=== PATIENT | female | born 1980 | race Caucasian/White ===

== ENCOUNTER → 2016-10-25 02:55 | Emergency (ER) | payer OTHER ==
[~2016-10-25 02:55] MED LIST: Aspirin Low Dose CHEW TAB* 81 MG PO ONE; NS 0.9% 1000 ML* 1,000 ML IV ONE; Potassium Chlor TAB* 20 MEQ TAB.ER PO ONE; QUEtiapine TAB* 100 MG PO ONE; traZODone TAB* 50 MG TAB PO ONE
[2016-10-25 04:13] LABS: Hematocrit 39 % (35-47); Hemoglobin 13.4 g/dl (12.0-16.0); Mean Corpuscular HGB Conc 34 g/dl (31-36); Mean Corpuscular Hemoglobin 29 pg (27-31); Mean Corpuscular Volume 86 fL (80-97); Mean Platelet Volume 9 um3 (7.4-10.4); Red Blood Count 4.58 10^6/ul (4.0-5.4); Red Cell Distribution Width 14 % (10.5-15); White Blood Count 12.1 10^3/ul (3.5-10.8)
[2016-10-25 04:30] LABS: ALT 9 U/L (7-52); AST 13 U/L (13-39); Albumin 4.5 g/dL (3.2-5.2); Alkaline Phosphatase 74 U/L (34-104); Anion Gap 7 mmol/L (2-11); BUN/Creatinine Ratio 8.5 (8-20); Blood Urea Nitrogen 6 mg/dL (6-24); CO2 Carbon Dioxide 24 mmol/L (22-32); Calcium 9.2 mg/dL (8.6-10.3); Chloride 104 mmol/L (101-111); Creatine Kinase 57 U/L (10-223); EGFR African American 121.2 (>60); EGFR Non-African American 94.2 (>60); Globulin 3.5 g/dL (2-4); Glucose 115 mg/dL (70-100); Magnesium 2.2 mg/dL (1.9-2.7); Potassium 3.4 mmol/L (3.5-5.0); Sodium 135 mmol/L (133-145)
[2016-10-25 04:34] LABS: Troponin I 0.01 ng/mL (<0.04)
[2016-10-25 04:39] LABS: TSH (Thyroid Stimulating Horm) 73.32 mcIU/mL (0.34-5.60)
--- NOTE | 2016-10-25 08:06 | RAD ---
HISTORY: Chest pain COMPARISONS: June 11, 2013 VIEWS: 1: frontal portable view of the chest at 3:56 AM FINDINGS: LINES AND TUBES: None. CARDIOMEDIASTINAL SILHOUETTE: The cardiomediastinal silhouette is normal for portable technique. PLEURA: The costophrenic angles are sharp. No pleural abnormalities are noted. LUNG PARENCHYMA: There is a mild diffuse reticular pattern with indistinct pulmonary vessels. The lung volumes are low. There is linear opacification of the lung bases bilaterally. ABDOMEN: The upper abdomen is clear. There is no subphrenic gas. BONES AND SOFT TISSUES: No bone or soft tissue abnormalities are noted. IMPRESSION: 1. LOW LUNG VOLUMES. 2. LINEAR ATELECTASIS OF THE LUNG BASES BILATERALLY. 3. MILD DIFFUSE INTERSTITIAL PATTERN WHICH MAY INDICATE MILD PULMONARY INTERSTITIAL EDEMA OR MAY BE ARTIFACT OF THE PHASE OF INSPIRATION
[2016-10-25 09:06] VITALS: BP 111/64
--- NOTE | 2016-10-25 12:47 | ED ---
Augustin Betancourt Rebecca, scribed for Lexis Franco MD on 10/25/16 at 0339 . HPI Chest Pain - HPI Summary HPI Summary: Pt is a 35 y/o F who presents to ED c/o midsternal CP. Pain began tonight at 2100 while relaxing on a cough after a "very stressful last 36 hours." Pain is currently severe, ranked 8/10 and described as heaviness, citing the pain as " an elephant sitting on my chest." Pain radiates laterally across the chest but does not radiate into the arms, jaw or neck. Given ASA while en route to [facility] [place] [facility] [place] EMS. Sx aggravated by deep breaths and alleviated by nothing. Additionally c/ o SOB and feeling "shaky." Denies N/V, fever, cough, edema, LE pain and palpitations. Allergies to amoxicillin and penicillin. SHx smoking 1/2 PPD. Takes Trazadone 50 mg 3x per day, Seroquel 100 mg at a time. - History of Current Complaint Chief Complaint: EDChestWallPain Time Seen by Provider: 10/25/16 03:34 Hx Obtained From: Patient Hx Last Menstrual Period: n/a Onset/Duration: Started Hours Ago, Still Present Time of Onset: 21:00 Current Severity: Moderate Pain Intensity: 7 Pain Scale Used: 0-10 Numeric Chest Pain Location: Mid Sternal Chest Pain Radiates: Yes Chest Pain Radiates To:: Other - Across the chest Character: Heaviness Aggravating Factor(s): Deep Breaths Alleviating Factor(s): Nothing Associated Signs and Symptoms: Positive: Shortness of Breath, Other: - "shaky". Negative: Fever, Nausea, Vomiting - Allergy/Home Medications Allergies/Adverse Reactions: Allergies Allergy/AdvReac Type Severity Reaction Status Date / Time Amoxicillin Allergy Rash Verified 07/01/14 16:07 Penicillins [PCN] Allergy Rash Verified 07/01/14 16:07 PMH/Surg Hx/FS Hx/Imm Hx Endocrine/Hematology History: Reports: Hx Thyroid Disease Denies: Hx Diabetes Cardiovascular History: Reports: Other Cardiovascular Problems/Disorders - STRONG FAMILY HX HEART DISEASE Denies: Hx Hypercholesterolemia, Hx Hypertension Respiratory History: Reports: Hx Asthma Denies: Hx Chronic Obstructive Pulmonary Disease (COPD) GI History: Reports: Other GI Disorders - on going diarrhea Denies: Hx Ulcer Sensory History: Denies: Hx Contacts or Glasses, Hx Hearing Aid Opthamlomology History: Denies: Hx Contacts or Glasses Psychiatric History: Reports: Hx Anxiety, Hx Depression, Hx Community Mental Health Tx, Hx Suicide Attempt Denies: Hx Eating Disorder, Hx of Violent Episodes Against Others - Cancer History Cancer Type, Location and Year: thyroid - Surgical History Surgery Procedure, Year, and Place: thyroidectomy 2008,tubal ligation-2006, hysterectomy 2008. Choley 2013 Hx Anesthesia Reactions: No - Immunization History Date of Tetanus Vaccine: PT STATES UNSURE Date of Influenza Vaccine: NONE Infectious Disease History: No Infectious Disease History: Denies: Hx Clostridium Difficile, Hx Hepatitis, Hx Human Immunodeficiency Virus (HIV), Hx of Known/Suspected MRSA, Hx Shingles, Hx Tuberculosis, Hx Known/ Suspected VRE, Hx Known/Suspected VRSA, History Other Infectious Disease, Traveled Outside the [place] in Last 30 Days - Family History Known Family History: Positive: Cardiac Disease - grandparents - Social History Alcohol Use: None Substance Use Type: Reports: Excessive Caffeine Substance Use Comment - Amount & Last Used: Drinks a 12 pack of pepsi a day Smoking Status (MU): Heavy Every Day Tobacco Smoker Type: Cigarettes Amount Used/How Often: 1/2 pack daily Length of Time of Smoking/Using Tobacco: age 17 yo Have You Smoked in the Last Year: Yes Review of Systems Positive: Other - Feeling "shaky". Negative: Fever Positive: Chest Pain. Negative: Palpitations Positive: Shortness Of Breath. Negative: Cough Negative: Vomiting, Nausea Positive: Other - NEGATIVE: LE pain. Negative: Edema All Other Systems Reviewed And Are Negative: Yes Physical Exam Triage Information Reviewed: Yes Vital Signs On Initial Exam: Initial Vitals Temp Pulse Resp BP Pulse Ox 99.1 F 101 22 114/77 95 10/25/16 02:55 10/25/16 02:55 10/25/16 02:55 10/25/16 02:55 10/25/16 02:55 Vital Signs Reviewed: Yes Appearance: Positive: No Pain Distress, Well-Nourished, Ill-Appearing Skin: Positive: Warm, Skin Color Reflects Adequate Perfusion Head/Face: Positive: Normal Head/Face Inspection Eyes: Positive: Normal ENT: Positive: Normal ENT inspection Dental: Positive: Other - EDENTULOUS Neck: Positive: Supple Respiratory/Lung Sounds: Positive: Clear to Auscultation, Breath Sounds Present Cardiovascular: Positive: RRR, Pulses are Symmetrical in both Upper and Lower Extremities, Other - Brisk capillary refill. Negative: Murmur Abdomen Description: Positive: Nontender, Soft Bowel Sounds: Positive: Present Musculoskeletal: Positive: Normal, Strength/ROM Intact Neurological: Positive: Sensory/Motor Intact, Alert, Oriented to Person Place, Time, Facial Symmetry, Speech Normal Psychiatric: Positive: Normal - Chuy Coma Scale Coma Scale Total: 15 Diagnostics - Vital Signs Vital Signs Temp Pulse Resp BP Pulse Ox 10/25/16 02:55 99.1 F 101 22 114/77 95 - Laboratory Lab Results: Lab Results 10/25/16 10/25/16 10/25/16 Range/Units 04:01 04:01 04:01 WBC 12.1 H (3.5-10.8) 10^3/ul RBC 4.58 (4.0-5.4) 10^6/ul Hgb 13.4 (12.0-16.0) g/dl Hct 39 (35-47) % MCV 86 (80-97) fL MCH 29 (27-31) pg MCHC 34 (31-36) g/dl RDW 14 (10.5-15) % Plt Count 319 (150-450) 10^3/ul MPV 9 (7.4-10.4) um3 Neut % (Auto) 77.1 (38-83) % Lymph % (Auto) 15.9 L (25-47) % Stanton % (Auto) 4.3 (1-9) % Eos % (Auto) 2.0 (0-6) % Baso % (Auto) 0.7 (0-2) % Absolute Neuts (auto) 9.3 H (1.5-7.7) 10^3/ul Absolute Lymphs (auto) 1.9 (1.0-4.8) 10^3/ul Absolute Monos (auto) 0.5 (0-0.8) 10^3/ul Absolute Eos (auto) 0.2 (0-0.6) 10^3/ul Absolute Basos (auto) 0.1 (0-0.2) 10^3/ul Absolute Nucleated RBC 0 10^3/ul Nucleated RBC % 0 INR (Anticoag Therapy) (0.89-1.11) D-Dimer, Quantitative (Less Than 230) ng/mL Sodium 135 (133-145) mmol/L Potassium 3.4 L (3.5-5.0) mmol/L Chloride 104 (101-111) mmol/L Carbon Dioxide 24 (22-32) mmol/L Anion Gap 7 (2-11) mmol/L BUN 6 (6-24) mg/dL Creatinine 0.71 (0.51-0.95) mg/dL Est GFR ( Amer) 121.2 (>60) Est GFR (Non-Af Amer) 94.2 (>60) BUN/Creatinine Ratio 8.5 (8-20) Glucose 115 H (70-100) mg/dL Lactic Acid (0.5-2.0) mmol/L Calcium 9.2 (8.6-10.3) mg/dL Magnesium 2.2 (1.9-2.7) mg/dL Total Bilirubin 0.50 (0.2-1.0) mg/dL AST 13 (13-39) U/L ALT 9 (7-52) U/L Alkaline Phosphatase 74 (34-104) U/L Total Creatine Kinase 57 (10-223) U/L CK-MB (CK-2) 1.3 (0.6-6.3) ng/mL Troponin I 0.01 (<0.04) ng/mL B-Natriuretic Peptide 48 ( - 100) pg/mL Total Protein 8.0 (6.4-8.9) g/dL Albumin 4.5 (3.2-5.2) g/dL Globulin 3.5 (2-4) g/dL Albumin/Globulin Ratio 1.3 (1-3) TSH 73.32 H (0.34-5.60) mcIU/mL Beta HCG, Quant < 0.60 mIU/mL 10/25/16 10/25/16 10/25/16 Range/Units 04:01 04:01 07:10 WBC (3.5-10.8) 10^3/ul RBC (4.0-5.4) 10^6/ul Hgb (12.0-16.0) g/dl Hct (35-47) % MCV (80-97) fL MCH (27-31) pg MCHC (31-36) g/dl RDW (10.5-15) % Plt Count (150-450) 10^3/ul MPV (7.4-10.4) um3 Neut % (Auto) (38-83) % Lymph % (Auto) (25-47) % Stanton % (Auto) (1-9) % Eos % (Auto) (0-6) % Baso % (Auto) (0-2) % Absolute Neuts (auto) (1.5-7.7) 10^3/ul Absolute Lymphs (auto) (1.0-4.8) 10^3/ul Absolute Monos (auto) (0-0.8) 10^3/ul Absolute Eos (auto) (0-0.6) 10^3/ul Absolute Basos (auto) (0-0.2) 10^3/ul Absolute Nucleated RBC 10^3/ul Nucleated RBC % INR (Anticoag Therapy) 0.95 (0.89-1.11) D-Dimer, Quantitative < 200 (Less Than 230) ng/mL Sodium (133-145) mmol/L Potassium (3.5-5.0) mmol/L Chloride (101-111) mmol/L Carbon Dioxide (22-32) mmol/L Anion Gap (2-11) mmol/L BUN (6-24) mg/dL Creatinine (0.51-0.95) mg/dL Est GFR ( Amer) (>60) Est GFR (Non-Af Amer) (>60) BUN/Creatinine Ratio (8-20) Glucose (70-100) mg/dL Lactic Acid 1.2 (0.5-2.0) mmol/L Calcium (8.6-10.3) mg/dL Magnesium (1.9-2.7) mg/dL Total Bilirubin (0.2-1.0) mg/dL AST (13-39) U/L ALT (7-52) U/L Alkaline Phosphatase (34-104) U/L Total Creatine Kinase (10-223) U/L CK-MB (CK-2) (0.6-6.3) ng/mL Troponin I 0.01 (<0.04) ng/mL B-Natriuretic Peptide ( - 100) pg/mL Total Protein (6.4-8.9) g/dL Albumin (3.2-5.2) g/dL Globulin (2-4) g/dL Albumin/Globulin Ratio (1-3) TSH (0.34-5.60) mcIU/mL Beta HCG, Quant mIU/mL Result Diagrams: 10/25/16 04:01 10/25/16 04:01 Lab Statement: Any lab studies that have been ordered have been reviewed, and results considered in the medical decision making process. - Radiology CXR Xray Interpretation: Positive (See Comments) - Infiltrate of the R base. Radiology Interpretation Completed By: ED Physician - EKG 0257 Cardiac Rate: NL - 95 bpm EKG Rhythm: Sinus Rhythm EKG Interpretation: Nl AV/IV CT, nl QTC, nl axis, poor R wave progression in V1 and V2 Re-Evaluation - Re-Evaluation First Eval Re-Evaluation Time: 08:05 - slept, pain is less, generalized fatigue. agrees to DC. advised of hypothroidism and need to get established with PCP locally after relocating from [facility]. States she will get an MD in [place]. Change: Improved Chest Pain Course/Dx - Course Assessment/Plan: Pt is a 35 y/o F who presents to ED c/o midsternal CP. Pain began tonight at 2100 while relaxing on a cough after a "very stressful last 36 hours." Pain is currently severe, ranked 8/10 and described as heaviness, citing the pain as "an elephant sitting on my chest." Pain radiates laterally across the chest but does not radiate into the arms, jaw or neck. Given ASA while en route to [facility] [place] [facility] by EMS. Sx aggravated by deep breaths and alleviated by nothing. Additionally c/o SOB and feeling "shaky." Denies N/V, fever, cough, edema, LE pain and palpitations. Allergies to amoxicillin and penicillin. SHx smoking 1/2 PPD. Takes Trazadone 50 mg 3x per day, Seroquel 100 mg at a time. CXR reveals infiltrate of the R base as read by ED physician. EKG reveals normal sinus rhythm with poor R wave progression. Labs remarkable for elevated TSH 73. Normal troponin and d-dimer. Pt DC'd home for definite follow up with PCP. - Diagnoses Provider Diagnoses: Tobacco abuse disorder, Chest pain, Hypothyroidism Discharge - Discharge Plan Condition: Stable Disposition: HOME Patient Education Materials: Chest Pain (ED), Hypothyroidism (ED) Referrals: Leonidas Chris DO [Primary Care Provider] - 2 Days The documentation as recorded by the Augustin sierra Rebecca accurately reflects the service I personally performed and the decisions made by , Lexis Franco MD.
== END | disposition home or self-care (01) ==
LOC: ED 02:55
DX: R07.9 Chest pain, unspecified (principal); E03.9 Hypothyroidism, unspecified; Z82.49 Family history of ischemic heart disease and other diseases of the circulatory system; F17.210 Nicotine dependence, cigarettes, uncomplicated
CPT/HCPCS: 36415; 71010; 80053; 82550; 82553; 83605; 83735; 83880; 84443; 84484; 84702; 85025; 85379; 85610; 93005; 96360; 99283; A9270-GY

== ENCOUNTER 2017-01-03 10:42 | Emergency (ER) | payer OTHER ==
[2017-01-03] MEDS ORDERED: Ketorolac INJ* 30 MG/ML 1 ML VIAL IM ONE (11:24)
--- NOTE | 2017-01-03 11:37 | UC ---
Respiratory Complaint HPI - HPI Summary HPI Summary: 36 yo female with nasal congestion and runny nose x 3 days now with frontal throbbing AM which started this AM about 3AM also with severe myalgias that started during the night no stiff neck no sob or cp no n/v/d she has photophobia she has not had a MOHAN like this before - History of Current Complaint Chief Complaint: UCRespiratory Stated Complaint: HEADACHE Time Seen by Provider: 01/03/17 11:12 Hx Obtained From: Patient Hx Last Menstrual Period: hysterectomy Onset/Duration: Gradual Onset, Lasting Days Timing: Constant Severity Initially: Moderate Severity Currently: Moderate Pain Intensity: 7 - MOHAN Pain Scale Used: 0-10 Numeric Aggravating Factors: Nothing Associated Signs And Symptoms: Positive: Chills, Nasal Congestion, Sinus Discomfort - Allergies/Home Medications Allergies/Adverse Reactions: Allergies Allergy/AdvReac Type Severity Reaction Status Date / Time Amoxicillin Allergy Rash Verified 01/03/17 11:00 Penicillins [PCN] Allergy Rash Verified 01/03/17 11:00 PMH/Surg Hx/FS Hx/Imm Hx Previously Healthy: Yes - Surgical History Surgical History: Yes Surgery Procedure, Year, and Place: thyroidectomy 2008,tubal ligation-2006, hysterectomy 2008. Choley 2013 - Family History Known Family History: Positive: Cardiac Disease - grandparents - Social History Alcohol Use: None Substance Use Type: None Substance Use Comment - Amount & Last Used: Drinks a 12 pack of pepsi a day Smoking Status (MU): Heavy Every Day Tobacco Smoker Type: Cigarettes Amount Used/How Often: 1/2 pack daily Length of Time of Smoking/Using Tobacco: age 17 yo Have You Smoked in the Last Year: Yes Household Exposure Type: Cigarettes - Immunization History Most Recent Influenza Vaccination: 2016 Most Recent Tetanus Shot: had it, but is unsure on what year - she thinks 3 yrs ago. Most Recent Pneumonia Vaccination: 2010 Review of Systems Constitutional: Chills Skin: Negative Eyes: Photophobia ENT: Nasal Discharge, Sinus Congestion, Sinus Pain/Tenderness Respiratory: Negative Cardiovascular: Negative Gastrointestinal: Negative Genitourinary: Negative Motor: Negative Neurovascular: Negative Musculoskeletal: Myalgia Neurological: Headache Psychological: Negative Is Patient Immunocompromised?: No All Other Systems Reviewed And Are Negative: Yes Physical Exam Triage Information Reviewed: Yes Appearance: Well-Appearing, No Pain Distress, Well-Nourished Vital Signs: Initial Vital Signs Temp 98.4 F 01/03/17 10:56 Pulse 91 01/03/17 10:56 Resp 16 01/03/17 10:56 BP 110/70 01/03/17 10:56 Pulse Ox 99 01/03/17 10:56 Vital Signs Reviewed: Yes Eyes: Positive: Conjunctiva Clear, Other: - eomi/perrl ENT: Positive: Hearing grossly normal, Nasal congestion, Nasal drainage, Sinus tenderness. Negative: Tonsillar exudate, Trismus, Muffled voice Dental Exam: Normal Neck: Positive: Supple, Nontender, No Lymphadenopathy Respiratory: Positive: Lungs clear, Normal breath sounds, No respiratory distress, No accessory muscle use Cardiovascular: Positive: RRR, No Murmur Musculoskeletal: Positive: ROM Intact, No Edema Neurological: Positive: Alert, Other: - nonfocal exam, cn2-12 intact Psychological Exam: Normal Skin Exam: Normal UC Diagnostic Evaluation - Laboratory O2 Sat by Pulse Oximetry: 99 - normal/not hypoxic Diagnostic Studies Comment: influenza (-) - Radiology Xray Interpretation: No Acute Changes - CT brain Radiology Interpretation Completed By: Radiologist Re-Evaluation - Re-Evaluation First Eval Re-Evaluation Time: 12:45 Change: Improved - MOHAN 3/ Respiratory Course/Dx - Differential Dx/Diagnosis Provider Diagnoses: Headache. ? viral cephalgia Discharge - Discharge Plan Condition: Stable Disposition: HOME Patient Education Materials: Acute Headache (ED) Referrals: Maureen Arboleda MD [Primary Care Provider] - 2 Days Additional Instructions: rest fluids recheck for new or worsening symptoms see your MD in 2 days as planned
--- NOTE | 2017-01-03 12:31 | RAD ---
HISTORY: Headache COMPARISONS: September 13, 2011 TECHNIQUE: Multiple contiguous axial CT scans were obtained of the head without intravenous contrast. FINDINGS: HEMORRHAGE/INFARCT: There is no hemorrhage or acute infarct. MASSES/SHIFT: There is no mass or shift. EXTRA-AXIAL SPACES: There are no extra-axial fluid collections. SULCI AND VENTRICLES: The sulci and ventricles are normal in size and position for the patient's stated age. CEREBRUM: There are no focal parenchymal abnormalities. BRAINSTEM: There are no focal parenchymal abnormalities. CEREBELLUM: There are no focal parenchymal abnormalities. VESSELS: The vessels are grossly normal. PARANASAL SINUSES: The paranasal sinuses are clear. ORBITS: The orbits are unremarkable. BONES AND SOFT TISSUE: No bone or soft tissue abnormalities are noted. OTHER: None IMPRESSION: NO ACUTE INTRACRANIAL PATHOLOGY.
[2017-01-03 12:52] VITALS: BP 113/69
== END 2017-01-03 12:51 | disposition home or self-care (01) ==
LOC: UCEAST 10:42
DX: R51 Headache (principal); F15.90 Other stimulant use, unspecified, uncomplicated; Z72.0 Tobacco use
CPT/HCPCS: 70450; 87502; 99211; G0463; J1885

== ENCOUNTER 2017-01-09 09:55 | Emergency (ER) | payer OTHER ==
[2017-01-09 12:40] VITALS: BP 112/76
--- NOTE | 2017-01-09 12:52 | UC ---
Throat Pain/Nasal Jalil HPI - HPI Summary HPI Summary: scotty has had 2 weeks of increased sinus pressure and cough, it is located on the right side of her face, right eye is tearing and red. - History of Current Complaint Chief Complaint: UCGeneralIllness Stated Complaint: SINUS PRESSURE Time Seen by Provider: 01/09/17 12:29 Hx Obtained From: Patient Hx Last Menstrual Period: hysterectomy ?: No Onset/Duration: Sudden Onset, Lasting Weeks Severity: Severe Cough: Nonproductive Associated Signs & Symptoms: Positive: Hoarseness, Sinus Discomfort, Nasal Discharge - Allergies/Home Medications Allergies/Adverse Reactions: Allergies Allergy/AdvReac Type Severity Reaction Status Date / Time Amoxicillin Allergy Rash Verified 01/03/17 11:00 Penicillins [PCN] Allergy Rash Verified 01/03/17 11:00 PMH/Surg Hx/FS Hx/Imm Hx Previously Healthy: Yes - Surgical History Surgical History: Yes Surgery Procedure, Year, and Place: thyroidectomy 2008,tubal ligation-2006, hysterectomy 2008. Choley 2012 - Family History Known Family History: Positive: Cardiac Disease - grandparents - Social History Alcohol Use: None Substance Use Type: None Substance Use Comment - Amount & Last Used: Drinks a 12 pack of pepsi a day Smoking Status (MU): Light Every Day Tobacco Smoker Type: Cigarettes Amount Used/How Often: < 1/2 PPD Length of Time of Smoking/Using Tobacco: Since Age 16 Have You Smoked in the Last Year: Yes Household Exposure Type: Cigarettes - Immunization History Most Recent Influenza Vaccination: 01/05/17 Most Recent Tetanus Shot: had it, but is unsure on what year - she thinks 3 yrs ago. Most Recent Pneumonia Vaccination: 2010 Review of Systems Constitutional: Negative Skin: Negative Eyes: Drainage, Eye Redness ENT: Sore Throat, Nasal Discharge, Sinus Congestion, Sinus Pain/Tenderness Respiratory: Cough Cardiovascular: Negative Gastrointestinal: Negative Genitourinary: Negative Motor: Negative Neurovascular: Negative Musculoskeletal: Arthralgia Neurological: Headache Psychological: Negative Is Patient Immunocompromised?: No All Other Systems Reviewed And Are Negative: Yes Physical Exam Triage Information Reviewed: Yes Appearance: Well-Nourished, Ill-Appearing, Pain Distress Vital Signs: Initial Vital Signs Temp 97.9 F 01/09/17 12:37 Pulse 100 01/09/17 12:37 Resp 16 01/09/17 12:37 BP 112/76 01/09/17 12:37 Pulse Ox 100 01/09/17 12:37 Vital Signs Reviewed: Yes Eyes: Positive: Conjunctiva Inflamed, Discharge - clear ENT: Positive: Pharyngeal erythema, Nasal congestion, Nasal drainage, TM bulging , TM dull, Sinus tenderness Dental Exam: Normal Neck exam: Normal Neck: Positive: Supple, Nontender, No Lymphadenopathy Respiratory Exam: Normal Respiratory: Positive: Chest non-tender, Lungs clear, Normal breath sounds Cardiovascular Exam: Normal Cardiovascular: Positive: No Murmur, Pulses Normal, Tachycardia Abdominal Exam: Normal Abdomen Description: Positive: Nontender, No Organomegaly, Soft Bowel Sounds: Positive: Present Musculoskeletal Exam: Normal Neurological Exam: Normal Psychological Exam: Normal Skin Exam: Normal Throat Pain/Nasal Course/Dx - Course Course Of Treatment: hx obtained, exam performed, treated for sinusitis - Differential Dx/Diagnosis Differential Diagnosis/HQI/PQRI: Laryngitis, Otitis Media, Pharyngitis, Sinusitis, URI Provider Diagnoses: Sinusitis Discharge - Discharge Plan Condition: Stable Disposition: HOME Patient Education Materials: Sinusitis (ED) Referrals: Maureen Arboleda MD [Primary Care Provider] - Additional Instructions: 1. TAKE the medication as prescribed. 2. Increase fluid intake and get plenty of rest. 3. Warm compresses to sinuses. 4. Run the humidifier day and night to keep secreations loose. Follow up if needed.
== END 2017-01-09 12:58 | disposition home or self-care (01) ==
LOC: UCCORT 09:55
DX: J32.9 Chronic sinusitis, unspecified (principal); Z88.0 Allergy status to penicillin; F17.210 Nicotine dependence, cigarettes, uncomplicated
CPT/HCPCS: 99212; G0463

== ENCOUNTER 2017-03-01 20:41 | Emergency (ER) | payer OTHER ==
[2017-03-01 21:55] LABS: ABS Basophils 0.1 10^3/ul (0-0.2); ABS Eosinophils 0.2 10^3/ul (0-0.6); ABS Lymphocytes 1.8 10^3/ul (1.0-4.8); ABS Monocytes 1.1 10^3/ul (0-0.8); ABS Neutrophils 7.3 10^3/ul (1.5-7.7); ABS Nucleated RBC 0 10^3/ul; Eosinophil % 1.7 % (0-6); Hematocrit 39 % (35-47); Hemoglobin 13.3 g/dl (12.0-16.0); Lymphocyte % 17.1 % (25-47); Mean Corpuscular HGB Conc 34 g/dl (31-36); Mean Corpuscular Hemoglobin 29 pg (27-31); Mean Corpuscular Volume 86 fL (80-97); Mean Platelet Volume 9 um3 (7.4-10.4); Nucleated Red Blood Cells % 0; Platelet Count 298 10^3/ul (150-450); Red Blood Count 4.59 10^6/ul (4.0-5.4); Red Cell Distribution Width 14 % (10.5-15); White Blood Count 10.4 10^3/ul (3.5-10.8)
[2017-03-01 22:10] LABS: EGFR Non-African American 134.2 (>60)
[2017-03-01 22:37] VITALS: BP 112/58
[2017-03-01] MEDS ORDERED: LORazepam INJ* 2 MG/ML 1 ML VIAL ONE (22:42)
[2017-03-01] MEDS ORDERED: LORazepam INJ* 2 MG/ML 1 ML VIAL IM ONE (22:44)
--- NOTE | 2017-03-02 02:13 | ED ---
Jyothi Betancourt Nilda, scribed for Hawa Finch MD on 03/02/17 at 0051 . HPI Chest Pain - HPI Summary HPI Summary: Pt is a 36 y/o F c/o constant severe CP that radiates to LUE for the past 5 hours. Pain is rated 10/10 in severity. Pt states pain is aggravated by movement and deep inspiration. Pt reports LUE numbness. She denies BCPs. PMHx anxiety and PTSD. - History of Current Complaint Chief Complaint: EDChestPainROMI Hx Obtained From: Patient Hx Last Menstrual Period: hysterectomy Onset/Duration: Started Hours Ago, Still Present Timing: Constant, Lasting Hours Current Severity: Severe Pain Intensity: 10 Pain Scale Used: 0-10 Numeric Chest Pain Location: Diffuse Chest Pain Radiates: Yes Chest Pain Radiates To:: Arm - left Aggravating Factor(s): Exertion, Deep Breaths Alleviating Factor(s): Rest Associated Signs and Symptoms: Positive: Numbness - LUE - Allergy/Home Medications Allergies/Adverse Reactions: Allergies Allergy/AdvReac Type Severity Reaction Status Date / Time Amoxicillin Allergy Rash Verified 01/03/17 11:00 Penicillins [PCN] Allergy Rash Verified 01/03/17 11:00 PMH/Surg Hx/FS Hx/Imm Hx Endocrine/Hematology History: Reports: Hx Thyroid Disease Denies: Hx Diabetes Cardiovascular History: Reports: Other Cardiovascular Problems/Disorders - STRONG FAMILY HX HEART DISEASE Denies: Hx Hypercholesterolemia, Hx Hypertension Respiratory History: Reports: Hx Asthma Denies: Hx Chronic Obstructive Pulmonary Disease (COPD) GI History: Reports: Other GI Disorders - on going diarrhea Denies: Hx Ulcer Sensory History: Denies: Hx Contacts or Glasses, Hx Hearing Aid Opthamlomology History: Denies: Hx Contacts or Glasses Psychiatric History: Reports: Hx Anxiety, Hx Depression, Hx Community Mental Health Tx, Hx Suicide Attempt Denies: Hx Eating Disorder, Hx of Violent Episodes Against Others - Cancer History Cancer Type, Location and Year: thyroid - Surgical History Surgery Procedure, Year, and Place: thyroidectomy 2008,tubal ligation-2006, hysterectomy 2008. Choley 2013 Hx Anesthesia Reactions: No - Immunization History Date of Tetanus Vaccine: PT STATES UNSURE Date of Influenza Vaccine: NONE Infectious Disease History: No Infectious Disease History: Denies: Hx Clostridium Difficile, Hx Hepatitis, Hx Human Immunodeficiency Virus (HIV), Hx of Known/Suspected MRSA, Hx Shingles, Hx Tuberculosis, Hx Known/ Suspected VRE, Hx Known/Suspected VRSA, History Other Infectious Disease, Traveled Outside the [place] in Last 30 Days - Family History Known Family History: Positive: Cardiac Disease - grandparents - Social History Alcohol Use: None Substance Use Type: Reports: None Substance Use Comment - Amount & Last Used: Drinks a 12 pack of pepsi a day Smoking Status (MU): Light Every Day Tobacco Smoker Type: Cigarettes Amount Used/How Often: < 1/2 PPD Length of Time of Smoking/Using Tobacco: Since Age 16 Have You Smoked in the Last Year: Yes Review of Systems Positive: Chest Pain Positive: Other - LUE pain Positive: Numbness - LUE All Other Systems Reviewed And Are Negative: Yes Physical Exam - Summary Physical Exam Summary: VITAL SIGNS: Reviewed. GENERAL: Patient is a well-developed and nourished female who seems anxious. Patient is not in any acute respiratory distress. HEAD AND FACE: No signs of trauma. No ecchymosis, hematomas or skull depressions. No sinus tenderness. EYES: PERRLA, EOMI x 2, No injected conjunctiva, no nystagmus. EARS: Hearing grossly intact. Ear canals and tympanic membranes are within normal limits. MOUTH: Oropharynx within normal limits. NECK: Supple, trachea is midline, no adenopathy, no JVD, no carotid bruit, no c- spine tenderness, neck with full ROM. CHEST: Symmetric, no tenderness at palpation LUNGS: Clear to auscultation bilaterally. No wheezing or crackles. CVS: Mild tachycardia. S1 and S2 present, no murmurs or gallops appreciated. ABDOMEN: Soft, non-tender. No signs of distention. No rebound no guarding, and no masses palpated. Bowel sounds are normal. EXTREMITIES: FROM in all major joints, no edema, no cyanosis or clubbing. NEURO: Alert and oriented x 3. No acute neurological deficits. Speech is normal and follows commands. Triage Information Reviewed: Yes Vital Signs On Initial Exam: Initial Vitals Temp Pulse Resp BP Pulse Ox 98.5 F 118 20 119/64 96 03/01/17 20:43 03/01/17 20:43 03/01/17 20:43 03/01/17 20:43 03/01/17 20:43 Vital Signs Reviewed: Yes Diagnostics - Vital Signs Vital Signs Temp Pulse Resp BP Pulse Ox 03/01/17 22:49 20 03/01/17 22:35 98.4 F 90 18 112/58 98 03/01/17 20:43 98.5 F 118 20 119/64 96 - Laboratory Lab Results: Lab Results 03/01/17 03/01/17 03/01/17 Range/Units 21:44 21:44 21:44 WBC 10.4 (3.5-10.8) 10^3/ul RBC 4.59 (4.0-5.4) 10^6/ul Hgb 13.3 (12.0-16.0) g/dl Hct 39 (35-47) % MCV 86 (80-97) fL MCH 29 (27-31) pg MCHC 34 (31-36) g/dl RDW 14 (10.5-15) % Plt Count 298 (150-450) 10^3/ul MPV 9 (7.4-10.4) um3 Neut % (Auto) 70.5 (38-83) % Lymph % (Auto) 17.1 L (25-47) % Socorro % (Auto) 10.2 H (1-9) % Eos % (Auto) 1.7 (0-6) % Baso % (Auto) 0.5 (0-2) % Absolute Neuts (auto) 7.3 (1.5-7.7) 10^3/ul Absolute Lymphs (auto) 1.8 (1.0-4.8) 10^3/ul Absolute Monos (auto) 1.1 H (0-0.8) 10^3/ul Absolute Eos (auto) 0.2 (0-0.6) 10^3/ul Absolute Basos (auto) 0.1 (0-0.2) 10^3/ul Absolute Nucleated RBC 0 10^3/ul Nucleated RBC % 0 APTT 35.0 (26.0-36.3) seconds D-Dimer, Quantitative < 200 (Less Than 230) ng/mL Sodium 135 (133-145) mmol/L Potassium 3.4 L (3.5-5.0) mmol/L Chloride 106 (101-111) mmol/L Carbon Dioxide 22 (22-32) mmol/L Anion Gap 7 (2-11) mmol/L BUN 7 (6-24) mg/dL Creatinine 0.52 (0.51-0.95) mg/dL Est GFR ( Amer) 172.6 (>60) Est GFR (Non-Af Amer) 134.2 (>60) BUN/Creatinine Ratio 13.5 (8-20) Glucose 97 (70-100) mg/dL Lactic Acid (0.5-2.0) mmol/L Calcium 9.0 (8.6-10.3) mg/dL Total Bilirubin 0.50 (0.2-1.0) mg/dL AST 9 L (13-39) U/L ALT 9 (7-52) U/L Alkaline Phosphatase 69 (34-104) U/L Total Creatine Kinase 27 (10-223) U/L CK-MB (CK-2) 0.6 (0.6-6.3) ng/mL Troponin I 0.01 (<0.04) ng/mL Total Protein 7.0 (6.4-8.9) g/dL Albumin 3.8 (3.2-5.2) g/dL Globulin 3.2 (2-4) g/dL Albumin/Globulin Ratio 1.2 (1-3) / Range/Units 21:44 WBC (3.5-10.8) 10^3/ul RBC (4.0-5.4) 10^6/ul Hgb (12.0-16.0) g/dl Hct (35-47) % MCV (80-97) fL MCH (27-31) pg MCHC (31-36) g/dl RDW (10.5-15) % Plt Count (150-450) 10^3/ul MPV (7.4-10.4) um3 Neut % (Auto) (38-83) % Lymph % (Auto) (25-47) % Socorro % (Auto) (1-9) % Eos % (Auto) (0-6) % Baso % (Auto) (0-2) % Absolute Neuts (auto) (1.5-7.7) 10^3/ul Absolute Lymphs (auto) (1.0-4.8) 10^3/ul Absolute Monos (auto) (0-0.8) 10^3/ul Absolute Eos (auto) (0-0.6) 10^3/ul Absolute Basos (auto) (0-0.2) 10^3/ul Absolute Nucleated RBC 10^3/ul Nucleated RBC % APTT (26.0-36.3) seconds D-Dimer, Quantitative (Less Than 230) ng/mL Sodium (133-145) mmol/L Potassium (3.5-5.0) mmol/L Chloride (101-111) mmol/L Carbon Dioxide (22-32) mmol/L Anion Gap (2-11) mmol/L BUN (6-24) mg/dL Creatinine (0.51-0.95) mg/dL Est GFR ( Amer) (>60) Est GFR (Non-Af Amer) (>60) BUN/Creatinine Ratio (8-20) Glucose (70-100) mg/dL Lactic Acid 0.8 (0.5-2.0) mmol/L Calcium (8.6-10.3) mg/dL Total Bilirubin (0.2-1.0) mg/dL AST (13-39) U/L ALT (7-52) U/L Alkaline Phosphatase (34-104) U/L Total Creatine Kinase (10-223) U/L CK-MB (CK-2) (0.6-6.3) ng/mL Troponin I (<0.04) ng/mL Total Protein (6.4-8.9) g/dL Albumin (3.2-5.2) g/dL Globulin (2-4) g/dL Albumin/Globulin Ratio (1-3) Result Diagrams: 03/01/17 21:44 03/01/17 21:44 Lab Statement: Any lab studies that have been ordered have been reviewed, and results considered in the medical decision making process. - EKG 2047 Cardiac Rate: Tachycardia EKG Rhythm: Sinus Rhythm - 110 bpm EKG Interpretation: Normal axis. Normal interval. No ischemic changes Chest Pain Course/Dx - Course Assessment/Plan: Pt is a 36 y/o female having CP. Pt given Ativan. Pt eloped out of ED without talking to nursing or med staff. Dx CP, anxiety. - Diagnoses Provider Diagnoses: Chest pain, Anxiety Discharge - Discharge Plan Condition: Stable Disposition: LEFT WITHOUT BEING SEEN Referrals: Maureen Arboleda MD [Primary Care Provider] - The documentation as recorded by the scribe, Roe,Tonya accurately reflects the service I personally performed and the decisions made by me, Hawa Finch MD.
== END 2017-03-02 01:10 | disposition left against medical advice (07) ==
LOC: ED 20:41
DX: R07.9 Chest pain, unspecified (principal); Z53.21 Procedure and treatment not carried out due to patient leaving prior to being seen by health care provider
CPT/HCPCS: 36415; 80053; 82550; 82553; 83605; 84484; 85025; 85379; 85730; 93005; J2060

== ENCOUNTER 2017-03-13 14:25 | Emergency (ER) | payer OTHER ==
[2017-03-13 15:13] VITALS: BP 97/58
--- NOTE | 2017-03-13 15:38 | UC ---
Respiratory Complaint HPI - HPI Summary HPI Summary: Myalgia, coughing with chest pain. Sinus pain. Chills. - History of Current Complaint Chief Complaint: UCGeneralIllness Stated Complaint: NAUSEA, VOMITING Time Seen by Provider: 03/13/17 15:20 Hx Obtained From: Patient Hx Last Menstrual Period: hysterectomy Onset/Duration: Sudden Onset, Lasting Days - 8, Worse Since - last night with sweats Severity Initially: Mild Severity Currently: Moderate Pain Intensity: 8 Character: Cough: Nonproductive Associated Signs And Symptoms: Positive: Fever, Pleuritic Chest Pain, Wheezing, URI, Nasal Congestion, Hoarseness, Sinus Discomfort - Allergies/Home Medications Allergies/Adverse Reactions: Allergies Allergy/AdvReac Type Severity Reaction Status Date / Time Amoxicillin Allergy Rash Verified 03/13/17 15:13 Penicillins [PCN] Allergy Rash Verified 03/13/17 15:13 PMH/Surg Hx/FS Hx/Imm Hx Endocrine History: Thyroid Disease Psychological History: Anxiety, Depression - Surgical History Surgical History: Yes Surgery Procedure, Year, and Place: thyroidectomy 2008,tubal ligation-2006, hysterectomy 2008. Choley 2012 - Family History Known Family History: Positive: Cardiac Disease - grandparents - Social History Occupation: Employed Full-time Lives: With Family Alcohol Use: None Substance Use Type: None Substance Use Comment - Amount & Last Used: Drinks a 12 pack of pepsi a day Smoking Status (MU): Light Every Day Tobacco Smoker Type: Cigarettes Amount Used/How Often: < 1/2 PPD Length of Time of Smoking/Using Tobacco: Since Age 16 Have You Smoked in the Last Year: Yes Household Exposure Type: Cigarettes - Immunization History Most Recent Influenza Vaccination: 01/05/17 Most Recent Tetanus Shot: had it, but is unsure on what year - she thinks 3 yrs ago. Most Recent Pneumonia Vaccination: 2010 Review of Systems Constitutional: Chills, Fatigue ENT: Sore Throat, Sinus Pain/Tenderness Respiratory: Shortness Of Breath, Cough Cardiovascular: Chest Pain - with coughing Musculoskeletal: Arthralgia, Myalgia Is Patient Immunocompromised?: No All Other Systems Reviewed And Are Negative: Yes Physical Exam Triage Information Reviewed: Yes Appearance: Well-Nourished, Ill-Appearing, Pain Distress Vital Signs: Initial Vital Signs Temp 99.5 F 03/13/17 15:09 Pulse 108 03/13/17 15:09 Resp 18 03/13/17 15:09 BP 97/58 03/13/17 15:09 Pulse Ox 99 03/13/17 15:09 Vital Signs Reviewed: Yes ENT: Positive: Pharynx normal, Nasal congestion, TMs normal, Sinus tenderness - frontal Neck exam: Normal Respiratory: Positive: Wheezing - diffuse expiratory Cardiovascular Exam: Normal Musculoskeletal Exam: Normal Neurological Exam: Normal Psychological Exam: Normal Skin Exam: Normal UC Diagnostic Evaluation - Laboratory O2 Sat by Pulse Oximetry: 99 Respiratory Course/Dx - Differential Dx/Diagnosis Differential Diagnosis/HQI/PQRI: Asthma, Lower Resp Infection, Sinusitis Provider Diagnoses: Acute URI. Acute sinusitis. Acute bronchospasm Discharge - Discharge Plan Condition: Stable Disposition: HOME Prescriptions: predniSONE TAB* [Deltasone TAB*] 20 mg PO DAILY #18 tab Sulfamethox/Trimethoprim DS* [Bactrim DS 800/160 TAB*] 1 tab PO BID #20 tab Patient Education Materials: Upper Respiratory Infection (ED), Sinusitis (ED), Sulfamethoxazole/Trimethoprim (By mouth), Bronchospasm (ED), Prednisone (By mouth) Referrals: Maureen Arboleda MD [Primary Care Provider] -
== END 2017-03-13 15:56 | disposition home or self-care (01) ==
LOC: UCCORT 14:25
DX: J06.9 Acute upper respiratory infection, unspecified (principal); J01.90 Acute sinusitis, unspecified; J98.01 Acute bronchospasm; E07.9 Disorder of thyroid, unspecified; F41.9 Anxiety disorder, unspecified; F32.9 Major depressive disorder, single episode, unspecified; E89.0 Postprocedural hypothyroidism; Z90.710 Acquired absence of both cervix and uterus; Z90.49 Acquired absence of other specified parts of digestive tract; Z88.0 Allergy status to penicillin; F17.210 Nicotine dependence, cigarettes, uncomplicated
CPT/HCPCS: 99212; G0463

== ENCOUNTER 2017-03-30 20:31 | Emergency (ER) | payer OTHER | END 2017-03-30 21:37 | disposition left against medical advice (07) | LOC: UCCORT 20:31 | DX: S69.91XA Unspecified injury of right wrist, hand and finger(s), initial encounter (principal); Z53.21 Procedure and treatment not carried out due to patient leaving prior to being seen by health care provider ==

== ENCOUNTER 2017-03-31 09:53 | Emergency (ER) | payer OTHER ==
--- NOTE | 2017-03-31 11:17 | RAD ---
Indication: Pain at the RIGHT first metacarpal following injury. Comparison: No relevant prior exams available on the [facility] for comparison. Technique: AP, lateral, and oblique views RIGHT thumb. Report: Negative for fracture or articular malalignment. Unremarkable soft tissue contours. IMPRESSION: Negative radiographic exam of the RIGHT thumb.
[2017-03-31 12:05] VITALS: BP 100/60
--- NOTE | 2017-03-31 16:37 | ED ---
Nicanor Betancourt Jennifer, scribed for Yifan Mark MD on 03/31/17 at 1025 . Upper Extremity Pain - HPI Summary HPI Summary: The patient is a 36 year old female who caught her right thumb on a garbage can handle yesterday afternoon. She complains that any movement of the thumb is painful. - History of Current Complaint Chief Complaint: EDExtremityUpper Stated Complaint: RT THUMB PAIN Time Seen by Provider: 03/31/17 10:11 Hx Obtained From: Patient Hx Last Menstrual Period: hysterectomy Mechanism Of Injury: Twisted - on handle of garbage can Onset/Duration: Started Days Ago - yesterday afternoon Timing: Constant Severity Initially: Mild Severity Currently: Mild Pain Location: Finger - Right thumb Aggravating Factor(s): Nothing Alleviating Factor(s): Nothing - Allergies/Home Medications Allergies/Adverse Reactions: Allergies Allergy/AdvReac Type Severity Reaction Status Date / Time MS Amoxicillin [Amoxicillin] Allergy Rash Verified 03/13/17 15:13 MS Penicillins [PCN] Allergy Rash Verified 03/13/17 15:13 PMH/Surg Hx/FS Hx/Imm Hx Endocrine/Hematology History: Reports: Hx Thyroid Disease Denies: Hx Diabetes Cardiovascular History: Reports: Other Cardiovascular Problems/Disorders - STRONG FAMILY HX HEART DISEASE Denies: Hx Hypercholesterolemia, Hx Hypertension Respiratory History: Reports: Hx Asthma Denies: Hx Chronic Obstructive Pulmonary Disease (COPD) GI History: Reports: Other GI Disorders - on going diarrhea Denies: Hx Ulcer Sensory History: Denies: Hx Contacts or Glasses, Hx Hearing Aid Opthamlomology History: Denies: Hx Contacts or Glasses Psychiatric History: Reports: Hx Anxiety, Hx Depression, Hx Community Mental Health Tx, Hx Suicide Attempt Denies: Hx Eating Disorder, Hx of Violent Episodes Against Others - Cancer History Cancer Type, Location and Year: thyroid - Surgical History Surgery Procedure, Year, and Place: thyroidectomy 2008,tubal ligation-2006, hysterectomy 2008. Choley 2013 Hx Anesthesia Reactions: No - Immunization History Date of Tetanus Vaccine: PT STATES UNSURE Date of Influenza Vaccine: NONE Infectious Disease History: No Infectious Disease History: Denies: Hx Clostridium Difficile, Hx Hepatitis, Hx Human Immunodeficiency Virus (HIV), Hx of Known/Suspected MRSA, Hx Shingles, Hx Tuberculosis, Hx Known/ Suspected VRE, Hx Known/Suspected VRSA, History Other Infectious Disease, Traveled Outside the [place] in Last 30 Days - Family History Known Family History: Positive: Cardiac Disease - grandparents - Social History Alcohol Use: None Substance Use Type: Reports: None Substance Use Comment - Amount & Last Used: Drinks a 12 pack of pepsi a day Smoking Status (MU): Light Every Day Tobacco Smoker Type: Cigarettes Amount Used/How Often: < 1/2 PPD Length of Time of Smoking/Using Tobacco: Since Age 16 Have You Smoked in the Last Year: Yes Review of Systems Negative: Fever Positive: Other - Right thumb pain All Other Systems Reviewed And Are Negative: Yes Physical Exam - Summary Physical Exam Summary: Appearance: The patient is well-nourished in no acute distress and in no acute pain. Skin: The skin is warm and dry and skin color reflects adequate perfusion. HEENT: ~The head is normocephalic and atraumatic. The pupils are equal and reactive. The conjunctivae are clear and without drainage. ~Nares are patent and without drainage. ~Mouth reveals moist mucous membranes and the throat is without erythema and exudate. ~The external ears are intact. The ear canals are patent and without drainage. The tympanic membranes are intact. Neck: the neck is supple with full range of motion and non-tender. There are no carotid bruits. ~There is no neck vein distension. Respiratory: Chest is non-tender. ~Lungs are clear to auscultation and breath sounds are symmetrical and equal. Cardiovascular: Heart is regular rate and rhythm. ~There is no murmur or rub auscultated. ~~There is no peripheral edema and pulses are symmetrical and equal. Abdomen: The abdomen is soft and non-tender. ~There are normal bowel sounds heard in all four quadrants and there is no organomegaly palpated. Musculoskeletal: There is no back tenderness noted. ~There is medial collateral ligament injury of the thumb. ~There is good capillary refill. ~There is no peripheral edema or calf tenderness elicited. Neurological: Patient is alert and oriented to person, place and time. ~The patient has symmetrical motor strength in all four extremities. ~Cranial nerves are grossly intact. Deep tendon reflexes are symmetrical and equal in all four extremities. Psychiatric: The patient has an appropriate affect and does not exhibit any anxiety or depression. Triage Information Reviewed: Yes Vital Signs On Initial Exam: Initial Vitals Temp Pulse Resp BP Pulse Ox 97 F 92 17 99/61 100 03/31/17 09:53 03/31/17 09:53 03/31/17 09:53 03/31/17 09:53 03/31/17 09:53 Vital Signs Reviewed: Yes Diagnostics - Vital Signs Vital Signs Temp Pulse Resp BP Pulse Ox 03/31/17 09:53 97 F 92 17 99/61 100 - Laboratory Lab Statement: Any lab studies that have been ordered have been reviewed, and results considered in the medical decision making process. - Radiology Thumb XR Xray Interpretation: No Acute Changes - Negative radiographic exam of the RIGHT thumb. Dr. Mark has reviewed this report. Radiology Interpretation Completed By: Radiologist Course/Dx - Course Course Of Treatment: Ms. Toledo came in with pain and tenderness in the medial border of her right thumb MPJ after getting it twisted at work yesterday. There was no ligamentous laxity and an x-ray was negative. I think she has a sprain and recommended immobilization and F/U. - Diagnoses Provider Diagnoses: Thumb sprain Discharge - Discharge Plan Condition: Stable Disposition: HOME Patient Education Materials: Skier's Thumb (ED) Referrals: Maureen Arboleda MD [Primary Care Provider] - 3 Days Additional Instructions: Follow up with your primary care physician in three days. Return to the emergency department for any new or worsening symptoms. The documentation as recorded by the Nicanor sierra Jennifer accurately reflects the service I personally performed and the decisions made by me, Yifan Mark MD.
== END 2017-03-31 12:04 | disposition home or self-care (01) ==
LOC: ED 09:53
DX: S63.601A Unspecified sprain of right thumb, initial encounter (principal); M79.644 Pain in right finger(s); F17.210 Nicotine dependence, cigarettes, uncomplicated; W23.1XXA Caught, crushed, jammed, or pinched between stationary objects, initial encounter; Y92.9 Unspecified place or not applicable
CPT/HCPCS: 99282

== ENCOUNTER 2017-04-14 07:08 | Emergency (ER) | payer OTHER ==
[2017-04-14 07:24] VITALS: BP 111/66
--- NOTE | 2017-04-14 07:44 | UC ---
Abdominal Pain Female HPI - HPI Summary HPI Summary: ABDOMINAL PAIN X 1 DAY + VOMITING , DIARRHEA, NO FEVER, NO CHILLS, NUMBNESS OF RIGHT ARM - History of Current Complaint Chief Complaint: UCGeneralIllness Stated Complaint: VOMITING, DIARRHEA, RT ARM COMPLAINT Time Seen by Provider: 04/14/17 07:11 Hx Obtained From: Patient Hx Last Menstrual Period: hysterectomy ?: No Onset/Duration: Gradual Onset, Lasting Days - 1, Still Present Timing: Constant Severity Initially: Moderate Severity Currently: Moderate Pain Intensity: 5 Location: Diffuse Radiates: No Character: Cramping Aggravating Factor(s): Food Alleviating Factor(s): NPO Associated Signs and Symptoms: Positive: Nausea, Vomiting, Diarrhea. Negative: Diaphoresis, Fever, Cough, Chest Pain, Dizzy, Back Pain, Constipation, Blood in Stool, Urinary Symptoms, Decreased Appetite, Vaginal Bleeding, Vaginal Discharge Allergies/Adverse Reactions: Allergies Allergy/AdvReac Type Severity Reaction Status Date / Time MS Amoxicillin [Amoxicillin] Allergy Rash Verified 04/14/17 07:14 MS Penicillins [PCN] Allergy Rash Verified 04/14/17 07:14 Home Medications: Home Medications FLUoxetine CAP* [PROzac CAP*] 20 mg PO DAILY 04/14/17 [History Confirmed ] PMH/Surg Hx/FS Hx/Imm Hx Endocrine History: Thyroid Disease Respiratory History: Asthma Psychological History: Anxiety, Depression, Post Traumatic Stress Disorder - Surgical History Surgical History: Yes Surgery Procedure, Year, and Place: thyroidectomy 2008,tubal ligation-2006, hysterectomy 2008. Choley 2012 - Family History Known Family History: Positive: Cardiac Disease - grandparents - Social History Alcohol Use: None Substance Use Type: None Substance Use Comment - Amount & Last Used: Drinks a 12 pack of pepsi a day Smoking Status (MU): Light Every Day Tobacco Smoker Type: Cigarettes Amount Used/How Often: < 1/2 PPD Length of Time of Smoking/Using Tobacco: Since Age 16 Have You Smoked in the Last Year: Yes Household Exposure Type: Cigarettes - Immunization History Most Recent Influenza Vaccination: 01/05/17 Most Recent Tetanus Shot: had it, but is unsure on what year - she thinks 3 yrs ago. Most Recent Pneumonia Vaccination: 2010 Review of Systems Constitutional: Negative Skin: Negative Eyes: Negative ENT: Negative Respiratory: Negative Gastrointestinal: Abdominal Pain, Vomiting, Diarrhea, Nausea Genitourinary: Negative Neurological: Paresthesia - RIGHT ARM Is Patient Immunocompromised?: No All Other Systems Reviewed And Are Negative: Yes Physical Exam Triage Information Reviewed: Yes Appearance: Well-Appearing, No Pain Distress, Well-Nourished Vital Signs: Initial Vital Signs Temp 98.1 F 04/14/17 07:15 Pulse 89 04/14/17 07:15 Resp 18 04/14/17 07:15 BP 111/66 04/14/17 07:15 Pulse Ox 100 04/14/17 07:15 Vital Signs Reviewed: Yes Eyes: Positive: Conjunctiva Clear ENT: Positive: Normal ENT inspection, Hearing grossly normal, Pharynx normal, Pharyngeal erythema Neck: Positive: Supple, Nontender, No Lymphadenopathy Respiratory Exam: Normal Respiratory: Positive: Chest non-tender, Lungs clear, Normal breath sounds, No respiratory distress Cardiovascular: Positive: RRR, No Murmur, Pulses Normal Abdominal Exam: Normal Abdomen Description: Positive: Nontender, No Organomegaly, Soft. Negative: CVA Tenderness (R), CVA Tenderness (L), Distended, Guarding Bowel Sounds: Positive: Present Musculoskeletal: Positive: Other: - NORMAL RIGHT ARM EXAM WITH NORMAL PULSES , GOOD COLOR, WARM TO TOUCH, NORMAL STRENGTH AND SENSATION Neurological Exam: Normal Neurological: Positive: Alert Abd Pain Female Course/Dx - Differential Dx/Diagnosis Provider Diagnoses: GASTROENTERITIS. PARASTHESIA RIGHT ARM Discharge - Discharge Plan Condition: Stable Disposition: HOME Patient Education Materials: Gastroenteritis (ED), Paresthesia (ED) Forms: *Work Release Referrals: Maureen Arboleda MD [Primary Care Provider] - 7 Days
== END 2017-04-14 07:52 | disposition home or self-care (01) ==
LOC: UCCORT 07:08
DX: K52.9 Noninfective gastroenteritis and colitis, unspecified (principal); R20.2 Paresthesia of skin; F41.8 Other specified anxiety disorders; F17.210 Nicotine dependence, cigarettes, uncomplicated
CPT/HCPCS: 99211; G0463

== ENCOUNTER 2017-06-15 11:26 | Emergency (ER) | payer OTHER ==
[2017-06-15 11:37] VITALS: BP 100/65
--- NOTE | 2017-06-15 11:40 | UC ---
General HPI - HPI Summary HPI Summary: Pt presents with anxiety. She tells me that over the last 3-4 months she has had increased stress at work and in her personal life. Was in the ED for this a month or so ago and rx'd hydroxyzine, which she says is not doing anything. She is seeing mental health, but says they keep telling her to take deep breaths and work through her anxiety and will not prescribe her anything. She saw her PCP yesterday for this increased anxiety and was told that there is nothing they can do as she is being followed by mental health. Pt admits that she used to be a substance abuser - mostly cocaine - and understands why providers are not willing to rx her benzos. This morning she was at work and her coworkers told her that she was being aggressive and "snippy". Pt admits that she is being an "uptight cunt". She is afraid that if her emotions continue like this that she will lose her job. 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 Denies fever, chills, SOB, chest pain, abdominal pain, n/v/d/c. Denies HI/SI. - History of Current Complaint Chief Complaint: UCGeneralIllness Stated Complaint: VOMITING, AND DIZZINESS Hx Obtained From: Patient Hx Last Menstrual Period: hysterectomy Onset/Duration: Gradual Onset Timing: Constant Pain Intensity: 0 - Allergy/Home Medications Allergies/Adverse Reactions: Allergies Allergy/AdvReac Type Severity Reaction Status Date / Time amoxicillin Allergy Rash Verified 06/15/17 11:37 Penicillins Allergy Anaphylatic Verified 06/15/17 11:37 Shock PMH/Surg Hx/FS Hx/Imm Hx Endocrine History: Hypothyroidism Psychological History: Anxiety - Surgical History Surgical History: Yes Surgery Procedure, Year, and Place: thyroidectomy 2008,tubal ligation-2006, hysterectomy 2008. Cholecystectomy 2012 - Family History Known Family History: Positive: Cardiac Disease - grandparents - Social History Occupation: Employed Full-time Lives: With Family Alcohol Use: None Substance Use Type: Cocaine - Past abuse Substance Use Comment - Amount & Last Used: Drinks a 12 pack of pepsi a day Smoking Status (MU): Light Every Day Tobacco Smoker Type: Cigarettes Amount Used/How Often: < 1/2 PPD Length of Time of Smoking/Using Tobacco: Since Age 16 Have You Smoked in the Last Year: Yes Household Exposure Type: Cigarettes - Immunization History Most Recent Influenza Vaccination: 01/05/17 Most Recent Tetanus Shot: had it, but is unsure on what year - she thinks 3 yrs ago. Most Recent Pneumonia Vaccination: 2010 Review of Systems Constitutional: Negative Skin: Negative Eyes: Negative ENT: Negative Respiratory: Negative Cardiovascular: Negative Gastrointestinal: Negative Neurovascular: Negative Musculoskeletal: Negative Neurological: Negative Psychological: Anxious All Other Systems Reviewed And Are Negative: Yes Physical Exam - Summary Physical Exam Summary: GENERAL: NAD. WDWN. No pain distress. SKIN: No rashes, sores, lesions, or open wounds. HEENT: Head: AT/NC Eyes: EOM intact. PERRLA. Conjunctiva clear without inflammation or discharge. Ears: Hearing grossly normal. TMs intact, no bulging, erythema, or edema. Nose: Nasal mucosa pink and moist. NTTP maxillary and frontal sinus. Throat: Posterior oropharynx without exudates, erythema, or tonsillar enlargement. Uvula midline. NECK: Supple. Nontender. No lymphadenopathy. CHEST: CTAB. No r/r/w. No accessory muscle use. Breathing comfortably and in no distress. CV: RRR. Without m/r/g. Pulses intact. Brisk cap refill. NEURO: Alert. CN II-XII grossly intact. PSYCH: Age appropriate behavior. Triage Information Reviewed: Yes Vital Signs: Initial Vital Signs Temp 96.6 F 06/15/17 11:31 Pulse 81 06/15/17 11:31 Resp 18 06/15/17 11:31 BP 100/65 06/15/17 11:31 Pulse Ox 100 06/15/17 11:31 Course/Dx - Course Course Of Treatment: I had a long conversation the the pt regarding her anxiety. I told her that there is no more we can do for her in an urgent care setting as she is already on an SSRI, hydroxyzine, and has mental health follow up. She insisted that she would like something done today. I advised her to be seen in the ED for potential mental health eval - she was agreeable to this plan and decided to go via medicaid cab. - Differential Dx - Multi-Symptom Provider Diagnoses: Anxiety Discharge - Sign-Out/Discharge Documenting (check all that apply): Discharge/Admit/Transfer - Discharge Plan Condition: Stable Disposition: HOME Patient Education Materials: Anxiety (ED) Referrals: Maureen Arboleda MD [Primary Care Provider] - Additional Instructions: Please go to the ER for further evaluation of your anxiety and likely mental health eval. - Billing Disposition and Condition Condition: STABLE Disposition: HOME
== END 2017-06-15 12:08 | disposition home or self-care (01) ==
LOC: UCEAST 11:26
DX: F41.9 Anxiety disorder, unspecified (principal); E03.9 Hypothyroidism, unspecified; Z88.0 Allergy status to penicillin; F17.210 Nicotine dependence, cigarettes, uncomplicated
CPT/HCPCS: 99212; G0463

== ENCOUNTER 2017-06-15 12:45 | Emergency (ER) | payer OTHER ==
[2017-06-15 14:41] LABS: Urine Appearance Clear; Urine Blood Negative (Negative); Urine Color Colorless; Urine Ketones Negative (Negative); Urine Protein Negative (Negative); Urine Specific Gravity 1.002 (1.010-1.030); Urine Urobilinogen Negative (Negative)
[2017-06-15 16:08] LABS: ABS Basophils 0.1 10^3/ul (0-0.2); ABS Eosinophils 0.2 10^3/ul (0-0.6); ABS Lymphocytes 2.9 10^3/ul (1.0-4.8); ABS Monocytes 0.5 10^3/ul (0-0.8); ABS Nucleated RBC 0 10^3/ul; Eosinophil % 2.3 % (0-6); Hematocrit 43 % (35-47); Hemoglobin 14.7 g/dl (12.0-16.0); Mean Corpuscular HGB Conc 34 g/dl (31-36); Mean Corpuscular Hemoglobin 30 pg (27-31); Mean Corpuscular Volume 87 fL (80-97); Mean Platelet Volume 8.9 um3 (7.4-10.4); Nucleated Red Blood Cells % 0.1; Platelet Count 347 10^3/ul (150-450); Red Blood Count 4.93 10^6/ul (4.0-5.4); Red Cell Distribution Width 14 % (10.5-15); White Blood Count 9.7 10^3/ul (3.5-10.8)
[2017-06-15 16:26] LABS: EGFR Non-African American 85.3 (>60)
[2017-06-15 19:38] VITALS: BP 126/70
--- NOTE | 2017-06-15 21:51 | ED ---
Agustin Betancourt Julia, scribed for Jairon Mckinney MD on 06/15/17 at 1416 . Psychiatric Complaint - HPI Summary HPI Summary: This patient is a 36 year old F presenting to [facility] from [facility] accompanied by her mother with a chief complaint of increased anxiety with nausea and lightheadedness. Pt reports recent increase in anxiety over the past couple of weeks. Anxiety unchanged by deep breathing and other relaxation techniques. Pt has history of anxiety and drug addiction. Pt reports 3 years of sobriety. 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 Medications with pt reviewed. - History Of Current Complaint Chief Complaint: EDMentalHealth Time Seen by Provider: 06/15/17 14:05 Hx Obtained From: Patient, Family/Sausage Meat Trimmer Hx Last Menstrual Period: hysterectomy Onset/Duration: Gradual Onset, Lasting Weeks Character: Anxious Aggravating Factor(s): Recent Stress Alleviating Factor(s): Nothing Related History: Positive For: Prior Psychiatric Issues Has Suicidal: Denies: Thoughts Has Homicidal: Denies: Thoughts - Allergies/Home Medications Allergies/Adverse Reactions: Allergies Allergy/AdvReac Type Severity Reaction Status Date / Time amoxicillin Allergy Rash Verified 06/15/17 11:37 Penicillins Allergy Anaphylatic Verified 06/15/17 11:37 Shock PMH/Surg Hx/FS Hx/Imm Hx Endocrine/Hematology History: Reports: Hx Thyroid Disease Denies: Hx Diabetes Cardiovascular History: Reports: Other Cardiovascular Problems/Disorders - STRONG FAMILY HX HEART DISEASE Denies: Hx Hypercholesterolemia, Hx Hypertension Respiratory History: Reports: Hx Asthma Denies: Hx Chronic Obstructive Pulmonary Disease (COPD) GI History: Reports: Other GI Disorders - on going diarrhea Denies: Hx Ulcer Sensory History: Denies: Hx Contacts or Glasses, Hx Hearing Aid Opthamlomology History: Denies: Hx Contacts or Glasses Psychiatric History: Reports: Hx Anxiety, Hx Depression, Hx Community Mental Health Tx, Hx Suicide Attempt, Hx Substance Abuse Denies: Hx Eating Disorder, Hx of Violent Episodes Against Others - Cancer History Cancer Type, Location and Year: thyroid - Surgical History Surgery Procedure, Year, and Place: thyroidectomy 2008,tubal ligation-2006, hysterectomy 2008. Cholecystectomy 2012 Hx Anesthesia Reactions: No - Immunization History Date of Tetanus Vaccine: PT STATES UNSURE Date of Influenza Vaccine: NONE Infectious Disease History: No Infectious Disease History: Denies: Hx Clostridium Difficile, Hx Hepatitis, Hx Human Immunodeficiency Virus (HIV), Hx of Known/Suspected MRSA, Hx Shingles, Hx Tuberculosis, Hx Known/ Suspected VRE, Hx Known/Suspected VRSA, History Other Infectious Disease, Traveled Outside the [place] in Last 30 Days - Family History Known Family History: Positive: Cardiac Disease - grandparents - Social History Occupation: Employed Full-time Alcohol Use: None 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 Smoking Status (MU): Light Every Day Tobacco Smoker Type: Cigarettes Amount Used/How Often: < 1/2 PPD Length of Time of Smoking/Using Tobacco: Since Age 16 Have You Smoked in the Last Year: Yes Review of Systems Positive: Nausea Neurological: Other - lightheaded Positive: Anxious All Other Systems Reviewed And Are Negative: Yes Physical Exam - Summary Physical Exam Summary: General: well-appearing, no pain distress Skin: warm, color reflects adequate perfusion, dry Head: normal Eyes: EOMI, FARIBA ENT: normal Neck: supple, nontender Respiratory: CTA, breath sounds present Cardiovascular: RRR Abdomen: soft, nontender Bowel: present Musculoskeletal: normal, strength/ROM intact Neurological: normal, sensory/motor intact, A&O x3 Psychological: affect/mood appropriate Triage Information Reviewed: Yes Vital Signs On Initial Exam: Initial Vitals Temp Pulse Resp BP Pulse Ox 99.3 F 93 16 122/88 100 06/15/17 12:52 06/15/17 12:52 06/15/17 12:52 06/15/17 12:52 06/15/17 12:52 Vital Signs Reviewed: Yes Diagnostics - Vital Signs Vital Signs Temp Pulse Resp BP Pulse Ox 06/15/17 12:52 99.3 F 93 16 122/88 100 - Laboratory Lab Results: Lab Results 06/15/17 06/15/17 06/15/17 Range/Units 14:28 16:00 16:00 WBC 9.7 (3.5-10.8) 10^3/ul RBC 4.93 (4.0-5.4) 10^6/ul Hgb 14.7 (12.0-16.0) g/dl Hct 43 (35-47) % MCV 87 (80-97) fL MCH 30 (27-31) pg MCHC 34 (31-36) g/dl RDW 14 (10.5-15) % Plt Count 347 (150-450) 10^3/ul MPV 8.9 (7.4-10.4) um3 Neut % (Auto) 62.3 (38-83) % Lymph % (Auto) 30.0 (25-47) % Whitman % (Auto) 4.6 (0-7) % Eos % (Auto) 2.3 (0-6) % Baso % (Auto) 0.8 (0-2) % Absolute Neuts (auto) 6.0 (1.5-7.7) 10^3/ul Absolute Lymphs (auto) 2.9 (1.0-4.8) 10^3/ul Absolute Monos (auto) 0.5 (0-0.8) 10^3/ul Absolute Eos (auto) 0.2 (0-0.6) 10^3/ul Absolute Basos (auto) 0.1 (0-0.2) 10^3/ul Absolute Nucleated RBC 0 10^3/ul Nucleated RBC % 0.1 Sodium 137 L (139-145) mmol/L Potassium 3.8 (3.5-5.0) mmol/L Chloride 103 (101-111) mmol/L Carbon Dioxide 25 (22-32) mmol/L Anion Gap 9 (2-11) mmol/L BUN 10 (6-24) mg/dL Creatinine 0.77 (0.51-0.95) mg/dL Est GFR ( Amer) 109.7 (>60) Est GFR (Non-Af Amer) 85.3 (>60) BUN/Creatinine Ratio 13.0 (8-20) Glucose 68 L (70-100) mg/dL Calcium 9.2 (8.6-10.3) mg/dL Total Bilirubin 0.30 (0.2-1.0) mg/dL AST 15 (13-39) U/L ALT 10 (7-52) U/L Alkaline Phosphatase 61 (34-104) U/L Total Protein 8.1 (6.4-8.9) g/dL Albumin 4.3 (3.2-5.2) g/dL Globulin 3.8 (2-4) g/dL Albumin/Globulin Ratio 1.1 (1-3) TSH 83.37 H (0.34-5.60) mcIU/mL Beta HCG, Quant < 0.60 mIU/mL Urine Color Colorless Urine Appearance Clear Urine pH 6.0 (5-9) Ur Specific [place] 1.002 L (1.010-1.030) Urine Protein Negative (Negative) Urine Ketones Negative (Negative) Urine Blood Negative (Negative) Urine Nitrate Negative (Negative) Urine Bilirubin Negative (Negative) Urine Urobilinogen Negative (Negative) Ur Leukocyte Esterase Negative (Negative) Urine Glucose Negative (Negative) Salicylates < 2.50 (<30) mg/dL Acetaminophen < 15 mcg/mL Serum Alcohol < 10 (<10) mg/dL Result Diagrams: 06/15/17 16:00 06/15/17 16:00 Lab Statement: Any lab studies that have been ordered have been reviewed, and results considered in the medical decision making process. Course/Dx - Course Course Of Treatment: DISCHARGE HOME STABLE AFTER MHE - Differential Dx/Clinical Impression Provider Diagnosis: Mental health problem, Hypothyroid Discharge - Sign-Out/Discharge Documenting (check all that apply): Discharge/Admit/Transfer - Discharge Plan Condition: Stable Disposition: HOME Prescriptions: ALPRAZolam TAB* [Xanax TAB*] 0.5 mg PO BID PRN #6 tab MDD 2 PRN Reason: Anxiety Forms: *Work Release Referrals: Maureen Arboleda MD [Primary Care Provider] - - Billing Disposition and Condition Condition: STABLE Disposition: HOME The documentation as recorded by the Agustin sierra Julia accurately reflects the service I personally performed and the decisions made by me, Jairon Mckinney MD.
== END 2017-06-15 19:35 | disposition home or self-care (01) ==
LOC: ED 12:45
DX: F41.9 Anxiety disorder, unspecified (principal); E03.9 Hypothyroidism, unspecified; R42 Dizziness and giddiness; R11.0 Nausea; Z32.02 Encounter for pregnancy test, result negative; J45.909 Unspecified asthma, uncomplicated; F32.9 Major depressive disorder, single episode, unspecified; Z91.5 Personal history of self-harm; Z88.0 Allergy status to penicillin
CPT/HCPCS: 36415; 80053; 80320; 80329; 81003; 84443; 84702; 85025; 99284; G0480

== ENCOUNTER 2017-07-04 13:52 | Emergency (ER) | payer OTHER ==
[2017-07-04 14:08] VITALS: BP 110/67
--- NOTE | 2017-07-04 14:23 | UC ---
Throat Pain/Nasal Jalil HPI - HPI Summary HPI Summary: sinus pressure/apin x weeks severe otalgia x days no f/c upper gums hurt MOHAN - History of Current Complaint Chief Complaint: UCEar Stated Complaint: BI LAT EAR COMP Time Seen by Provider: 07/04/17 14:10 Hx Obtained From: Patient Hx Last Menstrual Period: n/a Onset/Duration: Gradual Onset Severity: Worse Since: Pain Intensity: 10 Pain Scale Used: 0-10 Numeric Cough: Nonproductive - Epiglottits Risk Factors Epiglottis Risk Factors: Negative - Allergies/Home Medications Allergies/Adverse Reactions: Allergies Allergy/AdvReac Type Severity Reaction Status Date / Time amoxicillin Allergy Rash Verified 07/04/17 14:05 Penicillins Allergy Anaphylatic Verified 07/04/17 14:05 Shock Home Medications: Home Medications Naproxen Sodium [Aleve] 220 mg PO ONCE 07/04/17 [History Confirmed 07/04/17] PMH/Surg Hx/FS Hx/Imm Hx Previously Healthy: Yes - Surgical History Surgical History: Yes Surgery Procedure, Year, and Place: thyroidectomy 2008,tubal ligation-2006, hysterectomy 2008. Cholecystectomy 2012 - Family History Known Family History: Positive: Cardiac Disease - grandparents, Hypertension - Social History Alcohol Use: Rare Substance Use Type: None Substance Use Comment - Amount & Last Used: clean 4 years Smoking Status (MU): Light Every Day Tobacco Smoker Type: Cigarettes Amount Used/How Often: < 1/2 PPD Length of Time of Smoking/Using Tobacco: Since Age 16 Have You Smoked in the Last Year: Yes Household Exposure Type: Cigarettes - Immunization History Most Recent Influenza Vaccination: 01/05/17 Most Recent Tetanus Shot: had it, but is unsure on what year - she thinks 3 yrs ago. Most Recent Pneumonia Vaccination: 2010 Review of Systems Constitutional: Negative Skin: Negative Eyes: Negative ENT: Dental Pain, Nasal Discharge, Sinus Congestion, Sinus Pain/Tenderness Respiratory: Cough Cardiovascular: Negative Gastrointestinal: Negative Genitourinary: Negative Motor: Negative Neurovascular: Negative Musculoskeletal: Negative Neurological: Headache Psychological: Negative Is Patient Immunocompromised?: No All Other Systems Reviewed And Are Negative: Yes Physical Exam Triage Information Reviewed: Yes Appearance: Well-Appearing, No Pain Distress, Well-Nourished Vital Signs: Initial Vital Signs Temp 97.6 F 07/04/17 14:03 Pulse 91 07/04/17 14:03 Resp 19 07/04/17 14:03 BP 110/67 07/04/17 14:03 Pulse Ox 100 07/04/17 14:03 Eyes: Positive: Conjunctiva Clear ENT: Positive: Nasal congestion, Nasal drainage, TM bulging, Sinus tenderness, Uvula midline. Negative: Hearing grossly normal, Tonsillar swelling, Tonsillar exudate, Trismus, Muffled voice, Hoarse voice Neck: Positive: Supple, Nontender, No Lymphadenopathy Respiratory: Positive: Lungs clear, Normal breath sounds, No respiratory distress, No accessory muscle use Cardiovascular: Positive: RRR, No Murmur Musculoskeletal: Positive: ROM Intact, No Edema Neurological: Positive: Alert Psychological: Positive: Normal Response To Family Skin Exam: Normal Throat Pain/Nasal Course/Dx - Course Assessment/Plan: Reference #: [id number] ISTOP - Differential Dx/Diagnosis Provider Diagnoses: acute sinusitis. bilateral serous otitis media Discharge - Sign-Out/Discharge Documenting (check all that apply): Discharge/Admit/Transfer - Discharge Plan Condition: Stable Disposition: HOME Prescriptions: DOXYcycline CAP(*) [DOXYcycline 100MG CAP(*)] 100 mg PO BID #20 cap Fluticasone NASAL SPRAY 50MCG* [Flonase NASAL SPRAY 50MCG*] 2 spray BOTH NARES BID #1 btl traMADol TAB* [Ultram*] 50 mg PO Q6HR PRN #20 tab MDD 4 PRN Reason: Pain Patient Education Materials: Sinusitis (ED), Serous Otitis Media (ED) Forms: *Work Release Referrals: Maureen Arboleda MD [Primary Care Provider] - 7 Days (i fnot better) - Billing Disposition and Condition Condition: STABLE Disposition: HOME
== END 2017-07-04 14:29 | disposition home or self-care (01) ==
LOC: UCCORT 13:52
DX: J01.90 Acute sinusitis, unspecified (principal); H65.93 Unspecified nonsuppurative otitis media, bilateral; Z88.0 Allergy status to penicillin; F17.210 Nicotine dependence, cigarettes, uncomplicated
CPT/HCPCS: 99212; G0463

== ENCOUNTER 2017-07-14 08:10 | Emergency (ER) | payer OTHER ==
[2017-07-14 08:28] VITALS: BP 116/76
--- NOTE | 2017-07-14 08:41 | UC ---
Lower Extremity/Ankle HPI - HPI Summary HPI Summary: 36 year old female with history of hypothyroid here left foot pain and swelling for 3 days. Reports she works at night, on her feet and today she noticed redness 3 days ago. Worsened in the past few days. No fever, chills, n/v or any other complaints. No injuries. Reports slight scrape to her feet with her sandal. - History of Current Complaint Chief Complaint: UCLowerExtremity Stated Complaint: SWOLLEN PAINFUL FOOT Time Seen by Provider: 07/14/17 08:15 Hx Last Menstrual Period: n/a Onset/Duration: Gradual Onset Severity Initially: Mild Pain Intensity: 9 Aggravating Factor(s): Ambulation Alleviating Factor(s): Rest, Elevation - Allergies/Home Medications Allergies/Adverse Reactions: Allergies Allergy/AdvReac Type Severity Reaction Status Date / Time amoxicillin Allergy Rash Verified 07/14/17 08:24 Penicillins Allergy Anaphylatic Verified 07/14/17 08:24 Shock PMH/Surg Hx/FS Hx/Imm Hx Endocrine History: Hypothyroidism - Surgical History Surgical History: Yes Surgery Procedure, Year, and Place: thyroidectomy 2008,tubal ligation-2006, hysterectomy 2008. Cholecystectomy 2012 - Family History Known Family History: Positive: Cardiac Disease - grandparents, Hypertension - Social History Alcohol Use: Rare Substance Use Type: None Substance Use Comment - Amount & Last Used: clean 4 years Smoking Status (MU): Light Every Day Tobacco Smoker Type: Cigarettes Amount Used/How Often: < 1/2 PPD Length of Time of Smoking/Using Tobacco: Since Age 16 Have You Smoked in the Last Year: Yes Household Exposure Type: Cigarettes - Immunization History Most Recent Influenza Vaccination: 01/05/17 Most Recent Tetanus Shot: had it, but is unsure on what year - she thinks 3 yrs ago. Most Recent Pneumonia Vaccination: 2010 Review of Systems Constitutional: Negative Skin: Negative Eyes: Negative ENT: Negative Respiratory: Negative Cardiovascular: Negative Gastrointestinal: Negative Genitourinary: Negative Motor: Negative Neurovascular: Negative Musculoskeletal: Edema Neurological: Negative Psychological: Negative All Other Systems Reviewed And Are Negative: Yes Physical Exam Triage Information Reviewed: Yes Vital Signs: Initial Vital Signs Temp 36.6 C 07/14/17 08:25 Pulse 96 07/14/17 08:25 Resp 18 07/14/17 08:25 BP 116/76 07/14/17 08:25 Pulse Ox 100 07/14/17 08:25 Eye Exam: Normal ENT Exam: Normal Respiratory Exam: Normal Abdominal Exam: Normal Musculoskeletal Exam: Normal Skin: Positive: Other - left foot with ertythema over ventral aspect of ankle thats 3cmX5 cm with no fluctance tiny abrasion Lower Extremity Course/Dx - Course Course Of Treatment: Cellulitis. Given severe allergy to PCN, will avoid keflex. Will treat with clinda,. Of note, she completed doxy for Otitis media 4 days ago. - Differential Dx/Diagnosis Differential Diagnosis/HQI/PQRI: Arthritis, Cellulitis, Infection Provider Diagnoses: Cellulitis Discharge - Sign-Out/Discharge Documenting (check all that apply): Discharge/Admit/Transfer - Discharge Plan Condition: Good Disposition: HOME Prescriptions: Clindamycin Cap(NF) [Clindamycin Cap 300 mg Cap(NF)] 300 mg PO TID #30 cap Referrals: Maureen Arbloeda MD [Primary Care Provider] - - Billing Disposition and Condition Condition: GOOD Disposition: HOME
== END 2017-07-14 08:52 | disposition home or self-care (01) ==
LOC: UCEAST 08:10
DX: L03.116 Cellulitis of left lower limb (principal); E03.9 Hypothyroidism, unspecified; Z82.49 Family history of ischemic heart disease and other diseases of the circulatory system; Z88.0 Allergy status to penicillin; F17.210 Nicotine dependence, cigarettes, uncomplicated
CPT/HCPCS: 99212; G0463

== ENCOUNTER 2017-07-26 18:53 | Emergency (ER) | payer OTHER ==
[2017-07-26 19:09] VITALS: BP 106/63
--- NOTE | 2017-07-26 19:42 | ED ---
Neurological HPI - HPI Summary HPI Summary: 36 yr old female with the complaint of neck pain that radiates into her right shoulder, headache that is generalized, 9/10, associated numbness, tingling in the right arm, and also feeling off balance, and vertigo. Onset about a week ago. No change in vision, speech. Reports that her hearing also seems off. Denies bowel bladder incontinence. Fever chills denies. - History of Current Complaint Chief Complaint: UCGeneralIllness Stated Complaint: NECK PAIN, RIGHT ARM DISCOMFORT Time Seen by Provider: 07/26/17 19:13 Hx Last Menstrual Period: n/a Pain Intensity: 9 Pain Scale Used: 0-10 Numeric - Allergy/Home Medications Allergies/Adverse Reactions: Allergies Allergy/AdvReac Type Severity Reaction Status Date / Time amoxicillin Allergy Rash Verified 07/26/17 19:10 Penicillins Allergy Anaphylatic Verified 07/26/17 19:10 Shock Home Medications: Home Medications Naproxen Sodium [Aleve] 440 mg PO DAILY 07/26/17 [History Confirmed 07/26/17] PMH/Surg Hx/FS Hx/Imm Hx Endocrine/Hematology History: Reports: Hx Thyroid Disease - hypothyroidism Denies: Hx Diabetes Cardiovascular History: Reports: Other Cardiovascular Problems/Disorders - STRONG FAMILY HX HEART DISEASE Denies: Hx Hypercholesterolemia, Hx Hypertension Respiratory History: Reports: Hx Asthma Denies: Hx Chronic Obstructive Pulmonary Disease (COPD) GI History: Reports: Other GI Disorders - on going diarrhea Denies: Hx Ulcer Sensory History: Denies: Hx Contacts or Glasses, Hx Hearing Aid Opthamlomology History: Denies: Hx Contacts or Glasses Psychiatric History: Reports: Hx Anxiety, Hx Depression, Hx Community Mental Health Tx, Hx Suicide Attempt, Hx Substance Abuse Denies: Hx Eating Disorder, Hx of Violent Episodes Against Others - Cancer History Cancer Type, Location and Year: thyroid - Surgical History Surgery Procedure, Year, and Place: thyroidectomy 2008,tubal ligation-2006, hysterectomy 2008. Cholecystectomy 2012 Hx Anesthesia Reactions: No - Immunization History Date of Tetanus Vaccine: PT STATES UNSURE Date of Influenza Vaccine: NONE Infectious Disease History: No Infectious Disease History: Denies: Hx Clostridium Difficile, Hx Hepatitis, Hx Human Immunodeficiency Virus (HIV), Hx of Known/Suspected MRSA, Hx Shingles, Hx Tuberculosis, Hx Known/ Suspected VRE, Hx Known/Suspected VRSA, History Other Infectious Disease, Traveled Outside the [place] in Last 30 Days - Family History Known Family History: Positive: Cardiac Disease - grandparents, Hypertension - Social History Alcohol Use: Rare 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 Substance Use Type: Reports: None Substance Use Comment - Amount & Last Used: clean 4 years Smoking Status (MU): Light Every Day Tobacco Smoker Type: Cigarettes Amount Used/How Often: < 1/2 PPD Length of Time of Smoking/Using Tobacco: Since Age 16 Have You Smoked in the Last Year: Yes Review of Systems Constitutional: Negative Positive: Headache, Paresthesia, Numbness All Other Systems Reviewed And Are Negative: Yes Physical Exam Triage Information Reviewed: Yes Vital Signs On Initial Exam: Initial Vitals Temp Pulse Resp BP Pulse Ox 99.3 F 91 16 106/63 100 07/26/17 19:04 07/26/17 19:04 07/26/17 19:04 07/26/17 19:04 07/26/17 19:04 Vital Signs Reviewed: Yes Appearance: Positive: Well-Appearing, No Pain Distress Skin: Positive: Warm, Skin Color Reflects Adequate Perfusion Head/Face: Positive: Normal Head/Face Inspection Eyes: Positive: EOMI Neck: Positive: Nontender Respiratory/Lung Sounds: Positive: Clear to Auscultation, Breath Sounds Present Cardiovascular: Positive: RRR. Negative: Murmur Abdomen Description: Positive: Nontender Musculoskeletal: Positive: Strength/ROM Intact Neurological: Positive: Sensory/Motor Intact - reports that her right arm feels numb and tingly., Alert, Oriented to Person Place, Time, CN Intact II-III, Normal Gait, Speech Normal Psychiatric: Positive: Normal - Chuy Coma Scale Best Eye Response: 4 - Spontaneous Best Motor Response: 6 - Obeys Commands Best Verbal Response: 5 - Oriented Coma Scale Total: 15 Diagnostics - Vital Signs Vital Signs Temp Pulse Resp BP Pulse Ox 07/26/17 19:04 99.3 F 91 16 106/63 100 - Laboratory Lab Statement: Any lab studies that have been ordered have been reviewed, and results considered in the medical decision making process. Course/Dx - Course Course Of Treatment: 36 yr old with headache, vertigo, off balance, neck pain, shoulder pain, numbness in arm . She signed out AMA refusing ambulance transport to the ER. - Diagnoses Provider Diagnoses: Headache, Right arm numbness, Vertigo Discharge - Sign-Out/Discharge Documenting (check all that apply): Discharge/Admit/Transfer - Discharge Plan Condition: Stable Disposition: AGAINST MEDICAL ADVICE Referrals: Maureen Arboleda MD [Primary Care Provider] - - Billing Disposition and Condition Condition: STABLE Disposition: Against Medical Advice
== END 2017-07-26 19:33 | disposition left against medical advice (07) ==
LOC: UCCORT 18:53
DX: R51 Headache (principal); R20.0 Anesthesia of skin; R42 Dizziness and giddiness; M54.2 Cervicalgia; M25.511 Pain in right shoulder; F17.210 Nicotine dependence, cigarettes, uncomplicated; Z88.0 Allergy status to penicillin
CPT/HCPCS: 99212; G0463

== ENCOUNTER 2017-09-06 10:12 | Emergency (ER) | payer OTHER ==
--- OUTSIDE RECORDS SUMMARY | 2017-09-06 10:29 | XMS REPORT ---
:1980 External Reference #:[id number] Author Organization [facility] Address [address], [address] [place] [address] Phone [phone] Care Team Providers Name Role Phone Maureen Arboleda M.D. Care Team Information Platform Architect Unavailable Maureen Arboleda M.D. Primary Care Physician Unavailable Payers Type Date Identification Numbers Payment Provider Subscriber Commercial Policy Number: [id number] Yamil Matar PayID: [id number] [address] [address] [place] [address] Problems Date Description Provider Status Onset: 10/31/2013 Epidermoid cyst Uday Sr MD Active Onset: 01/05/2017 Postprocedural hypothyroidism Maureen Arboleda M.D. Active Onset: 08/22/2017 Thinking about stopping smoking DEJA Bruce Active Onset: 08/22/2017 Hypothyroidism DEJA Bruce Active Onset: 08/22/2017 Brachial neuritis DEJA Bruce Active Onset: 08/22/2017 Bipolar affective disorder, currently DEJA Bruce Active depressed, moderate Family History Date Family Member(s) Problem(s) Comments Father No Current Problems Mother Diabetes Mother Thyroid Disease Hashimotos Social History Type Date Description Comments Lives With Roommate Family friend. 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 every day Tizanidine HCL 07/27 Active Tablets 4mg 30tab take 1 M54.12 Maureen Arboleda, s tablet M.D. by mouth every 8 hours as needed Naproxen 07/27 Active Tablets 500mg 60tab 500 mg M54.12 Maureen Arboleda, s by mouth M.D. every 12 hours as needed pain Levothyroxine 03/04 Active Tablets 200mcg 30tab Take One Maureen Arboleda s Tablet M.D. By Mouth Every Day Fluticasone Active Suspension 50mcg/Act [place] Unknown Two Sprays In Each Nostril Twice A Day Up To 2 Weeks Fluoxetine HCL Active Capsules 60mg 1 by Unknown /0000 mouth every day Gabapentin Active Capsules 300mg take one Unknown po as needed Fexofenadine HCL 07/06 Hx Tablets 180mg 90tab 1 by J30.9 Jam s mouth at [facility] - night 07/27 Neomycin/Polymyx 07/06 Hx Suspension 3.5-65269 10ml 2-3 H62.43 Jam in/Hydrocortison /2017 -1 drops [facility] e (Otic) - each ear 07/27 4 x a day x 5 days Tizanidine HCL 03/02 Hx Tablets 4mg 30tab take 1 R07.9 Maureen Arboleda, s tablet M.D. - by mouth 06/14 every hours as needed Quetiapine 01/17 Hx Tablets 50mg F31.32 Maureen Arboleda Fumarate 2017 M.D. - 01/17 Ipratropium 01/05 Hx Solution 0.03% 30ml 2 sprays J01.90 Maureen Arboleda [place] intranas M.D. - ally 06/14 times a day as needed Lexapro Hx Tablets 10mg 30tab 1 by Unknown /0000 s mouth every day Oxaprozin Hx Tablets 600mg 60tab 1 by Unknown /0000 s mouth - twice a after meals Gabapentin 00/ Hx Tablets 1200mg 90Tab qd Unknown /0000 s - 01/05 Abilify Hx Tablets 20mg 1 po qd Unknown /0000 - 01/05 Levothyroxine 00 Hx Tablets 375mcg by mouth Unknown Sodium /0000 every - day 12/21 Wellbutrin XL Hx Tablets ER 150mg by mouth Unknown /0000 24HR every - day 01/05 Levothyroxine Hx Tablets 125mcg 2 tabs Unknown Sodium /0000 by mouth - every Ibuprofen Hx Tablets 600mg Dibdhruvolo, 0000 Brittany Otto N.PRonald 01/05 Naproxen Hx Tablets 500mg Marson, /0000 MD Xander - 01/05 Cyclobenzaprine Hx Tablets 10mg Maxine, HCL MD Xander - 01/05 Naproxen Hx Tablets 500mg Maxine, /0000 MD Xander - 06/14 Fluoxetine HCL 00 Hx Capsules 20mg 1 cap by Unknown /0000 mouth - every every morning Prazosin HCL Hx Capsules 1mg Unknown /0000 - 06/14 Tramadol HCL 00 Hx Tablets 50mg Take One Unknown /0000 Tablet - By Mouth 07/27 Every Hours as Needed For Pain Maximum [place] Doxycycline 00 Hx Capsules 100mg Take One Unknown Monohydrate 0000 Capsule - By Mouth 07/27 Twice Day With Food Alprazolam Hx Tablets 0.5mg Faye, Brittany Knox MD 07/27 Medications Administered in Office Medication Date Status Form Strength Qnty SIG Indications Ordering Provider PPD Administered Injection Family Nurse 7 Immunizations CPT Code Status Date Vaccine Lot # [id number] Given 01/05/2017 Influenza Virus Vaccine Quadrivalent Iiv4 Split [id number] Preser Free Id Vital Signs Date Vital Result Comment 08/22/2017 BP Systolic 102 mmHg BP Diastolic 60 mmHg Body Temperature 97.5 F Heart Rate 79 /min Respiratory Rate 18 /min Height 61 inches 5'1" Weight 152.00 lb BMI (Body Mass Index) 28.7 kg/m2 BSA (Body Surface Area) 1.68 m2 [place] body weight in kilograms 48 O2 % BldC Oximetry 98 % 07/27/2017 BP Systolic Sitting Left Arm 116 mmHg BP Diastolic Sitting Left Arm 74 mmHg Body Temperature 98.5 F Heart Rate 60 /min Height 61 inches 5'1" Weight 154.00 lb BMI (Body Mass Index) 29.1 kg/m2 BSA (Body Surface Area) 1.69 m2 [place] body weight in kilograms 48 07/06/2017 BP Systolic Sitting Left Arm 118 mmHg BP Diastolic Sitting Left Arm 76 mmHg Body Temperature 98.5 F Heart Rate 78 /min Respiratory Rate 18 /min Height 61 inches 5'1" Weight 152.38 lb BMI (Body Mass Index) 28.8 kg/m2 BSA (Body Surface Area) 1.68 m2 [place] body weight in kilograms 48 06/14/2017 BP Systolic 100 mmHg BP Diastolic 60 mmHg Heart Rate 84 /min Height 61 inches 5'1" Weight 148.00 lb BMI (Body Mass Index) 28.0 kg/m2 BSA (Body Surface Area) 1.66 m2 [place] body weight in kilograms 48 O2 % BldC Oximetry 98 % 03/02/2017 BP Systolic Sitting Right Arm 112 mmHg BP Diastolic Sitting Right Arm 78 mmHg Body Temperature 97.4 F Heart Rate 113 /min Height 61 inches 5'1" Weight 154.38 lb BMI (Body Mass Index) 29.2 kg/m2 BSA (Body Surface Area) 1.69 m2 [place] body weight in kilograms 48 O2 % BldC Oximetry 95 % 01/17/2017 BP Systolic 120 mmHg BP Diastolic 80 mmHg Heart Rate 81 /min Height 62 inches 5'2" Weight 162.25 lb BMI (Body Mass Index) 29.7 kg/m2 BSA (Body Surface Area) 1.75 m2 [place] body weight in kilograms 50 01/05/2017 BP Systolic Sitting Left Arm 106 mmHg BP Diastolic Sitting Left Arm 70 mmHg Height 62 inches 5'2" Weight 164.25 lb BMI (Body Mass Index) 30.0 kg/m2 BSA (Body Surface Area) 1.76 m2 [place] body weight in kilograms 50 10/31/2013 BP Systolic Sitting Right Arm 128 mmHg BP Diastolic Sitting Right Arm 85 mmHg Heart Rate 116 /min Height 62 inches 5'2" Weight 174.00 lb BMI (Body Mass Index) 31.8 kg/m2 BSA (Body Surface Area) 1.80 m2 Results Test Date Test Result H/L Range Note Laboratory test 07/27/2017 Thyroid Stim 22.00 uIU/mL High 0.30-4.20 1 finding Hormone Free T4 1.99 ng/dL High 0.76-1.46 1 Free T3 3.28 pg/mL 2.18-3.98 1 Comp Metabolic Panel 06/15/2017 Sodium 137 mmol/L Low 139-145 Potassium 3.8 mmol/L 3.5-5.0 Chloride 103 mmol/L 101-111 Co2 Carbon Dioxide 25 mmol/L 22-32 Anion Gap 9 mmol/L 2-11 Glucose 68 mg/dL Low 70-100 Blood Urea Nitrogen 10 mg/dL 6-24 Creatinine 0.77 mg/dL 0.51-0.95 BUN/Creatinine Ratio 13.0 8-20 Calcium 9.2 mg/dL 8.6-10.3 Total Protein 8.1 g/dL 6.4-8.9 Albumin 4.3 g/dL 3.2-5.2 Globulin 3.8 g/dL 2-4 Albumin/Globulin Ratio 1.1 1-3 Total Bilirubin 0.30 mg/dL 0.2-1.0 Alkaline Phosphatase 61 U/L 34-104 Alt 10 U/L 7-52 Ast 15 U/L 13-39 Egfr Non- 85.3 >60 Egfr 109.7 >60 2 Laboratory test finding 06/15/2017 HCG < 0.60 mIU/mL 3 Acetaminophen < 15 g/mL 4 Alcohol < 10 mg/dL <10 Salicylate < 2.50 mg/dL <30 TSH (Thyroid Stim Horm) 83.37 mcIU/mL High 0.34-5.60 CBC Auto Diff 06/15/2017 White Blood Count 9.7 10^3/uL 3.5-10.8 Red Blood Count 4.93 10^6/uL 4.0-5.4 Hemoglobin 14.7 g/dL 12.0-16.0 Hematocrit 43 % 35-47 Mean Corpuscular Volume 87 fL 80-97 Mean Corpuscular Hemoglobin 30 pg 27-31 Mean Corpuscular HGB Conc 34 g/dL 31-36 Red Cell Distribution Width 14 % 10.5-15 Platelet Count 347 10^3/uL 150-450 Mean Platelet Volume 8.9 um3 7.4-10.4 Abs Neutrophils 6.0 10^3/uL 1.5-7.7 Abs Lymphocytes 2.9 10^3/uL 1.0-4.8 Abs Monocytes 0.5 10^3/uL 0-0.8 Abs Eosinophils 0.2 10^3/uL 0-0.6 Abs Basophils 0.1 10^3/uL 0-0.2 Abs Nucleated RBC 0 10^3/uL Granulocyte % 62.3 % 38-83 Lymphocyte % 30.0 % 25-47 Monocyte % 4.6 % 0-7 Eosinophil % 2.3 % 0-6 Basophil % 0.8 % 0-2 Nucleated Red Blood Cells % 0.1 Urinalysis Profile 06/15/2017 Urine Color Colorless Urine Appearance Clear Urine Specific [place] 1.002 Low 1.010-1.030 Urine pH 6.0 5-9 Urine Urobilinogen Negative Negative Urine Ketones Negative Negative Urine Protein Negative Negative Urine Leukocytes Negative Negative Urine Blood Negative Negative Urine Nitrite Negative Negative Urine Bilirubin Negative Negative Urine Glucose Negative Negative Laboratory test finding 05/23/2017 Troponin I 0.01 ng/mL <0.04 CBC Auto Diff 05/23/2017 White Blood Count 5.9 10^3/uL 3.5-10.8 Red Blood Count 4.59 10^6/uL 4.0-5.4 Hemoglobin 13.5 g/dL 12.0-16.0 Hematocrit 40 % 35-47 Mean Corpuscular Volume 87 fL 80-97 Mean Corpuscular Hemoglobin 29 pg 27-31 Mean Corpuscular HGB Conc 34 g/dL 31-36 Red Cell Distribution Width 15 % 10.5-15 Platelet Count 298 10^3/uL 150-450 Mean Platelet Volume 9.3 um3 7.4-10.4 Abs Neutrophils 3.7 10^3/uL 1.5-7.7 Abs Lymphocytes 1.6 10^3/uL 1.0-4.8 Abs Monocytes 0.4 10^3/uL 0-0.8 Abs Eosinophils 0.1 10^3/uL 0-0.6 Abs Basophils 0 10^3/uL 0-0.2 Abs Nucleated RBC 0 10^3/uL Granulocyte % 62.5 % 38-83 Lymphocyte % 26.7 % 25-47 Monocyte % 7.5 % High 0-7 Eosinophil % 2.5 % 0-6 Basophil % 0.8 % 0-2 Nucleated Red Blood Cells % 0.1 Laboratory test finding 05/23/2017 Activated Partial 36.3 seconds 26.0- 36.3 Thrombo Time Lactic Acid 1.1 mmol/L 0.5-2.0 5 Comp Metabolic Panel 05/23/2017 Sodium 136 mmol/L Low 139-145 Potassium 4.0 mmol/L 3.5-5.0 Chloride 106 mmol/L 101-111 Co2 Carbon Dioxide 22 mmol/L 22-32 Anion Gap 8 mmol/L 2-11 Glucose 98 mg/dL 70-100 Blood Urea Nitrogen 14 mg/dL 6-24 Creatinine 0.59 mg/dL 0.51-0.95 BUN/Creatinine Ratio 23.7 High 8-20 Calcium 9.5 mg/dL 8.6-10.3 Total Protein 8.1 g/dL 6.4-8.9 Albumin 4.3 g/dL 3.2-5.2 Globulin 3.8 g/dL 2-4 Albumin/Globulin Ratio 1.1 1-3 Total Bilirubin 0.40 mg/dL 0.2-1.0 Alkaline Phosphatase 73 U/L 34-104 Alt 9 U/L 7-52 Ast 11 U/L Low 13-39 Egfr Non- 116.0 >60 Egfr 149.2 >60 6 Laboratory test finding 05/23/2017 Creatine Kinase 38 U/L 10-223 Troponin I 0.01 ng/mL <0.04 CKMB 05/23/2017 CKMB ng/mL 0.9 ng/mL 0.6-6.3 Laboratory test finding 05/23/2017 TSH (Thyroid Stim Horm) 1.50 mcIU/mL 0.34-5.60 Laboratory test finding 04/20/2017 CK 55 U/L 26-192 7 Troponin-I < 0.015 ng/mL 7, 8 Thyroid Stim Hormone 3.09 uIU/mL 0.30-4.20 7 Free T3 3.56 pg/mL 2.18-3.98 7 Free T4 1.81 ng/dL High 0.76-1.46 7 Troponin-I 03/02/2017 Troponin-I < 0.015 ng/mL 9 Reflex add FT3? Y Reflex add FT4? Y CK 03/02/2017 CK 135 U/L 26-192 Reflex add FT3? Y Reflex add FT4? Y TSH Reflex FT4 And/Or FT3 03/02/2017 Thyroid Stim Hormone 0.05 uIU/mL Low 0.30-4.20 Reflex add FT3? Y Reflex add FT4? Y Free T3 03/02/2017 Free T3 7.70 pg/mL High 2.18-3.98 Reflex add FT3? Y Reflex add FT4? Y Free T4 03/02/2017 Free T4 6.47 ng/dL High 0.76-1.46 Reflex add FT3? Y Reflex add FT4? Y CBC Auto Diff 03/01/2017 White Blood Count 10.4 10^3/uL 3.5-10.8 Red Blood Count 4.59 10^6/uL 4.0-5.4 Hemoglobin 13.3 g/dL 12.0-16.0 Hematocrit 39 % 35-47 Mean Corpuscular Volume 86 fL 80-97 Mean Corpuscular Hemoglobin 29 pg 27-31 Mean Corpuscular HGB Conc 34 g/dL 31-36 Red Cell Distribution Width 14 % 10.5-15 Platelet Count 298 10^3/uL 150-450 Mean Platelet Volume 9 um3 7.4-10.4 Abs Neutrophils 7.3 10^3/uL 1.5-7.7 Abs Lymphocytes 1.8 10^3/uL 1.0-4.8 Abs Monocytes 1.1 10^3/uL High 0-0.8 Abs Eosinophils 0.2 10^3/uL 0-0.6 Abs Basophils 0.1 10^3/uL 0-0.2 Abs Nucleated RBC 0 10^3/uL Granulocyte % 70.5 % 38-83 Lymphocyte % 17.1 % Low 25-47 Monocyte % 10.2 % High 1-9 Eosinophil % 1.7 % 0-6 Basophil % 0.5 % 0-2 Nucleated Red Blood Cells % 0 Laboratory test finding 03/01/2017 Lactic Acid 0.8 mmol/L 0.5-2.0 10 Activated Partial Thrombo Time 35.0 seconds 26.0-36.3 Comp Metabolic Panel 03/01/2017 Sodium 135 mmol/L 133-145 Potassium 3.4 mmol/L Low 3.5-5.0 Chloride 106 mmol/L 101-111 Co2 Carbon Dioxide 22 mmol/L 22-32 Anion Gap 7 mmol/L 2-11 Glucose 97 mg/dL 70-100 Blood Urea Nitrogen 7 mg/dL 6-24 Creatinine 0.52 mg/dL 0.51-0.95 BUN/Creatinine Ratio 13.5 8-20 Calcium 9.0 mg/dL 8.6-10.3 Total Protein 7.0 g/dL 6.4-8.9 Albumin 3.8 g/dL 3.2-5.2 Globulin 3.2 g/dL 2-4 Albumin/Globulin Ratio 1.2 1-3 Total Bilirubin 0.50 mg/dL 0.2-1.0 Alkaline Phosphatase 69 U/L 34-104 Alt 9 U/L 7-52 Ast 9 U/L Low 13-39 Egfr Non- 134.2 >60 Egfr 172.6 >60 11 Laboratory test 03/01/2017 D Dimer Quantitative < 200 ng/mL Less Than 230 12 finding CKMB 03/01/2017 CKMB ng/mL 0.6 ng/mL 0.6-6.3 Laboratory test 03/01/2017 Creatine Kinase 27 U/L 10-223 finding Troponin I 0.01 ng/mL <0.04 CCP Igg/Iga Antibodies 01/05/2017 CCP Igg/Iga Antibodies 7 units 0-19 13 , 14 Comprehensive Metabolic 01/05/2017 Glucose 79 mg/dL 74-106 13 Panel BUN 9 mg/dL 7-18 13 Creatinine 0.6 mg/dL 0.6-1.3 13 Glom Filtration Rate, Estimate >60 mL/min >60 13 If >60 mL/min >60 13, 15 BUN/Creat 15.0 ratio 13 Sodium 140 mmol/L 136-145 13 Potassium 3.8 mmol/L 3.5-5.1 13 Chloride 108 mmol/L High 98-107 13 Carbon Dioxide 24 mmol/L 21-32 13 Anion Gap 8 mEq/L 8-16 13 Calcium 8.8 mg/dL 8.5-10.1 13 Total Protein 8.1 g/dL 6.4-8.2 13 Albumin 3.7 g/dL 3.4-5.0 13 Globulin 4.4 g/dL High 1.9-4.3 13 Alb/Glob 0.8 ratio 13 Bilirubin,Total 0.2 mg/dL 0.2-1.0 13 Sgot/Ast 22 U/L 15-37 13 SGPT/Alt 51 U/L 12-78 13 Alkaline Phosphatase 126 U/L High 45-117 13 Laboratory test finding 01/05/2017 C-Reactive Protein,Cardiac 14.50 mg/L <3.0 13 Sedimentation Rate 7 mm/hr 0-20 13, 16 Lyme AB/Western Blot 01/05/2017 Lyme Total AB/Reflex < 0.91 ISR 0.00- 0.90 13, 17 Reflex To WB Lyme Disease Antibody,QT,Igm < 0.80 index 0.00-0.79 13, 18 Laboratory test 01/05/2017 Anti-Nuclear Positive AU/mL Negative 13, 19 finding Antibodies Direct Rheumatoid Factor Screen < 10.0 IU/mL 0.0-15.0 13 Uric Acid 4.6 mg/dL 2.6-6.0 13 Slide Review 01/05/2017 Slide Review . 13, 20 CBS W/Automated Diff 01/05/2017 White Blood Count 10.5 K/uL 3.1-10.7 13 Red Blood Count 4.98 M/uL 3.90-5.40 13 Hemoglobin 14.4 gm/dL 11.6-15.8 13 Hematocrit 43.2 % 36.0-46.1 13 Mean Cell Volume 86.7 fl 80.9-99.0 13 Mean Corpuscular HGB 28.9 pg 25.9-32.7 13 Mean Corpuscular HGB Conc 33.3 g/dL 30.8-34.3 13 Platelet Count 391 K/uL 150-400 13 Red Cell Distri Width SD 42.6 fl 3-47 13 Red Cell Distri Width %CV 13.8 % 11.7-14.4 13 Mean Platelet Volume 11.5 fL 8.9-12.4 13 Neut% 72.4 % 40.4-72.8 13 Lymph % 19.5 % Low 20.0-42.0 13 [place] % 5.1 % 4.3-13.2 13 Eo% 2.6 % 0.0-6.6 13 Bas% 0.4 % 0.0-1.1 13 Neut# 7.60 K/uL High 1.8-7.0 13 Lymph # 2.05 K/uL 1.0-4.0 13 [place] # 0.54 K/uL 0.3-0.9 13 Eos # 0.27 K/uL 0.0-0.5 13 Baso # 0.04 K/uL 0.0-0.1 13 Rapid Influenza A & B 01/03/2017 Influenza A Molecular NEGATIVE Negative 21 Molecular Influenza B Molecular NEGATIVE Negative Laboratory test finding 11/07/2013 Cyst, Cutaneous See Note 22 1 E03.9 2 Because ethnic data is not always readily available, this report includes an eGFR for both -Americans and non- Americans. The National Kidney Disease Education Program (NKDEP) does not endorse the use of the MDRD equation for patients that are not between the ages of 18 and 70, are , have extremes of body size, muscle mass, or nutritional status, or are non- or non-. According to the National Kidney Foundation, irrespective of diagnosis, the stage of the disease is based on the level of kidney function: Stage Description GFR(mL/min/1.73 m(2)) 1 Kidney damage with normal or decreased GFR 90 2 Kidney damage with mild decrease in GFR 60-89 3 Moderate decrease in GFR 30-59 4 Severe decrease in GFR 15-29 5 Kidney failure <15 (or dialysis) 3 <5.0 Negative 5.0 - 25.0 Indeterminate (Repeat testing recommended after 72 hours) >25.0 Positive Perimenopausal women can display HCG levels of up to 20 mIU/mL 4 Therapeutic concentration: <50 ug/mL Toxic concentration: >120 ug/mL 5 MNS Severe Sepsis and Septic Shock Management Bundle Measure requires all lactic acids initially measuring >2.0 mmol/L be repeated. 6 Because ethnic data is not always readily available, this report includes an eGFR for both -Americans and non- Americans. The National Kidney Disease Education Program (NKDEP) does not endorse the use of the MDRD equation for patients that are not between the ages of 18 and 70, are , have extremes of body size, muscle mass, or nutritional status, or are non- or non-. According to the National Kidney Foundation, irrespective of diagnosis, the stage of the disease is based on the level of kidney function: Stage Description GFR(mL/min/1.73 m(2)) 1 Kidney damage with normal or decreased GFR 90 2 Kidney damage with mild decrease in GFR 60-89 3 Moderate decrease in GFR 30-59 4 Severe decrease in GFR 15-29 5 Kidney failure <15 (or dialysis) 7 WAITING FOR ORDER/R07.9 8 0.0 - 0.045 ng/mL: Normal 0.046 - 0.5 ng/mL: Suggestive 0.6 - 1.5 ng/mL: Consistent 9 0.0 - 0.045 ng/mL: Normal 0.046 - 0.5 ng/mL: Suggestive 0.6 - 1.5 ng/mL: Consistent 10 [facility] Severe Sepsis and Septic Shock Management Bundle Measure requires all lactic acids initially measuring >2.0 mmol/L be repeated. 11 Because ethnic data is not always readily available, this report includes an eGFR for both -Americans and non- Americans. The National Kidney Disease Education Program (NKDEP) does not endorse the use of the MDRD equation for patients that are not between the ages of 18 and 70, are , have extremes of body size, muscle mass, or nutritional status, or are non- or non-. According to the National Kidney Foundation, irrespective of diagnosis, the stage of the disease is based on the level of kidney function: Stage Description GFR(mL/min/1.73 m(2)) 1 Kidney damage with normal or decreased GFR 90 2 Kidney damage with mild decrease in GFR 60-89 3 Moderate decrease in GFR 30-59 4 Severe decrease in GFR 15-29 5 Kidney failure <15 (or dialysis) 12 Please note: The following may produce a false positive D Dimer test: - Rheumatoid factor greater than 60 IU/ml - Plasma hemoglobin greater than 0.05 gm/dl - Bilirubin greater than 50 mg/dl - Lipids greater than 1000 mg/dl - FDP greater than 20 ug/ml 13 M25.50 14 Negative <20 Weak positive 20 - 39 Moderate positive 40 - 59 Strong positive >59 15 Note: Persistent reduction for 3 months or more in an eGFR <60 mL/min/1.73 m2 defines CKD. Patients with eGFR values >/=60 mL/min/1.73 m2 may also have CKD if evidence of persistent proteinuria is present. The original MDRD equation for estimated GFR is not valid for patients less than 18 years of age. Additional information may be found at www.kdoqi.org. 16 Method: Sediplast Modified Westergren 17 Negative <0.91 Equivocal 0.91 - 1.09 Positive >1.09 18 Negative <0.80 Equivocal 0.80 - 1.19 Positive >1.19 IgM levels may peak at 3-6 weeks post infection, then gradually decline. 19 Performed at: [facility] [address] [id number] Manager Sales Training: Keeley Jean-Baptiste MD, Phone: [phone] Performed at: [facility] [address] [id number] Manager Sales Training: Jairon Azevedo MD, Phone: [phone] 20 Instrument flagged sample for slide review. Less than 10% Bands seen, no other immature WBC's seen. RBC morphology essentially normal. Platelet estimate=NORMAL 21 Field Tax Auditor: [id number] OPERATION/PROCEDURE Excision DIAGNOSIS: "LEFT CHIN CYST, EXCISION": EPIDERMOID CYST. /[facility] GROSS Received in formalin labeled, "CYST OF LEFT CHIN" are three pieces of herring, rubbery tissue, measuring up to 2.1 x 1.3 x 0.9 cm. The largest piece is an attached skin ellipse, measuring 1.4 x 0.5 cm. The entire specimen appears to be a previously ruptured cyst. Services Mgr sections are submitted in one block. /clf MICROSCOPIC Sections reveal a cystic lesion composed of squamous epithelium, including a granular layer, lined cystic wall. The cystic contents are composed of laminated keratin. PRE OPERATIVE DIAGNOSIS Left chin cyst REVIEW CODE CODE: I Signed Electronically signed MANJIT MENDOZA MD [id number] Procedures Date CPT Code Description Status 03/02/2017 82983 EKG-Tracing And Report Completed 11/07/2013 04919 Simple Repair Of Wounds Of Scalp/Neck/Feet/Hands Completed 11/07/2013 71554 Exc Benign Lesion Face/1.1-2.0 CM Completed 01/19/2012 95177 EKG Interpretation And Report Only Completed Encounters Type Date Location Provider CPT E/M Dx Office Visit 07/27/2017 1:15p Family Medicine Maureen Arboleda M.D. 42342 M54.12 E03.9 Office Visit 07/06/2017 1:30p Family Medicine Jam Damon [facility] 29430 J01.90 J30.9 H62.43 Office Visit 06/14/2017 10:30a Family Medicine Maureen Arboleda M.D. 75319 E89.0 F31.32 Office Visit 03/02/2017 1:30p Family Medicine Maureen Arboleda M.D. 60860 R07.9 Office Visit 02/03/2017 8:45a Family Medicine Family Nurse 75216 Z11.1 Office Visit 01/17/2017 2:45p Family Medicine DEJA Bruce 31350 F31.32 F17.210 Office Visit 01/05/2017 9:15a Family Medicine Maureen Arboleda M.D. 25538 E89.0 J01.90 M25.50 Office Visit 10/31/2013 10:00a [place] [address] 706.2 Plan of Care 08/22/2017 - HOLLY Bruce63.4 Abnormal weight lossNew Medication: Multivitamin AdultsComments:No appetite for the past year. Try to eat regular small meals and snack.Consider protein drinks. Start a multivitamin daily.Follow up:1 month -weight, neck, guocdegZ94.32 Bipolar disorder, current episode depressed, moderateComments:Labs are being checked. Will contact you with results. Follow up with [facility] as planned.M54.12 Radiculopathy, cervical regionComments:Set up your PT appt. This can be very helpful. USe medications as needed if symptoms flare up.E03.9 Hypothyroidism, unspecifiedComments:TSH is being checked today. Will contact you with results regarding dosing.Z72.0 Tobacco useComments:Encouraged smoking cessation.Risks discussed.Outside help is available by [email or web address] [employer]vertising
[2017-09-06 10:33] VITALS: BP 109/64
--- NOTE | 2017-09-06 10:43 | UC ---
Abdominal Pain Female HPI - HPI Summary HPI Summary: DIARRHEA X 3 DAYS ABDOMINAL CRAMPING NO FEVER, NO CHILLS, NO NAUSEA OR VOMITING - History of Current Complaint Chief Complaint: UCGeneralIllness Stated Complaint: DIARRHEA, WEAKNESS, ACHES Time Seen by Provider: 09/06/17 10:28 Hx Obtained From: Patient Hx Last Menstrual Period: n/a ?: No Onset/Duration: Gradual Onset, Lasting Days - 3, Still Present Timing: Constant Severity Initially: Moderate Severity Currently: Moderate Pain Intensity: 0 Location: Diffuse Radiates: No Character: Cramping Aggravating Factor(s): Food Alleviating Factor(s): Nothing Associated Signs and Symptoms: Positive: Decreased Appetite, Diarrhea. Negative : Diaphoresis, Fever, Cough, Chest Pain, Dizzy, Back Pain, Constipation, Blood in Stool, Urinary Symptoms, Vaginal Bleeding, Vaginal Discharge, Nausea, Vomiting Allergies/Adverse Reactions: Allergies Allergy/AdvReac Type Severity Reaction Status Date / Time amoxicillin Allergy Rash Verified 09/06/17 10:33 Penicillins Allergy Anaphylatic Verified 09/06/17 10:33 Shock PMH/Surg Hx/FS Hx/Imm Hx Endocrine History: Hypothyroidism - Surgical History Surgical History: Yes Surgery Procedure, Year, and Place: thyroidectomy 2008,tubal ligation-2006, hysterectomy 2008. Cholecystectomy 2012 - Family History Known Family History: Positive: Cardiac Disease - grandparents, Hypertension - Social History Alcohol Use: Rare Substance Use Type: None Substance Use Comment - Amount & Last Used: clean 4 years Smoking Status (MU): Light Every Day Tobacco Smoker Type: Cigarettes Amount Used/How Often: < 1/2 PPD Length of Time of Smoking/Using Tobacco: Since Age 16 Have You Smoked in the Last Year: Yes Household Exposure Type: Cigarettes - Immunization History Most Recent Influenza Vaccination: 01/05/17 Most Recent Tetanus Shot: had it, but is unsure on what year - she thinks 3 yrs ago. Most Recent Pneumonia Vaccination: 2010 Review of Systems Constitutional: Negative Skin: Negative Eyes: Negative ENT: Negative Respiratory: Negative Gastrointestinal: Abdominal Pain, Diarrhea Is Patient Immunocompromised?: No All Other Systems Reviewed And Are Negative: Yes Physical Exam Triage Information Reviewed: Yes Appearance: Well-Appearing, No Pain Distress, Well-Nourished Vital Signs: Initial Vital Signs Temp 98.0 F 09/06/17 10:29 Pulse 81 09/06/17 10:29 Resp 18 09/06/17 10:29 BP 109/64 09/06/17 10:29 Pulse Ox 100 09/06/17 10:29 Vital Signs Reviewed: Yes Eye Exam: Normal Eyes: Positive: Conjunctiva Clear ENT: Positive: Normal ENT inspection, Hearing grossly normal, Pharynx normal Neck: Positive: Supple, Nontender, No Lymphadenopathy Respiratory: Positive: Chest non-tender, Lungs clear, Normal breath sounds, No respiratory distress Cardiovascular: Positive: RRR, No Murmur, Pulses Normal Abdomen Description: Positive: Nontender, Soft. Negative: CVA Tenderness (R), CVA Tenderness (L), Distended, Guarding Bowel Sounds: Positive: Present Abd Pain Female Course/Dx - Differential Dx/Diagnosis Provider Diagnoses: ACUTE DIARRHEA Discharge - Sign-Out/Discharge Documenting (check all that apply): Patient Departure - Discharge Plan Condition: Stable Disposition: HOME Patient Education Materials: Acute Diarrhea (ED) Forms: *Work Release Referrals: Maureen Arboleda MD [Primary Care Provider] - If Needed - Billing Disposition and Condition Condition: STABLE Disposition: Home
== END 2017-09-06 10:47 | disposition home or self-care (01) ==
LOC: UCCORT 10:12
DX: R19.7 Diarrhea, unspecified (principal); Z88.0 Allergy status to penicillin; F17.210 Nicotine dependence, cigarettes, uncomplicated
CPT/HCPCS: 99211; G0463

== ENCOUNTER 2017-09-12 18:32 | Emergency (ER) | payer OTHER ==
--- OUTSIDE RECORDS SUMMARY | 2017-09-12 18:40 | XMS REPORT ---
:1980 External Reference #:[id number] Author Organization [facility] Address [address], [address] [place] [address] Phone [phone] Care Team Providers Name Role Phone Maureen Arboleda M.D. 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 Primary Care Physician Unavailable Payers Type Date Identification Numbers Payment Provider Subscriber Commercial Policy Number: [id number] Yamil Matar PayID: [id number] [address] [address] [place] [address] Problems Date Description Provider Status Onset: 10/31/2013 Epidermoid cyst Uday rS MD Active Onset: 01/05/2017 Postprocedural hypothyroidism Maureen [...] Form Strength Qnty SIG Indications Ordering Provider Levothyroxine 08/24 Active Tablets 125mcg 60tab take 2 Maureen Arboleda Sodium s tablets M.D. by mouth daily in the morning on an empty stomach for underact little thyroid Multivitamin 08/22 Active Tablets 90tab 1 by R63.4 Maureen Arboleda, Adults s mouth M.D. every day Tizanidine HCL 07/27 Active Tablets 4mg 30tab take 1 M54.12 Maureen Arboleda, s tablet M.D. by mouth every 8 hours as needed Naproxen 07/27 Active Tablets 500mg 60tab 500 mg M54.12 Maureen Arboleda, /2017 s by mouth M.D. every 12 hours as needed pain Fluticasone Active Suspension 50mcg/Act Leonard Unknown Two Sprays In Each Nostril Twice A Day Up To 2 Weeks Fluoxetine HCL Active Capsules 60mg 1 by Unknown /0000 mouth every day Gabapentin Active Capsules 300mg take one Unknown /0000 po as needed Fexofenadine HCL 07/06 Hx Tablets 180mg 90tab 1 by J30.9 Jam s mouth at [facility] - night 07/27 Neomycin/Polymyx 07/06 Hx Suspension 3.5-48617 10ml 2-3 H62.43 [facility]/Hydrocortison /2017 -1 drops [facility] e (Otic) - each ear 07/27 4 x a day x 5 days Levothyroxine 03/04 Hx Tablets 200mcg 30tab Take One Maureen Arboleda Sodium s Tablet M.D. - By Mouth 08/24 Every 2018 Day Tizanidine HCL 03/02 Hx Tablets 4mg 30tab take 1 R07.9 Maureen Arboleda, /2017 s tablet M.D. - by mouth 06/14 every hours as needed Quetiapine 01/17 Hx Tablets 50mg F31.32 Maureen Arboleda M.D. - 01/17 Ipratropium 01/05 Hx Solution 0.03% 30ml 2 sprays J01.90 Maureen Arboleda Bowie intranas M.D. - ally 06/14 times a day as needed Lexapro 00/00 Hx Tablets 10mg 30tab 1 by Unknown /0000 s mouth every day Oxaprozin Hx Tablets 600mg 60tab 1 by Unknown /0000 s mouth - twice a after meals Gabapentin Hx Tablets 1200mg 90Tab qd Unknown /0000 [...] Sodium /0000 by mouth - every Ibuprofen / Hx Tablets 600mg Dibartolo, 0000 Brittany Otto N.P. 01/05 Naproxen 00/00 Hx Tablets 500mg Marson, /0000 MD Xander - 01/05 Cyclobenzaprine Hx Tablets 10mg Joseon, HCL /0000 MD Xander - 01/05 Naproxen 0000 Hx Tablets 500mg Joseon, /0000 MD Xander - 06/14 Fluoxetine HCL 00/ Hx Capsules 20mg 1 cap by Unknown /0000 mouth - every every morning Prazosin HCL Hx Capsules 1mg Unknown /0000 - 06/14 Tramadol HCL 0000 Hx Tablets 50mg Take One Unknown /0000 Tablet - By Mouth 07/27 Every Hours as Needed For Pain Maximum Ford Doxycycline 00 Hx Capsules 100mg Take One Unknown Monohydrate /0000 Capsule - By Mouth 07/27 Twice Day With Food Alprazolam Hx Tablets 0.5mg Faye, Brittany Knox MD 07/27 Medications Administered in Office Medication Date Status Form Strength Qnty SIG Indications Ordering Provider PPD Administered Injection Family Nurse 7 Immunizations CPT Code Status Date Vaccine Lot # [id number] Given 01/05/2017 Influenza Virus Vaccine Quadrivalent Iiv4 Split [id number] Preser Free Id Vital Signs Date Vital Result Comment 09/08/2017 BP Systolic Sitting Left Arm 94 mmHg BP Diastolic Sitting Left Arm 54 mmHg Body Temperature 98.8 F Heart Rate 85 /min Height 64 inches 5'4" Weight 152.50 lb BMI (Body Mass Index) 26.2 kg/m2 BSA (Body Surface Area) 1.74 m2 [place] body weight in kilograms 54 08/22/2017 BP Systolic 102 mmHg BP Diastolic 60 mmHg Body Temperature 97.5 F Heart Rate 79 /min Respiratory Rate 18 /min Height 61 inches 5'1" Weight 152.00 lb BMI (Body Mass Index) 28.7 kg/m2 BSA (Body Surface Area) 1.68 m2 [place] body weight in kilograms 48 O2 % BldC Oximetry 98 % 07/27/2017 BP Systolic Sitting Left Arm 116 mmHg BP Diastolic Sitting Left Arm 74 mmHg Body Temperature 98.5 F Heart Rate 60 /min Height 61 inches 5'1" Weight 154.00 lb BMI (Body Mass Index) 29.1 kg/m2 BSA (Body Surface Area) 1.69 m2 [place] body weight in kilograms 48 07/06/2017 BP Systolic Sitting Left Arm 118 mmHg BP Diastolic Sitting Left Arm 76 mmHg Body Temperature 98.5 F Heart Rate 78 /min Respiratory Rate 18 /min Height 61 inches 5'1" Weight 152.38 lb BMI (Body Mass Index) 28.8 kg/m2 BSA (Body Surface Area) 1.68 m2 [place] body weight in kilograms 48 06/14/2017 BP Systolic 100 mmHg BP Diastolic 60 mmHg Heart Rate 84 /min Height 61 inches 5'1" Weight 148.00 lb BMI (Body Mass Index) 28.0 kg/m2 BSA (Body Surface Area) 1.66 m2 [place] body weight in kilograms 48 O2 % BldC Oximetry 98 % 03/02/2017 BP Systolic Sitting Right Arm 112 mmHg BP Diastolic Sitting Right Arm 78 mmHg Body Temperature 97.4 F Heart Rate 113 /min Height 61 inches 5'1" Weight 154.38 lb BMI (Body Mass Index) 29.2 kg/m2 BSA (Body Surface Area) 1.69 m2 [place] body weight in kilograms 48 O2 % BldC Oximetry 95 % 01/17/2017 BP Systolic 120 mmHg BP Diastolic 80 mmHg Heart Rate 81 /min Height 62 inches 5'2" Weight 162.25 lb BMI (Body Mass Index) 29.7 kg/m2 BSA (Body Surface Area) 1.75 m2 [place] body weight in kilograms 50 01/05/2017 BP Systolic Sitting Left Arm 106 mmHg BP Diastolic Sitting Left Arm 70 mmHg Height 62 inches 5'2" Weight 164.25 lb BMI (Body Mass Index) 30.0 kg/m2 BSA (Body Surface Area) 1.76 m2 [place] body weight in kilograms 50 10/31/2013 BP Systolic Sitting Right Arm 128 mmHg BP Diastolic Sitting Right Arm 85 mmHg Heart Rate 116 /min Height 62 inches 5'2" Weight 174.00 lb BMI (Body Mass Index) 31.8 kg/m2 BSA (Body Surface Area) 1.80 m2 Results Test Date Test Result H/L Range Note Comprehensive Metabolic Panel 08/22/2017 Glucose 81 mg/dL 74-106 1 BUN 8 mg/dL 7-18 1 Creatinine 0.6 mg/dL 0.6-1.3 1 Glom Filtration Rate, Estimate >60 mL/min >60 1 If >60 mL/min >60 1, 2 BUN/Creat 13.3 ratio 1 Sodium 139 mmol/L 136-145 1 Potassium 4.0 mmol/L 3.5-5.1 1 Chloride 108 mmol/L High 98-107 1 Carbon Dioxide 23 mmol/L 21-32 1 Anion Gap 8 mEq/L 8-16 1 Calcium 8.2 mg/dL Low 8.5-10.1 1 Total Protein 8.3 g/dL High 6.4-8.2 1 Albumin 3.6 g/dL 3.4-5.0 1 Globulin 4.7 g/dL High 1.9-4.3 1 Alb/Glob 0.8 ratio 1 Bilirubin,Total 0.3 mg/dL 0.2-1.0 1 Sgot/Ast 14 U/L Low 15-37 1, 3 SGPT/Alt 17 U/L 12-78 1 Alkaline Phosphatase 86 U/L 45-117 1 Laboratory test finding 08/22/2017 Thyroid Stim Hormone 4.42 uIU/mL High 0.30-4.20 1 Estradiol,Serum 64.8 pg/mL . 1, 4 FSH 4.7 mIU/mL 1, 5 CBS W/Automated Diff 08/22/2017 White Blood Count 6.9 K/uL 3.1-10.7 1 Red Blood Count 4.84 M/uL 3.90-5.40 1 Hemoglobin 14.3 gm/dL 11.6-15.8 1 Hematocrit 42.5 % 36.0-46.1 1 Mean Cell Volume 87.8 fl 80.9-99.0 1 Mean Corpuscular HGB 29.5 pg 25.9-32.7 1 Mean Corpuscular HGB Conc 33.6 g/dL 30.8-34.3 1 Platelet Count 379 K/uL High 155-360 1 Red Cell Distri Width SD 42.3 fl 3-47 1 Red Cell Distri Width %CV 13.4 % 11.7-14.4 1 Mean Platelet Volume 11.5 fL 8.9-12.4 1 Neut% 57.4 % 40.4-72.8 1 Lymph % 30.1 % 20.0-42.0 1 C[place] % 8.5 % 4.3-13.2 1 Eo% 3.6 % 0.0-6.6 1 Bas% 0.4 % 0.0-1.1 1 Neut# 3.97 K/uL 1.8-7.0 1 Lymph # 2.08 K/uL 1.0-4.0 1 Custer # 0.59 K/uL 0.3-0.9 1 Eos # 0.25 K/uL 0.0-0.5 1 Baso # 0.03 K/uL 0.0-0.1 1 Laboratory test finding 07/27/2017 Thyroid Stim Hormone 22.00 uIU/mL High 0.30-4.20 6 Free T4 1.99 ng/dL High 0.76-1.46 6 Free T3 3.28 pg/mL 2.18-3.98 6 Laboratory test finding 06/15/2017 HCG < 0.60 mIU/mL 7 Acetaminophen < 15 g/mL 8 Alcohol < 10 mg/dL <10 Salicylate < 2.50 mg/dL <30 TSH (Thyroid Stim Horm) 83.37 mcIU/mL High 0.34-5.60 Comp Metabolic Panel 06/15/2017 Sodium 137 mmol/L [...] Egfr Non- 85.3 >60 Egfr 109.7 >60 9 CBC Auto Diff 06/15/2017 White Blood Count [...] Color Colorless Urine Appearance Clear Urine Specific Holliday 1.002 Low 1.010-1.030 Urine pH 6.0 5-9 [...] Thrombo Time Lactic Acid 1.1 mmol/L 0.5-2.0 10 Comp Metabolic Panel 05/23/2017 Sodium 136 mmol/L [...] Egfr Non- 116.0 >60 Egfr 149.2 >60 11 Laboratory test finding 05/23/2017 Creatine Kinase 38 U/L 10-223 Troponin I 0.01 ng/mL <0.04 CKMB 05/23/2017 CKMB ng/mL 0.9 ng/mL 0.6-6.3 Laboratory test finding 05/23/2017 TSH (Thyroid Stim 1.50 mcIU/mL 0.34- 5.60 Horm) Laboratory test finding 04/20/2017 CK 55 U/L 26-192 12 Troponin-I < 0.015 ng/mL 12, 13 Thyroid Stim Hormone 3.09 uIU/mL 0.30-4.20 12 Free T3 3.56 pg/mL 2.18-3.98 12 Free T4 1.81 ng/dL High 0.76-1.46 12 Troponin-I 03/02/2017 Troponin-I < 0.015 ng/mL 14 Reflex add FT3? Y Reflex add FT4? [...] finding 03/01/2017 Lactic Acid 0.8 mmol/L 0.5-2.0 15 Activated Partial Thrombo Time 35.0 seconds 26.0-36.3 [...] Egfr Non- 134.2 >60 Egfr 172.6 >60 16 Laboratory test finding 03/01/2017 Creatine Kinase 27 U/L 10-223 Troponin I 0.01 ng/mL <0.04 CKMB 03/01/2017 CKMB ng/mL 0.6 ng/mL 0.6-6.3 Laboratory test 03/01/2017 D Dimer Quantitative < 200 ng/mL Less Than 230 17 finding Lyme AB/Western 01/05/2017 Lyme Total AB/Reflex < 0.91 ISR 0.00-0.90 18 , 19 Blot Reflex To WB Lyme Disease Antibody,QT,Igm < 0.80 index 0.00-0.79 18, 20 Laboratory test 01/05/2017 Anti-Nuclear Positive AU/mL Negative 18, 21 finding Antibodies Direct Rheumatoid Factor Screen < 10.0 IU/mL 0.0-15.0 18 Uric Acid 4.6 mg/dL 2.6-6.0 18 Slide Review 01/05/2017 Slide Review . 18, 22 Laboratory test finding 01/05/2017 C-Reactive 14.50 mg/L <3.0 18 Protein,Cardiac Sedimentation Rate 7 mm/hr 0-20 18, 23 Comprehensive Metabolic Panel 01/05/2017 Glucose 79 mg/dL 74-106 18 BUN 9 mg/dL 7-18 18 Creatinine 0.6 mg/dL 0.6-1.3 18 Glom Filtration Rate, Estimate >60 mL/min >60 18 If >60 mL/min >60 18, 24 BUN/Creat 15.0 ratio 18 Sodium 140 mmol/L 136-145 18 Potassium 3.8 mmol/L 3.5-5.1 18 Chloride 108 mmol/L High 98-107 18 Carbon Dioxide 24 mmol/L 21-32 18 Anion Gap 8 mEq/L 8-16 18 Calcium 8.8 mg/dL 8.5-10.1 18 Total Protein 8.1 g/dL 6.4-8.2 18 Albumin 3.7 g/dL 3.4-5.0 18 Globulin 4.4 g/dL High 1.9-4.3 18 Alb/Glob 0.8 ratio 18 Bilirubin,Total 0.2 mg/dL 0.2-1.0 18 Sgot/Ast 22 U/L 15-37 18 SGPT/Alt 51 U/L 12-78 18 Alkaline Phosphatase 126 U/L High 45-117 18 CCP Igg/Iga Antibodies 01/05/2017 CCP Igg/Iga Antibodies 7 units 0-19 18 , 25 CBS W/Automated Diff 01/05/2017 White Blood Count 10.5 K/uL 3.1-10.7 18 Red Blood Count 4.98 M/uL 3.90-5.40 18 Hemoglobin 14.4 gm/dL 11.6-15.8 18 Hematocrit 43.2 % 36.0-46.1 18 Mean Cell Volume 86.7 fl 80.9-99.0 18 Mean Corpuscular HGB 28.9 pg 25.9-32.7 18 Mean Corpuscular HGB Conc 33.3 g/dL 30.8-34.3 18 Platelet Count 391 K/uL 150-400 18 Red Cell Distri Width SD 42.6 fl 3-47 18 Red Cell Distri Width %CV 13.8 % 11.7-14.4 18 Mean Platelet Volume 11.5 fL 8.9-12.4 18 Neut% 72.4 % 40.4-72.8 18 Lymph % 19.5 % Low 20.0-42.0 18 [place] % 5.1 % 4.3-13.2 18 Eo% 2.6 % 0.0-6.6 18 Bas% 0.4 % 0.0-1.1 18 Neut# 7.60 K/uL High 1.8-7.0 18 Lymph # 2.05 K/uL 1.0-4.0 18 [place] # 0.54 K/uL 0.3-0.9 18 Eos # 0.27 K/uL 0.0-0.5 18 Baso # 0.04 K/uL 0.0-0.1 18 Rapid Influenza A & B 01/03/2017 Influenza A Molecular NEGATIVE Negative 26 Molecular Influenza B Molecular NEGATIVE Negative Laboratory test finding 11/07/2013 Cyst, Cutaneous See Note 27 1 R63.4 2 Note: Persistent reduction for 3 months or more in an eGFR <60 mL/min/1.73 m2 defines CKD. Patients with eGFR values >/=60 mL/min/1.73 m2 may also have CKD if evidence of persistent proteinuria is present. The original MDRD equation for estimated GFR is not valid for patients less than 18 years of age. Additional information may be found at www.kdoqi.org. 3 Values below the stated reference ranges of AST and ALT can be seen in normal populations. Clinical correlation is suggested. 4 Adult Female: Follicular phase 12.5 - 166.0 Ovulation phase 85.8 - 498.0 Luteal phase 43.8 - 211.0 Postmenopausal <6.0 - 54.7 1st trimester 215.0 - >4300.0 Girls (1-10 years) 6.0 - 27.0 Jeanmarie ECLIA methodology Performed at: RN - [facility] [address] [id number] Nurse Care Manager: Keeley Jean-Baptiste MD, Phone: [phone] 5 NORMALLY MENSTRUATING FEMALES: Follicular Phase:............... 2.3-12.6 mIU/mL Mid-Cycle Peak:................. 5.2-17.5 mIU/mL Luteal Phase:................... 1.7-9.5 mIU/mL POSTMENOPAUSAL FEMALES: On menopausal hormone therapy (MHT)... 5.9-72.8 mIU/mL Not on MHT ........................... 12.7-132.2 mIU/mL 6 E03.9 7 <5.0 Negative 5.0 - 25.0 Indeterminate (Repeat testing recommended after 72 hours) >25.0 Positive Perimenopausal women can display HCG levels of up to 20 mIU/mL 8 Therapeutic concentration: <50 ug/mL Toxic concentration: >120 ug/mL 9 Because ethnic data is not always readily [...] 15-29 5 Kidney failure <15 (or dialysis) 10 [facility] Severe Sepsis and Septic Shock Management Bundle [...] 5 Kidney failure <15 (or dialysis) 12 WAITING FOR ORDER/R07.9 13 0.0 - 0.045 ng/mL: Normal 0.046 - 0.5 ng/mL: Suggestive 0.6 - 1.5 ng/mL: Consistent 14 0.0 - 0.045 ng/mL: Normal 0.046 - 0.5 ng/mL: Suggestive 0.6 - 1.5 ng/mL: Consistent 15 [place] Severe Sepsis and Septic Shock Management Bundle Measure requires all lactic acids initially measuring >2.0 mmol/L be repeated. 16 Because ethnic data is not always readily [...] 15-29 5 Kidney failure <15 (or dialysis) 17 Please note: The following may produce a false positive D Dimer test: - Rheumatoid factor greater than 60 IU/ml - Plasma hemoglobin greater than 0.05 gm/dl - Bilirubin greater than 50 mg/dl - Lipids greater than 1000 mg/dl - FDP greater than 20 ug/ml 18 M25.50 19 Negative <0.91 Equivocal 0.91 - 1.09 Positive >1.09 20 Negative <0.80 Equivocal 0.80 - 1.19 Positive >1.19 IgM levels may peak at 3-6 weeks post infection, then gradually decline. 21 Performed at: - [facility] [address] [id number] Nurse Care Manager: Keeley Jean-Baptiste MD, Phone: [phone] Performed at: - [facility] [address] [id number] Nurse Care Manager: Jairon Azevedo MD, Phone: [phone] 22 Instrument flagged sample for slide review. Less than 10% Bands seen, no other immature WBC's seen. RBC morphology essentially normal. Platelet estimate=NORMAL 23 Method: Sediplast Modified Westergren 24 Note: Persistent reduction for 3 months or more in an eGFR <60 mL/min/1.73 m2 defines CKD. Patients with eGFR values >/=60 mL/min/1.73 m2 may also have CKD if evidence of persistent proteinuria is present. The original MDRD equation for estimated GFR is not valid for patients less than 18 years of age. Additional information may be found at www.kdoqi.org. 25 Negative <20 Weak positive 20 - 39 Moderate positive 40 - 59 Strong positive >59 26 Stadium Attendant: [id number] OPERATION/PROCEDURE Excision DIAGNOSIS: "LEFT CHIN CYST, EXCISION": EPIDERMOID CYST. /katie GROSS Received in formalin labeled, "CYST OF LEFT CHIN" are three pieces of herring, rubbery tissue, measuring up to 2.1 x 1.3 x 0.9 cm. The largest piece is an attached skin ellipse, measuring 1.4 x 0.5 cm. The entire specimen appears to be a previously ruptured cyst. Ladle Operator sections are submitted in one block. /delfinf MICROSCOPIC Sections reveal a cystic lesion composed of squamous epithelium, including a granular layer, lined cystic wall. The cystic contents are composed of laminated keratin. PRE OPERATIVE DIAGNOSIS Left chin cyst REVIEW CODE CODE: I Signed Electronically signed MANJIT MENDOZA MD [id number] Procedures Date CPT Code Description Status 03/02/2017 00592 EKG-Tracing And Report Completed 11/07/2013 50316 Simple Repair Of Wounds Of Scalp/Neck/Feet/Hands Completed 11/07/2013 84834 Exc Benign Lesion Face/1.1-2.0 CM Completed 01/19/2012 25292 EKG Interpretation And Report Only Completed Encounters Type Date Location Provider CPT E/M Dx Office Visit 08/22/2017 8:30a Family Medicine DEJA Bruce 39083 R63.4 F31.32 M54.12 E03.9 Z72.0 Office Visit 07/27/2017 1:15p Family Medicine Maureen Arboleda M.D. 78352 M54.12 E03.9 Office Visit 07/06/2017 1:30p Family Medicine Jam Damon [facility] 30943 J01.90 J30.9 H62.43 Office Visit 06/14/2017 10:30a Family Medicine Maureen Arboleda M.D. 66979 E89.0 F31.32 Office Visit 03/02/2017 1:30p Family Medicine Maureen Arboleda M.D. 10416 R07.9 Office Visit 02/03/2017 8:45a Family Medicine Family Nurse 24782 Z11.1 Office Visit 01/17/2017 2:45p Family Medicine DEJA Bruce 40083 F31.32 F17.210 Office Visit 01/05/2017 9:15a [facility] Maureen Arboleda M.D. 72679 E89.0 J01.90 M25.50 Office Visit 10/31/2013 10:00a [place] [address] 706.2 Plan of Care Future Appointment(s):09/23/2017 1:00 pm - DEJA Bruce at [facility]09/08/2017 - Maureen Arboleda M.D.E03.9 Hypothyroidism, unspecifiedNew Labs: TSH Reflex FT4 And/Or [id number]:had mildly elevated TSH and had dose increased , will recheck TSH today and see if significantly esoooyzA27.7 Diarrhea, unspecifiedNew Labs:CBS W/Automated DiffStool CultureC. Difficile Toxin B By PCRShiga Toxin 1 AntigenShiga Toxin 2 AntigenOva & Parasite ComprehensiveComments:Had flu like symptoms and now persistent diarrheawill get stool studies to rule out other source other than viralif negative, advised to monitor for resolutionwill continue with keeping hydrated, will keep out of work because still very symptomatic will re-evaluate next week to see if she can return to work
[2017-09-12 18:55] VITALS: BP 110/60
--- NOTE | 2017-09-12 19:47 | UC ---
Hand/Wrist HPI - HPI Summary HPI Summary: Patient is at urgent care today with chief complaint of right wrist pain and swelling. Patient notes that she helped move a lot of furniture yesterday and that may have caused this. she also notes that she swings her arms around a lot when she talks and she may bumped it but she is not sure. - History Of Current Complaint Chief Complaint: UCUpperExtremity Stated Complaint: WRIST INJURY Time Seen by Provider: 09/12/17 19:35 Hx Obtained From: Patient Hx Last Menstrual Period: hysterectomy ?: No Mechanism Of Injury: unknown Onset/Duration: Sudden Onset, Lasting Days - 1 Pain Intensity: 7 Pain Scale Used: 0-10 Numeric Character Of Pain: Aching, Stiffness Aggravating Factor(s): Movement Alleviating Factor(s): Nothing Associated Signs And Symptoms: Positive: Swelling Related History: Dominant Hand Right - Allergies/Home Medications Allergies/Adverse Reactions: Allergies Allergy/AdvReac Type Severity Reaction Status Date / Time amoxicillin Allergy Rash Verified 09/12/17 19:19 Penicillins Allergy Anaphylatic Verified 09/12/17 19:19 Shock Home Medications: Home Medications Gabapentin [Neurontin] 300 mg PO DAILY PRN 09/12/17 [History Confirmed 09/12/17] Ibuprofen TAB* [Motrin TAB* 400 MG] 600 mg PO Q6H PRN 09/12/17 [History Confirmed 09/12/17] PMH/Surg Hx/FS Hx/Imm Hx Previously Healthy: No Psychological History: Anxiety, Depression, Post Traumatic Stress Disorder Cancer History: Cervical Cancer, Other Other Cancer History: thyroid cancer - Surgical History Surgical History: Yes Surgery Procedure, Year, and Place: thyroidectomy 2008,tubal ligation-2006, hysterectomy 2008. Cholecystectomy 2012 - Family History Known Family History: Positive: Cardiac Disease - grandparents, Hypertension - Social History Occupation: Employed Full-time Lives: With Family Alcohol Use: Rare Substance Use Type: None Substance Use Comment - Amount & Last Used: clean 4 years Smoking Status (MU): Light Every Day Tobacco Smoker Type: Cigarettes Amount Used/How Often: < 1/2 PPD Length of Time of Smoking/Using Tobacco: Since Age 16 Have You Smoked in the Last Year: Yes Household Exposure Type: Cigarettes Cessation Counseling: Counseled 3+Min - 10 Min - Immunization History Most Recent Influenza Vaccination: 01/05/17 Most Recent Tetanus Shot: had it, but is unsure on what year - she thinks 3 yrs ago. Most Recent Pneumonia Vaccination: 2010 Review of Systems Constitutional: Negative Skin: Negative Eyes: Negative ENT: Negative Respiratory: Negative Cardiovascular: Negative Gastrointestinal: Negative Genitourinary: Negative Motor: Negative Neurovascular: Negative Musculoskeletal: Arthralgia - right wrist Neurological: Negative Psychological: Negative Is Patient Immunocompromised?: No All Other Systems Reviewed And Are Negative: Yes Physical Exam Triage Information Reviewed: Yes Appearance: Well-Appearing, No Pain Distress, Well-Nourished Vital Signs: Initial Vital Signs Temp 97.8 F 09/12/17 18:46 Pulse 87 09/12/17 18:46 Resp 18 09/12/17 18:46 BP 110/60 09/12/17 18:46 Pulse Ox 100 09/12/17 18:46 Vital Signs Reviewed: Yes Eye Exam: Normal Eyes: Positive: Conjunctiva Clear ENT Exam: Normal ENT: Positive: Normal ENT inspection, Hearing grossly normal. Negative: Trismus , Muffled voice, Hoarse voice Dental Exam: Normal Neck exam: Normal Neck: Positive: Supple, Nontender Respiratory Exam: Normal Respiratory: Positive: Chest non-tender, No respiratory distress, No accessory muscle use Cardiovascular Exam: Normal Cardiovascular: Positive: RRR, No Murmur, Pulses Normal, Brisk Capillary Refill Musculoskeletal Exam: Other Musculoskeletal: Positive: Strength Intact, ROM Intact, Edema @ - right wrist Neurological Exam: Normal Neurological: Positive: Alert, Muscle Tone Normal Psychological Exam: Normal Skin Exam: Normal Diagnostics - Radiology No standard instances Xray Interpretation: No Acute Changes Radiology Interpretation Completed By: ED Physician Hand/Wrist Course/Dx - Course Course Of Treatment: cock up splint, sling, rice, ibuprofen, follow with orthopedic MD if fails to improve - Differential Dx/Diagnosis Provider Diagnoses: Right wrist pain Discharge - Sign-Out/Discharge Documenting (check all that apply): Patient Departure - Discharge Plan Condition: Stable Disposition: HOME Patient Education Materials: Ibuprofen (By mouth), Wrist Injury (ED), Arthralgia (ED), R.I.C.E. Treatment (ED), Swollen Joint (ED) Referrals: Edgar Bacon MD [Medical Doctor] - 5 Days - Billing Disposition and Condition Condition: STABLE Disposition: Home
--- NOTE | 2017-09-13 07:22 | RAD ---
Indication: Right wrist pain 3 views of the wrist demonstrates no fracture. No other bone or joint abnormality is identified. IMPRESSION: NO FRACTURE OF THE WRIST IS NOTED.
== END 2017-09-12 20:31 | disposition home or self-care (01) ==
LOC: UCEAST 18:32
DX: M25.531 Pain in right wrist (principal); F17.210 Nicotine dependence, cigarettes, uncomplicated; Z88.0 Allergy status to penicillin
CPT/HCPCS: 99213; G0463

== ENCOUNTER 2017-10-20 08:26 | Emergency (ER) | payer OTHER ==
[2017-10-20 08:40] VITALS: BP 116/64
--- NOTE | 2017-10-20 09:08 | UC ---
Upper Extremity HPI - HPI Summary HPI Summary: This patient is a 36 year old F with a PMHx of rheumatoid arthritis presenting to [facility] with a chief complaint of arthritis flare-up in her right hand since 4 days ago. The patient rates the pain 4/10 in severity. Patient reports an aching pain in her right hand and loss of sensation in the fingers on her right hand. She reports that this type of arthritis flare-up happens to her typically twice a year and she is typically prescribed 20 mg prednisone and 800 mg Motrin. - History of Current Complaint Chief Complaint: UCUpperExtremity Stated Complaint: FINGER NUMBNESS Time Seen by Provider: 10/20/17 08:50 Hx Obtained From: Patient Hx Last Menstrual Period: hyster Onset/Duration: Sudden Onset, Lasting Days - 4 days ago, Still Present Severity Initially: Moderate Severity Currently: Moderate Pain Intensity: 4 Pain Scale Used: 0-10 Numeric Character: Aching Associated Signs And Symptoms: Positive: Numbness/Tingling - In fingers on her right hand, Other - aching pain in right hand - Allergies/Home Medications Allergies/Adverse Reactions: Allergies Allergy/AdvReac Type Severity Reaction Status Date / Time amoxicillin Allergy Rash Verified 10/20/17 08:42 Penicillins Allergy Anaphylatic Verified 10/20/17 08:42 Shock PMH/Surg Hx/FS Hx/Imm Hx Endocrine History: Thyroid Disease Respiratory History: Asthma - Denies - Surgical History Surgical History: Yes Surgery Procedure, Year, and Place: thyroidectomy 2008,tubal ligation-2006, hysterectomy 2008. Cholecystectomy 2012 - Family History Known Family History: Positive: Cardiac Disease - grandparents, Hypertension, Diabetes, Other - HLD - Social History Occupation: Unemployed Lives: With Family Alcohol Use: Rare Substance Use Type: None Substance Use Comment - Amount & Last Used: clean 4 years Smoking Status (MU): Light Every Day Tobacco Smoker Type: Cigarettes Amount Used/How Often: < 1/2 PPD Length of Time of Smoking/Using Tobacco: Since Age 16 Have You Smoked in the Last Year: Yes Household Exposure Type: Cigarettes - Immunization History Most Recent Influenza Vaccination: 01/05/17 Most Recent Tetanus Shot: had it, but is unsure on what year - she thinks 3 yrs ago. Most Recent Pneumonia Vaccination: 2010 Review of Systems Musculoskeletal: Other: - Aching pain in right hand Neurological: Numbness - In fingers on her right hand All Other Systems Reviewed And Are Negative: Yes Physical Exam - Summary Physical Exam Summary: VITAL SIGNS: Reviewed. GENERAL: Patient is a well-developed and nourished FEMALE who is lying comfortable in the stretcher. Patient is not in any acute respiratory distress. HEAD AND FACE: Normocephalic EYES: PERRLA, EOMI x 2. EARS: Hearing grossly intact. MOUTH: Oropharynx within normal limits. NECK: Supple, trachea is midline, no adenopathy, no JVD, no carotid bruit. CHEST: Symmetric, no tenderness at palpation LUNGS: Clear to auscultation bilaterally. No wheezing or crackles. CVS: Regular rate and rhythm, S1 and S2 present, no murmurs or gallops appreciated. ABDOMEN: Soft, non-tender. Bowel sounds are normal. No abdominal abnormal pulsations. EXTREMITIES: Slight right hand swelling and decreased ROM secondary to pain. Good capillary feel and normal sensation. NEURO: Alert and oriented x 3. No acute neurological deficits. Speech is normal and follows commands. SKIN: Dry and warm Triage Information Reviewed: Yes Vital Signs: Initial Vital Signs Temp 98 F 10/20/17 08:37 Pulse 71 10/20/17 08:37 Resp 17 10/20/17 08:37 BP 116/64 10/20/17 08:37 Pulse Ox 100 10/20/17 08:37 Vital Signs Reviewed: Yes Upper Extremity Course/Dx - Course Course Of Treatment: Patient is a 36-year-old female with history rule out arthritis. The patient is having pain in the right hand and she reports that it is similar to her rheumatoid arthritis flare. The patient has good capillary refill, good sensation, and good range of motion. There is no erythema, no signs of infection. Patient requested prednisone, ibuprofen and Preston for pain. The patient declined any x-rays. Patient reports that this is usual of a lot of arthritis flare. She was not able to see her primary care physician since the patient is moving from [place] and she wants to change her [place] [facility] Patient was given the medication she requested. She was instructed to return to the emergency room if she develops any redness of the hand and decreased range of motion, increase in swelling, fevers or any other symptom. The patient understands and agrees. - Differential Dx/Diagnosis Provider Diagnoses: Rheumatoid arthritis Discharge - Sign-Out/Discharge Documenting (check all that apply): Patient Departure - D/C All imaging exams completed and their final reports reviewed: No Studies - Discharge Plan Condition: Good Disposition: HOME Prescriptions: HYDROcodone/ACETAMIN 5-325 MG* [Preston 5-325 TAB*] 1 tab PO Q8H PRN #6 tab MDD 3 PRN Reason: Pain Ibuprofen TAB* [Motrin TAB* 800 MG] 800 mg PO ONCE PRN #30 tab PRN Reason: Pain predniSONE [Prednisone 20 MG TAB] 20 mg PO DAILY #5 tablet Patient Education Materials: Rheumatoid Arthritis (ED) Referrals: [facility] [Outside] No Primary Care Phys,NOPCP [Primary Care Provider] - Additional Instructions: Take medications as instructed and adhere to plan Take Acetaminophen or ibuprofen for pain or fever Increase your fluid intake Return to the or go to the emergency department if symptoms worsen Follow-up with primary care physician in next 2-3 days - Billing Disposition and Condition Condition: GOOD Disposition: Home - Attestation Statements Document Initiated by Scribe: Yes Documenting Scribe: Felipe Ochoa Provider For Whom Cintiaibe is Documenting (Include Credential): Brown Alberto MD Scribe Attestation: Felipe Betancourt, scribed for Brown Alberto MD on 10/21/17 at 2138. Scribe Documentation Reviewed: Yes Provider Attestation: The documentation as recorded by the Felipe sierra accurately reflects the service I personally performed and the decisions made by me, Brown Alberto MD
== END 2017-10-20 09:09 | disposition home or self-care (01) ==
LOC: UCEAST 08:26
DX: M06.9 Rheumatoid arthritis, unspecified (principal); Z88.0 Allergy status to penicillin; F17.210 Nicotine dependence, cigarettes, uncomplicated
CPT/HCPCS: 99212; G0463

== ENCOUNTER 2017-11-04 11:00 | Emergency (ER) | payer OTHER ==
[2017-11-04 11:08] VITALS: BP 122/70
--- OUTSIDE RECORDS SUMMARY | 2017-11-04 11:20 | XMS REPORT ---
:1980 External Reference #:[id number] Author Organization [employer] Address [address] [place] [address] [place] [address] Phone [phone] Care Team Providers Name Role Phone Luis Suarez MD Primary Care Physician Unavailable Payers Type Date Identification Numbers Payment Provider Subscriber Commercial Policy Number: [id number] [employer] Brenda [place] PayID: [id number] [address] [address] [place] [address] Problems Date Description Provider Status Onset: 04/19/2011 Postoperative hypothyroidism Lesvia Powers M.D. Active Onset: 04/19/2011 Tobacco user Lesvia Powers M.D. Active Onset: 04/19/2011 Depressive disorder Lesvia Powers M.D. Active Onset: 07/11/2013 Multiple joint pain Humza Martinez M.D. Active Onset: 07/11/2013 Disorder of thyroid gland Humza Martinez M.D. Active Onset: 06/20/2013 Dyspnea Adam Guthrie M.D. Resolved Resolved: 10/28/2017 Onset: 06/20/2013 Chest pain Adam Guthrie M.D. Resolved Resolved: 10/28/2017 Onset: 10/10/2013 Immunologic Humza Martinez M.D. Resolved Resolved: 10/28/2017 Onset: 10/28/2017 Joint pain Cheryl Marker, RPA-C Resolved Resolved: 10/28/2017 Family History Date Family Member(s) Problem(s) Comments Father Leukemia Father 66 Children 4 First Sister 39 First Sister Thyroid Disease Social History Type Date Description Comments Marital Status Marital Status Significant Other Lives With Boyfriend Cigarette Use Current Cigarette Smoker 5-10 Cigarettes Daily ETOH Use Denies alcohol use Smoking Patient is a current smoker, smokes every day Recreational Drug Use Denies Drug Use Smoking Light tobacco smoker (10 or fewer cigarettes/day) Daily Caffeine Consumes on average 5-10 sodas per day Daily Caffeine consumes chocolate occasionally Exercise Type/Frequency Exercises rarely walking Currently Active Patient is currently not sexually active General Hx Text Allergies, Adverse Reactions, Alerts Date Description Reaction Status Severity Comments 04/19/2011 Penicillin Tounge swells. active 04/19/2011 Amoxicillin Anaphylaxis, Tounge active swells. 12/20/2016 Seasonal-Fall To Winter active Medications Medication Date Status Form Strength Qnty SIG Indications Ordering Provider Gabapentin Active Capsules 100mg Unknown /0000 Levothyroxine Active Tablets 125mcg 1 by mouth Unknown Sodium /0000 every day Mirtazapine Active Tablets 15mg take one Unknown /0000 tablet by mouth at bedtime Fluoxetine HCL Active Tablets 60mg take one Unknown /0000 tablet by mouth one time daily Naproxen 02/21 Hx Tablets 500mg 60tab Take One G56.21 Xander s Tablet By Maxine, - Mouth Twice 10/28 A Day Food Cyclobenzaprine 12/20 Hx Tablets 10mg 30tab 1 by mouth G56.21 Xander M HCL /2016 s every 8 Maxine, - hours as 10/28 needed spasm Naprosyn 12/20 Hx Tablets 500mg 60tab 1 by mouth G56.21 Xander M /2016 s twice a day Maxine, - w food 02/21 Prednisone 10/03 Hx Tablets 10mg 35tab 3 tab every s day for 1 Endo, - week, 2/d M.D. 12/19 for 1 week, Oxaprozin 07/26 Hx Tablets 600mg 60tab 1 by mouth 719.49 Humza s twice a day Endo, - M.D. 12/19 Diclofenac 07/[address] 75mg 60tab take 1 719.49 Humza s tablet by Endo, - mouth twice M.D. 07/26 a day Nitrofurantoin 01/23 Hx Capsules 100mg 14cap 1 tab bid 599.0 Lesvia Monohydrate /2011 s X7 days Brittany Powers M.D. 06/19 Nicotine Step 2 01/23 Hx Patches 14mg/24HR 30uni once a day 305.1 24HR ts as needed Brittany Powers M.D. 06/19 Metrogel-Vaginal 09/01 Hx Gel 0.75% 1unit apply once s a day x 7 Priya, - days M.DRonald 01/23 Prednisone 08/22 Hx Tablets 10mg 14tab take 3 tab 466.0 s daily x 2 Priya, - days then 2 M.D. 08/31 tab daily x 3 days and then 1 tab daily until all taken Flexeril 08/08 Hx Tablets 10mg 15tab 1 po bid 847.2 s Brittany Powers M.D. 08/31 Ibuprofen 08/08 Hx Tablets 800mg 20tab 1 tab every 847.2 s 8 hrs as Priya, - needed for M.D. 06/19 pain Ibuprofen 07/28 Hx Tablets 800mg 40tab 1 tab every 719.41 Lesvia /2012 s 8 hrs as Priya, - needed for M.D. 06/19 pain Simvastatin 07/01 Hx Tablets 5mg 30tab 1 qhs - 272.2 Luis s take one Corazon Suarez, - [facility] 06/19 mouth day at bedtime T.E.DRonald 06/30 Hx Misc 1unit please fit 782.3 Luis Anti-Embolism s Arlette Mendes Knee Brittany Rawls,FACP Length 06/19 Furosemide 06/30 Hx Tablets 20mg 7tabs 1 po qam x 782.3 Luis /2011 7 days Brittany Mendes M.D.,FACP 07/28 Fexofenadine HCL 05/31 Hx Tablets 180mg 90tab 1 po qd 477.8 Lesvia /2012 s Brittany Powers M.D. 05/31 Flonase 05/31 Hx Suspension 50mcg/Act 1unit 1 squirt 477.8 Lesvia /2012 s intranasal Priya, - qd M.D. 12/19 Nicotine 05/31 Hx Lozenges 2mg 60uni as needed 305.1 Lesvia Polacrilex ts for Priya - cravings M.DRonald 07/28 Loratadine 05/31 Hx Tablets 10mg 90tab 1 by mouth Lesvia /2012 s every day Brittany Powers M.D. 01/23 Levothyroxine 04/18 Hx Tablets 300mcg 90tab 1 po daily 244.0 Lesvia Sodium s Brittany Powers M.D. 06/19 Zoloft 04/18 Hx Tablets 100mg 120ta take 2 tab 244.0 bs po qd Brittany Powers M.D. 01/23 Abilify 04/18 Hx Tablets 20mg 30tab 1 po daily 311 Lesvia s Brittany Powers M.D. 12/19 Levothyroxine Hx Tablets 300mcg 30tab 1 po qd Unknown Sodium /0000 s - 05/27 Zoloft Hx Tablets 200mg 90tab 1 po qd Unknown /0000 s - 05/27 Abilify Hx Tablets 20mg 1 po qd Unknown /0000 - 05/27 Ambien Hx Tablets 5mg 30tab 1 po qhs Unknown /0000 s prn sleep - insomnia 05/27 Hydrocodone/Acet Hx Tablets 5-500mg 20tab 1 po q 6hrs Unknown aminophen /0000 s prn pain - 08/08 Aleve Hx Capsules 220mg 60cap 2 po qd prn Unknown /0000 s - 10/28 Lexapro Hx Tablets 20mg 30tab 1 po qd Unknown /0000 s - 12/19 Levothyroxine Hx Tablets 125mcg take 2 244.0 Ashok, Sodium /0000 tablet by MD Brando - mouth one 10/28 time daily /2017 Gabapentin Hx Capsules 300mg 90cap 1 by mouth Unknown /0000 s three times - a day (june 24 take 2 in /2017 selina) Ibuprofen 00/00 Hx Tablets 600mg 1 po three Unknown /0000 times a day - prn 10/28 Medications Administered in Office Medication Date Status Form Strength Qnty SIG Indications Ordering Provider CHEN Administered Injection Lesvia Powers M.D. Immunizations CPT Code Status Date Vaccine Lot # [id number] Given 10/28/2017 Influenza Virus Vaccine, Quadrivalent, Split, [id number] Preservative Free [id number] Given 10/28/2017 Influenza Virus Vaccine, Quadrivalent, Split, Preservative Free [id number] Given 01/20/2012 Fluvirin Im [id number] And Older [id number] Given 01/20/2012 Pneumonia Vaccine [id number] Given 09/01/2011 Hepatitis B Vaccine Adult Dosage [id number] Given 07/01/2011 Tdap - Tetanus/Diptheria/Acellular Pertussis [id number] Vital Signs Date Vital Result Comment 10/28/2017 Height 61.50 inches 5'1.50" Weight 161.00 lb Heart Rate 75 /min BP Systolic 95 mmHg BP Diastolic 59 mmHg O2 % BldC Oximetry 100 % BMI (Body Mass Index) 29.9 kg/m2 01/04/2017 Height 61.50 inches 5'1.50" Weight 161.25 lb Heart Rate 90 /min BP Systolic Sitting 108 mmHg BP Diastolic Sitting 66 mmHg Respiratory Rate 18 /min Pain Level 0 BMI (Body Mass Index) 30.0 kg/m2 12/27/2016 Height 61.50 inches 5'1.50" Weight 157.38 lb Heart Rate 80 /min BP Systolic Sitting 118 mmHg BP Diastolic Sitting 70 mmHg Respiratory Rate 24 /min Pain Level 4 BMI (Body Mass Index) 29.3 kg/m2 12/20/2016 Height 61.50 inches 5'1.50" Weight 164.00 lb Heart Rate 72 /min BP Systolic Sitting 108 mmHg BP Diastolic Sitting 72 mmHg Respiratory Rate 20 /min Pain Level 9 BMI (Body Mass Index) 30.5 kg/m2 10/10/2013 Height 61 inches 5'1" Weight 180.00 lb Heart Rate 72 /min BP Systolic Sitting 108 mmHg BP Diastolic Sitting 70 mmHg Pain Level 5 BMI (Body Mass Index) 34.0 kg/m2 07/11/2013 Height 61 inches 5'1" Weight 185.50 lb Heart Rate 86 /min BP Systolic Sitting 100 mmHg BP Diastolic Sitting 64 mmHg Pain Level 7 BMI (Body Mass Index) 35.0 kg/m2 06/20/2013 Height 61 inches 5'1" Weight 191.00 lb with shoes Heart Rate 88 /min BP Systolic 96 mmHg Ra reg cuff BP Diastolic 54 mmHg Ra reg cuff BP Systolic Sitting 102 mmHg La reg cuff BP Diastolic Sitting 72 mmHg La reg cuff BP Systolic Standing 96 mmHg La reg cuff BP Diastolic Standing 70 mmHg La reg cuff Respiratory Rate 17 /min BMI (Body Mass Index) 36.1 kg/m2 12/06/2012 Height 62 inches 5'2" Weight 183.00 lb Heart Rate 69 /min BP Systolic 110 mmHg BP Diastolic 73 mmHg BMI (Body Mass Index) 33.5 kg/m2 01/24/2012 Height 61.75 inches 5'1.75" Weight 209.00 lb Heart Rate 104 /min BP Systolic Sitting 116 mmHg BP Diastolic Sitting 74 mmHg O2 % BldC Oximetry 96 % BMI (Body Mass Index) 38.5 kg/m2 09/01/2011 Height 61.75 inches 5'1.75" Weight 213.00 lb Heart Rate 60 /min BP Systolic Sitting 100 mmHg BP Diastolic Sitting 70 mmHg BMI (Body Mass Index) 39.3 kg/m2 08/23/2011 Height 61.75 inches 5'1.75" Weight 210.00 lb Heart Rate 68 /min BP Systolic Sitting 110 mmHg L BP Diastolic Sitting 72 mmHg L Body Temperature 97.9 F O2 % BldC Oximetry 93 % BMI (Body Mass Index) 38.7 kg/m2 08/09/2011 Height 61.75 inches 5'1.75" Weight 215.00 lb Heart Rate 80 /min BP Systolic Sitting 100 mmHg BP Diastolic Sitting 72 mmHg BMI (Body Mass Index) 39.6 kg/m2 07/29/2011 Height 61.75 inches 5'1.75" Weight 213.00 lb Heart Rate 60 /min BP Systolic Sitting 100 mmHg BP Diastolic Sitting 70 mmHg BMI (Body Mass Index) 39.3 kg/m2 07/02/2011 Weight 212.00 lb Heart Rate 90 /min BP Systolic Sitting 124 mmHg BP Diastolic Sitting 80 mmHg 07/01/2011 Weight 212.00 lb Heart Rate 92 /min BP Systolic Sitting 108 mmHg BP Diastolic Sitting 60 mmHg Body Temperature 98.0 F lt ear 06/22/2011 Height 61.75 inches 5'1.75" Weight 211.00 lb Heart Rate 72 /min BP Systolic Sitting 132 mmHg L BP Diastolic Sitting 70 mmHg L BMI (Body Mass Index) 38.9 kg/m2 06/01/2011 Height 61.75 inches 5'1.75" Weight 202.00 lb Heart Rate 89 /min BP Systolic Sitting 108 mmHg BP Diastolic Sitting 73 mmHg Body Temperature 97.6 F BMI (Body Mass Index) 37.2 kg/m2 05/28/2011 Height 61.75 inches 5'1.75" Weight 202.00 lb Heart Rate 80 /min BP Systolic Sitting 109 mmHg BP Diastolic Sitting 79 mmHg Body Temperature 97.5 F BMI (Body Mass Index) 37.2 kg/m2 04/19/2011 Height 61.75 inches 5'1.75" Weight 200.00 lb Heart Rate 73 /min BP Systolic Sitting 117 mmHg BP Diastolic Sitting 75 mmHg BMI (Body Mass Index) 36.9 kg/m2 Results Test Date Test Result H/L Range Note Laboratory test finding 09/03/2013 Free T4 1.18 ng/mL High 0.61-1.12 TSH (Thyroid Stimulating Horm) 13.66 IU/mL High 0.34-5.60 CBC Auto Diff 07/20/2013 White Blood Count 8.8 10^3/uL 4.8-10.8 Red Blood Count 4.84 10^6/uL 4.0-5.4 Hemoglobin 14.4 g/dL 12.0-16.0 Hematocrit 42 % 35-47 Mean Corpuscular Volume 88 fL 80-97 Mean Corpuscular Hemoglobin 30 pg 27-31 Mean Corpuscular HGB Conc 34 g/dL 31-36 Red Cell Distribution Width 13 % 10.5-15 Platelet Count 382 10^3/uL 150-450 Mean Platelet Volume 9 um3 7.4-10.4 Abs Neutrophils 5.3 10^3/uL 1.5-7.7 Abs Lymphocytes 1.0 10^3/uL 1.0-4.8 Abs Monocytes 2.5 10^3/uL High 0-0.8 Abs Eosinophils 0 10^3/uL 0-0.6 Abs Basophils 0 10^3/uL 0-0.2 Abs Nucleated RBC 0.01 10^3/uL Laboratory test finding 07/20/2013 C Reactive Protein 30.53 mg/L High < 5.00 1 Comp Metabolic Panel 07/20/2013 Sodium 139 mmol/L 133-145 Potassium 3.8 mmol/L 3.7-5.6 Chloride 106 mmol/L 101-111 Co2 Carbon Dioxide 23 mmol/L 22-32 Anion Gap 10 mmol/L 2-11 Glucose 122 mg/dL High 70-100 Blood Urea Nitrogen 8 mg/dL 6-24 Creatinine 0.63 mg/dL 0.51-0.95 BUN/Creatinine Ratio 12.7 8-20 Calcium 8.8 mg/dL 8.6-10.3 Total Protein 7.4 g/dL 6.4-8.9 Albumin 4.0 g/dL 3.2-5.2 Globulin 3.4 g/dL 2-4 Albumin/Globulin Ratio 1.2 1-3 Total Bilirubin 0.30 mg/dL 0.2-1.0 Alkaline Phosphatase 98 U/L 34-104 Alt 50 U/L 7-52 Ast 18 U/L 13-39 Egfr Non- 110.2 >60 Egfr 141.7 >60 2 Laboratory test finding 07/20/2013 Erythrocyte Sed Rate 58 mm/Hr High 0- 14 Hla B27 07/20/2013 Hla B27 Negative 3 Hla B27 Interp See Comment 4 Laboratory test finding 07/20/2013 Cyclic Citrullinated Pept IgG <15.6 U 5 Rheumatoid Factor <15 IU/mL <15 6 Manual Differential 07/20/2013 Neutrophil % 76 % 38-83 Lymphocytes % 22 % Low 25-47 Monocytes % 2 % 0-13 RBC Morphology Normal Normal Urine Culture And 03/19/2012 Urine Culture (SEE NOTE) 7 Sensitivities CBC Auto Diff 01/25/2012 White Blood Count 11.2 10^3/uL High 4.8-10.8 Red Blood Count 4.62 10^6/uL 4.0-5.4 Hemoglobin 13.8 g/dL 12.0-16.0 Hematocrit 42 % 35-47 Mean Corpuscular Volume 91 fL 80-97 Mean Corpuscular Hemoglobin 30 pg 27-31 Mean Corpuscular HGB Conc 33 g/dL 31-36 Red Cell Distribution Width 15 % 10.5-15 Platelet Count 276 10^3/uL 150-450 Mean Platelet Volume 11 um3 High 7.4-10.4 Abs Neutrophils 7.6 10^3/uL 1.5-7.7 Abs Lymphocytes 2.7 10^3/uL 1.0-4.8 Abs Monocytes 0.7 10^3/uL 0-0.8 Abs Eosinophils 0.2 10^3/uL 0-0.6 Abs Basophils 0.1 10^3/uL 0-0.2 Abs Nucleated RBC 0.01 10^3/uL Granulocyte % 67.6 % 38-83 Lymphocyte % 24.1 % Low 25-47 Monocyte % 5.9 % 1-9 Eosinophil % 1.8 % 0-6 Basophil % 0.6 % 0-2 Nucleated Red Blood Cells % 0 Laboratory test finding 01/25/2012 Inr 0.94 0.82-1.17 8 Laboratory test finding 01/25/2012 Serum Negative Negative 9 Laboratory test finding 01/25/2012 B Type Natriuretic 10.0 pg/mL 0-100 Peptide Comp Metabolic Panel 01/25/2012 Sodium 133 mmol/L 133-145 Potassium 3.1 mmol/L Low 3.5-5.0 Chloride 102 mmol/L 101-111 Co2 Carbon Dioxide 25.0 mmol/L 22-32 Anion Gap 6.0 mmol/L 2-11 Glucose 75 mg/dL 70-100 Blood Urea Nitrogen 12 mg/dL 6-24 Creatinine 0.80 mg/dL 0.50-1.40 BUN/Creatinine Ratio 15.0 8-20 Calcium 8.5 mg/dL 8.1-9.9 Total Protein 7.8 g/dL 6.2-8.1 Albumin 4.3 g/dL 3.6-5.4 Globulin 3.5 g/dL 2-4 Albumin/Globulin Ratio 1.2 1-3 Total Bilirubin 0.3 mg/dL Low 0.4-1.5 Alkaline Phosphatase 88 U/L 30-110 Alt 33 U/L 14-54 Ast 24 U/L 12-42 Egfr Non- 84.2 >60 Egfr 108.3 >60 10 Laboratory test finding 01/25/2012 Creatine Kinase 93 U/L 0-200 Troponin I 0.01 ng/mL 0-0.06 11 TSH (Thyroid Stimulating Horm) 63.67 MIU/ML High 0.34-5.60 Ua Routine 01/24/2012 Ua Specific [place] 1.010 Ua PH 6.0 Ua Color YELLOW Ua Appera CLEAR Ua WBC NEG Ua Protein TRACE Ua Glucose NEG Ua Ketones NEG Ua Bilirubin NEG Ua Urobilinogen NEG Ua Nitrite NEG Ua Occult Blood NEG Laboratory test finding 01/24/2012 B Type Natriuretic Peptide < 7.5 pg/mL 0-100 TSH (Thyroid Stimulating Horm) 52.53 MIU/ML High 0.34-5.60 Free T4 0.83 ng/mL 0.61-1.24 Free T3 3.61 pg/mL 2.39-6.79 Vaginal Dna Probe 09/01/2011 M <SEE 12 NOTE> Laboratory test 07/01/2011 Hepatitis B Nonreactive Nonreactive finding Surface Ag Hepatitis C Antibody Nonreactive Nonreactive Calcium Ionized 4.09 mg/dL Low 4.65-5.28 Liver Function Panel 07/01/2011 Total Protein 6.8 GM/DL 6.2-8.1 Albumin 3.7 GM/DL 3.6-5.4 Globulin 3.1 GM/DL 2-4 Albumin/Globulin Ratio 1.2 1-3 Bilirubin Total 0.7 mg/dL 0.4-1.5 13 Bilirubin Direct 0.0 mg/dL Low 0.1-0.5 Indirect Bilirubin (SEE NOTE) mg/dL 0.3-1.0 14 Alkaline Phosphatase 92 U/L 30-110 Alt (SGPT) 39 U/L 14-54 Ast (Sgot) 24 U/L 12-42 Comp Metabolic Panel 07/01/2011 Sodium 134 mmol/L Low 135-145 Potassium 3.4 mmol/L Low 3.5-5.0 Chloride 104 mmol/L 101-111 Co2 (Carbon Dioxide) 22.0 mmol/L 22-32 Anion Gap 8.0 mmol/L 2-11 15 Glucose 82 mg/dL 70-100 BUN 7 mg/dL 6-24 Creatinine 0.7 mg/dL 0.50-1.40 One Over Creatinine 1.42 BUN/Creatinine Ratio 10.0 8-20 Calcium 8.7 mg/dL 8.1-9.9 Total Protein 6.9 GM/DL 6.2-8.1 Albumin 3.8 GM/DL 3.6-5.4 Globulin 3.1 GM/DL 2-4 Albumin/Globulin Ratio 1.2 1-3 Bilirubin Total 0.5 mg/dL 0.4-1.5 16 Alkaline Phosphatase 98 U/L 30-110 Alt (SGPT) 40 U/L 14-54 Ast (Sgot) 24 U/L 12-42 eGFR Non- 98.9 > 60 eGFR 127.2 > 60 17 Comp Metabolic Panel 06/23/2011 Sodium 136 mmol/L 135-145 Potassium 3.9 mmol/L 3.5-5.0 Chloride 103 mmol/L 101-111 Co2 (Carbon Dioxide) 26.0 mmol/L 22-32 Anion Gap 7.0 mmol/L 2-11 18 Glucose 107 mg/dL High 70-100 BUN 8 mg/dL 6-24 Creatinine 0.8 mg/dL 0.50-1.40 One Over Creatinine 1.25 BUN/Creatinine Ratio 10.0 8-20 Calcium 9.2 mg/dL 8.1-9.9 Total Protein 6.7 GM/DL 6.2-8.1 Albumin 3.9 GM/DL 3.6-5.4 Globulin 2.8 GM/DL 2-4 Albumin/Globulin Ratio 1.4 1-3 Bilirubin Total 0.6 mg/dL 0.4-1.5 19 Alkaline Phosphatase 107 U/L 30-110 Alt (SGPT) 77 U/L High 14-54 Ast (Sgot) 40 U/L 12-42 eGFR Non- 84.8 > 60 eGFR 109.1 > 60 20 CBC Auto Diff 06/23/2011 White Blood Count 17.5 CUMM High 4.8-10.8 Red Cell Count 4.67 CUMM 4.2-5.4 Hemoglobin 14.1 g/dL 12.0-16.0 Hematocrit 42 % 35-47 Mean Corpuscular Volume 89 um3 79-97 Mean Corpuscular Hemoglob 30 pg 27-31 Mean Corpuscular HGB Cone 34 g/dL 32-36 Redcell Distribution WDTH 14 % 10.5-15 Platelet Count 329 CUMM 150-450 Mean Platelet Volume 9.9 um3 7.4-10.4 21 Manual Differential 06/23/2011 Polysegmented Neutrophil 68 % 38-83 Band Neutrophil 1 % 0-8 Lymphocyte 22 % Low 25-47 Monocyte 4 % 0-13 Eosinophil 5 % 0-6 Absolute Neutrophil Count 12.00 RBC Morphology NORMAL Lipid Profile (Trig/Chol/HDL) 06/21/2011 Triglyceride 148 mg/dL 40-200 Cholesterol 245 mg/dL High Less Than 200 22 High Density Lipoprotein 33 mg/dL Low 40-60 23 Cholesterol/HDL Ratio 7.42 AVERAGE High 1-4.44 Low Density Lipoprotein 182 mg/dL High Less Than 100 24 Comp Metabolic Panel 06/21/2011 Sodium 135 mmol/L 135-145 Potassium 4.2 mmol/L 3.5-5.0 Chloride 104 mmol/L 101-111 Co2 (Carbon Dioxide) 25.0 mmol/L 22-32 Anion Gap 6.0 mmol/L 2-11 25 Glucose 79 mg/dL 70-100 BUN 10 mg/dL 6-24 Creatinine 0.7 mg/dL 0.50-1.40 One Over Creatinine 1.42 BUN/Creatinine Ratio 14.3 8-20 Calcium 8.8 mg/dL 8.1-9.9 Total Protein 6.7 GM/DL 6.2-8.1 Albumin 3.8 GM/DL 3.6-5.4 Globulin 2.9 GM/DL 2-4 Albumin/Globulin Ratio 1.3 1-3 Bilirubin Total 0.5 mg/dL 0.4-1.5 26 Alkaline Phosphatase 117 U/L High 30-110 Alt (SGPT) 77 U/L High 14-54 Ast (Sgot) 43 U/L High 12-42 eGFR Non- 98.9 > 60 eGFR 127.2 > 60 27 Laboratory test finding 06/21/2011 Calcium Ionized 4.05 mg/dL Low 4.65- 5.28 TSH 4.46 MIU/ML 0.34-5.60 Thyroxine Free 0.94 ng/dL 0.61-1.24 T3 Free 3.97 pg/mL 2.39-6.79 Laboratory test finding 05/14/2011 TSH 0.75 MIU/ML 0.34-5.60 1 Acute inflammation: >10.00 2 Because ethnic data is not always [...] 5 Kidney failure <15 (or dialysis) 3 -- REFERENCE VALUE -- Not Applicable 4 RESULT: HLA-B27 antigen was not detected. Method: Flow Cytometry Performing Laboratory CLIA# [id number] Test Performed by: [place] [address] Jde Developer: Anurag Sigala III, M.D. 5 -- REFERENCE VALUE -- <20.0 (Negative) Test Performed by: [address] [address] Jde Developer: Anurag Sigala III, M.D. 6 Test Performed by: [place] [address] Jde Developer: Anurag Sigala III, M.D. 7 RUN DATE: 03/22/12 [facility] LAB LIVE PAGE 1 RUN TIME: [address] [place] [address] Specimen Inquiry Name: BRENDA TOLEDO : [address]: Austin Root MD Acct: [id number] Unit: [id number] AGE: 31 Location: [facility] Re03/19/12 SEX: F Status: DEP ER SPEC: [id number] DUANE: 03/19/12-[address] [facility] [address]: Austin Root MD REQ: [id number] RECD: 03/20/12 STATUS: RAN DOZIER DR: Lesvia Powers MD _ SOURCE: URINE [facility]: ORDERED: Urine Culture Procedure Result Verified Site Urine Culture Final 03/22/12- 1043 ML Organism 1 NORMAL SILVINO [place] Count 1-10,000 (Few) CFU/ML END OF REPORT * ML=Testing performed at Main Lab DEPARTMENT OF PATHOLOGY, [address] [place] [address] Kenn He M.D. Director [facility] Permit #[id number] 8 The INR(International Normalized Ratio) was adopted by the World Health Organization (WHO) in 1982 as a standardized system of reporting PT (Prothrombin Time). The Centers for Disease Control (CDC) states that reporting of PT results in INR only is the preferred method. Recommended INR for Patients on Oral Anticoagulants Prophylaxis 2.0 - 3.0 Treatment of thrombosis 2.0 - 3.0 Prevention of embolism 2.0 - 3.0 Prevention of embolism from prosthetic heart valves 2.5 - 3.5 9 This test detects intact HCG only and is indicated for the early detection of . 10 Because ethnic data is not always readily [...] 15-29 5 Kidney failure <15 (or dialysis) 11 Reference Range and Interpretation: TnI (ng/ml) Interpretation Less Than 0.06 ng/mL Not supportive of diagnosis of RI 0.06 - 0.50 ng/ml Indeterminate: suggest serial studies if clinically indicated. Greater than 0.5 ng/mL Consistent with diagnosis of RI 12 RUN DATE: 09/02/11 [facility] NMI LIVE PAGE 1 RUN TIME: 1013 Specimen Inquiry RUN USER: INTERFACE Name: BRENDA TOLEDO Status: REG REF Re09/01/11 Age/Sex: 30/F Unit#: [id number] Location: [facility]. : [birth year] SPEC #: [id number] DUANE: 09/01/11 STATUS: RAN REQ #: [id number] RECD: 09/01/11-[address] [facility] [address]: Priya CABRERA,[facility] SOURCE: VAGINAL ENTR: 09/01/11 [facility] DR: LIA: ORDERED: AFFIRM QUERIES: MEDENT REQUISITION # [id number] ACT WKST: AFFIRM 09/02/11 #1 Procedure Result Verified Site > VAGINAL DNA PROBE Final 09/02/11- 1013 ML TRICHOMONAS NEGATIVE GARDNERELLA POSITIVE JUNE SPP NEGATIVE The presence of G. vaginalis, although suggestive, is not diagnostic for bacterial vaginosis. Results should be interpreted in conjunction with other clinical and laboratory data available. Women with vaginal discharge should be evaluated for risk factors of cervicitis and pelvic inflammatory disease, toxic shock syndrome (S.aureus), and if present, evaluated for organisms not included in this assay such as N. gonorrhoeae, C. trachomatis, Mobiluncus, Mycoplasma and/or Prevotella. Mixed infections may occur. The performance of this test on patient specimens collected during or immediately after antimicrobial therapy is unknown. The presence or absence of June species, G. vaginalis or T. vaginalis cannot be used as a test for therapeutic success or failure. [facility] Permit #[id number] [address] [place] [address] DEPARTMENT OF PATHOLOGY, [address] [place] [address] [facility] Permit #[id number] Sinai Gomez M.D. Grades 1 Thru 6 Visiting Teacher 13 A metabolite of Naproxen, O-desmethylnaproxen, has been shown to interfere with the Jendrassik-Abie method for measuring total bilirubin. Samples from patients who have taken Naproxen have shown spurious elevation in total bilirubin levels. 14 UNABLE TO CALCULATE IND.BILI D.BILI IS <0.1 Please note updated reference range, effective 09/04/09 15 Anion gap measurement may be of limited value in the presence of any alkalosis, especially in a combined acid base disorder. . 16 A metabolite of Naproxen, O-desmethylnaproxen, has been shown to interfere with the Jendrassik-Stefani method for measuring total bilirubin. Samples from patients who have taken Naproxen have shown spurious elevation in total bilirubin levels. 17 Because ethnic data is not always readily [...] 15-29 5 Kidney failure <15 (or dialysis) 18 Anion gap measurement may be of limited value in the presence of any alkalosis, especially in a combined acid base disorder. . 19 A metabolite of Naproxen, O-desmethylnaproxen, has been shown to interfere with the Jendrassik-Stefani method for measuring total bilirubin. Samples from patients who have taken Naproxen have shown spurious elevation in total bilirubin levels. 20 Because ethnic data is not always readily [...] 15-29 5 Kidney failure <15 (or dialysis) 21 Imm. NE 2 Imm. NE 1 22 CHOLESTEROL INTERPRETATION: Desirable: Less than 200 MG/DL Borderline-High Risk: 200-239 MG/DL High-Risk: 240 MG/DL and over 23 HDL INTERPRETATION: Undesirable: High Risk: Less than 40 MG/DL Desirable: Low Risk: Greater than 60 MG/DL 24 LDL INTERPRETATION: Low Risk Optimal Level: LDL Less than 100 MG/DL Near or Above Optimal: LDL 100-129 MG/DL Borderline High Risk: LDL 130-159 MG/DL High Risk: LDL 160-189 MG/DL Very High Risk: LDL Greater than 189 MG/DL 25 Anion gap measurement may be of limited value in the presence of any alkalosis, especially in a combined acid base disorder. . 26 A metabolite of Naproxen, O-desmethylnaproxen, has been shown to interfere with the Jendrassik-Abie method for measuring total bilirubin. Samples from patients who have taken Naproxen have shown spurious elevation in total bilirubin levels. 27 Because ethnic data is not always readily [...] 15-29 5 Kidney failure <15 (or dialysis) Procedures Date CPT Code Description Status 06/27/2013 86644 ECHO Stress Test Incl Perf Contiuous ekg Monitoring Completed W/Phys Superv 06/27/2013 05617 Stress Test Completed 06/21/2013 53144 ECHO Transthoracic, Real-Time 2D With Doppler And Color Completed Flow 06/20/2013 88929 ECHO Transthoracic, Real-Time 2D With Doppler And Color Completed Flow 06/20/2013 26091 EKG Tracing & Interpretation Completed 12/06/2012 42596 Rad Exam; Knee Comp Completed 12/06/2012 80247 Rad Exam; Knee Comp Completed 08/23/2011 21680 Noninvasive Ear Or Pulse Oximetry For Oxygen Saturation Completed 08/04/2009 02813 Holter Monitor Review (24 hr)dr review & interp only Completed 07/15/2009 85867 Holter Monitor Review (24 hr)dr review & interp only Completed 03/12/2008 32792 Treadmill Interp/Report Only Completed 03/12/2008 01264 Stress Test Supervsn W/Out I/R Completed Encounters Type Date Location Provider CPT E/M Dx Office Visit 12/27/2016 [facility] [place] [address] G56.21 10:30a [facility] [place] Office Visit 12/20/2016 [facility] [place] [address] G56.21 2:30p [facility] [place] G56.11 Office Visit 10/10/2013 2:20p [facility] 42515 719.49 Of Jonna Rawls 795.79 Office Visit 07/11/2013 2:00p [facility] Martinez 66455 719.49 Of Jonna Rawls 795.79 246.8 Office Visit 06/20/2013 11:45a [facility] 16825 786.05 Jonna Rawls 786.50 Office Visit 12/06/2012 1:00p [facility] [place] M.D. 79197 717.7 C.M.A. Office Visit 01/24/2012 11:50a [facility] Lesvia Powers 13687 786.05 - Rhiannon Rawls 244.0 599.0 305.1 Office Visit 09/01/2011 9:30a [facility] Lesvia Powers M.D. 56789 V70.3 - [place] 623.5 275.41 272.2 v05.3 v74.1 Office Visit 08/23/2011 2:00p [facility] Lesvia Powers M.D. 66688 466.0 - [place] 009.3 Office Visit 08/09/2011 12:30p [facility] Lesvia Powers 09715 847.2 - [place] M.D. Office Visit 07/29/2011 11:45a [facility] Lesvia Powers 23087 719.41 - [place] M.D. Office Visit 07/02/2011 2:15p [facility] Helga Stafford 56221 275.41 - [place] N.P. 272.2 782.3 Office Visit 07/01/2011 11:30a [facility] Helga Stafford, N.P. 44840 782.3 - [place] V06.1 Office Visit 06/22/2011 11:45a [facility] Lesvia Powers M.D. 95937 272.2 - [place] 785.1 305.1 599.0 275.41 790.6 278.00 Office Visit 06/01/2011 12:30p [facility] Lesvia Powers M.D. 03145 477.8 - [place] 305.1 244.0 272.2 785.1 275.41 Office Visit 05/28/2011 11:40a [facility] Cherry Venegas M.D. 08975 461.1 - [place] Office Visit 04/19/2011 1:00p [facility] Lesvia Powers M.D. 62867 244.0 - [place] 305.1 311 Plan of Care 10/28/2017 - Cheryl Shafer RPA-CZ00.00 Encntr for general adult medical exam w /o abnormal findingsComments:Fasting labs today. Will send multivitamin after results.Follow up:1 year for physical. RUPERTO TCMH and previous PCPM25.50 Pain in unspecified devjxO88.89 Other specified disorders of thyroidComments:Follow up with Dr. Zimmerman. We will review thyroid function with labs today.Z90.710 Acquired absence of both cervix and urvkqhX02.0 Anesthesia of skinComments:If symptoms of back pain/numbness leg occur again, will start PT or try to get imaging.G56.01 Carpal tunnel syndrome, right upper limbReferral:Edgar Bacon MD, Surgery,Hand [id number] Encounter for pnfzqnmdwnmiI43.210 Nicotine dependence, cigarettes, uncomplicatedComments:Call in a few months as ready to discuss smoking cessation aids such as gum, lozenges, or patches. Try to have a plan for what to do with time currently spent smoking.
--- NOTE | 2017-11-04 14:01 | ED ---
Upper Extremity Pain - HPI Summary HPI Summary: Rt hand dominnatn pt presents w/ worsening of CTS x 3 days. Thumb and index finger are painfully numb - no loss of motor. Has been taking ibuprofen. ASppt w / ortho Tues - History of Current Complaint Chief Complaint: EDExtremityUpper Stated Complaint: NUMBNESS IN RT FINGERS Time Seen by Provider: 11/04/17 11:50 Hx Obtained From: Patient Hx Last Menstrual Period: hyster - Allergies/Home Medications Allergies/Adverse Reactions: Allergies Allergy/AdvReac Type Severity Reaction Status Date / Time amoxicillin Allergy Rash Verified 11/04/17 11:05 Penicillins Allergy Anaphylatic Verified 11/04/17 11:05 Shock PMH/Surg Hx/FS Hx/Imm Hx Endocrine/Hematology History: Reports: Hx Thyroid Disease - hypothyroidism Denies: Hx Diabetes Cardiovascular History: Reports: Other Cardiovascular Problems/Disorders - STRONG FAMILY HX HEART DISEASE Denies: Hx Hypercholesterolemia, Hx Hypertension Respiratory History: Reports: Hx Asthma Denies: Hx Chronic Obstructive Pulmonary Disease (COPD) GI History: Reports: Other GI Disorders - on going diarrhea Denies: Hx Ulcer Sensory History: Denies: Hx Contacts or Glasses, Hx Hearing Aid Opthamlomology History: Denies: Hx Contacts or Glasses Psychiatric History: Reports: Hx Anxiety, Hx Depression, Hx Community Mental Health Tx, Hx Suicide Attempt, Hx Substance Abuse Denies: Hx Eating Disorder, Hx of Violent Episodes Against Others - Cancer History Cancer Type, Location and Year: thyroid - Surgical History Surgery Procedure, Year, and Place: thyroidectomy 2008,tubal ligation-2006, hysterectomy 2008. Cholecystectomy 2012 Hx Anesthesia Reactions: No - Immunization History Date of Tetanus Vaccine: PT STATES UNSURE Date of Influenza Vaccine: NONE Infectious Disease History: No Infectious Disease History: Denies: Hx Clostridium Difficile, Hx Hepatitis, Hx Human Immunodeficiency Virus (HIV), Hx of Known/Suspected MRSA, Hx Shingles, Hx Tuberculosis, Hx Known/ Suspected VRE, Hx Known/Suspected VRSA, History Other Infectious Disease, Traveled Outside the [place] in Last 30 Days - Family History Known Family History: Positive: Cardiac Disease - grandparents, Hypertension, Diabetes, Other - HLD - Social History Alcohol Use: Rare 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 Substance Use Type: Reports: None Substance Use Comment - Amount & Last Used: clean 4 years Smoking Status (MU): Light Every Day Tobacco Smoker Type: Cigarettes Amount Used/How Often: < 1/2 PPD Length of Time of Smoking/Using Tobacco: Since Age 16 Have You Smoked in the Last Year: Yes Physical Exam Vital Signs On Initial Exam: Initial Vitals Temp Pulse Resp BP Pulse Ox 97 F 72 16 122/70 99 11/04/17 11:05 11/04/17 11:05 11/04/17 11:05 11/04/17 11:05 11/04/17 11:05 Diagnostics - Vital Signs Vital Signs Temp Pulse Resp BP Pulse Ox 11/04/17 11:05 97 F 72 16 122/70 99 - Laboratory Lab Statement: Any lab studies that have been ordered have been reviewed, and results considered in the medical decision making process. Discharge - Sign-Out/Discharge Documenting (check all that apply): Patient Departure - Discharge Plan Condition: Stable Disposition: HOME Prescriptions: predniSONE TAB* [Deltasone 20 MG TAB*] 40 mg PO DAILY #10 tab Patient Education Materials: Paresthesia (ED) Forms: *Work Release Additional Instructions: Wear cock-up splint until seen by orthopedics - you have an appointment schedule Tuesday You may continue ibuprofen with food and start steroid *If symptoms worsen in the meantime, return to the ED - Billing Disposition and Condition Condition: STABLE Disposition: Home
== END 2017-11-04 14:33 | disposition home or self-care (01) ==
LOC: ED 11:00
DX: R20.0 Anesthesia of skin (principal); F17.210 Nicotine dependence, cigarettes, uncomplicated; E03.9 Hypothyroidism, unspecified; J45.909 Unspecified asthma, uncomplicated; Z85.850 Personal history of malignant neoplasm of thyroid
CPT/HCPCS: 99281

== ENCOUNTER 2017-11-09 18:13 | Emergency (ER) | payer OTHER ==
--- OUTSIDE RECORDS SUMMARY | 2017-11-09 18:19 | XMS REPORT ---
:1980 External Reference #:[id number] Author Organization [employer] Address [address] [place] [address] [place] [address] Phone [phone] Care Team Providers Name Role Phone Luis Suarez MD Primary Care Physician Unavailable Payers Type Date Identification Numbers Payment Provider Subscriber Commercial Policy Number: [id number] [employer] Brneda [place] PayID: [id number] [address] [address] [place] [address] Problems Date Description Provider Status Onset: 04/19/2011 [...] Indications Ordering Provider Gabapentin Active Capsules 100mg Take 4 Unknown /0000 times a day. Levothyroxine Active Tablets 125mcg 1 by mouth Unknown Sodium /0000 every day Mirtazapine Active Tablets 15mg take one Unknown /0000 tablet by mouth at bedtime Fluoxetine HCL Active Tablets 60mg take one Unknown /0000 tablet by mouth one time daily Naproxen 02/21 Hx Tablets 500mg 60tab Take One G56.21 Xander M /2017 s Tablet By Maxine, - Mouth Twice 10/28 A Day Food Cyclobenzaprine 12/20 Hx Tablets 10mg 30tab 1 by mouth G56.21 Xander M /2016 s every 8 Maxine, - hours [...] a day x 7 Priya, - days M.D. 01/23 Prednisone 08/22 Hx Tablets 10mg 14tab [...] Tablets 800mg 40tab 1 tab every 719.41 s 8 hrs as Priya, - needed for M.D. 06/19 pain Simvastatin 07/01 Hx Tablets 5mg 30tab 1 qhs - 272.2 Luis s take one Corazon Suarez - tablet by [facility] 06/19 mouth day at bedtime T.E.D. 06/30 Hx Misc 1unit please fit 782.3 Luis Anti-Embolism s Arlette Mendes Knee Brittany Rawls,FACP Length 06/19 Furosemide 06/30 Hx Tablets 20mg 7tabs 1 po qam x 782.3 Luis 7 days Brittany Mendes M.D.,[facility] 07/28 Fexofenadine HCL 05/31 Hx Tablets 180mg 90tab 1 po qd 477.8 s Brittany Powers M.D. 05/31 Flonase 05/31 Hx Suspension 50mcg/Act 1unit 1 squirt 477.8 s intranasal Priya, - qd M.D. 12/19 Nicotine 05/31 Hx Lozenges 2mg 60uni as needed 305.1 Lesvia Polacrilex ts for Brittany Powers cravings [facility] 07/28 Loratadine 05/31 Hx Tablets 10mg 90tab 1 by mouth s every day Brittany Powers M.D. 01/23 [...] a day (june 24 take 2 in selina) Ibuprofen 00 Hx Tablets 600mg 1 po three Unknown /0000 times a day - prn 10/28 Medications Administered in Office Medication Date Status Form Strength Qnty SIG Indications Ordering Provider CHEN Administered Injection Lesvia Powers M.D. Immunizations CPT Code Status Date Vaccine Lot # [id number] Given 10/28/2017 Influenza Virus Vaccine, Quadrivalent, Split, [id number] Preservative Free [id number] Given 01/20/2012 Fluvirin Im [id number] And Older 78462 Given 01/20/2012 Pneumonia Vaccine 31749 Given 09/01/2011 Hepatitis B Vaccine Adult Dosage [id number] Given 07/01/2011 Tdap - Tetanus/Diptheria/Acellular Pertussis [id number] Vital Signs Date Vital Result Comment 11/08/2017 Height 61.50 inches 5'1.50" Weight 163.00 lb Heart Rate 89 /min BP Systolic 122 mmHg BP Diastolic 80 mmHg Respiratory Rate 18 /min Pain Level 8 BMI (Body Mass Index) 30.3 kg/m2 10/28/2017 Height 61.50 inches 5'1.50" Weight 161.00 [...] Test Date Test Result H/L Range Note Thyroid Function [place] 10/28/2017 Thyroid Stim Hormone 48.3 mIU/L 0.3- 4.2 1, 2 Free T4 1.4 ng/dL 0.9 - 1.7 1, 3 Thyroperoxidase Antibody 12.1 IU/mL <9.0 1, 4 CBC Auto Diff 10/28/2017 White Blood Count 7.8 10^3/uL 3.5-10.8 1 Red Blood Count 4.34 10^6/uL 4.00-5.40 1 Hemoglobin 12.9 g/dL 12.0-16.0 1 Hematocrit 38 % 35-47 1 Mean Corpuscular Volume 87 fL 80-97 1 Mean Corpuscular Hemoglobin 30 pg 27-31 1 Mean Corpuscular HGB Conc 34 g/dL 31-36 1 Red Cell Distribution Width 14 % 10.5-15 1 Platelet Count 408 10^3/uL 150-450 1 Mean Platelet Volume 9.3 um3 7.4-10.4 1 Abs Neutrophils 5.2 10^3/uL 1.5-7.7 1 Abs Lymphocytes 1.9 10^3/uL 1.0-4.8 1 Abs Monocytes 0.5 10^3/uL 0-0.8 1 Abs Eosinophils 0.2 10^3/uL 0-0.6 1 Abs Basophils 0.1 10^3/uL 0-0.2 1 Abs Nucleated RBC 0 10^3/uL 1 Granulocyte % 66.1 % 38-83 1 Lymphocyte % 24.2 % Low 25-47 1 Monocyte % 5.9 % 0-7 1 Eosinophil % 2.9 % 0-6 1 Basophil % 0.9 % 0-2 1 Nucleated Red Blood Cells % 0.1 1 Comp Metabolic Panel 10/28/2017 Sodium 136 mmol/L 135-145 1 Potassium 4.4 mmol/L 3.5-5.0 1 Chloride 103 mmol/L 101-111 1 Co2 Carbon Dioxide 25 mmol/L 22-32 1 Anion Gap 8 mmol/L 2-11 1 Glucose 80 mg/dL 70-100 1 Blood Urea Nitrogen 10 mg/dL 6-24 1 Creatinine 0.77 mg/dL 0.51-0.95 1 BUN/Creatinine Ratio 13.0 8-20 1 Calcium 9.0 mg/dL 8.6-10.3 1 Total Protein 7.5 g/dL 6.4-8.9 1 Albumin 4.2 g/dL 3.2-5.2 1 Globulin 3.3 g/dL 2-4 1 Albumin/Globulin Ratio 1.3 1-3 1 Total Bilirubin 0.40 mg/dL 0.2-1.0 1 Alkaline Phosphatase 76 U/L 34-104 1 Alt 12 U/L 7-52 1 Ast 15 U/L 13-39 1 Egfr Non- 85.3 >60 1 Egfr 103.2 >60 1, 5 Laboratory test finding 10/28/2017 Vitamin B12 245 pg/mL 180-914 1, 6 Laboratory test finding 09/03/2013 Free T4 1.18 ng/mL High 0.61-1.12 TSH (Thyroid Stimulating Horm) 13.66 IU/mL High 0.34-5.60 Manual Differential 07/20/2013 Neutrophil % 76 % 38-83 Lymphocytes % 22 % Low 25-47 Monocytes % 2 % 0-13 RBC Morphology Normal Normal CBC Auto Diff 07/20/2013 White Blood Count [...] Reactive Protein 30.53 mg/L High < 5.00 7 Comp Metabolic Panel 07/20/2013 Sodium 139 mmol/L [...] Egfr Non- 110.2 >60 Egfr 141.7 >60 8 Laboratory test finding 07/20/2013 Erythrocyte Sed Rate 58 mm/Hr High 0- 14 Hla B27 07/20/2013 Hla B27 Negative 9 Hla B27 Interp See Comment 10 Laboratory test finding 07/20/2013 Cyclic Citrullinated Pept IgG <15.6 U 11 Rheumatoid Factor <15 IU/mL <15 12 Urine Culture And 03/19/2012 Urine Culture (SEE NOTE) 13 Sensitivities CBC Auto Diff 01/25/2012 White Blood [...] Laboratory test finding 01/25/2012 Inr 0.94 0.82-1.17 14 Laboratory test finding 01/25/2012 Serum Negative Negative 15 Laboratory test finding 01/25/2012 B Type Natriuretic [...] Egfr Non- 84.2 >60 Egfr 108.3 >60 16 Laboratory test finding 01/25/2012 Creatine Kinase 93 U/L 0-200 Troponin I 0.01 ng/mL 0-0.06 17 TSH (Thyroid Stimulating Horm) 63.67 MIU/ML High 0.34-5.60 Ua Routine 01/24/2012 Ua Specific [place] 1.010 Ua PH 6.0 Ua Color YELLOW [...] 2.39-6.79 Vaginal Dna Probe 09/01/2011 M <SEE NOTE> 18 Comp Metabolic Panel 07/01/2011 Sodium 134 mmol/L Low 135-145 Potassium 3.4 mmol/L Low 3.5-5.0 Chloride 104 mmol/L 101-111 Co2 (Carbon Dioxide) 22.0 mmol/L 22-32 Anion Gap 8.0 mmol/L 2-11 19 Glucose 82 mg/dL 70-100 BUN 7 mg/dL 6-24 Creatinine 0.7 mg/dL 0.50-1.40 One Over Creatinine 1.42 BUN/Creatinine Ratio 10.0 8-20 Calcium 8.7 mg/dL 8.1-9.9 Total Protein 6.9 GM/DL 6.2-8.1 Albumin 3.8 GM/DL 3.6-5.4 Globulin 3.1 GM/DL 2-4 Albumin/Globulin Ratio 1.2 1-3 Bilirubin Total 0.5 mg/dL 0.4-1.5 20 Alkaline Phosphatase 98 U/L 30-110 Alt (SGPT) 40 U/L 14-54 Ast (Sgot) 24 U/L 12-42 eGFR Non- 98.9 > 60 eGFR 127.2 > 60 21 Liver Function Panel 07/01/2011 Total Protein 6.8 GM/DL 6.2-8.1 Albumin 3.7 GM/DL 3.6-5.4 Globulin 3.1 GM/DL 2-4 Albumin/Globulin Ratio 1.2 1-3 Bilirubin Total 0.7 mg/dL 0.4-1.5 22 Bilirubin Direct 0.0 mg/dL Low 0.1-0.5 Indirect Bilirubin (SEE NOTE) mg/dL 0.3-1.0 23 Alkaline Phosphatase 92 U/L 30-110 Alt (SGPT) 39 U/L 14-54 Ast (Sgot) 24 U/L 12-42 Laboratory test finding 07/01/2011 Hepatitis B Surface Ag Nonreactive Nonreactive Hepatitis C Antibody Nonreactive Nonreactive Calcium Ionized 4.09 mg/dL Low 4.65-5.28 Manual Differential 06/23/2011 Polysegmented Neutrophil 68 % 38-83 Band Neutrophil 1 % 0-8 Lymphocyte 22 % Low 25-47 Monocyte 4 % 0-13 Eosinophil 5 % 0-6 Absolute Neutrophil Count 12.00 RBC Morphology NORMAL CBC Auto Diff 06/23/2011 White Blood Count 17.5 CUMM High 4.8-10.8 Red Cell Count 4.67 CUMM 4.2-5.4 Hemoglobin 14.1 g/dL 12.0-16.0 Hematocrit 42 % 35-47 Mean Corpuscular Volume 89 um3 79-97 Mean Corpuscular Hemoglob 30 pg 27-31 Mean Corpuscular HGB Cone 34 g/dL 32-36 Redcell Distribution WDTH 14 % 10.5-15 Platelet Count 329 CUMM 150-450 Mean Platelet Volume 9.9 um3 7.4-10.4 24 Comp Metabolic Panel 06/23/2011 Sodium 136 mmol/L 135-145 Potassium 3.9 mmol/L 3.5-5.0 Chloride 103 mmol/L 101-111 Co2 (Carbon Dioxide) 26.0 mmol/L 22-32 Anion Gap 7.0 mmol/L 2-11 25 Glucose 107 mg/dL High 70-100 BUN 8 mg/dL 6-24 Creatinine 0.8 mg/dL 0.50-1.40 One Over Creatinine 1.25 BUN/Creatinine Ratio 10.0 8-20 Calcium 9.2 mg/dL 8.1-9.9 Total Protein 6.7 GM/DL 6.2-8.1 Albumin 3.9 GM/DL 3.6-5.4 Globulin 2.8 GM/DL 2-4 Albumin/Globulin Ratio 1.4 1-3 Bilirubin Total 0.6 mg/dL 0.4-1.5 26 Alkaline Phosphatase 107 U/L 30-110 Alt (SGPT) 77 U/L High 14-54 Ast (Sgot) 40 U/L 12-42 eGFR Non- 84.8 > 60 eGFR 109.1 > 60 27 Comp Metabolic Panel 06/21/2011 Sodium 135 mmol/L 135-145 Potassium 4.2 mmol/L 3.5-5.0 Chloride 104 mmol/L 101-111 Co2 (Carbon Dioxide) 25.0 mmol/L 22-32 Anion Gap 6.0 mmol/L 2-11 28 Glucose 79 mg/dL 70-100 BUN 10 mg/dL 6-24 Creatinine 0.7 mg/dL 0.50-1.40 One Over Creatinine 1.42 BUN/Creatinine Ratio 14.3 8-20 Calcium 8.8 mg/dL 8.1-9.9 Total Protein 6.7 GM/DL 6.2-8.1 Albumin 3.8 GM/DL 3.6-5.4 Globulin 2.9 GM/DL 2-4 Albumin/Globulin Ratio 1.3 1-3 Bilirubin Total 0.5 mg/dL 0.4-1.5 29 Alkaline Phosphatase 117 U/L High 30-110 Alt (SGPT) 77 U/L High 14-54 Ast (Sgot) 43 U/L High 12-42 eGFR Non- 98.9 > 60 eGFR 127.2 > 60 30 Lipid Profile (Trig/Chol/HDL) 06/21/2011 Triglyceride 148 mg/dL 40-200 Cholesterol 245 mg/dL High Less Than 200 31 High Density Lipoprotein 33 mg/dL Low 40-60 32 Cholesterol/HDL Ratio 7.42 AVERAGE High 1-4.44 Low Density Lipoprotein 182 mg/dL High Less Than 100 33 Laboratory test finding 06/21/2011 Calcium Ionized 4.05 mg/dL Low 4.65- 5.28 TSH 4.46 MIU/ML 0.34-5.60 Thyroxine Free 0.94 ng/dL 0.61-1.24 T3 Free 3.97 pg/mL 2.39-6.79 Laboratory test finding 05/14/2011 TSH 0.75 MIU/ML 0.34-5.60 1 Encouraged taking thyroid medication daily, recheck 6 weeks. 2 Test Performed by: [place] [address] 3 Test Performed by: [facility] [address] [place] [address] 4 Test Performed by: [place] [address] 5 Because ethnic data is not always readily [...] 15-29 5 Kidney failure <15 (or dialysis) 6 Normal Range 180 to 914 Indeterminate Range 145 to 180 Deficient Range <145 7 Acute inflammation: >10.00 8 Because ethnic data is not always readily [...] 15-29 5 Kidney failure <15 (or dialysis) 9 -- REFERENCE VALUE -- Not Applicable 10 RESULT: HLA-B27 antigen was not detected. Method: Flow Cytometry Performing Laboratory CLIA# [id number] Test Performed by: [address] [address] Flour Distributor: Anurag Sigala III, M.D. 11 -- REFERENCE VALUE -- <20.0 (Negative) Test Performed by: [address] [address] Flour Distributor: Anurag Sigala III, M.D. 12 Test Performed by: [address] [address] Flour Distributor: Anurag Sigala III, M.D. 13 RUN DATE: 03/22/12 [facility] LIVE PAGE 1 RUN TIME: [address] [place] [address] Specimen Inquiry Name: BRENDA TOLEDO : [address]: Austin Root MD Acct: [id number] Unit: [id number] AGE: 31 Location: [facility] Re03/19/12 SEX: F Status: DEP ER SPEC: [id number] DUANE: 03/19/12-[address] [facility] [address]: Austin Root MD REQ: [id number] RECD: 03/20/12 STATUS: COMP [facility] DR: Lesvia Powers MD _ SOURCE: URINE SPDESC: ORDERED: Urine Culture Procedure Result Verified Site Urine Culture Final 03/22/12- 1044 ML Organism 1 NORMAL SILVINO [place] Count 1-10,000 (Few) CFU/ML END OF REPORT * ML=Testing performed at Main Lab DEPARTMENT OF PATHOLOGY, [address] [place] [address] Kenn He M.D. Director [facility] Permit #[id number] 14 The INR(International Normalized Ratio) was adopted by the World Health Organization (WHO) in 1983 as a standardized system of reporting PT (Prothrombin Time). The Centers for Disease Control (CDC) states that reporting of PT results in INR only is the preferred method. Recommended INR for Patients on Oral Anticoagulants Prophylaxis 2.0 - 3.0 Treatment of thrombosis 2.0 - 3.0 Prevention of embolism 2.0 - 3.0 Prevention of embolism from prosthetic heart valves 2.5 - 3.5 15 This test detects intact HCG only and is indicated for the early detection of . 16 Because ethnic data is not always [...] 5 Kidney failure <15 (or dialysis) 17 Reference Range and Interpretation: TnI (ng/ml) Interpretation Less Than 0.06 ng/mL Not supportive of diagnosis of MS 0.06 - 0.50 ng/ml Indeterminate: suggest serial studies if clinically indicated. Greater than 0.5 ng/mL Consistent with diagnosis of MS 18 RUN DATE: 09/02/11 [facility] NMI LIVE PAGE 1 RUN TIME: 1013 Specimen Inquiry RUN USER: INTERFACE Name: BRENDA TOLEDO Status: REG REF Re09/01/11 Age/Sex: 30/F Unit#: [id number] Location: [facility] : [birth year] SPEC #: [id number] DUANE: 09/01/11 STATUS: COMP REQ #: [id number] RECD: 09/01/[address] [facility] [address]: Priya CABRERA,[facility] SOURCE: VAGINAL ENTR: 09/01/[address]: LIA: ORDERED: AFFIRM QUERIES: MEDENT REQUISITION # [id number] ACT WKST: AFFIRM 09/02/11 #1 Procedure Result [...] a test for therapeutic success or failure. [facility] Permit #[id number] [address] [place] [address] DEPARTMENT OF PATHOLOGY, [address] [place] [address] [facility] Permit #[id number] Kenn He M.D. Director Aquiles Brady M.D. [facility] 19 Anion gap measurement may be of limited value in the presence of any alkalosis, especially in a combined acid base disorder. . 20 A metabolite of Naproxen, O-desmethylnaproxen, has been shown to interfere with the Jendrassik-Stefani method for measuring total bilirubin. Samples from patients who have taken Naproxen have shown spurious elevation in total bilirubin levels. 21 Because ethnic data is not always readily [...] 15-29 5 Kidney failure <15 (or dialysis) 22 A metabolite of Naproxen, O-desmethylnaproxen, has been shown to interfere with the Jendrassik-Stfeani method for measuring total bilirubin. Samples from patients who have taken Naproxen have shown spurious elevation in total bilirubin levels. 23 UNABLE TO CALCULATE IND.BILI D.BILI IS <0.1 Please note updated reference range, effective 09/04/09 24 Imm. NE 2 Imm. NE 1 25 Anion gap measurement may be of limited value in the presence of any alkalosis, especially in a combined acid base disorder. . 26 A metabolite of Naproxen, O-desmethylnaproxen, has been shown to interfere with the Jendrassik-Forreston method for measuring total bilirubin. Samples from [...] 15-29 5 Kidney failure <15 (or dialysis) 28 Anion gap measurement may be of limited value in the presence of any alkalosis, especially in a combined acid base disorder. . 29 A metabolite of Naproxen, O-desmethylnaproxen, has been shown to interfere with the Jendrassik-Stefani method for measuring total bilirubin. Samples from patients who have taken Naproxen have shown spurious elevation in total bilirubin levels. 30 Because ethnic data is not always readily [...] 15-29 5 Kidney failure <15 (or dialysis) 31 CHOLESTEROL INTERPRETATION: Desirable: Less than 200 MG/DL Borderline-High Risk: 200-239 MG/DL High-Risk: 240 MG/DL and over 32 HDL INTERPRETATION: Undesirable: High Risk: Less than 40 MG/DL Desirable: Low Risk: Greater than 60 MG/DL 33 LDL INTERPRETATION: Low Risk Optimal Level: LDL Less than 100 MG/DL Near or Above Optimal: LDL 100-129 MG/DL Borderline High Risk: LDL 130-159 MG/DL High Risk: LDL 160-189 MG/DL Very High Risk: LDL Greater than 189 MG/DL Procedures Date CPT Code Description Status 06/27/2013 80478 ECHO Stress Test Incl Perf Contiuous ekg Monitoring Completed W/Phys Superv 06/27/2013 29956 Stress Test Completed 06/21/2013 43575 ECHO Transthoracic, Real-Time 2D With Doppler And Color Completed Flow 06/20/2013 73233 ECHO Transthoracic, Real-Time 2D With Doppler And Color Completed Flow 06/20/2013 85761 EKG Tracing & Interpretation Completed 12/06/2012 76736 Rad Exam; Knee Comp Completed 12/06/2012 18789 Rad Exam; Knee Comp Completed 08/23/2011 68982 Noninvasive Ear Or Pulse Oximetry For Oxygen Saturation Completed 08/04/2009 25059 Holter Monitor Review (24 hr)dr review & interp only Completed 07/15/2009 77201 Holter Monitor Review (24 hr)dr review & interp only Completed 03/12/2008 40055 Treadmill Interp/Report Only Completed 03/12/2008 00660 Stress Test Supervsn W/Out I/R Completed Encounters Type Date Location Provider CPT E/M Dx Office Visit 10/28/2017 [facility] Cheryl Shafer, 83160 Z00.00 8:30a - Rhiannon RPA-C M25.50 E07.89 Z90.710 R20.0 G56.01 Z23 F17.210 Office Visit 12/27/2016 10:30a [facility] [place] [address] G56.21 [facility] [place] Office Visit 12/20/2016 2:30p [facility] [place] [address] G56.21 [facility] G56.11 Office Visit 10/10/2013 2:20p [facility] Martinez [address] 719.49 Of Jonna Rawls 795.79 Office Visit 07/11/2013 2:00p [facility] Humza Martinez 88520 719.49 Of Jonna Rawls 795.79 246.8 Office Visit 06/20/2013 11:45a [facility] Guthrie 25734 786.05 Jonna Rawls 786.50 Office Visit 12/06/2012 1:00p [facility] M.D. 17692 717.7 C.M.A. Office Visit 01/24/2012 11:50a [facility] Lesvia Powers 15022 786.05 - Rhiannon Rawls 244.0 599.0 305.1 Office Visit 09/01/2011 9:30a [facility] Lesvia Powers M.D. 62961 V70.3 - [place] 623.5 275.41 272.2 v05.3 v74.1 Office Visit 08/23/2011 2:00p [facility] Lesvia Powers M.D. 19279 466.0 - [place] 009.3 Office Visit 08/09/2011 12:30p [facility] Lesvia Powers 43037 847.2 - [place] M.D. Office Visit 07/29/2011 11:45a [facility] Lesvia Powers 26122 719.41 - [place] M.D. Office Visit 07/02/2011 2:15p [facility] Helga Stafford 55622 275.41 - [place] N.P. 272.2 782.3 Office Visit 07/01/2011 11:30a [facility] Helga Stafford, N.P. 04815 782.3 - [place] V06.1 Office Visit 06/22/2011 11:45a [facility] Lesvia Powers M.D. 36793 272.2 - [place] 785.1 305.1 599.0 275.41 790.6 278.00 Office Visit 06/01/2011 12:30p [facility] Lesvia Powers M.D. 18391 477.8 - [place] 305.1 244.0 272.2 785.1 275.41 Office Visit 05/28/2011 11:40a [facility] Cherry Venegas M.D. 49638 461.1 - [place] Office Visit 04/19/2011 1:00p [facility] Lesvia Powers M.D. 17463 244.0 - [place] 305.1 311 Plan of Care Future Appointment(s):12/13/2017 9:15 am - Edgar Bacon MD at [facility].11/08/2017 - Edgar Bacon MDG56.01 Carpal tunnel syndrome, right upper limbFollow up:Follow up: 10-14 days postop
--- NOTE | 2017-11-09 18:22 | UC ---
UC General HPI - HPI Summary HPI Summary: 36 yo female presents with sinus pain/pressure/congestion, fatigue, nausea, body aches, and feeling hot/cold for the last 2 days. She has not taken anything OTC for her symptoms. She did not go to work today due to her symptoms and is requesting a note for work. She has not vomiting at all today. Denies SOB , chest pain, abdominal pain, dysuria. She is still smoking daily. - History of Current Complaint Stated Complaint: FATIGUE Time Seen by Provider: 11/09/17 18:21 Hx Obtained From: Patient Hx Last Menstrual Period: hyster Onset/Duration: Gradual Onset Onset Severity: Moderate Current Severity: Moderate Pain Intensity: 8 - Allergy/Home Medications Allergies/Adverse Reactions: Allergies Allergy/AdvReac Type Severity Reaction Status Date / Time amoxicillin Allergy Rash Verified 11/09/17 18:24 Penicillins Allergy Anaphylatic Verified 11/09/17 18:24 Shock Home Medications: Home Medications Mirtazapine TAB* [Remeron TAB*] 15 mg PO BEDTIME 11/09/17 [History Confirmed ] PMH/Surg Hx/FS Hx/Imm Hx Endocrine History: Hypothyroidism Psychological History: Anxiety, Depression - Surgical History Surgical History: Yes Surgery Procedure, Year, and Place: thyroidectomy 2008,tubal ligation-2006, hysterectomy 2008. Cholecystectomy 2012 - Family History Known Family History: Positive: Cardiac Disease - grandparents, Hypertension, Diabetes, Other - HLD - Social History Occupation: Employed Full-time Lives: With Family Alcohol Use: Rare Substance Use Type: None Substance Use Comment - Amount & Last Used: clean 4 years Smoking Status (MU): Light Every Day Tobacco Smoker Type: Cigarettes Amount Used/How Often: < 1/2 PPD Length of Time of Smoking/Using Tobacco: Since Age 16 Have You Smoked in the Last Year: Yes Household Exposure Type: Cigarettes - Immunization History Most Recent Influenza Vaccination: 01/05/17 Most Recent Tetanus Shot: had it, but is unsure on what year - she thinks 3 yrs ago. Most Recent Pneumonia Vaccination: 2010 Review of Systems Constitutional: Fatigue, Other - Body aches Skin: Negative Eyes: Negative ENT: Nasal Discharge, Sinus Congestion, Sinus Pain/Tenderness Respiratory: Cough Cardiovascular: Negative Gastrointestinal: Nausea Genitourinary: Negative Neurovascular: Negative Neurological: Negative Psychological: Negative All Other Systems Reviewed And Are Negative: Yes Physical Exam - Summary Physical Exam Summary: GENERAL: NAD. WDWN. No pain distress. SKIN: No rashes, sores, lesions, or open wounds. HEENT: Head: AT/NC Eyes: EOM intact. Conjunctiva clear without inflammation or discharge. Ears: Hearing grossly normal. TMs intact, no bulging, erythema, or edema. Nose: Nasal mucosa pink and moist. NTTP maxillary and frontal sinus. Throat: Posterior oropharynx without exudates, erythema, or tonsillar enlargement. Uvula midline. NECK: Supple. Nontender. No lymphadenopathy. CHEST: CTAB. No r/r/w. No accessory muscle use. Breathing comfortably and in no distress. CV: RRR. Without m/r/g. Pulses intact. Cap refill <2seconds ABDOMEN: Soft. NTTP. No distention or guarding. No CVA tenderness. Bowel sounds present NEURO: Alert. PSYCH: Age appropriate behavior. Triage Information Reviewed: Yes Vital Signs: Vital Signs: Temp Pulse Resp BP Pulse Ox 97.3 F 89 16 128/59 100 11/09/17 18:20 11/09/17 18:20 11/09/17 18:20 11/09/17 18:20 11/09/17 18:20 Vital Signs Reviewed: Yes Course/Dx - Course Course Of Treatment: Pt is afebrile and vitals are WNL. Her exam is WNL. Suspect viral illness. Advised to rest and take tylenol/ibuprofen for any discomfort. Will write her for off of work today and tomorrow. F/u prn - Differential Dx - Multi-Symptom Provider Diagnoses: Viral syndrome Discharge - Sign-Out/Discharge Documenting (check all that apply): Patient Departure All imaging exams completed and their final reports reviewed: No Studies - Discharge Plan Condition: Stable Disposition: HOME Patient Education Materials: Viral Syndrome (ED) Forms: *Work Release Referrals: Luis Suarez MD [Primary Care Provider] - Additional Instructions: If you develop a fever, shortness of breath, chest pain, new or worsening symptoms - please call your PCP or go to the ED. 1) Rest and drink plenty of clear fluids/water 2) May take tylenol or ibuprofen every 6 hours as needed for any discomfort - Billing Disposition and Condition Condition: STABLE Disposition: Home
[2017-11-09 18:24] VITALS: BP 128/59
== END 2017-11-09 19:00 | disposition home or self-care (01) ==
LOC: UCEAST 18:13
DX: B34.9 Viral infection, unspecified (principal); Z88.0 Allergy status to penicillin; F32.9 Major depressive disorder, single episode, unspecified; F17.210 Nicotine dependence, cigarettes, uncomplicated
CPT/HCPCS: 99212; G0463

== ENCOUNTER 2017-12-01 07:11 | Day surgery (SDC) | payer OTHER ==
[~2017-12-01 07:11] MED LIST changes: -Aspirin Low Dose CHEW TAB* 81 MG PO ONE; +Buffered Lidocaine 0.9% SYRIN* 5 ML/SYR SYRINGE INTRADERM ONE; -NS 0.9% 1000 ML* 1,000 ML IV ONE; -Potassium Chlor TAB* 20 MEQ TAB.ER PO ONE; -QUEtiapine TAB* 100 MG PO ONE; -traZODone TAB* 50 MG TAB PO ONE
[2017-12-01] MEDS ORDERED: Buffered Lidocaine 0.9% SYRIN* 5 ML/SYR SYRINGE ONE (07:53)
[2017-12-01] MEDS ORDERED: fentaNYL* 50 MCG/ML 2 ML VIAL (100 MCG VIAL) ONE (08:34)
[2017-12-01] MEDS ORDERED: ROPIVACAINE 5 MG/ML 30 ML BTL (0.5%) ONE (09:19)
[2017-12-01] MEDS ORDERED: Propofol* 10 MG/ML 20 ML BTL IV PUSH ONE (09:54)
[2017-12-01] MEDS ORDERED: Lidocaine 2% PF * 5 ML VIAL ONE (09:54)
[2017-12-01 10:46] VITALS: BP 95/59
--- NOTE | 2017-12-02 02:13 | OP ---
DATE OF OPERATION: 12/01/17 [facility] DATE OF : 82 SURGEON: Edgar Bacon MD LINE UP WORKER: DEJA Sheth ANESTHESIOLOGIST: Dr. Rondon. ANESTHESIA: Local MAC. PRE-OP DIAGNOSIS: Right carpal tunnel syndrome. POST-OP DIAGNOSIS: Right carpal tunnel syndrome. OPERATIVE PROCEDURE: Right open carpal tunnel release. INDICATIONS: Brenda has had progressive right carpal tunnel syndrome. We had talked about risks and benefits and she had wanted to proceed. ESTIMATED BLOOD LOSS: 2 mL. COMPLICATIONS: None. FINDINGS: See above and below. DESCRIPTION OF PROCEDURE: Brenda was seen in the preoperative holding area. The correct side, site and procedure were identified. We came back to the operating room where the arm was prepped and draped in the usual fashion. A time-out was performed. The arm was exsanguinated and the tourniquet was inflated to 250 mmHg. I then made a 2 to 3 cm incision in a standard location for an open carpal tunnel release. Dissection was carried down through the subcutaneous tissue and fascia. The transverse carpal ligament was released off the radial aspect of the hook of the hamate from distal to proximal. When the release was completed distally, I came proximally and released the subcutaneous tissue. I retracted this volarly and ulnarly. The remainder of the transverse carpal ligament and distal antebrachial fascia was released with the tenotomy scissors under direct visualization. At this point, everything was looking good. There was no compression on the nerves. So, we irrigated out the wounds. The skin was closed with 4-0 nylon suture. Soft dressings were applied. Tourniquet was deflated and then she was taken to the recovery room in stable condition. [id number]/CPS #: [id number] MTDD
== END 2017-12-01 10:39 | disposition home or self-care (01) ==
LOC: OREAST 07:11
PROVIDERS: ATTEND Orthopaedic Surgery Hand Surgery
DX: G56.01 Carpal tunnel syndrome, right upper limb (principal); Z72.0 Tobacco use; Z85.850 Personal history of malignant neoplasm of thyroid; F41.8 Other specified anxiety disorders; M19.90 Unspecified osteoarthritis, unspecified site; E89.0 Postprocedural hypothyroidism
CPT/HCPCS: J2704; J2795; J3010

== ENCOUNTER → 2017-12-07 01:14 | Emergency (ER) | payer OTHER ==
[~2017-12-07 01:14] MED LIST changes: -Buffered Lidocaine 0.9% SYRIN* 5 ML/SYR SYRINGE INTRADERM ONE; +Prochlorperazine TAB* 10 MG PO ONE
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
[2017-12-07 05:02] VITALS: BP 113/67
== END | disposition home or self-care (01) ==
LOC: ED 01:14
DX: S09.90XA Unspecified injury of head, initial encounter (principal); F17.210 Nicotine dependence, cigarettes, uncomplicated; Y04.2XXA Assault by strike against or bumped into by another person, initial encounter; Y92.9 Unspecified place or not applicable; E03.9 Hypothyroidism, unspecified; Z88.0 Allergy status to penicillin
CPT/HCPCS: 99282; Q0164

== ENCOUNTER 2017-12-12 10:44 | Emergency (ER) | payer OTHER ==
[2017-12-12 14:00] VITALS: BP 117/67
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
== END 2017-12-12 13:59 | disposition home or self-care (01) ==
LOC: ED 10:44
DX: F43.20 Adjustment disorder, unspecified (principal); F17.210 Nicotine dependence, cigarettes, uncomplicated; E03.9 Hypothyroidism, unspecified
CPT/HCPCS: 99282

== ENCOUNTER 2018-01-11 22:23 | Emergency (ER) | payer OTHER ==
--- OUTSIDE RECORDS SUMMARY | 2018-01-11 22:32 | XMS REPORT ---
:1980 External Reference #:[id number] Author Organization [facility] Address [address] [place] [address] [place] [address] Phone [phone] Care Team Providers Name Role Phone Luis Suarez MD Primary Care Physician Unavailable Payers Type Date Identification Numbers Payment Provider Subscriber Medicaid Effective: 2017 Policy Number: [id number] Medicaid Brenda Toledo Group Name: 1 1 [address] PayID: [id number] [place] [address] Commercial Expires: 2017 Policy Number: [employer] Brenda Toledo [id number] Medicaid PayID: [id number] [address] [address] [place] [address] Problems Date Description Provider Status Onset: 04/19/2011 [...] Form Strength Qnty SIG Indications Ordering Provider Tramadol HCL 12/01 Active Tablets 50mg 30tab 1-2 tablets s by mouth Bacon, every 6 MD hours as needed pain Gabapentin Active Capsules 100mg Take 4 Unknown [...] Xander M /2016 s twice a day Brittany Goodman w food 02/21 Prednisone 10/03 Hx Tablets 10mg 35tab 3 tab every s day for 1 Endo, - week, 2/d M.D. 12/19 for 1 week, Oxaprozin 07/26 Hx Tablets 600mg 60tab 1 by mouth 719.49 Humza s twice a day Michelle, - M.DRonald 12/19 Diclofenac 07/[address] 75mg 60tab take 1 719.49 Humza s tablet by Endo, - mouth twice M.D. 07/26 a day Nitrofurantoin 01/23 Hx Capsules 100mg 14cap 1 tab bid 599.0 Lesvia Monohydrate /2011 s X7 days Brittany Powers M.D. 06/19 Nicotine Step 2 01/23 Hx Patches 14mg/24HR 30uni once a day 305.1 Lesvia 24HR ts as needed Brittany Powers M.D. [...] Tablets 10mg 15tab 1 po bid 847.2 Lesvia /2012 s Brittany Powers M.D. 08/31 Ibuprofen 08/08 Hx Tablets 800mg 20tab 1 tab every 847.2 Lesvia /2012 s 8 hrs as Priya, - needed for M.D. 06/19 pain Ibuprofen 07/28 Hx Tablets 800mg 40tab 1 tab every 719.41 Lesvia s 8 hrs as Priya, - needed for M.D. 06/19 pain Simvastatin 07/01 Hx Tablets 5mg 30tab 1 qhs - 272.2 Luis s take one Corazon Suarez, - [facility] mouth every day at bedtime T.EElkin. 06/30 Hx Misc 1unit please fit 782.3 Luis Anti-Embolism s Corazon Suarez Stockdelma Knee - [facility],FACP Length 06/19 Furosemide 06/30 Hx Tablets 20mg 7tabs 1 po qam x 782.3 Luis /2011 7 days D. Brittany Suarez M.D.,FACP 07/28 Fexofenadine HCL 05/31 Hx Tablets 180mg 90tab 1 po qd 477.8 Lesvia Brittany Bridges M.D. 05/31 Flonase 05/31 Hx Suspension 50mcg/Act 1unit 1 squirt 477.8 s intranasal Priya, - rachna M.DRonald 12/19 Nicotine 05/31 Hx Lozenges 2mg 60uni as needed 305.1 Lesvia Polacrilex ts for Brittany Powers cravingrosaura Rawls 07/28 Loratadine 05/31 Hx Tablets 10mg 90tab 1 by mouth s every day Brittany Powers M.D. 01/23 Levothyroxine 04/18 Hx Tablets 300mcg 90tab 1 po daily 244.0 Lesvia Brittany Bridges M.D. 06/19 Zoloft 04/18 Hx Tablets 100mg 120ta take 2 tab 244.0 bs po qd Brittany Powers M.D. 01/23 Abilify 04/18 Hx Tablets 20mg 30tab 1 po daily 311 Lesvia Brittany Bridges M.D. 12/19 Levothyroxine Hx Tablets 300mcg 30tab [...] Hx Tablets 125mcg take 2 244.0 Ashok, / tablet by MD Brando - mouth one 10/28 time daily Gabapentin Hx Capsules 300mg 90cap 1 by mouth Unknown /0000 s three times - a day (june 24 take 2 in selina) Ibuprofen Hx Tablets 600mg 1 po three Unknown /0000 times a day - prn 10/28 Medications Administered in Office Medication Date Status Form Strength Qnty SIG Indications Ordering Provider PPD Administered Injection Lesvia Powers M.D. Immunizations CPT Code Status Date Vaccine Lot # [id number] Given 10/28/2017 Influenza Virus Vaccine, Quadrivalent, Split, [id number] Preservative Free [id number] Given 01/20/2012 Fluvirin Im 3Yrs And Older 31207 Given 01/20/2012 Pneumonia Vaccine 30061 Given 09/01/2011 Hepatitis B Vaccine Adult Dosage [id number] 85030 Given 07/01/2011 Tdap - Tetanus/Diptheria/Acellular Pertussis [id number] Vital Signs Date Vital Result Comment 12/13/2017 Height 61.50 inches 5'1.50" Heart Rate 64 /min BP Systolic 116 mmHg BP Diastolic 68 mmHg Body Temperature 99.0 F Pain Level 0 11/08/2017 Height 61.50 inches 5'1.50" Weight 163.00 [...] Test Result H/L Range Note Thyroid Function Alpine 10/28/2017 Thyroid Stim Hormone 48.3 mIU/L 0.3- [...] High 0.34-5.60 Ua Routine 01/24/2012 Ua Specific [place] 1.010 Ua PH 6.0 Ua Color YELLOW [...] recheck 6 weeks. 2 Test Performed by: [place] [address] 3 Test Performed by: [place] [address] 4 Test Performed by: [place] [address] 5 Because ethnic data is not always [...] detected. Method: Flow Cytometry Performing Laboratory CLIA# [id number] Test Performed by: [place] [address] Stage Settings Painter: Anurag Sigala III, M.D. 11 -- REFERENCE VALUE -- <20.0 (Negative) Test Performed by: [place] [address] Stage Settings Painter: Anurag Sigala III, M.D. 12 Test Performed by: [place] [address] Stage Settings Painter: Anurga Sigala III, M.D. 13 RUN DATE: 03/22/12 [facility] LAB LIVE PAGE 1 RUN TIME: [address] [place] [address] Specimen Inquiry Name: BRENDA TOLEDO : [address]: Austin Root MD Acct: [id number] Unit: [id number] AGE: 31 Location: [facility] Re03/19/12 SEX: F Status: DEP ER SPEC: [id number] DUANE: 03/19/[address] [facility] [address]: Austin Root MD REQ: [id number] RECD: 03/20/12 STATUS: RAN DOZIER DR: Lesvia Powers MD _ SOURCE: URINE SPDESC: ORDERED: Urine Culture Procedure Result Verified Site Urine Culture Final 03/22/12- 1044 ML Organism 1 NORMAL SILVINO [place] Count 1-10,000 (Few) CFU/ML END OF REPORT * ML=Testing performed at Main Lab DEPARTMENT OF PATHOLOGY, [address] [place] [address] Kenn He M.D. Director [facility] Permit #[id number] The INR(International Normalized Ratio) was adopted [...] 0.06 ng/mL Not supportive of diagnosis of DE 0.06 - 0.50 ng/ml Indeterminate: suggest serial studies if clinically indicated. Greater than 0.5 ng/mL Consistent with diagnosis of DE 18 RUN DATE: 09/02/11 [facility] NMI LIVE PAGE 1 RUN TIME: 1013 Specimen Inquiry RUN USER: INTERFACE Name: BRENDA TOLEDO Status: REG REF Re09/01/11 Age/Sex: 30/F Unit#: [id number] Location: [facility] : [birth year] SPEC #: [id number] DUANE: 09/01/11-1031 STATUS: COMP REQ #: [id number] RECD: 09/01/11-[address] [facility] [address] S[facility]: VAGINAL ENTR: 09/01/[address]: EARNEST: ORDERED: AFFIRM QUERIES: MEDENT REQUISITION # [id number] ACT WKST: AFFIRM 09/02/11 #1 Procedure Result [...] a test for therapeutic success or failure. [facility] Permit #[id number] [address] [place] [address] DEPARTMENT OF PATHOLOGY, [address] [place] [address] [facility] Permit #[id number] Kenn He M.D. Director Aquiles Brady M.D. Bender Helper 19 Anion gap measurement may be of limited value in the presence of any alkalosis, especially in a combined acid base disorder. . 20 A metabolite of Naproxen, O-desmethylnaproxen, has been shown to interfere with the [place] method for measuring total bilirubin. Samples from [...] has been shown to interfere with the [place] method for measuring total bilirubin. Samples from [...] has been shown to interfere with the [place] method for measuring total bilirubin. Samples from [...] MG/DL Procedures Date CPT Code Description Status 12/01/2017 37994 Carpal Tunnel Release Completed 12/01/2017 62984 Carpal Tunnel Release Completed 06/27/2013 01321 ECHO Stress Test Incl Perf Contiuous ekg Monitoring Completed W/Phys Superv 06/27/2013 06402 Stress Test Completed 06/21/2013 24724 ECHO Transthoracic, Real-Time 2D With Doppler And Color Completed Flow 06/20/2013 29437 ECHO Transthoracic, Real-Time 2D With Doppler And Color Completed Flow 06/20/2013 48339 EKG Tracing & Interpretation Completed 12/06/2012 18909 Rad Exam; Knee Comp Completed 12/06/2012 25116 Rad Exam; Knee Comp Completed 08/23/2011 91108 Noninvasive Ear Or Pulse Oximetry For Oxygen Saturation Completed 08/04/2009 61627 Holter Monitor Review (24 hr)dr review & interp only Completed 07/15/2009 02671 Holter Monitor Review (24 hr)dr review & interp only Completed 03/12/2008 72216 Treadmill Interp/Report Only Completed 03/12/2008 68341 Stress Test Supervsn W/Out I/R Completed Encounters Type Date Location Provider CPT E/M Dx Office Visit 11/08/2017 [facility] [place] [address] G56.01 10:30a C.M.A. Office Visit 10/28/2017 [facility] Cheryl Marker, 95686 Z00.00 8:30a - Rhiannon [facility] M25.50 E07.89 Z90.710 R20.0 G56.01 Z23 F17.210 Office Visit 12/27/2016 10:30a [facility] [place] [address] G56.21 [facility] [place] Office Visit 12/20/2016 2:30p [facility] [place] [address] G56.21 [facility] [place] G56.11 Office Visit 10/10/2013 2:20p [facility] Humza Endo, 47456 719.49 Of Jonna M.DRonald 795.79 Office Visit 07/11/2013 2:00p [facility] Humza Endo, 15316 719.49 Of Jonna M.DRonald 795.79 246.8 Office Visit 06/20/2013 11:45a [facility] Guthrie, 11918 786.05 Jonna Rawls 786.50 Office Visit 12/06/2012 1:00p [facility] M.D. 46611 717.7 C.M.A. Office Visit 01/24/2012 11:50a [facility] Internal Medicine Lesvia Powers 56417 786.05 - Rhiannon Rawls 244.0 599.0 305.1 Office Visit 09/01/2011 9:30a [facility] Internal [facility] Lesvia Powers M.D. 74874 V70.3 - [place] 623.5 275.41 272.2 v05.3 v74.1 Office Visit 08/23/2011 2:00p [facility] Internal Medicine Lesvia Powers M.D. 07564 466.0 - [place] 009.3 Office Visit 08/09/2011 12:30p [facility] Internal Medicine Lesvia Powers 91980 847.2 - Rhiannon Rawls Office Visit 07/29/2011 11:45a [facility] Internal Medicine Lesvia Powers 51212 719.41 - Rhiannon Rawls Office Visit 07/02/2011 2:15p [facility] Helga Stafford 59422 275.41 - [place] N.P. 272.2 782.3 Office Visit 07/01/2011 11:30a [facility] Internal Medicine Helga Stafford, N.PRonald 78476 782.3 - [place] V06.1 Office Visit 06/22/2011 11:45a [facility] Internal Medicine Lesvia Powers M.D. 81697 272.2 - [place] 785.1 305.1 599.0 275.41 790.6 278.00 Office Visit 06/01/2011 12:30p [facility] Internal Medicine Lesvia Powers M.D. 52762 477.8 - [place] 305.1 244.0 272.2 785.1 275.41 Office Visit 05/28/2011 11:40a [facility] Internal [facility] Cherry Venegas M.D. 23487 461.1 - [place] Office Visit 04/19/2011 1:00p [facility] Medicine Lesvia Powers M.D. 74165 244.0 - [place] 305.1 311 Plan of Care Future Appointment(s):01/10/2018 10:00 am - Edgar Bacon [facility] at [facility]
--- NOTE | 2018-01-12 00:11 | ED ---
Throat Pain/Nasal Congestion - HPI Summary HPI Summary: This patient is a 37 year old F presenting to [facility] accompanied by a male with a chief complaint of sore throat since 3 days ago. The patient rates the pain 9/ 10 in severity. Patient reports mild fever, CP, cough, increased need for sleep , and ear ache. Patient reports she has not taken over the counter medications. No PMHx asthma, chronic sinusitis. SHX tobacco use. RX Levothyroxine and Prozac. - History of Current Complaint Chief Complaint: EDThroatPain Time Seen by Provider: 01/11/18 23:08 Hx Obtained From: Patient Onset/Duration: Sudden Onset, Lasting Days - 3 Severity: Moderate Associated Signs And Symptoms: Positive: Sinus Discomfort Cough: Nonproductive Related History: Smoking - Allergies/Home Medications Allergies/Adverse Reactions: Allergies Allergy/AdvReac Type Severity Reaction Status Date / Time Penicillins Allergy Severe Anaphylatic Verified 01/11/18 23:28 Shock amoxicillin Allergy Intermediate Rash Verified 01/11/18 23:28 PMH/Surg Hx/FS Hx/Imm Hx Endocrine/Hematology History: Reports: Hx Thyroid Disease - hypothyroidism- removed thyroid Denies: Hx Diabetes Cardiovascular History: Reports: Other Cardiovascular Problems/Disorders - STRONG FAMILY HX HEART DISEASE Denies: Hx Hypercholesterolemia, Hx Hypertension Respiratory History: Reports: Hx Asthma - as a child, outgrew Denies: Hx Chronic Obstructive Pulmonary Disease (COPD) GI History: Reports: Other GI Disorders - on going diarrhea Denies: Hx Ulcer Musculoskeletal History: Reports: Hx Arthritis Sensory History: Denies: Hx Contacts or Glasses, Hx Hearing Aid Opthamlomology History: Denies: Hx Contacts or Glasses Psychiatric History: Reports: Hx Anxiety, Hx Depression, Hx Community Mental Health Tx, Hx Suicide Attempt, Hx Substance Abuse Denies: Hx Eating Disorder, Hx of Violent Episodes Against Others - Cancer History Cancer Type, Location and Year: thyroid Hx Chemotherapy: No - 1 treatment rdioactive iodine - Surgical History Surgery Procedure, Year, and Place: thyroidectomy 2008,tubal ligation-2006, hysterectomy 2008. Cholecystectomy 2012 Hx Anesthesia Reactions: No - Immunization History Date of Tetanus Vaccine: PT STATES UNSURE Date of Influenza Vaccine: NONE Infectious Disease History: No Infectious Disease History: Denies: Hx Clostridium Difficile, Hx Hepatitis, Hx Human Immunodeficiency Virus (HIV), Hx of Known/Suspected MRSA, Hx Shingles, Hx Tuberculosis, Hx Known/ Suspected VRE, Hx Known/Suspected VRSA, History Other Infectious Disease, Traveled Outside the [place] in Last 30 Days - Family History Known Family History: Positive: Cardiac Disease - grandparents, Hypertension, Diabetes, Other - HLD - Social History Alcohol Use: None 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 Substance Use Type: Reports: None Substance Use Comment - Amount & Last Used: clean 4 years Smoking Status (MU): Light Every Day Tobacco Smoker Type: Cigarettes Amount Used/How Often: < 1/2 PPD smoked for almost 20 years Length of Time of Smoking/Using Tobacco: Since Age 16 Have You Smoked in the Last Year: Yes Review of Systems Positive: Fever Positive: Sore Throat, Ear Ache Positive: Chest Pain Positive: Cough All Other Systems Reviewed And Are Negative: Yes Physical Exam - Summary Physical Exam Summary: Appearance: Well-appearing, Well-nourished, lying in bed comfortably Skin: Warm, dry, no obvious rash Eyes: sclera anicteric, no conjunctival pallor ENT: mucous membranes moist, pharynx appears normal Neck: Supple, nontender Respiratory: Clear to auscultation, no signs of respiratory distress Cardiovascular: Normal S1, S2. No murmurs. Normal distal pulses in tibial and radial bilaterally. Abdomen: Soft, nontender, normal active bowel sounds present Musculoskeletal: Normal, Strength/ROM Intact Neurological: A&Ox3, awake and alert, mentation is normal, speech is fluent and appropriate Psychiatric: affect is normal, does not appear anxious or depressed Triage Information Reviewed: Yes Vital Signs On Initial Exam: Initial Vitals Temp Pulse Resp BP Pulse Ox 98.0 F 83 16 142/86 100 01/11/18 22:25 01/11/18 22:25 01/11/18 22:25 01/11/18 22:25 01/11/18 22:25 Vital Signs Reviewed: Yes Diagnostics - Vital Signs Vital Signs Temp Pulse Resp BP Pulse Ox 01/11/18 22:25 98.0 F 83 16 142/86 100 - Laboratory Lab Results: Lab Results 01/11/18 Range/Units 23:41 Group A Strep Rapid Negative (Negative) Lab Statement: Any lab studies that have been ordered have been reviewed, and results considered in the medical decision making process. EENT Course/Dx - Course Course Of Treatment: This patient is a 37 year old F presenting to [facility] accompanied by a male with a chief complaint of sore throat since 3 days ago. The patient rates the pain 9/10 in severity. Patient reports mild fever, CP, cough, increased need for sleep, and ear ache. The patient tested negative for strep. Patient will be discharged with follow up from Dr. Suarez. The patient is agreeable with this plan. - Diagnoses Provider Diagnoses: Upper respiratory infection Discharge - Sign-Out/Discharge Documenting (check all that apply): Patient Departure - discharge - Discharge Plan Condition: Stable Disposition: HOME Patient Education Materials: Upper Respiratory Infection (ED) Referrals: Luis Suarez MD [Primary Care Provider] - 1 Week Additional Instructions: Symptoms with this type of infection typically last a couple of weeks. Red flags would be high fever, shortness of breath, fainting or coughing up blood. If any of these happen I would like to see you back here for a recheck. In the meantime OTC cold and cough medications like mucinex can help with the symptoms. - Billing Disposition and Condition Condition: STABLE Disposition: Home - Attestation Statements Document Initiated by Sarah: Yes Documenting Scribe: Arias Julian Provider For Whom Sarah is Documenting (Include Credential): Yifan Limon MD Scribe Attestation: Arias Betancourt scribed for Yifan Limon MD on 01/12/18 at 0350. Scribe Documentation Reviewed: Yes Provider Attestation: The documentation as recorded by the Arias sierra accurately reflects the service I personally performed and the decisions made by me, Yifan Limon MD Status of Scribe Document: Viewed
[2018-01-12 00:20] VITALS: BP 118/72
== END 2018-01-12 00:20 | disposition home or self-care (01) ==
LOC: ED 22:23
DX: J06.9 Acute upper respiratory infection, unspecified (principal); Z88.0 Allergy status to penicillin; F17.210 Nicotine dependence, cigarettes, uncomplicated
CPT/HCPCS: 87651; 99282

== ENCOUNTER 2018-02-08 10:01 | Emergency (ER) | payer OTHER ==
[2018-02-08] MEDS ORDERED: Ibuprofen ADULT LIQ* 600 MG/30 ML UDC PO ONE (11:36)
--- NOTE | 2018-02-08 11:58 | ED ---
Influenza-Like Illness - HPI Summary HPI Summary: Patient presents with flulike symptoms of the past 4 days. She reports she started with body aches, sore throat and rhinorrhea. She's had diarrhea the past few days as well. She is able to drink liquids but feels that they're going right through her - denies abdominal pain, nausea, vomiting. Subjective fever and chills. She also has a sore throat that is persistent and making it difficult to eat. Denies known history of strep or mono. She's not tried anything for her symptoms other than drinking water. No sick contacts and has not had any new food or beverage sources to trigger diarrhea. Additionally she denies recent antibiotic use. Smokes daily but less since sick. Has not had alcohol in "many years" and denies illicit drug use. - History of Current Complaint Chief Complaint: EDFluSymptoms Time Seen by Provider: 02/08/18 11:13 Hx Obtained From: Patient - Allergy/Home Medications Allergies/Adverse Reactions: Allergies Allergy/AdvReac Type Severity Reaction Status Date / Time Penicillins Allergy Severe Anaphylatic Verified 01/11/18 23:28 Shock amoxicillin Allergy Intermediate Rash Verified 01/11/18 23:28 PMH/Surg Hx/FS Hx/Imm Hx Previously Healthy: Yes Endocrine/Hematology History: Reports: Hx Thyroid Disease - hypothyroidism- removed thyroid Denies: Hx Diabetes Cardiovascular History: Reports: Other Cardiovascular Problems/Disorders - STRONG FAMILY HX HEART DISEASE Denies: Hx Hypercholesterolemia, Hx Hypertension Respiratory History: Reports: Hx Asthma - as a child, outgrew Denies: Hx Chronic Obstructive Pulmonary Disease (COPD) GI History: Reports: Other GI Disorders - on going diarrhea Denies: Hx Ulcer Musculoskeletal History: Reports: Hx Arthritis Sensory History: Denies: Hx Contacts or Glasses, Hx Hearing Aid Opthamlomology History: Denies: Hx Contacts or Glasses Psychiatric History: Reports: Hx Anxiety, Hx Depression, Hx Community Mental Health Tx, Hx Suicide Attempt, Hx Substance Abuse Denies: Hx Eating Disorder, Hx of Violent Episodes Against Others - Cancer History Cancer Type, Location and Year: thyroid Hx Chemotherapy: No - 1 treatment rdioactive iodine - Surgical History Surgery Procedure, Year, and Place: thyroidectomy 2008,tubal ligation-2006, hysterectomy 2008. Cholecystectomy 2012 Hx Anesthesia Reactions: No - Immunization History Date of Tetanus Vaccine: PT STATES UNSURE Date of Influenza Vaccine: NONE Infectious Disease History: No Infectious Disease History: Denies: Hx Clostridium Difficile, Hx Hepatitis, Hx Human Immunodeficiency Virus (HIV), Hx of Known/Suspected MRSA, Hx Shingles, Hx Tuberculosis, Hx Known/ Suspected VRE, Hx Known/Suspected VRSA, History Other Infectious Disease, Traveled Outside the [place] in Last 30 Days - Family History Known Family History: Positive: Cardiac Disease - grandparents, Hypertension, Diabetes, Other - HLD - Social History Alcohol Use: None 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 Substance Use Type: Reports: None Substance Use Comment - Amount & Last Used: clean 4 years Smoking Status (MU): Light Every Day Tobacco Smoker Type: Cigarettes Amount Used/How Often: < 1/2 PPD smoked for almost 20 years Length of Time of Smoking/Using Tobacco: Since Age 16 Have You Smoked in the Last Year: Yes Review of Systems Positive: Fever, Chills, Fatigue Positive: Sore Throat, Nasal Discharge Negative: Chest Pain Positive: Cough Gastrointestinal: Negative Positive: no symptoms reported Positive: Myalgia Skin: Negative Psychological: Normal All Other Systems Reviewed And Are Negative: Yes Physical Exam Triage Information Reviewed: Yes Vital Signs On Initial Exam: Initial Vitals Temp Pulse Resp BP Pulse Ox 98.1 F 100 16 114/74 96 02/08/18 10:02 02/08/18 10:02 02/08/18 10:02 02/08/18 10:02 02/08/18 10:02 Vital Signs Reviewed: Yes Appearance: Positive: Well-Nourished, Ill-Appearing - mild fatigue, wearing sneed over head - otherwise, good strength and response Skin: Positive: Warm, Skin Color Reflects Adequate Perfusion, Dry - no rash Head/Face: Positive: Normal Head/Face Inspection Eyes: Positive: Normal, EOMI, Conjunctiva Clear - anicteric sclera. Negative: Conjunctiva Inflammed, Discharge ENT: Positive: Hearing grossly normal, Pharyngeal erythema - cobblestoning, mild edema, Nasal congestion, TMs normal, Tonsillar swelling - +2, Uvula midline. Negative: Nasal drainage, Tonsillar exudate, Trismus, Muffled voice, Hoarse voice, Sinus tenderness Neck: Positive: Supple, Nontender, No Lymphadenopathy Respiratory/Lung Sounds: Positive: Clear to Auscultation, Breath Sounds Present. Negative: Rales, Rhonchi, Wheezes Cardiovascular: Positive: Normal, RRR, S1, S2 Abdomen Description: Positive: Nontender, No Organomegaly, Soft Bowel Sounds: Positive: Present Musculoskeletal: Positive: Normal, Strength/ROM Intact Neurological: Positive: Normal, Sensory/Motor Intact, Alert, Oriented to Person Place, Time, CN Intact II-III Psychiatric: Positive: Normal - Chuy Coma Scale Best Eye Response: 4 - Spontaneous Best Motor Response: 6 - Obeys Commands Best Verbal Response: 5 - Oriented Coma Scale Total: 15 Diagnostics - Vital Signs Vital Signs Temp Pulse Resp BP Pulse Ox 02/08/18 10:02 98.1 F 100 16 114/74 96 - Laboratory Lab Results: Lab Results 02/08/18 Range/Units 11:42 Influenza A (Rapid) Negative (Negative) Influenza B (Rapid) Negative (Negative) Lab Statement: Any lab studies that have been ordered have been reviewed, and results considered in the medical decision making process. Flu Symptom Course/Dx - Course Course Of Treatment: neg flu, neg strep - Diagnoses Provider Diagnoses: Viral URI Discharge - Sign-Out/Discharge Documenting (check all that apply): Patient Departure - Discharge Plan Condition: Stable Disposition: HOME Patient Education Materials: Acute Diarrhea (ED), Viral Syndrome (ED) Referrals: Luis Suarez MD [Primary Care Provider] - Additional Instructions: Stay hydrated as recommended in educational handouts - water, gingerale, applejuice, gatorade, coconut water, soup broth, etc Avoid stimulants which can make diarrhea worse (ie. caffeine, nicotine, etc) You may also try the following for URI sx relief: Nasal wash (netti pot or saline spray) & salt water throat gargles 2 x day Drink you body weight in ounces of water every day Sleep 8+ hours per night Avoid Dairy and sugar Hot herbal/decaf tea with lemon & honey Chicken broth (preferably organic, free range chicken) Humidifier in house, but especially near bed at night Keep home temperature at 68F or less to reduce dryness Use cough drops/throat lozenges Try a facial steam with or without eucalyptus essential oil or Hasmukh's Vapor rub for congestion Avoid smoke, candles, perfumes, colognes, scented soaps/detergents , air fresheners and cleaning chemicals as these can cause airway irritation and trigger coughing *If symptoms persist, follow-up with PCP. If worse, return to ED. - Billing Disposition and Condition Condition: STABLE Disposition: Home
[2018-02-08 13:22] VITALS: BP 131/81
== END 2018-02-08 13:20 | disposition home or self-care (01) ==
LOC: ED 10:01
DX: J06.9 Acute upper respiratory infection, unspecified (principal); Z88.0 Allergy status to penicillin; F17.210 Nicotine dependence, cigarettes, uncomplicated
CPT/HCPCS: 87651; 99282; A9270-GY

== ENCOUNTER 2018-03-18 12:08 | Emergency (ER) | payer MEDICAID, OTHER ==
[2018-03-18 12:28] VITALS: BP 121/68
--- NOTE | 2018-03-18 13:06 | UC ---
Skin Complaint HPI - HPI Summary HPI Summary: 37 yo female presents with rash to arms and trunk. She tells me that she recently switched to Sun detergent because it was cheaper. Over the last 2 days has noticed redness and with scattered hives and itchiness on her arms and torso. She has been taking benadryl with no relief. Denies fever, recent illness , difficulty breathing, SOB, or chest pain. - History of Current Complaint Chief Complaint: UCAllergicReaction Time Seen by Provider: 03/18/18 13:05 Stated Complaint: HIVES Hx Obtained From: Patient Hx Last Menstrual Period: hyster Onset/Duration: Sudden Onset Current Severity: None Pain Intensity: 0 - Allergy/Home Medications Allergies/Adverse Reactions: Allergies Allergy/AdvReac Type Severity Reaction Status Date / Time Penicillins Allergy Severe Anaphylatic Verified 03/18/18 12:28 Shock amoxicillin Allergy Intermediate Rash Verified 03/18/18 12:28 Home Medications: Home Medications Mirtazapine TAB* [Remeron TAB*] 15 mg PO DAILY 03/18/18 [History Confirmed 03/18] PMH/Surg Hx/FS Hx/Imm Hx Endocrine History: Hypothyroidism Psychological History: Anxiety, Depression - Surgical History Surgical History: Yes Surgery Procedure, Year, and Place: thyroidectomy 2008,tubal ligation-2006, hysterectomy 2008. Cholecystectomy 2012 - Family History Known Family History: Positive: Cardiac Disease - grandparents, Hypertension, Diabetes, Other - HLD - Social History Lives: With Family Alcohol Use: None Substance Use Type: None Substance Use Comment - Amount & Last Used: clean 4 years Smoking Status (MU): Light Every Day Tobacco Smoker Type: Cigarettes Amount Used/How Often: < 1/2 PPD smoked for almost 20 years Length of Time of Smoking/Using Tobacco: Since Age 16 Have You Smoked in the Last Year: Yes Household Exposure Type: Cigarettes - Immunization History Most Recent Influenza Vaccination: 01/05/17 Most Recent Tetanus Shot: had it, but is unsure on what year - she thinks 3 yrs ago. Most Recent Pneumonia Vaccination: 2010 Review of Systems All Other Systems Reviewed And Are Negative: Yes Constitutional: Positive: Negative Skin: Positive: Rash Eyes: Positive: Negative ENT: Positive: Negative Respiratory: Positive: Negative Cardiovascular: Positive: Negative Gastrointestinal: Positive: Negative Neurovascular: Positive: Negative Neurological: Positive: Negative Psychological: Positive: Negative Physical Exam - Summary Physical Exam Summary: GENERAL: NAD. WDWN. No pain distress. SKIN: B/L arms and torso with scattered erythema and urticaria. No open sores, excoriations, or streaking. NECK: Supple. Nontender. No lymphadenopathy. CHEST: No accessory muscle use. Breathing comfortably and in no distress. CV: Pulses intact. Cap refill <2seconds NEURO: Alert. PSYCH: Age appropriate behavior. Triage Information Reviewed: Yes Vital Signs: Initial Vital Signs Temp 97.3 F 03/18/18 12:25 Pulse 96 03/18/18 12:25 Resp 17 03/18/18 12:25 BP 121/68 03/18/18 12:25 Pulse Ox 100 03/18/18 12:25 Vital Signs Reviewed: Yes Course/Dx - Course Course Of Treatment: Suspect allergic reaction from the new detergent. Advised to switch soaps. She was given dexamethasone in the clinic and will send an rx for prednisone to start tomorrow. Continue benadryl. - Diagnoses Provider Diagnosis: Allergic reaction Discharge - Sign-Out/Discharge Documenting (check all that apply): Patient Departure All imaging exams completed and their final reports reviewed: No Studies - Discharge Plan Condition: Stable Disposition: HOME Prescriptions: predniSONE TAB* [Deltasone 20 MG TAB*] 40 mg PO DAILY #10 tab Patient Education Materials: Urticaria (ED) Referrals: Luis Suarez MD [Primary Care Provider] - Additional Instructions: If you develop a fever, shortness of breath, chest pain, new or worsening symptoms - please call your PCP or go to the ED. Start taking the PREDNISONE (prescription) tomorrow - Billing Disposition and Condition Condition: STABLE Disposition: Home
[2018-03-18] MEDS ORDERED: Dexamethasone TAB* 4 MG PO ONE (13:08)
== END 2018-03-18 13:15 | disposition home or self-care (01) ==
LOC: UCEAST 12:08
DX: T78.40XA Allergy, unspecified, initial encounter (principal); F32.9 Major depressive disorder, single episode, unspecified; F17.210 Nicotine dependence, cigarettes, uncomplicated; Z88.0 Allergy status to penicillin; X58.XXXA Exposure to other specified factors, initial encounter; Y92.9 Unspecified place or not applicable
CPT/HCPCS: 99212; G0463; J8540

== ENCOUNTER 2018-05-07 11:50 | Emergency (ER) | payer OTHER ==
[2018-05-07 12:25] VITALS: BP 123/67
--- NOTE | 2018-05-07 12:34 | UC ---
Throat Pain/Nasal Jalil HPI - HPI Summary HPI Summary: sinus congestion x3 weeks, cannot breath out of her nose, states it is causing major headaches. went to pcp 2 weeks ago and was dx with viral infections. Denies fever. [ End ] - History of Current Complaint Chief Complaint: UCGeneralIllness Stated Complaint: SINUS CONCERN x3 WKS Time Seen by Provider: 05/07/18 12:26 Hx Obtained From: Patient Hx Last Menstrual Period: hyster ?: No Onset/Duration: Sudden Onset Severity: Severe Pain Intensity: 8 Cough: Nonproductive Associated Signs & Symptoms: Positive: Dysphagia, Sinus Discomfort, Nasal Discharge - Allergies/Home Medications Allergies/Adverse Reactions: Allergies Allergy/AdvReac Type Severity Reaction Status Date / Time Penicillins Allergy Severe Anaphylatic Verified 05/07/18 12:25 Shock amoxicillin Allergy Intermediate Rash Verified 05/07/18 12:25 PMH/Surg Hx/FS Hx/Imm Hx Previously Healthy: Yes - Surgical History Surgical History: Yes Surgery Procedure, Year, and Place: thyroidectomy 2008,tubal ligation-2006, hysterectomy 2008. Cholecystectomy 2012. RIGHT CARPAL TUNNEL RELEASE - Family History Known Family History: Positive: Cardiac Disease - grandparents, Hypertension, Diabetes, Other - HLD - Social History Alcohol Use: None Substance Use Type: None Substance Use Comment - Amount & Last Used: clean 3 years Smoking Status (MU): Light Every Day Tobacco Smoker Type: Cigarettes Amount Used/How Often: < 3/4 PPD smoked for almost 20 years Length of Time of Smoking/Using Tobacco: Since Age 16 Have You Smoked in the Last Year: Yes Household Exposure Type: Cigarettes - Immunization History Most Recent Influenza Vaccination: 01/05/17 Most Recent Tetanus Shot: had it, but is unsure on what year - she thinks 3 yrs ago. Most Recent Pneumonia Vaccination: 2010 Review of Systems All Other Systems Reviewed And Are Negative: Yes Constitutional: Positive: Fever, Fatigue Skin: Positive: Negative Eyes: Positive: Negative ENT: Positive: Sore Throat, Ear Ache, Nasal Discharge, Sinus Congestion Respiratory: Positive: Cough Cardiovascular: Positive: Negative Gastrointestinal: Positive: Negative Genitourinary: Positive: Negative Motor: Positive: Negative Neurovascular: Positive: Negative Musculoskeletal: Positive: Negative Neurological: Positive: Headache Psychological: Positive: Negative Is Patient Immunocompromised?: No Physical Exam Triage Information Reviewed: Yes Appearance: Well-Nourished, Ill-Appearing, Pain Distress Vital Signs: Initial Vital Signs Temp 98.6 F 05/07/18 12:22 Pulse 78 05/07/18 12:22 Resp 18 05/07/18 12:22 BP 123/67 05/07/18 12:22 Pulse Ox 100 05/07/18 12:22 Vital Signs Reviewed: Yes Eye Exam: Normal ENT: Positive: Pharyngeal erythema - wiht pnd Dental Exam: Normal Neck exam: Normal Respiratory Exam: Normal Respiratory: Positive: Chest non-tender, Lungs clear, Normal breath sounds Cardiovascular Exam: Normal Cardiovascular: Positive: RRR, No Murmur, Pulses Normal Abdominal Exam: Normal Abdomen Description: Positive: Nontender Bowel Sounds: Positive: Present Musculoskeletal Exam: Normal Neurological Exam: Normal Psychological Exam: Normal Skin Exam: Normal Throat Pain/Nasal Course/Dx - Course Course Of Treatment: hx obtained, exam performed, meds reviewed, treated for sinusitis - Differential Dx/Diagnosis Differential Diagnosis/HQI/PQRI: Otitis Media, Pharyngitis, Sinusitis, URI Provider Diagnosis: Sinusitis Discharge - Sign-Out/Discharge Documenting (check all that apply): Patient Departure All imaging exams completed and their final reports reviewed: No Studies - Discharge Plan Condition: Stable Disposition: HOME Prescriptions: Azithromyxin JENNIFER (NF) [Z-Jennifer (Zithromax) 250 mg tabs #6] 2 tab PO .TODAY, THEN 1 DAILY #6 tab Patient Education Materials: Sinusitis (ED) Referrals: Luis Suarez MD [Primary Care Provider] - Additional Instructions: 1. take the medication as prescribed. 2. Take a daily zyrtec or claritin for the next 2 weeks 3. INcrease fluid intake and use ibuprofen for pain and fever. - Billing Disposition and Condition Condition: STABLE Disposition: Home
== END 2018-05-07 12:39 | disposition home or self-care (01) ==
LOC: UCCORT 11:50
DX: J32.9 Chronic sinusitis, unspecified (principal); F17.210 Nicotine dependence, cigarettes, uncomplicated; Z88.0 Allergy status to penicillin
CPT/HCPCS: 99212; G0463

== ENCOUNTER 2018-06-01 16:51 | Emergency (ER) | payer OTHER ==
--- OUTSIDE RECORDS SUMMARY | 2018-06-01 16:56 | XMS REPORT | Continuity of Care Document ---
:1980 External Reference #:[id number] Author Name Figueroa Boyer MD Address [address] [place] [address] Care Team Providers Name Role Phone Nhung Sutton MD Care Team Information Soccer Referee Unavailable Phu Wiggins M.D. Primary Care Physician Unavailable Payers Date Identification Numbers Payment Provider Subscriber Policy Number: [id number] [facility] Brenda [place] PayID: [id number] [address] [address] [place] [address] Advance Directives Description No Information Available Problems Date Description Provider Status Onset: 11/23/2010 Otalgia Marcelino Hampton Active Onset: 11/23/2010 Temporomandibular joint disorder Marcelino Hampton Active Onset: 11/23/2010 Dysfunction of eustachian tube Marcelino Hampton Active Onset: 11/23/2010 Chronic rhinitis Denzel Aiken MD Active Onset: 11/23/2010 Chronic maxillary sinusitis Denzel Aiken MD Active Onset: 11/23/2010 Deviated nasal septum Denzel Aiken MD Active Onset: 11/23/2010 Dental caries extending into dentin Denzel Aiken MD Active Family History Date Family Member(s) Observation Comments General Allergies General Cancer General Diabetes General Hearing Loss General Heart Attack General Heart Disease General Migraine General Thyroid Disease General Vertigo Social History Type Date Description Comments Sex Unknown Occupation Not Currently Working Tobacco Use Start: Unknown Current Cigarette Smoker Smoking for 19 years Cigarettes Daily 5-10 Tobacco Use Start: Unknown Never Smoked Cigars Tobacco Use Start: Unknown Never Smoked A Pipe Smokeless Tobacco Never Used Smokeless Tobacco ETOH Use Denies alcohol use Tobacco Use Start: Unknown Patient is a current smoker, smokes every day Smoking Status Reviewed: 05/18/18 Patient is a current smoker, smokes every day Allergies, Adverse Reactions, Alerts Date Description Reaction Status Severity Comments 12/12/2009 Penicillin rash Active 12/12/2009 Amoxicillin rash Active Medications Medication Date Status Form Strength Qnty SIG Indications Ordering Provider Methylprednisolon 05/18 Active TBPK 4mg 1pack take as Figueroa kelly Ronaldo Boyer MD Levothyroxine Active Unknown Sodium /0000 Cetirizine HCL Active Tablets 10mg Herman, /0000 MD Nhung Fluoxetine HCL Active Capsules 20mg Unknown /0000 Nasonex 04/02 Hx Suspension 50mcg/Act 17GMS 2 sprays 473.0 intranasal , Denzel CABRERA - daily 05/17 Fluticasone Nasal 04/02 Hx 50mcg one 2 puffs Nelli [place] both sides , Denzel CABRERA - once a day 05/17 Vicodin Hx Unknown /0000 - 05/17 Immunizations Description No Information Available Vital Signs Date Vital Result Comment 05/18/2018 2:16pm Weight 180.00 lb Weight 81.648 kg Height 62 inches 5'2" Height in cm's 157.5 cm BMI (Body Mass Index) 32.9 kg/m2 Results Description No Information Available Procedures Date Code Description Status 05/18/2018 42535 Nasal Endoscopy, Diagnostic Completed 10/29/2010 81000 Tympanometry Completed 12/12/2009 13498 Tympanometry Completed 12/12/2009 36641 Comprehensive Audiogram Completed Encounters Type Date Location Provider Dx Diagnosis Office Visit 05/18/2018 2:15p [place],[facility] 02/14/07 Figueroa Boyer MD R51 Headache 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 pain J32.9 Chronic sinusitis, unspecified J34.1 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 Office 10/29/2010 [place],Denzel Trivedi 388.70 Otalgia/Unspecified Visit 10:45a 02/14/07 524.60 Temporomandibular Joint Disorders Unspec 381.81 Dysfunction Of Eustachian Tube Office Visit 04/02/2010 1:45p [place],Denzel Trivedi 472.0 Rhinitis , 02/14/07 MD Orellana 388.70 Otalgia/Unspecified 473.0 Sinusitis, Chronic Maxillary 470 Deviated Nasal Septum Office 03/20/2010 [place],Denzel Trivedi 388.70 Otalgia/Unspecified Visit 11:30a 02/14/07 521.02 Dental Caries Extending Into Dentine 472.0 Rhinitis, Chronic 473.0 Sinusitis, Chronic Maxillary Office 12/12/2009 [place],After Denzel Aiken 388.70 Otalgia/Unspecified Visit 11:00a 02/14/07 521.02 Dental Caries Extending Into Dentine 381.81 Dysfunction Of Eustachian Tube Plan of Treatment Future Appointment(s):06/06/2018 8:45 am - Figueroa Boyer MD at [place], After 02/14/803 - Figueroa Boyer, MDR51 AkouryxoH19.1 Atypical facial painJ32.9 Chronic sinusitis, jegfokpqgzuR55.1 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
--- OUTSIDE RECORDS SUMMARY | 2018-06-01 16:56 | XMS REPORT | Continuity of Care Document ---
:1980 External Reference #:[id number] Author Name Meghan Putanm Care Team Providers Name Role Phone Nhung Sutton MD Primary Care Physician Unavailable Payers Date Identification Numbers Payment Provider Subscriber Effective: 2017 Policy Number: [id number] [employer] Brenda Toledo PayID: [id number] [address] [address] [place] [address] Expires: 2017 Policy Number: [id number] [employer] Medicaid Brenda Toledo PayID: [id number] [address] [address] [place] [address] Advance Directives Description No Information Available Problems Date Description Provider Status Onset: 04/19/2011 [...] Resolved: 10/28/2017 Family History Date Family Member(s) Observation Comments Father Leukemia Father 66 Children 4 First Sister 39 First Sister Thyroid Disease Social History Type Date Description Comments Sex Unknown Marital Status Marital Status Significant Other Lives With Boyfriend Tobacco Use Start: Unknown Current Cigarette Smoker 5-10 Cigarettes Daily ETOH Use Denies alcohol use Tobacco Use Start: Unknown Patient is a current smoker, smokes every day Recreational Drug Use Denies Drug Use Tobacco Use Start: Unknown Light tobacco smoker (10 or fewer cigarettes/day) Smoking Status Reviewed: 05/16/18 Light tobacco smoker (10 or fewer cigarettes/day) Exercise Type/Frequency Exercises rarely walking Currently Active Patient is currently not sexually active Allergies, Adverse Reactions, Alerts Date Description Reaction Status Severity Comments 04/19/2011 Penicillin Tounge swells. Active 04/19/2011 Amoxicillin Anaphylaxis, Tounge Active swells. 12/20/2016 Seasonal-Fall To Winter Active Medications Medication Date Status Form Strength Qnty SIG Indications Ordering Provider Cetirizine HCL 05/08 Active Tablets 10mg 30tab 1 by mouth s every day MD Herman Fluticasone 05/08 Active Suspension 50mcg/Act 16gm take one [facility] Propionate puff each MD Herman nostril daily Levothyroxine 04/07 Active Tablets 200mcg 90tab take 1 Nhung Sodium s tablet by MD Herman mouth every day in the morning Clotrimazole 04/07 Active Cream 1% 15gm apply to K13.0 affected MD Herman area twice a day for a week Tramadol HCL 12/01 Active Tablets 50mg 30tab 1-2 tablets s by mouth Bacon, every 6 MD hours as needed pain Gabapentin Active Capsules 100mg Take 4 Unknown /0000 times a day. Mirtazapine Active Tablets 15mg take one Unknown /0000 tablet by mouth at bedtime Fluoxetine HCL Active Tablets 60mg take one Unknown /0000 tablet by mouth one time daily Naproxen 02/21 Hx Tablets 500mg 60tab Take One G56.21 Xander M s Tablet By Maxine, - Mouth Twice 10/28 A Day With Food Cyclobenzaprine 12/20 Hx Tablets 10mg 30tab 1 by mouth G56.21 Xander M HCL /2016 s every 8 Maxine, - hours as 10/28 needed spasm Naprosyn 12/20 Hx Tablets 500mg 60tab 1 by mouth G56.21 Xander s twice a day Brittany Goodman MD 02/21 Prednisone 10/03 Hx Tablets 10mg 35tab 3 tab every s day for 1 Endo, - week, 2/d M.D. 12/19 for 1 week, Oxaprozin 07/26 Hx Tablets 600mg 60tab 1 by mouth 719.49 Humza s twice a day Endo, - M.DRonald 12/19 Diclofenac 07/[address] 75mg 60tab take 1 719.49 Humza s tablet by Endo, - mouth twice M.D. 07/26 a day Nitrofurantoin 01/23 Hx Capsules 100mg 14cap 1 tab bid 599.0 Lesvia Monohydrate s X7 days Brittany Powers M.D. 06/19 Nicotine Step 2 01/23 Hx Patches 14mg/24HR 30uni once a day 305.1 Lesvia 24HR ts as needed Brittany Powers M.D. 06/19 Metrogel-Vaginal 09/01 Hx Gel 0.75% 1unit apply once s a day x 7 Priya, - days M.D. 01/23 Prednisone 08/22 Hx Tablets 10mg 14tab take 3 tab 466.0 s daily x 2 Powers, - days then 2 M.D. 08/31 tab daily x 3 days and then 1 tab daily until all taken Flexeril 08/08 Hx Tablets 10mg 15tab 1 po bid 847.2 Lesvia s Priya, - M.DRonald 08/31 Ibuprofen 08/08 Hx Tablets 800mg 20tab 1 tab every 847.2 Lesvia s 8 hrs as Priya, - needed for M.D. 06/19 pain Ibuprofen 07/28 Hx Tablets 800mg 40tab 1 tab every 719.41 Lesvia s 8 hrs as Priya, - needed for M.D. 06/19 pain Simvastatin 07/01 Hx Tablets 5mg 30tab 1 qhs - 272.2 Luis s take one Corazon Suarez, - tablet by [facility],FACP 06/19 mouth every day at bedtime T.E.D. 06/30 Hx Misc 1unit please fit 782.3 Luis Anti-Embolism s Arlette Mendes Knee Brittany Rawls,FAC Length 06/19 Furosemide 06/30 Hx Tablets 20mg 7tabs 1 po qam x 782.3 Luis 7 days Brittany Mendes M.D.,[facility] 07/28 Fexofenadine HCL 05/31 Hx Tablets 180mg 90tab 1 po qd 477.8 Lesvia s Brittany Powers M.D. 05/31 Flonase 05/31 Hx Suspension 50mcg/Act 1unit 1 squirt 477.8 s intranasal Priya, - rachna Shah.Corazon 12/19 Nicotine 05/31 Hx Lozenges 2mg 60uni as needed 305.1 Lesvia Polacrilex ts for Priya - cravings [facility] 07/28 Loratadine 05/31 Hx Tablets [...] 300mcg 30tab 1 po qd Unknown Sodium / s - 05/27 Zoloft Hx Tablets 200mg 90tab 1 po qd Unknown /0000 s - 05/27 Abilify 00/00 Hx Tablets 20mg 1 po qd Unknown /0000 - 05/27 Ambien 00 Hx Tablets 5mg 30tab 1 po qhs [...] /0000 times a day - prn 10/28 Levothyroxine Hx Tablets 125mcg 1 by mouth Unknown Sodium /0000 every day - 04/07 Medications Administered in Office Medication Date Status Form Strength Qnty SIG Indications Ordering Provider [facility] Administered Injection Lesvia Powers M.D. Immunizations CPT Code Status Date Vaccine Lot # [id number] Given 10/28/2017 Influenza Virus Vaccine, Quadrivalent, Split, [id number] Preservative Free [id number] Given 01/20/2012 Fluvirin Im [id number] And Older 23245 Given 01/20/2012 Pneumonia Vaccine 24446 Given 09/01/2011 Hepatitis B Vaccine Adult Dosage [id number] Given 07/01/2011 Tdap - Tetanus/Diptheria/Acellular Pertussis [id number] Vital Signs Date Vital Result Comment 05/16/2018 2:35pm Height 61.50 inches 5'1.50" Weight 175.75 lb Heart Rate 76 /min BP Systolic 100 mmHg BP Diastolic 58 mmHg Respiratory Rate 18 /min Body Temperature 98.0 F Pain Level 4 BMI (Body Mass Index) 32.7 kg/m2 04/07/2018 11:06am Height 61.50 inches 5'1.50" Weight 174.38 lb Heart Rate 88 /min BP Systolic 114 mmHg BP Diastolic 70 mmHg O2 % BldC Oximetry 98 % BMI (Body Mass Index) 32.4 kg/m2 12/13/2017 3:51pm Height 61.50 inches 5'1.50" Heart Rate 64 /min BP Systolic 116 mmHg BP Diastolic 68 mmHg Body Temperature 99.0 F Pain Level 0 11/08/2017 10:29am Height 61.50 inches 5'1.50" Weight 163.00 lb Heart Rate 89 /min BP Systolic 122 mmHg BP Diastolic 80 mmHg Respiratory Rate 18 /min Pain Level 8 BMI (Body Mass Index) 30.3 kg/m2 10/28/2017 8:24am Height 61.50 inches 5'1.50" Weight 161.00 lb Heart Rate 75 /min BP Systolic 95 mmHg BP Diastolic 59 mmHg O2 % BldC Oximetry 100 % BMI (Body Mass Index) 29.9 kg/m2 01/04/2017 2:31pm Height 61.50 inches 5'1.50" Weight 161.25 lb Heart Rate 90 /min BP Systolic Sitting 108 mmHg BP Diastolic Sitting 66 mmHg Respiratory Rate 18 /min Pain Level 0 BMI (Body Mass Index) 30.0 kg/m2 12/27/2016 10:12am Height 61.50 inches 5'1.50" Weight 157.38 lb Heart Rate 80 /min BP Systolic Sitting 118 mmHg BP Diastolic Sitting 70 mmHg Respiratory Rate 24 /min Pain Level 4 BMI (Body Mass Index) 29.3 kg/m2 12/20/2016 2:00pm Height 61.50 inches 5'1.50" Weight 164.00 lb Heart Rate 72 /min BP Systolic Sitting 108 mmHg BP Diastolic Sitting 72 mmHg Respiratory Rate 20 /min Pain Level 9 BMI (Body Mass Index) 30.5 kg/m2 10/10/2013 2:36pm Height 61 inches 5'1" Weight 180.00 lb Heart Rate 72 /min BP Systolic Sitting 108 mmHg BP Diastolic Sitting 70 mmHg Pain Level 5 BMI (Body Mass Index) 34.0 kg/m2 07/11/2013 1:41pm Height 61 inches 5'1" Weight 185.50 lb Heart Rate 86 /min BP Systolic Sitting 100 mmHg BP Diastolic Sitting 64 mmHg Pain Level 7 BMI (Body Mass Index) 35.0 kg/m2 06/20/2013 11:54am Height 61 inches 5'1" Weight 191.00 lb [...] BMI (Body Mass Index) 36.1 kg/m2 12/06/2012 1:10pm Height 62 inches 5'2" Weight 183.00 lb Heart Rate 69 /min BP Systolic 110 mmHg BP Diastolic 73 mmHg BMI (Body Mass Index) 33.5 kg/m2 01/24/2012 11:42am Height 61.75 inches 5'1.75" Weight 209.00 lb Heart Rate 104 /min BP Systolic Sitting 116 mmHg BP Diastolic Sitting 74 mmHg O2 % BldC Oximetry 96 % BMI (Body Mass Index) 38.5 kg/m2 09/01/2011 9:37am Height 61.75 inches 5'1.75" Weight 213.00 lb Heart Rate 60 /min BP Systolic Sitting 100 mmHg BP Diastolic Sitting 70 mmHg BMI (Body Mass Index) 39.3 kg/m2 08/23/2011 2:08pm Height 61.75 inches 5'1.75" Weight 210.00 lb Heart Rate 68 /min BP Systolic Sitting 110 mmHg L BP Diastolic Sitting 72 mmHg L Body Temperature 97.9 F O2 % BldC Oximetry 93 % BMI (Body Mass Index) 38.7 kg/m2 08/09/2011 12:39pm Height 61.75 inches 5'1.75" Weight 215.00 lb Heart Rate 80 /min BP Systolic Sitting 100 mmHg BP Diastolic Sitting 72 mmHg BMI (Body Mass Index) 39.6 kg/m2 07/29/2011 11:47am Height 61.75 inches 5'1.75" Weight 213.00 lb Heart Rate 60 /min BP Systolic Sitting 100 mmHg BP Diastolic Sitting 70 mmHg BMI (Body Mass Index) 39.3 kg/m2 07/02/2011 2:33pm Weight 212.00 lb Heart Rate 90 /min BP Systolic Sitting 124 mmHg BP Diastolic Sitting 80 mmHg 07/01/2011 11:30am Weight 212.00 lb Heart Rate 92 /min BP Systolic Sitting 108 mmHg BP Diastolic Sitting 60 mmHg Body Temperature 98.0 F lt ear 06/22/2011 11:34am Height 61.75 inches 5'1.75" Weight 211.00 lb Heart Rate 72 /min BP Systolic Sitting 132 mmHg L BP Diastolic Sitting 70 mmHg L BMI (Body Mass Index) 38.9 kg/m2 06/01/2011 12:33pm Height 61.75 inches 5'1.75" Weight 202.00 lb Heart Rate 89 /min BP Systolic Sitting 108 mmHg BP Diastolic Sitting 73 mmHg Body Temperature 97.6 F BMI (Body Mass Index) 37.2 kg/m2 05/28/2011 11:35am Height 61.75 inches 5'1.75" Weight 202.00 lb Heart Rate 80 /min BP Systolic Sitting 109 mmHg BP Diastolic Sitting 79 mmHg Body Temperature 97.5 F BMI (Body Mass Index) 37.2 kg/m2 04/19/2011 1:16pm Height 61.75 inches 5'1.75" Weight 200.00 lb Heart Rate 73 /min BP Systolic Sitting 117 mmHg BP Diastolic Sitting 75 mmHg BMI (Body Mass Index) 36.9 kg/m2 Results Test Date Facility Test Result H/L Range Note CBC Auto Diff 05/16/2018 [facility] White Blood 5.7 10^3/uL N 3.5-10.[address] [place] [address] [phone] Red Blood Count 5.01 10^6/uL High 3.70-4.87 Hemoglobin 14.3 g/dL N 12.0-16.0 Hematocrit 43 % High 33-41 Mean Corpuscular Volume 85 fL N 80-97 Mean Corpuscular Hemoglobin 29 pg N 27-31 Mean Corpuscular HGB Conc 34 g/dL N 31-36 Red Cell Distribution Width 14 % N 10.5-15 Platelet Count 358 10^3/uL N 150-450 Mean Platelet Volume 9.3 fL N 7.4-10.4 Abs Neutrophils 3.4 10^3/uL N 1.5-7.7 Abs Lymphocytes 1.7 10^3/uL N 1.0-4.8 Abs Monocytes 0.4 10^3/uL N 0-0.8 Abs Eosinophils 0.2 10^3/uL N 0-0.6 Abs Basophils 0 10^3/uL N 0-0.2 Abs Nucleated RBC 0 10^3/uL Granulocyte % 59.2 % Lymphocyte % 29.7 % Monocyte % 7.5 % Eosinophil % 2.7 % Basophil % 0.9 % Nucleated Red Blood Cells % 0.1 Laboratory test 05/16/2018 [facility] TSH (Thyroid 1.29 N 0.34 -5.[address] Stim Horm) mcIU/[place] [address] [phone] Comp Metabolic 05/16/2018 [facility] Sodium 134 mmol/L Low 135 -[address] [place], [place] [id number] [phone] Potassium 4.3 mmol/L N 3.5-5.0 Chloride 103 mmol/L N 101-111 Co2 Carbon Dioxide 25 mmol/L N 22-32 Anion Gap 6 mmol/L N 2-11 Glucose 88 mg/dL N 70-100 Blood Urea Nitrogen 15 mg/dL N 6-24 Creatinine 0.67 mg/dL N 0.51-0.95 BUN/Creatinine Ratio 22.4 High 8-20 Calcium 9.0 mg/dL N 8.6-10.3 Total Protein 7.5 g/dL N 6.4-8.9 Albumin 4.2 g/dL N 3.2-5.2 Globulin 3.3 g/dL N 2-4 Albumin/Globulin Ratio 1.3 N 1-3 Total Bilirubin 0.40 mg/dL N 0.2-1.0 Alkaline Phosphatase 96 U/L N 34-104 Alt 13 U/L N 7-52 Ast 14 U/L N 13-39 Egfr Non- 99.6 >60 Egfr 120.5 >60 1 Laboratory test 04/06/2018 [facility] TSH (Thyroid 12.39 High 0.34-5.[address] Stim Horm) mcIU/mL [place], [place] [id number] [phone] T3 Free 3.60 pg/mL N 2.5-3.9 Free T4 (Free Thyroxine) 1.29 ng/dL High 0.61-1.12 Laboratory test 02/08/2018 [facility] Rapid Strep Negative Negative [address] [place] [address] [phone] Rapid Influenza 02/08/2018 [facility] Influenza A NEGATIVE Negative 3 A & B Molecular [address] [place] [address] [phone] Influenza B Molecular NEGATIVE Negative Laboratory 02/08/2018 [facility] Rapid Strep SEE RESULT 4 test finding [address] [place] [address] [phone] Laboratory 02/08/2018 [facility] Rapid SEE RESULT 5 test finding [address] [place] [address] B Antigen [phone] Laboratory 01/11/2018 [facility] Rapid Strep Negative Negative 6 test finding [address] [place] [address] [phone] Laboratory 01/11/2018 [facility] Rapid Strep SEE RESULT 7 test finding [address] [place] [address] [phone] Thyroid 10/28/2017 [facility] Thyroid Stim 48.3 mIU/L Abnormal 0.3-4.2 8, Function [address] Hormone [address] [place] [address] [phone] Free T4 1.4 ng/dL 0.9 - 1.7 10 Thyroperoxidase Antibody 12.1 IU/mL Abnormal <9.0 11 CBC Auto Diff 10/28/2017 [facility] White Blood 7.8 10^3/uL N 3.5-10.[address] [place] [address] [phone] Red Blood Count 4.34 10^6/uL N 4.00-5.40 Hemoglobin 12.9 g/dL N 12.0-16.0 Hematocrit 38 % N 35-47 Mean Corpuscular Volume 87 fL N 80-97 Mean Corpuscular Hemoglobin 30 pg N 27-31 Mean Corpuscular HGB Conc 34 g/dL N 31-36 Red Cell Distribution Width 14 % N 10.5-15 Platelet Count 408 10^3/uL N 150-450 Mean Platelet Volume 9.3 um3 N 7.4-10.4 Abs Neutrophils 5.2 10^3/uL N 1.5-7.7 Abs Lymphocytes 1.9 10^3/uL N 1.0-4.8 Abs Monocytes 0.5 10^3/uL N 0-0.8 Abs Eosinophils 0.2 10^3/uL N 0-0.6 Abs Basophils 0.1 10^3/uL N 0-0.2 Abs Nucleated RBC 0 10^3/uL Granulocyte % 66.1 % N 38-83 Lymphocyte % 24.2 % Low 25-47 Monocyte % 5.9 % N 0-7 Eosinophil % 2.9 % N 0-6 Basophil % 0.9 % N 0-2 Nucleated Red Blood Cells % 0.1 Comp Metabolic Panel 10/28/2017 [facility] Sodium 136 mmol/L N 135-145 [address] [place] [address] [phone] Potassium 4.4 mmol/L N 3.5-5.0 Chloride 103 mmol/L N 101-111 Co2 Carbon Dioxide 25 mmol/L N 22-32 Anion Gap 8 mmol/L N 2-11 Glucose 80 mg/dL N 70-100 Blood Urea Nitrogen 10 mg/dL N 6-24 Creatinine 0.77 mg/dL N 0.51-0.95 BUN/Creatinine Ratio 13.0 N 8-20 Calcium 9.0 mg/dL N 8.6-10.3 Total Protein 7.5 g/dL N 6.4-8.9 Albumin 4.2 g/dL N 3.2-5.2 Globulin 3.3 g/dL N 2-4 Albumin/Globulin Ratio 1.3 N 1-3 Total Bilirubin 0.40 mg/dL N 0.2-1.0 Alkaline Phosphatase 76 U/L N 34-104 Alt 12 U/L N 7-52 Ast 15 U/L N 13-39 Egfr Non- 85.3 >60 Egfr 103.2 >60 12 Laboratory test 10/28/2017 [facility] Vitamin B12 245 pg/mL N 180-914 13 finding [address] [place] [address] [phone] Laboratory test 09/03/2013 [facility] Free T4 1.18 ng/mL High 0.61-1.12 finding [address] [place] [address] [phone] TSH (Thyroid Stimulating Horm) 13.66 IU/mL High 0.34-5.60 CBC Auto Diff 07/20/2013 [facility] White Blood 8.8 10^3/uL N 4.8-10.[address] [place] [address] [phone] Red Blood Count 4.84 10^6/uL N 4.0-5.4 Hemoglobin 14.4 g/dL N 12.0-16.0 Hematocrit 42 % N 35-47 Mean Corpuscular Volume 88 fL N 80-97 Mean Corpuscular Hemoglobin 30 pg N 27-31 Mean Corpuscular HGB Conc 34 g/dL N 31-36 Red Cell Distribution Width 13 % N 10.5-15 Platelet Count 382 10^3/uL N 150-450 Mean Platelet Volume 9 um3 N 7.4-10.4 Abs Neutrophils 5.3 10^3/uL N 1.5-7.7 Abs Lymphocytes 1.0 10^3/uL N 1.0-4.8 Abs Monocytes 2.5 10^3/uL High 0-0.8 Abs Eosinophils 0 10^3/uL N 0-0.6 Abs Basophils 0 10^3/uL N 0-0.2 Abs Nucleated RBC 0.01 10^3/uL N Laboratory test 07/20/2013 [facility] C Reactive 30.53 mg/L High < 5.[address] [place] [address] [phone] Comp Metabolic 07/20/2013 [facility] Sodium 139 mmol/L N 133- [address] [place] [address] [phone] Potassium 3.8 mmol/L N 3.7-5.6 Chloride 106 mmol/L N 101-111 Co2 Carbon Dioxide 23 mmol/L N 22-32 Anion Gap 10 mmol/L N 2-11 Glucose 122 mg/dL High 70-100 Blood Urea Nitrogen 8 mg/dL N 6-24 Creatinine 0.63 mg/dL N 0.51-0.95 BUN/Creatinine Ratio 12.7 N 8-20 Calcium 8.8 mg/dL N 8.6-10.3 Total Protein 7.4 g/dL N 6.4-8.9 Albumin 4.0 g/dL N 3.2-5.2 Globulin 3.4 g/dL N 2-4 Albumin/Globulin Ratio 1.2 N 1-3 Total Bilirubin 0.30 mg/dL N 0.2-1.0 Alkaline Phosphatase 98 U/L N 34-104 Alt 50 U/L N 7-52 Ast 18 U/L N 13-39 Egfr Non- 110.2 N >60 Egfr 141.7 N >60 15 Laboratory test 07/20/2013 [facility] Erythrocyte Sed 58 mm/Hr High 0-[address] [place] [address] [phone] Hla B27 07/20/2013 [facility] Hla B27 Negative N [address] [place] [address] [phone] Hla B27 Interp See Comment N 17 Laboratory test 07/20/2013 [facility] Cyclic Citrullinated < 15.6 U N [address] [place] [address] [phone] Rheumatoid Factor <15 IU/mL N <15 19 Manual Differential 07/20/2013 [facility] Neutrophil % 76 % N 38-[address] [place] [address] [phone] Lymphocytes % 22 % Low 25-47 Monocytes % 2 % N 0-13 RBC Morphology Normal N Normal Urine Culture And 03/19/2012 [facility] Urine (SEE NOTE) [address] [place] [address] [phone] CBC Auto Diff 01/25/2012 [facility] White Blood 11.2 High 4.8- [address] Count 10^3/uL 0.8 [place] [address] [phone] Red Blood Count 4.62 10^6/uL 4.0-5.4 Hemoglobin [...] Red Blood Cells % 0 Laboratory test 01/25/2012 [facility] Inr 0.94 0.82-1.17 [address] [place], [place] [id number] [phone] Laboratory test 01/25/2012 [facility] Serum Negative Negative 22 finding [address] [place] [address] [phone] Laboratory test 01/25/2012 [facility] B Type 10.0 pg/mL 0- 100 finding 101 [facility] [address] Peptide [phone] Comp Metabolic 01/25/2012 [facility] Sodium 133 mmol/L 133- 145 Panel [address] [place] [address] [phone] Potassium 3.1 mmol/L Low 3.5-5.0 Chloride 102 [...] Egfr Non- 84.2 >60 Egfr 108.3 >60 23 Laboratory test 01/25/2012 [facility] Creatine Kinase 93 U/L 0-200 finding [address] [place] [address] [phone] Troponin I 0.01 ng/mL 0-0.06 24 TSH (Thyroid Stimulating Horm) 63.67 MIU/ML High 0.34-5.60 Ua Routine 01/24/2012 [employer] [facility] Ua Specific [place] 1.010 Ua PH 6.0 Ua Color YELLOW Ua Appera CLEAR Ua WBC NEG Ua Protein TRACE Ua Glucose NEG Ua Ketones NEG Ua Bilirubin NEG Ua Urobilinogen NEG Ua Nitrite NEG Ua Occult Blood NEG Laboratory test 01/24/2012 [facility] B Type < 7.5 pg/mL 0- 100 finding [address] [place] [address] Peptide [phone] TSH (Thyroid Stimulating Horm) 52.53 MIU/ML High 0.34-5.60 Free T4 0.83 ng/mL 0.61-1.24 Free T3 3.61 pg/mL 2.39-6.79 Vaginal Dna 09/01/2011 M <SEE 25 Probe NOTE> Comp Metabolic 07/01/2011 [facility] Sodium 134 mmol/L Low 135 -[address] [place] [address] [phone] Potassium 3.4 mmol/L Low 3.5-5.0 Chloride 104 mmol/L 101-111 Co2 (Carbon Dioxide) 22.0 mmol/L 22-32 Anion Gap 8.0 mmol/L 2-11 26 Glucose 82 mg/dL 70-100 BUN 7 mg/dL 6-24 Creatinine 0.7 mg/dL 0.50-1.40 One Over Creatinine 1.42 BUN/Creatinine Ratio 10.0 8-20 Calcium 8.7 mg/dL 8.1-9.9 Total Protein 6.9 GM/DL 6.2-8.1 Albumin 3.8 GM/DL 3.6-5.4 Globulin 3.1 GM/DL 2-4 Albumin/Globulin Ratio 1.2 1-3 Bilirubin Total 0.5 mg/dL 0.4-1.5 27 Alkaline Phosphatase 98 U/L 30-110 Alt (SGPT) 40 U/L 14-54 Ast (Sgot) 24 U/L 12-42 eGFR Non- 98.9 > 60 eGFR 127.2 > 60 28 Laboratory 07/01/2011 [facility] Hepatitis B Nonreactive Nonreactive test finding [address] [place] [address] [phone] Hepatitis C Antibody Nonreactive Nonreactive Calcium Ionized 4.09 mg/dL Low 4.65-5.28 Liver Function 07/01/2011 [facility] Total Protein 6.8 GM/DL 6.2-8.[address] [place] [address] [phone] Albumin 3.7 GM/DL 3.6-5.4 Globulin 3.1 GM/DL 2-4 Albumin/Globulin Ratio 1.2 1-3 Bilirubin Total 0.7 mg/dL 0.4-1.5 29 Bilirubin Direct 0.0 mg/dL Low 0.1-0.5 Indirect Bilirubin (SEE NOTE) mg/dL 0.3-1.0 30 Alkaline Phosphatase 92 U/L 30-110 Alt (SGPT) 39 U/L 14-54 Ast (Sgot) 24 U/L 12-42 Manual Differential 06/23/2011 [facility] Polysegmented 68 % 38-[address] [place] [address] [phone] Band Neutrophil 1 % 0-8 Lymphocyte 22 % Low 25-47 Monocyte 4 % 0-13 Eosinophil 5 % 0-6 Absolute Neutrophil Count 12.00 RBC Morphology NORMAL CBC Auto Diff 06/23/2011 [facility] White Blood 17.5 CUMM High 4.8-10.[address] [place] [address] [phone] Red Cell Count 4.67 CUMM 4.2-5.4 Hemoglobin 14.1 g/dL 12.0-16.0 Hematocrit 42 % 35-47 Mean Corpuscular Volume 89 um3 79-97 Mean Corpuscular Hemoglob 30 pg 27-31 Mean Corpuscular HGB Cone 34 g/dL 32-36 Redcell Distribution WDTH 14 % 10.5-15 Platelet Count 329 CUMM 150-450 Mean Platelet Volume 9.9 um3 7.4-10.4 31 Comp Metabolic Panel 06/23/2011 [facility] Sodium 136 mmol/L 135-[address] [place] [address] [phone] Potassium 3.9 mmol/L 3.5-5.0 Chloride 103 mmol/L 101-111 Co2 (Carbon Dioxide) 26.0 mmol/L 22-32 Anion Gap 7.0 mmol/L 2-11 32 Glucose 107 mg/dL High 70-100 BUN 8 mg/dL 6-24 Creatinine 0.8 mg/dL 0.50-1.40 One Over Creatinine 1.25 BUN/Creatinine Ratio 10.0 8-20 Calcium 9.2 mg/dL 8.1-9.9 Total Protein 6.7 GM/DL 6.2-8.1 Albumin 3.9 GM/DL 3.6-5.4 Globulin 2.8 GM/DL 2-4 Albumin/Globulin Ratio 1.4 1-3 Bilirubin Total 0.6 mg/dL 0.4-1.5 33 Alkaline Phosphatase 107 U/L 30-110 Alt (SGPT) 77 U/L High 14-54 Ast (Sgot) 40 U/L 12-42 eGFR Non- 84.8 > 60 eGFR 109.1 > 60 34 Lipid Profile 06/21/2011 [facility] Triglyceride 148 mg/dL 40 -200 (Trig/Chol/HDL) [address] [place] [address] [phone] Cholesterol 245 mg/dL High Less Than 200 35 High Density Lipoprotein 33 mg/dL Low 40-60 36 Cholesterol/HDL Ratio 7.42 AVERAGE High 1-4.44 Low Density Lipoprotein 182 mg/dL High Less Than 100 37 Comp Metabolic Panel 06/21/2011 [facility] Sodium 135 mmol/L 135-145 [address] [place] [address] [phone] Potassium 4.2 mmol/L 3.5-5.0 Chloride 104 mmol/L 101-111 Co2 (Carbon Dioxide) 25.0 mmol/L 22-32 Anion Gap 6.0 mmol/L 2-11 38 Glucose 79 mg/dL 70-100 BUN 10 mg/dL 6-24 Creatinine 0.7 mg/dL 0.50-1.40 One Over Creatinine 1.42 BUN/Creatinine Ratio 14.3 8-20 Calcium 8.8 mg/dL 8.1-9.9 Total Protein 6.7 GM/DL 6.2-8.1 Albumin 3.8 GM/DL 3.6-5.4 Globulin 2.9 GM/DL 2-4 Albumin/Globulin Ratio 1.3 1-3 Bilirubin Total 0.5 mg/dL 0.4-1.5 39 Alkaline Phosphatase 117 U/L High 30-110 Alt (SGPT) 77 U/L High 14-54 Ast (Sgot) 43 U/L High 12-42 eGFR Non- 98.9 > 60 eGFR 127.2 > 60 40 Laboratory test 06/21/2011 [facility] Calcium 4.05 mg/dL Low 4.65-5.[address] [place] [address] [phone] TSH 4.46 MIU/ML 0.34-5.60 Thyroxine Free 0.94 ng/dL 0.61-1.24 T3 Free 3.97 pg/mL 2.39-6.79 Laboratory test 05/14/2011 [facility] TSH 0.75 MIU/ML 0.34- 5.[address] [place] [address] [phone] 1 Because ethnic data is not always readily [...] 15-29 5 Kidney failure <15 (or dialysis) 2 Insurance Solicitor: [id number] Insurance Solicitor: [id number] SEE RESULT BELOW Name: BRENDA TOLEDO : [address]: Eliceo Nichole MD Acct: [id number] Unit: [id number] AGE: 37 Location: ED Re02/08/18 SEX: F Status: REG ER SPEC: [id number] DUANE: 02/08/18 [facility] DR: Melissa SHORT REQ: [id number] RECD: 02/08/18 STATUS: RAN DOZIER DR: [facility] Luis Suarez MD _ SOURCE: THROAT SPDESC: ORDERED: Strep A Request Procedure Result Reported Site Rapid Strep A Request Final 02/08/18- 1149 ML Specimen received for Rapid Strep A Molecular testing * ML - Main Lab . END OF REPORT DEPARTMENT OF PATHOLOGY, [address] [place] [address] Kenn He M.D. Director ELE # [id number] SEE RESULT BELOW Name: BRENDA TOLEDO : [address]: Eliceo Nichole MD Acct: [id number] Unit: [id number] AGE: 37 Location: ED Re02/08/18 SEX: F Status: REG ER SPEC: [id number] DUANE: 02/08/[address]: Eliceo Nichole MD REQ: [id number] RECD: 02/08/18 STATUS: RAN DOZIER DR: [facility] Luis Suarez MD _ SOURCE: NASAL SPDESC: ORDERED: Flu A B Request Procedure Result Reported Site Rapid Influenza A B Request Final 02/08/18- 1136 ML Specimen received for Influenza A/B Molecular testing * ML - Main Lab . END OF REPORT DEPARTMENT OF PATHOLOGY, [address] [place] [address] Kenn He M.D. Director [facility] # [id number] Insurance Solicitor: [id number] SEE RESULT BELOW Name: BRENDA TOLEDO : [address]: Yifan Limon MD Acct: [id number] Unit: [id number] AGE: 37 Location: ED Re01/11/18 SEX: F Status: REG ER SPEC: [id number] DUANE: 01/11/[address]: Yifan Limon MD REQ: [id number] RECD: 01/11/18 STATUS: RAN DOZIER DR: [facility] Luis Suarez MD _ SOURCE: THROAT SPDESC: ORDERED: Strep A Request Procedure Result Reported Site Rapid Strep A Request Final 01/11/18- 2341 ML Specimen received for Rapid Strep A Molecular testing * ML - Main Lab . END OF REPORT DEPARTMENT OF PATHOLOGY, [address] [place] [address] Kenn He M.D. Director [facility] # [id number] Encouraged taking thyroid medication daily, recheck 6 weeks. 9 Test Performed by: [facility] [address] [place] [address] 10 Test Performed by: [facility] [address] [place] [address] 11 Test Performed by: [place] [address] 12 Because ethnic data is not always readily [...] 15-29 5 Kidney failure <15 (or dialysis) 13 Normal Range 180 to 914 Indeterminate Range 145 to 180 Deficient Range <145 14 Acute inflammation: >10.00 15 Because ethnic data is not always readily [...] 15-29 5 Kidney failure <15 (or dialysis) 16 -- REFERENCE VALUE -- Not Applicable 17 RESULT: HLA-B27 antigen was not detected. Method: Flow Cytometry Performing Laboratory CLIA# [id number] Test Performed by: [place] [address] Network Mgr: Anurag Sigala III, M.D. 18 -- REFERENCE VALUE -- <20.0 (Negative) Test Performed by: [place] [address] Network Mgr: Anurag Sigala III, M.D. 19 Test Performed by: [address] [address] Network Mgr: Anurag Sigala III, M.D. 20 RUN DATE: 03/22/12 [facility] LAB LIVE PAGE 1 RUN TIME: [address] [place] [address] Specimen Inquiry Name: BRENDA TOLEDO : [address]: Austin Root MD Acct: [id number] Unit: [id number] AGE: 31 Location: [facility] Re03/19/12 SEX: F Status: DEP ER SPEC: [id number] DUANE: 03/19/12 [facility] DR: Austin Root MD REQ: [id number] RECD: 03/20/12 STATUS: RAN DOZIER DR: Lesvia Powers MD _ SOURCE: URINE SPDESC: ORDERED: Urine Culture Procedure Result Verified Site Urine Culture Final 03/22/12- 1044 ML Organism 1 NORMAL SILVINO [place] Count 1-10,000 (Few) CFU/ML END OF REPORT * ML=Testing performed at Main Lab DEPARTMENT OF PATHOLOGY, [address] [place] [address] Kenn He M.D. Director [facility] Permit #[id number] 21 The INR(International Normalized Ratio) was adopted by [...] from prosthetic heart valves 2.5 - 3.5 22 This test detects intact HCG only and is indicated for the early detection of . 23 Because ethnic data is not always readily [...] 15-29 5 Kidney failure <15 (or dialysis) 24 Reference Range and Interpretation: TnI (ng/ml) Interpretation Less Than 0.06 ng/mL Not supportive of diagnosis of NC 0.06 - 0.50 ng/ml Indeterminate: suggest serial studies if clinically indicated. Greater than 0.5 ng/mL Consistent with diagnosis of NC 25 RUN DATE: 09/02/11 [facility] NMI LIVE PAGE 1 RUN TIME: 1013 Specimen Inquiry RUN USER: INTERFACE Name: MIGUELBRENDA M Status: REG REF Re09/01/11 Age/Sex: 30/F Unit#: [id number] Location: [facility] : [birth year] SPEC #: [id number] DUANE: 09/01/11-1031 STATUS: RAN REQ #: [id number] RECD: 09/01/11-[address]: Lesvia Powers MD SOURCE: VAGINAL ENTR: 09/01/11-7217 JACOBY GARCIA: EARNEST: ORDERED: AFFIRM QUERIES: MEDENT REQUISITION # [id number] ACT WKST: AFFIRM 09/02/11 #1 Procedure Result [...] a test for therapeutic success or failure. - [facility] State Permit #[id number] [address] [place] [address] DEPARTMENT OF PATHOLOGY, [facility] DATES [place], [place] [address] [facility] Permit #[id number] Kenn He M.D. Director Aquiles Brady M.D. Instructor Nurse 26 Anion gap measurement may be of limited value in the presence of any alkalosis, especially in a combined acid base disorder. . 27 A metabolite of Naproxen, O-desmethylnaproxen, has been shown to interfere with the Jendrassik-Poipu method for measuring total bilirubin. Samples from patients who have taken Naproxen have shown spurious elevation in total bilirubin levels. 28 Because ethnic data is not always readily [...] 15-29 5 Kidney failure <15 (or dialysis) 29 A metabolite of Naproxen, O-desmethylnaproxen, has been shown to interfere with the Jendrassik-Poipu method for measuring total bilirubin. Samples from patients who have taken Naproxen have shown spurious elevation in total bilirubin levels. 30 UNABLE TO CALCULATE IND.BILI D.BILI IS <0.1 Please note updated reference range, effective 09/04/09 31 Imm. NE 2 Imm. NE 1 32 Anion gap measurement may be of limited value in the presence of any alkalosis, especially in a combined acid base disorder. . 33 A metabolite of Naproxen, O-desmethylnaproxen, has been shown to interfere with the Jendrassik-Poipu method for measuring total bilirubin. Samples from patients who have taken Naproxen have shown spurious elevation in total bilirubin levels. 34 Because ethnic data is not always readily [...] 15-29 5 Kidney failure <15 (or dialysis) 35 CHOLESTEROL INTERPRETATION: Desirable: Less than 200 MG/DL Borderline-High Risk: 200-239 MG/DL High-Risk: 240 MG/DL and over 36 HDL INTERPRETATION: Undesirable: High Risk: Less than 40 MG/DL Desirable: Low Risk: Greater than 60 MG/DL 37 LDL INTERPRETATION: Low Risk Optimal Level: LDL Less than 100 MG/DL Near or Above Optimal: LDL 100-129 MG/DL Borderline High Risk: LDL 130-159 MG/DL High Risk: LDL 160-189 MG/DL Very High Risk: LDL Greater than 189 MG/DL 38 Anion gap measurement may be of limited value in the presence of any alkalosis, especially in a combined acid base disorder. . 39 A metabolite of Naproxen, O-desmethylnaproxen, has been shown to interfere with the Jendrassik-Stefani method for measuring total bilirubin. Samples from patients who have taken Naproxen have shown spurious elevation in total bilirubin levels. 40 Because ethnic data is not always readily [...] Kidney failure <15 (or dialysis) Procedures Date Code Description Status 12/01/2017 87506 Carpal Tunnel Release Completed 12/01/2017 40063 Carpal Tunnel Release Completed 06/27/2013 82091 ECHO Stress Test Incl Perf Contiuous ekg Monitoring W/Phys Completed Superv 06/27/2013 19465 Stress Test Completed 06/21/2013 92702 ECHO Transthoracic, Real-Time 2D With Doppler And Color Completed Flow 06/20/2013 50600 ECHO Transthoracic, Real-Time 2D With Doppler And Color Completed Flow 06/20/2013 86804 EKG Tracing & Interpretation Completed 12/06/2012 93989 Rad Exam; Knee Comp Completed 12/06/2012 85314 Rad Exam; Knee Comp Completed 08/23/2011 18617 Noninvasive Ear Or Pulse Oximetry For Oxygen Saturation Completed 08/04/2009 71121 Holter Monitor Review (24 hr)dr shaver & calista only Completed 07/15/2009 14554 Holter Monitor Review (24 hr)dr review & interp only Completed 03/12/2008 37335 Treadmill Interp/Report Only Completed 03/12/2008 15462 Stress Test Supervsn W/Out I/R Completed Encounters Type Date Location Provider Dx Diagnosis Office Visit 05/16/2018 Orthopedic Edgar Bacon, G56.02 Carpal tunnel 2:30p Services Of [facility] [place], left upper C.M.A. limb Office Visit 04/07/2018 [facility] Internal Nhung Sutton MD E89.0 Postprocedural 11:20a Medicine hypothyroidism F32.9 Major depressive disorder, single episode, unspecified K13.0 Diseases of lips J32.9 Chronic sinusitis, unspecified Office Visit 11/08/2017 10:30a Orthopedic Edgar G56.01 Carpal tunnel Services Of MD Jordi syndrome, right C.M.A. upper limb Office Visit 10/28/2017 8:30a [facility] Internal Cheryl Z00.00 Encntr for Medicine Marker, RPA-C general adult medical exam w/o abnormal findings M25.50 Pain in unspecified joint E07.89 Other specified disorders of thyroid Z90.710 Acquired absence of both cervix and uterus R20.0 Anesthesia of skin G56.01 Carpal tunnel syndrome, right upper limb Z23 Encounter for immunization F17.210 Nicotine dependence, cigarettes, uncomplicated Office Visit 12/27/2016 10:30a Orthopedic Xander Goodman G56.21 Lesion of Services Of [facility] AT ulnar Leodan morfin right upper limb Office Visit 12/20/2016 2:30p Orthopedic Xander Goodman G56.21 Lesion of Services Of [facility] AT Leodan Ray right upper limb G56.11 Other lesions of median nerve, right upper limb Office Visit 10/10/2013 2:20p Rheumatology Humza Martinez, 719.49 Pain Joint Services Of Jonna Rawls Multiple Sites 795.79 Immunological Findings Nonspec Other & Unspec Office Visit 07/11/2013 2:00p Rheumatology Humza Martinez 719.49 Pain Joint Services Of Jonna Rawls Multiple Sites 795.79 Immunological Findings Nonspec Other & Unspec 246.8 Thyroid Disorders Other Spec Office Visit 06/20/2013 11:45a [facility] Adam Chandra 786.05 Shortness Of Of Jonna Guthrie M.D. 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 Office Visit 01/24/2012 [facility] Internal Lesvia 786.05 Shortness Of Breath 11:50a Lizzeth Powers M.D. 244.0 Hypothyroidism Postsurgical 599.0 UTI Urinary Tract Infection Site Not Spec 305.1 Tobacco Use Disorder Office Visit 09/01/2011 9:30a [facility] Internal Lesvia V70.3 Examination Other Medicine [facility] Medical For Administrative Purpose 623.5 Leukorrhea Not Spec as Infective 275.41 Hypocalcemia 272.2 Hyperlipidemia Mixed v05.3 Viral Hepatitis Vaccination & Inoculation v74.1 Screening Examination Pulmonary Tuberculosis Office Visit 08/23/2011 2:00p [facility] Internal Lesvia Powers, 466.0 Bronchitis Acute Medicine [facility] 009.3 Diarrhea Presumed Infectious Origin Office Visit 08/09/2011 12:30p [facility] Internal Lesvia 847.2 Sprains & Strains Medicine [facility] Powers Lumbar Office Visit 07/29/2011 11:45a [facility] Internal Lesvia 719.41 Pain Joint Shoulder Lizzeth Powers M.D. Region Office Visit 07/02/2011 2:15p [facility] Internal Helga 275.41 Hypocalcemia Medicine Nydia, N.PRonald 272.2 Hyperlipidemia Mixed 782.3 Edema Office Visit 07/01/2011 11:30a [facility] Internal Medicine Helga Stafford, N.PRonald 782.3 Edema V06.1 Kbneqbslhx-Byqkwva-Nfcyxxmn Combined (DTaP) Office Visit 06/22/2011 11:45a [facility] Internal Lesvia 272.2 Hyperlipidemia Mixed Lizzeth Powers M.D. 785.1 Palpitations 305.1 Tobacco Use Disorder 599.0 UTI Urinary Tract Infection Site Not Spec 275.41 Hypocalcemia 790.6 Abnormal Blood Chemistry Other 278.00 Obesity Unspec Office Visit 06/01/2011 12:30p [facility] Internal Lesvia Powers, 477.8 Rhinitis Medicine [facility] Allergic Due To Other Allergen 305.1 Tobacco Use Disorder 244.0 Hypothyroidism Postsurgical 272.2 Hyperlipidemia Mixed 785.1 Palpitations 275.41 Hypocalcemia Office Visit 05/28/2011 11:40a [facility] Internal Cherry Venegas, 461.1 Sinusitis Acute Medicine [facility] Frontal Office Visit 04/19/2011 1:00p [facility] Internal Lesvia 244.0 Hypothyroidism Medicine [facility] Powers Postsurgical 305.1 Tobacco Use Disorder 311 Depressive Disorder Not Elsewhere Spec Plan of Treatment Future Appointment(s):06/14/2018 10:45 am - Edgar Bacon MD at [facility]05/16/2018 - Edgar Bacon MDG56.02 Carpal tunnel syndrome, left upper limbFollow up:Follow up: 10-14 days postop
[2018-06-01 17:00] VITALS: BP 112/62
--- NOTE | 2018-06-01 17:11 | UC ---
Eye Complaint HPI - HPI Summary HPI Summary: awoke this morning with purulent discharge from the right eye, with intense itching and discomfort. Occasional eye film, but normal vision overall. Wears glasses. Has compressed the eye. History of environmental allergies, uses cetirazine, has upcoming evaluation with Dr. Boyer for sinus symptoms. - History of Current Complaint Chief Complaint: UCEye Stated Complaint: EYE COMPLAINT Time Seen by Provider: 06/01/18 17:03 Hx Obtained From: Patient Hx Last Menstrual Period: hyster Onset/Duration: Gradual Onset, Lasting Hours - about 12 Timing: Constant Severity Initially: Moderate Severity Currently: Moderate Pain Intensity: 6 Location of Injury: Conjunctiva Character: Throbbing Aggravating Factor(s): Nothing Alleviating Factor(s): Nothing Associated Signs And Symptoms: Positive: Drainage (Purulent) - Risk Factors Penetrating Injury Risk Factor: Negative Globe Rupture Risk Factors: Negative Acute Glaucoma Risk Factors: Negative Optic Artery Occlusion Risk Factors: Negative - Allergies/Home Medications Allergies/Adverse Reactions: Allergies Allergy/AdvReac Type Severity Reaction Status Date / Time Penicillins Allergy Severe Anaphylatic Verified 06/01/18 17:00 Shock amoxicillin Allergy Intermediate Rash Verified 06/01/18 17:00 Home Medications: Home Medications Cetirizine* [ZyrTEC 10 MG TAB*] 10 mg PO DAILY 06/01/18 [History Confirmed 06/01] PMH/Surg Hx/FS Hx/Imm Hx Endocrine History: Hypothyroidism Psychological History: Anxiety, Depression, Post Traumatic Stress Disorder - Surgical History Surgical History: Yes Surgery Procedure, Year, and Place: thyroidectomy 2008,tubal ligation-2006, hysterectomy 2008. Cholecystectomy 2012. RIGHT CARPAL TUNNEL RELEASE - Family History Known Family History: Positive: Cardiac Disease - grandparents, Hypertension, Diabetes - mother, Other - HLD - Social History Occupation: Unemployed Lives: With Family - boyfriend Alcohol Use: None Substance Use Type: None Substance Use Comment - Amount & Last Used: clean 3 years Smoking Status (MU): Light Every Day Tobacco Smoker Type: Cigarettes Amount Used/How Often: < 3/4 PPD smoked for almost 20 years Length of Time of Smoking/Using Tobacco: Since Age 16 Have You Smoked in the Last Year: Yes Household Exposure Type: Cigarettes - Immunization History Most Recent Influenza Vaccination: 01/05/17 Most Recent Tetanus Shot: had it, but is unsure on what year - she thinks 3 yrs ago. Most Recent Pneumonia Vaccination: 2010 Review of Systems All Other Systems Reviewed And Are Negative: Yes Constitutional: Positive: Negative Skin: Positive: Negative Eyes: Positive: Drainage, Eye Redness ENT: Positive: Sinus Congestion Respiratory: Positive: Negative. Negative: Cough Cardiovascular: Positive: Negative Gastrointestinal: Positive: Negative Genitourinary: Positive: Negative Motor: Positive: Negative Neurovascular: Positive: Negative Musculoskeletal: Positive: Negative Neurological: Positive: Negative. Negative: Headache Psychological: Positive: Anxious Is Patient Immunocompromised?: No Physical Exam Vital Signs: Initial Vital Signs Temp 98 F 06/01/18 16:53 Pulse 79 06/01/18 16:53 Resp 16 06/01/18 16:53 BP 112/62 06/01/18 16:53 Pulse Ox 99 06/01/18 16:53 Eye Complaint Course/Dx - Course Course Of Treatment: antibiotic drops for conjunctivitis - Differential Dx/Diagnosis Differential Diagnosis/HQI/PQRI: Conjunctivitis, Corneal Abrasion Provider Diagnosis: Conjunctivitis Discharge - Sign-Out/Discharge Documenting (check all that apply): Patient Departure All imaging exams completed and their final reports reviewed: No Studies - Discharge Plan Condition: Stable Disposition: HOME Prescriptions: Polymyx/Trimethoprim OPTH* [Polytrim OPHTH*] 2 drop RIGHT EYE Q3H 5 Days #1 btl Patient Education Materials: Conjunctivitis (ED) Referrals: Nhung Sutton MD [Primary Care Provider] - Additional Instructions: Compress the right eye for comfort, and clean away any discharge with a clean cloth or cotton ball. Use the antibiotic drops 2 drops to the right eye every 3 hours while awake for 5 days. Follow up if you are not improving in 2 to 3 days. - Billing Disposition and Condition Condition: STABLE Disposition: Home
== END 2018-06-01 17:30 | disposition home or self-care (01) ==
LOC: UCEAST 16:51
DX: H10.31 Unspecified acute conjunctivitis, right eye (principal); E03.9 Hypothyroidism, unspecified; F41.9 Anxiety disorder, unspecified; F32.9 Major depressive disorder, single episode, unspecified; Z88.0 Allergy status to penicillin; F17.210 Nicotine dependence, cigarettes, uncomplicated
CPT/HCPCS: 99212; G0463

== ENCOUNTER 2018-06-26 05:33 | Day surgery (SDC) | payer OTHER ==
[~2018-06-26 05:33] MED LIST changes: +Buffered Lidocaine 1% SYRIN* 1 ML/SYRINGE INTRADERM ONE; +Dexamethasone IV* 4 MG/ML 1 ML (4 MG) IV SLOW PU ONE; +Famotidine IV* 10 MG/ML 2 ML (20 mg) IV ONE; +Lactated Ringers 1000 ML Bag* 1,000 ML IV SCH; -Prochlorperazine TAB* 10 MG PO ONE
[2018-06-26] MEDS ORDERED: Dexamethasone IV* 4 MG/ML 1 ML (4 MG) IV SLOW PU ONE (06:00)
[2018-06-26] MEDS ORDERED: Lactated Ringers 1000 ML Bag* 1,000 ML IV SCH (06:00)
[2018-06-26] MEDS ORDERED: Buffered Lidocaine 1% SYRIN* 1 ML/SYRINGE INTRADERM ONE ×2 (06:00)
[2018-06-26] MEDS ORDERED: Famotidine IV* 10 MG/ML 2 ML (20 mg) IV ONE (06:00)
[2018-06-26] MEDS ORDERED: Dexamethasone IV* 4 MG/ML 1 ML (4 MG) ONE (06:25)
[2018-06-26] MEDS ORDERED: Famotidine IV* 10 MG/ML 2 ML (20 mg) ONE (06:26)
[2018-06-26] MEDS ORDERED: Bupivacaine 0.25% SDV PF* 10 ML VIAL INJ ONE (07:16)
[2018-06-26] MEDS ORDERED: Ondansetron INJ* 2 MG/ML VIAL ONE (07:22)
[2018-06-26] MEDS ORDERED: Propofol* 10 MG/ML 20 ML BTL ONE (07:22)
[2018-06-26] MEDS ORDERED: Lidocaine 2% PF * 5 ML VIAL ONE (07:22)
[2018-06-26] MEDS ORDERED: fentaNYL* 50 MCG/ML 2 ML VIAL (100 MCG VIAL) ONE (07:22)
[2018-06-26] MEDS ORDERED: fentaNYL* 50 MCG/ML 2 ML VIAL (100 MCG VIAL) IV PRN (07:32)
[2018-06-26] MEDS ORDERED: Naloxone* 0.4 MG/ML 1 ML VIAL IV PRN (07:32)
[2018-06-26] MEDS ORDERED: DiMENhydriNATE IV* 50 MG/ML VIAL IV PUSH PRN (07:32)
[2018-06-26 09:37] VITALS: BP 104/76
--- NOTE | 2018-06-26 13:48 | OP ---
DATE OF OPERATION: 06/26/18 - [facility] DATE OF : 82 SURGEON: Edgar Bacon MD. SPECIAL EDUCATION TEACHER: None. ANESTHESIOLOGIST: Dr. Rondno. ANESTHESIA: General. PRE-OP DIAGNOSIS: Left carpal tunnel syndrome. POST-OP DIAGNOSIS: Left carpal tunnel syndrome. OPERATIVE PROCEDURE: Left endoscopic carpal tunnel release. INDICATIONS: Brenda is 37. She has carpal tunnel. We had talked about risks and benefits, including the risk of nerve injury. She wanted to proceed with surgery. ESTIMATED BLOOD LOSS: 2 mL. COMPLICATIONS: None. FINDINGS: See above and below. DESCRIPTION OF PROCEDURE: Brenda was seen in the preoperative holding area. The correct side, site, and procedure was identified. We came back to the operating room where the arm was prepped and draped in the usual fashion. A time-out was performed. The arm was exsanguinated with the Esmarch and the tourniquet was inflated to 250 mmHg. I made a 1 cm incision just off the ulnar aspect of the palmaris longus tendon just proximal to the wrist flexion crease. Dissection was carried down. The distal antebrachial fascia was split transversely bluntly with the tenotomy scissors. A 2-prong skin hook was placed. I went ahead and used the synovial stripper, followed by the dilators and I used a Q-tip to dry out the carpal tunnel. The MicroAire endoscopic system was then introduced into the appropriate location and then with the nerve well protected and out of the way, I went ahead and released the transverse carpal ligament from distal to proximal releasing it as ulnar as possible. After I had released it proximally , I placed a Bruno retractor and placed the camera back in the carpal tunnel to make sure that the ligament was completely released. Everything was looking good. I then released the distal antebrachial fascia proximally with the tenotomy scissors. Wound was irrigated out. Skin was closed with one 4-0 nylon suture. 0.25% plain Marcaine was infiltrated and a soft dressing was applied and she was taken to the recovery room in stable condition. [id number] #: [id number] MTDD
== END 2018-06-26 09:39 | disposition home or self-care (01) ==
LOC: OR 05:33
PROVIDERS: ATTEND Orthopaedic Surgery Hand Surgery
DX: G56.02 Carpal tunnel syndrome, left upper limb (principal); G47.33 Obstructive sleep apnea (adult) (pediatric); E03.9 Hypothyroidism, unspecified; Z72.0 Tobacco use; M19.90 Unspecified osteoarthritis, unspecified site; F41.8 Other specified anxiety disorders
CPT/HCPCS: J1100; J2405; J2704; J3010; J3490

== ENCOUNTER 2018-07-21 19:46 | Emergency (ER) | payer OTHER ==
--- OUTSIDE RECORDS SUMMARY | 2018-07-21 20:58 | XMS REPORT | Continuity of Care Document ---
:1980 External Reference #:[id number] Author Name Lidia Woodruff Care Team Providers Name Role Phone Nhung Sutton MD Primary Care Physician Unavailable Payers Date Identification Numbers Payment Provider Subscriber Effective: 2017 Policy Number: [id number] [employer] Brenda Toledo Expires: 2018 PayID: [id number] [address] [address] [place] [address] Expires: 2017 Policy Number: [id number] [employer] Brenda Toledo PayID: [id number] [address] [place] [address] Policy Number: [id number] Jeannette Brenda Toledo PayID: [id number] [address] [place] [address] Problems Active Problems Provider Date Postoperative hypothyroidism Lesvia Powers M.D. Onset: 04/19/2011 Tobacco user Lesvia Powers M.D. Onset: 04/19/2011 Depressive disorder Lesvia Powers M.D. Onset: 04/19/2011 Multiple joint pain Humza Martinez M.D. Onset: 07/11/2013 Disorder of thyroid gland Humza Martinez M.D. Onset: 07/11/2013 Resolved Problems Dyspnea Adam Guthrie M.D. Onset: 06/20/2013 Resolved: 10/28/2017 Chest pain Adam Guthrie M.D. Onset: 06/20/2013 Resolved: 10/28/2017 Immunologic Humza Martinez M.D. Onset: 10/10/2013 Resolved: 10/28/2017 Joint pain Cheryl Marker, RPA-C Onset: 10/28/2017 Resolved: 10/28/2017 Family History Date Family Member(s) [...] (10 or fewer cigarettes/day) Smoking Status Reviewed: 07/13/18 Light tobacco smoker (10 or fewer cigarettes/day) Exercise Type/Frequency Exercises rarely walking Currently Active Patient is currently not sexually active Allergies, Adverse Reactions, Alerts Active Allergies Reaction Severity Comments Date Penicillin Tounge swells. 04/19/2011 Amoxicillin Anaphylaxis, Tounge swells. 04/19/2011 Seasonal-Fall To Winter 12/20/2016 Medications Active Medications SIG Qnty Indications Ordering Provider Date Tramadol HCL 1-2 tablets by 30tabs Edgar Bacon, 06/26/2018 50mg Tablets mouth every 6 MD hours as needed pain Cetirizine HCL Take One Tablet 30tabs Nhung Sutton MD 05/08/2018 10mg By Mouth Every Tablets Day Levothyroxine Sodium take 1 tablet by 90tajorge Sutton MD 04/07/2018 mouth every day 200mcg Tablets in the morning Fluoxetine HCL (PMDD) 4 tablets by Unknown mouth every day 20mg Tablets Montelukast Sodium 1 by mouth every Unknown 10mg day Tablets Flonase Allergy Relief 2 sprays nasal Unknown twice a day 50mcg/Act Suspension History Medications Fluticasone Propionate Seabeck 1 Seabeck In 16units Nhung Sutton MD 2018 - Each Nostril 06/13/2018 50mcg/Act Suspension Daily Clotrimazole apply to affected 15gm K13.0 Nhung Sutton MD 04/07/2018 - 1% Cream area twice a day 06/13/2018 for a week Tramadol HCL 1-2 tablets by 30tabs Edgar Bacon, 12/01/2017 - 50mg Tablets mouth every 6 MD 06/13/2018 hours as needed pain Naproxen Take One Tablet 60tabs G56.21 Xander Goodman 02/21/2017 - 500mg Tablets By Mouth Twice A MD 10/28/2017 Day With Food Naprosyn 1 by mouth twice 60tabs G56.21 Xander Goodman, 12/20/2016 - 500mg Tablets a day w food 02/21/2017 Cyclobenzaprine HCL 1 by mouth every 30tabs G56.21 Xander Goodman, 2016 - 10mg 8 hours as needed 10/28/2017 Tablets spasm Prednisone 3 tab every day 35tabs Humza Martinez, 10/03/2013 - 10mg Tablets for 1 week, 2/d M.D. 12/19/2016 for 1 week, Oxaprozin 1 by mouth twice 60tabs 719.49 Humza Martinez, 07/26/2013 - 600mg Tablets a day M.D. 12/19/2016 Diclofenac Sodium take 1 tablet by 60tabs 719.49 Humza Martinez, 2013 - 75mg mouth twice a day M.D. 07/26/[address] Nitrofurantoin 1 tab bid X7 days 14caps 599.0 Lesvia Powers, 01/24/2012 - Monohydrate M.D. 06/19/2013 100mg Capsules Nicotine Step 2 once a day as 30units 305.1 Lesvia Powers, 01/24/2012 - 14mg/24HR needed M.D. 06/19/2013 Patches 24HR Metrogel-Vaginal apply once a day 1units Lesvia Powers, 09/02/2011 - 0.75% x 7 days M.D. 01/24/2012 Gel Prednisone take 3 tab daily 14tabs 466.0 Lesvia Powers, 08/23/2011 - 10mg Tablets x 2 days then 2 M.D. 09/01/2011 tab daily x 3 days and then 1 tab daily until all taken Flexeril 1 po bid 15tabs 847.2 Lesvia Powers, 08/09/2011 - 10mg Tablets M.D. 09/01/2011 Ibuprofen 1 tab every 8 hrs 20tabs 847.2 Lesvia Powers, 08/09/2011 - 800mg Tablets as needed for M.D. 06/19/2013 pain Ibuprofen 1 tab every 8 hrs 40tabs 719.41 Lesvia Powers 07/29/2011 - 800mg Tablets as needed for M.D. 06/19/2013 pain Simvastatin 1 qhs - take one 30tabs 272.2 Luis Chandra 07/02/2011 - 5mg Tablets tablet by mouth Sinai Suarez,[facility] 06/19/2013 every day at bedtime Fabian Anti-Embolism please fit 1units 782.3 Luis Chandra 07/01/2011 - Stockings Knee Length Sinai Suarez,[facility] 06/19/2013 Misc Furosemide 1 po qam x 7 days 7tabs 782.3 Luis Chandra 07/01/2011 - 20mg Tablets Sinai Suarez,[facility] 07/29/2011 Fexofenadine HCL 1 po qd 90tabs 477.8 Lesvia Powers, 06/01/2011 - 180mg M.D. 06/01/2011 Tablets Flonase 1 squirt 1units 477.8 Lesvia Powers, 06/01/2011 - 50mcg/Act intranasal qd M.D. 12/19/2016 Suspension Nicotine Polacrilex as needed for 60units 305.1 Lesvia Powers, 2011 - 2mg cravings M.D. 07/29/2011 Lozenges Loratadine 1 by mouth every 90tabs Lesvia Powers, 06/01/2011 - 10mg Tablets day M.D. 01/24/2012 Levothyroxine Sodium 1 po daily 90tabs 244.0 Lesvia Powers, 04/19/2011 - M.D. 06/19/2013 300mcg Tablets Zoloft take 2 tab po qd 120tabs 244.0 Lesvia Powers, 04/19/2011 - 100mg Tablets M.D. 01/24/2012 Abilify 1 po daily 30tabs 311 Lesvia Powers, 04/19/2011 - 20mg Tablets M.D. 12/19/2016 Mirtazapine take one tablet Unknown - 15mg Tablets by mouth at 06/13/2018 bedtime Levothyroxine Sodium 1 by mouth every Unknown - day 04/07/2018 125mcg Tablets Gabapentin Take 4 times a Unknown - 100mg Capsules day. 06/13/2018 Ibuprofen 1 po three times Unknown - 600mg Tablets a day prn 10/28/2017 Gabapentin 1 by mouth three 90caps Unknown - 300mg Capsules times a day (12/19/2016 take 2 in selina) Levothyroxine Sodium take 2 tablet by 244.0 Brando Pulido, - mouth one time MD 10/28/2017 125mcg Tablets daily Lexapro 1 po qd 30tabs Unknown - 20mg Tablets 12/19/2016 Aleve 2 po qd prn 60caps Unknown - 220mg Capsules 10/28/2017 Hydrocodone/Acetaminop 1 po q 6hrs prn 20tabs Unknown - hen pain 08/09/2011 5-500mg Tablets Ambien 1 po qhs prn 30tabs Unknown - 5mg Tablets sleep insomnia 05/28/2011 Abilify 1 po qd Unknown - 20mg Tablets 05/28/2011 Zoloft 1 po qd 90tabs Unknown - 200mg Tablets 05/28/2011 Levothyroxine Sodium 1 po qd 30tabs Unknown - 05/28/2011 300mcg Tablets Medications Administered in Office Medication SIG Qnty Indications Ordering Provider Date CHEN Powers M.D. 09/01/2011 Injection Immunizations CPT Code Status Date Vaccine Lot # 15634 Given 10/28/2017 Influenza Virus Vaccine, Quadrivalent, Split, [id number] Preservative Free [id number] Given 01/20/2012 Fluvirin Im 3Yrs And Older 6[address] Given 01/20/2012 Pneumonia Vaccine 11285 Given 09/01/2011 Hepatitis B Vaccine Adult Dosage [id number] Given 07/01/2011 Tdap - Tetanus/Diptheria/Acellular Pertussis [id number] Vital Signs Date Vital Result Comment 07/13/2018 10:52am Height 61.50 inches 5'1.50" Weight 180.12 lb Heart Rate 84 /min BP Systolic 127 mmHg BP Diastolic 78 mmHg Body Temperature 98.5 F O2 % BldC Oximetry 98 % BMI (Body Mass Index) 33.5 kg/m2 07/11/2018 1:43pm Height 61.50 inches 5'1.50" Heart Rate 92 /min BP Systolic 120 mmHg BP Diastolic 70 mmHg Respiratory Rate 18 /min Body Temperature 98.5 F Pain Level 0 06/14/2018 11:21am Height 61.50 inches 5'1.50" Weight 183.25 lb Heart Rate 76 /min BP Systolic 122 mmHg BP Diastolic 80 mmHg Respiratory Rate 18 /min Body Temperature 98.0 F Pain Level 9 BMI (Body Mass Index) 34.1 kg/m2 05/16/2018 2:35pm Height 61.50 inches 5'1.50" Weight [...] Date Facility Test Result H/L Range Note Laboratory test 07/13/2018 [facility] Stool Culture <pending> finding [address] [place] [address] [phone] TSH (Thyroid Stim Horm) <pending> CBC Auto Diff 05/16/2018 [facility] White Blood 5.7 10^3/uL N 3.5-10.[address] [place] [address] [phone] Red Blood Count 5.01 10^6/uL High 3.70-4.87 [...] Blood Cells % 0.1 Laboratory test 05/16/2018 [facility] TSH (Thyroid 1.29 N 0.34 -5.[address] Stim Horm) mcIU/[place] [address] [phone] Comp Metabolic 05/16/2018 [facility] Sodium 134 mmol/L Low 135 -[address] [place] [address] [phone] Potassium 4.3 mmol/L N 3.5-5.0 Chloride 103 [...] Egfr 120.5 >60 1 Laboratory test 04/06/2018 [facility] TSH (Thyroid 12.39 High 0.34-5.[address] Stim Horm) mcIU/[place] [address] [phone] T3 Free 3.60 pg/mL N 2.5-3.9 Free T4 (Free Thyroxine) 1.29 ng/dL High 0.61-1.12 Laboratory test 02/08/2018 [facility] Rapid Strep Negative Negative [address] [place] [address] [phone] Rapid Influenza 02/08/2018 [facility] Influenza A NEGATIVE Negative 3 A & B Molecular [address] [place] [address] [phone] Influenza B Molecular NEGATIVE Negative Laboratory 02/08/2018 [facility] Rapid Strep SEE RESULT 4 test finding [address] [place] [address] [phone] Laboratory 02/08/2018 [facility] Rapid SEE RESULT 5 test finding [address] [place] [address] B Antigen [phone] Laboratory 01/11/2018 [facility] Rapid Strep Negative Negative 6 test finding [address] [place] [address] [phone] Laboratory 01/11/2018 [facility] Rapid Strep SEE RESULT 7 test finding [address] [place] [address] [phone] Thyroid 10/28/2017 [facility] Thyroid Stim 48.3 mIU/L Abnormal 0.3-4.2 8, Function [address] Hormone [address] [place], [place] [address] [phone] Free T4 1.4 ng/dL 0.9 - 1.7 10 Thyroperoxidase Antibody 12.1 IU/mL Abnormal <9.0 11 CBC Auto Diff 10/28/2017 [facility] White Blood 7.8 10^3/uL N 3.5-10.[address] [place] [address] [phone] Red Blood Count 4.34 10^6/uL N 4.00-5.40 [...] Cells % 0.1 Comp Metabolic Panel 10/28/2017 [facility] Sodium 136 mmol/L N 135-[address] [place] [address] [phone] Potassium 4.4 mmol/L N 3.5-5.0 Chloride 103 [...] Egfr 103.2 >60 12 Laboratory test 10/28/2017 [facility] Vitamin B12 245 pg/mL N 180-[address] [place] [address] [phone] Laboratory test 09/03/2013 [facility] Free T4 1.18 ng/mL High 0.61-1.[address] [place] [address] [phone] TSH (Thyroid Stimulating Horm) 13.66 IU/mL High 0.34-5.60 CBC Auto Diff 07/20/2013 [facility] White Blood 8.8 10^3/uL N 4.8-10.8 [address] [facility] [place] [address] [phone] Red Blood Count 4.84 10^6/uL N 4.0-5.4 [...] RBC 0.01 10^3/uL N Laboratory test 07/20/2013 [facility] C Reactive 30.53 mg/L High < 5.00 14 finding [address] [facility] [place] [address] [phone] Comp Metabolic 07/20/2013 [facility] Sodium 139 mmol/L N 133- 145 Panel [address] [place] [address] [phone] Potassium 3.8 mmol/L N 3.7-5.6 Chloride 106 [...] 141.7 N >60 15 Laboratory test 07/20/2013 [facility] Erythrocyte Sed 58 mm/Hr High 0-[address] [place] [address] [phone] Hla B27 07/20/2013 [facility] Hla B27 Negative N [address] [place] [address] [phone] Hla B27 Interp See Comment N 17 Laboratory test 07/20/2013 [facility] Cyclic Citrullinated < 15.6 U N [address] [place] [address] [phone] Rheumatoid Factor <15 IU/mL N <15 19 Manual Differential 07/20/2013 [facility] Neutrophil % 76 % N 38-[address] [place] [address] [phone] Lymphocytes % 22 % Low 25-47 Monocytes % 2 % N 0-13 RBC Morphology Normal N Normal Urine Culture And 03/19/2012 [facility] Urine (SEE NOTE) [address] [place] [address] [phone] CBC Auto Diff 01/25/2012 [facility] White Blood 11.2 High 4.8- [address] Count 10^3/uL 0.8 [place] [address] [phone] Red Blood Count 4.62 10^6/uL 4.0-5.4 Hemoglobin [...] Blood Cells % 0 Laboratory test 01/25/2012 [facility] Inr 0.94 0.82-1.17 21 finding [address] [place] [address] [phone] Laboratory test 01/25/2012 [facility] Serum Negative Negative 22 finding [address] [place] [address] [phone] Laboratory test 01/25/2012 [facility] B Type 10.0 pg/mL 0- 100 finding [address] [facility] [place] [address] Peptide [phone] Comp Metabolic 01/25/2012 [facility] Sodium 133 mmol/L 133- 145 Panel [address] [place] [address] [phone] Potassium 3.1 mmol/L Low 3.5-5.0 Chloride 102 [...] Egfr 108.3 >60 23 Laboratory test 01/25/2012 [facility] Creatine Kinase 93 U/L 0-[address] [place] [address] [phone] Troponin I 0.01 ng/mL 0-0.06 24 TSH (Thyroid Stimulating Horm) 63.67 MIU/ML High 0.34-5.60 Ua Routine 01/24/2012 [facility] Ua Specific [place] 1.010 Ua PH 6.0 Ua Color YELLOW Ua Appera CLEAR Ua WBC NEG Ua Protein TRACE Ua Glucose NEG Ua Ketones NEG Ua Bilirubin NEG Ua Urobilinogen NEG Ua Nitrite NEG Ua Occult Blood NEG Laboratory test 01/24/2012 [facility] B Type < 7.5 pg/mL 0- [address] [place] [address] Peptide [phone] TSH (Thyroid Stimulating Horm) 52.53 MIU/ML High 0.34-5.60 Free T4 0.83 ng/mL 0.61-1.24 Free T3 3.61 pg/mL 2.39-6.79 Vaginal Dna 09/01/2011 M <SEE 25 Probe NOTE> Comp Metabolic 07/01/2011 [facility] Sodium 134 mmol/L Low 135 -[address] [place] [address] [phone] Potassium 3.4 mmol/L Low 3.5-5.0 Chloride 104 [...] eGFR 127.2 > 60 28 Laboratory 07/01/2011 [facility] Hepatitis B Nonreactive Nonreactive test finding [address] [place] [address] [phone] Hepatitis C Antibody Nonreactive Nonreactive Calcium Ionized 4.09 mg/dL Low 4.65-5.28 Liver Function 07/01/2011 [facility] Total Protein 6.8 GM/DL 6.2-8.[address] [place] [address] [phone] Albumin 3.7 GM/DL 3.6-5.4 Globulin 3.1 GM/DL 2-4 Albumin/Globulin Ratio 1.2 1-3 Bilirubin Total 0.7 mg/dL 0.4-1.5 29 Bilirubin Direct 0.0 mg/dL Low 0.1-0.5 Indirect Bilirubin (SEE NOTE) mg/dL 0.3-1.0 30 Alkaline Phosphatase 92 U/L 30-110 Alt (SGPT) 39 U/L 14-54 Ast (Sgot) 24 U/L 12-42 Manual Differential 06/23/2011 [facility] Polysegmented 68 % 38-[address] [place] [address] [phone] Band Neutrophil 1 % 0-8 Lymphocyte 22 % Low 25-47 Monocyte 4 % 0-13 Eosinophil 5 % 0-6 Absolute Neutrophil Count 12.00 RBC Morphology NORMAL CBC Auto Diff 06/23/2011 [facility] White Blood 17.5 CUMM High 4.8-10.[address] [place] [address] [phone] Red Cell Count 4.67 CUMM 4.2-5.4 Hemoglobin 14.1 g/dL 12.0-16.0 Hematocrit 42 % 35-47 Mean Corpuscular Volume 89 um3 79-97 Mean Corpuscular Hemoglob 30 pg 27-31 Mean Corpuscular HGB Cone 34 g/dL 32-36 Redcell Distribution WDTH 14 % 10.5-15 Platelet Count 329 CUMM 150-450 Mean Platelet Volume 9.9 um3 7.4-10.4 31 Comp Metabolic Panel 06/23/2011 [facility] Sodium 136 mmol/L 135-145 [address] [place] [address] [phone] Potassium 3.9 mmol/L 3.5-5.0 Chloride 103 mmol/L [...] 109.1 > 60 34 Lipid Profile 06/21/2011 [facility] Triglyceride 148 mg/dL 40 -200 (Trig/Chol/HDL) [address] [place] [address] [phone] Cholesterol 245 mg/dL High Less Than 200 35 High Density Lipoprotein 33 mg/dL Low 40-60 36 Cholesterol/HDL Ratio 7.42 AVERAGE High 1-4.44 Low Density Lipoprotein 182 mg/dL High Less Than 100 37 Laboratory test 06/21/2011 [facility] Calcium 4.05 mg/dL Low 4.65-5.[address] [place] [address] [phone] TSH 4.46 MIU/ML 0.34-5.60 Thyroxine Free 0.94 ng/dL 0.61-1.24 T3 Free 3.97 pg/mL 2.39-6.79 Comp Metabolic Panel 06/21/2011 [facility] Sodium 135 mmol/L 135-145 [address] [place] [address] [phone] Potassium 4.2 mmol/L 3.5-5.0 Chloride 104 mmol/L [...] eGFR 127.2 > 60 40 Laboratory test 05/14/2011 [facility] TSH 0.75 MIU/ML 0.34- 5.60 finding [address] [place] [address] [phone] 1 Because ethnic data is not always [...] 5 Kidney failure <15 (or dialysis) 2 Youth Liaison Officer: [id number] 3 Youth Liaison Officer: [id number] 4 SEE RESULT BELOW Name: BRENDA TOLEDO : [address]: Eliceo Nichole MD Acct: [id number] Unit: [id number] AGE: 37 Location: ED Re02/08/18 SEX: F Status: REG ER SPEC: [id number] DUANE: 02/08/[address]: Melissa SHORT REQ: [id number] RECD: 02/08/18 STATUS: RAN DOZIER DR: [facility] Luis Suarez MD _ SOURCE: THROAT SPDESC: ORDERED: Strep A Request Procedure Result Reported Site Rapid Strep A Request Final 02/08/18- 1150 ML Specimen received for Rapid Strep A Molecular testing * ML - Main Lab . END OF REPORT DEPARTMENT OF PATHOLOGY, [address] [place] [address] Kenn He M.D. Director [facility] # [id number] 5 SEE RESULT BELOW Name: BRENDA TOLEDO : [address]: Eliceo Nichole MD Acct: [id number] Unit: [id number] AGE: 37 Location: ED Re02/08/18 SEX: F Status: REG ER SPEC: [id number] DUANE: 02/08/18 [facility] DR: Eliceo Ncihole MD REQ: [id number] RECD: 02/08/18 STATUS: RAN DOZIER DR: [facility] Luis Suarez MD _ SOURCE: NASAL SPDESC: ORDERED: Flu A B Request Procedure Result Reported Site Rapid Influenza A B Request Final 02/08/181136 ML Specimen received for Influenza A/B Molecular testing * ML - Main Lab . END OF REPORT DEPARTMENT OF PATHOLOGY, [address] [place] [address] Kenn He M.D. Director [facility] # [id number] Youth Liaison Officer: [id number] 7 SEE RESULT BELOW Name: BRENDA TOLEDO : [address]: Yifan Limon MD Acct: [id number] Unit: [id number] AGE: 37 Location: ED Re01/11/18 SEX: F Status: REG ER SPEC: [id number] DUANE: 01/11/18 [facility] DR: Yifan Limon MD REQ: [id number] RECD: 01/11/18 STATUS: RAN DOZIER DR: [facility] Luis Suarez MD _ SOURCE: THROAT SPDESC: ORDERED: Strep A Request Procedure Result Reported Site Rapid Strep A Request Final 01/11/18- 2340 ML Specimen received for Rapid Strep A Molecular testing * ML - Main Lab . END OF REPORT DEPARTMENT OF PATHOLOGY, [address] [place] [address] Kenn He M.D. Director [facility] # [id number] 8 Encouraged taking thyroid medication daily, recheck 6 weeks. 9 Test Performed by: [facility] [address] [place] [address] 10 Test Performed by: [facility] [address] [place] [address] 11 Test Performed by: [facility] [address] [place] [address] 12 Because ethnic data is not always [...] detected. Method: Flow Cytometry Performing Laboratory CLIA# [id number] Test Performed by: [place] [address] Production Maintenance Technician: Anurag Sigala III, M.D. 18 -- REFERENCE VALUE -- <20.0 (Negative) Test Performed by: [place] [address] Production Maintenance Technician: Anurag Sigala III, M.D. 19 Test Performed by: [place] [address] Production Maintenance Technician: Anurag Sigala III, M.D. 20 RUN DATE: 03/22/12 [facility] LAB LIVE PAGE 1 RUN TIME: 1943 [address] [place], [place] [address] Specimen Inquiry Name: BRENDA TOLEDO : [address]: Austin Root MD Acct: [id number] Unit: [id number] AGE: 31 Location: [facility] Re03/19/12 SEX: F Status: DEP ER SPEC: [id number] DUANE: 03/19/12 [facility] DR: Austin Root MD REQ: [id number] RECD: 03/20/12 STATUS: RAN DOZIER DR: Lesvia Powers MD _ SOURCE: URINE [facility]: ORDERED: Urine Culture Procedure Result Verified Site Urine Culture Final 03/22/12- 1044 ML Organism 1 NORMAL SILVINO [place] Count 1-10,000 (Few) CFU/ML END OF REPORT * ML=Testing performed at Main Lab DEPARTMENT OF PATHOLOGY, [address] [place] [address] Kenn He M.D. Director [facility] Permit #[id number] 21 The INR(International Normalized Ratio) was adopted [...] 0.06 ng/mL Not supportive of diagnosis of LA 0.06 - 0.50 ng/ml Indeterminate: suggest serial studies if clinically indicated. Greater than 0.5 ng/mL Consistent with diagnosis of LA 25 RUN DATE: 09/02/11 [facility] NMI LIVE PAGE 1 RUN TIME: 1013 Specimen Inquiry RUN USER: INTERFACE Name: BRENDA TOLEDO Status: REG REF Re09/01/11 Age/Sex: 30/F Unit#: [id number] Location: [facility] : [birth year] SPEC #: [id number] DUANE: 09/01/11-1031 STATUS: COMP REQ #: [id number] RECD: 09/01/11 [facility]: VAGINAL ENTR: 09/01/[address]: EARNEST: ORDERED: AFFIRM QUERIES: MEDENT REQUISITION # [id number] ACT WKST: AFFIRM 09/02/11 #1 Procedure Result [...] a test for therapeutic success or failure. [facility] Permit #[id number] [address] [place] [address] DEPARTMENT OF PATHOLOGY, [address] [place] [address] [facility] Permit #[id number] Kenn He M.D. Director Aquiles Brady M.D. Esthetician/Spa Coordinator 26 Anion gap measurement may be of [...] has been shown to interfere with the J[place]rassik-Cut Off method for measuring total bilirubin. Samples from [...] (or dialysis) Procedures Date Code Description Status 06/26/2018 40570 Endoscopy Wrist Surg W/Release Of Transverse Carpal Completed Ligament 06/26/2018 88684 Endoscopy Wrist Surg W/Release Of Transverse Carpal Completed Ligament 12/01/2017 96187 Carpal Tunnel Release Completed 12/01/2017 03546 Carpal Tunnel Release Completed 06/27/2013 09765 ECHO Stress Test Incl Perf Contiuous ekg Monitoring W/Phys Completed Superv 06/27/2013 78638 Stress Test Completed 06/21/2013 26936 ECHO Transthoracic, Real-Time 2D With Doppler And Color Completed Flow 06/20/2013 05563 ECHO Transthoracic, Real-Time 2D With Doppler And Color Completed Flow 06/20/2013 75270 EKG Tracing & Interpretation Completed 12/06/2012 95758 Rad Exam; Knee Comp Completed 12/06/2012 05793 Rad Exam; Knee Comp Completed 08/23/2011 66054 Noninvasive Ear Or Pulse Oximetry For Oxygen Saturation Completed 08/04/2009 07939 Holter Monitor Review (24 hr)dr review & interp only Completed 07/15/2009 67708 Holter Monitor Review (24 hr)dr review & interp only Completed 03/12/2008 63999 Treadmill Interp/Report Only Completed 03/12/2008 64618 Stress Test Supervsn W/Out I/R Completed Encounters Type Date Location Provider Dx Diagnosis Office Visit 05/16/2018 Orthopedic Edgar Bacon G56.02 Carpal tunnel 2:30p Services Of MD villa, left upper C.M.A. limb Office Visit 04/07/2018 [facility] Internal Nhung Sutton MD E89.0 Postprocedural 11:20a Medicine hypothyroidism F32.9 Major depressive disorder, single episode, unspecified K13.0 Diseases of lips J32.9 Chronic sinusitis, unspecified Office Visit 11/08/2017 10:30a Orthopedic Edgar G56.01 Carpal tunnel Services Of Bacon, MD syndrome, right C.M.A. upper limb Office Visit 10/28/2017 8:30a [facility] Internal Cheryl Z00.00 Encntr for Medicine Marker, [...] Xander Goodman G56.21 Lesion of Services Of [facility] AT ulnar navjot [place] right upper limb Office Visit 12/20/2016 2:30p Orthopedic Xander Goodman G56.21 Lesion of Services Of Jonna AT MD vinayak morfin [place] right upper limb G56.11 Other lesions of median nerve, right upper limb Office Visit 10/10/2013 2:20p Rheumatology Humza Martinez, 719.49 Pain Joint Services Of Jonna Rawls Multiple Sites 795.79 Immunological Findings Nonspec Other & Unspec Office Visit 07/11/2013 2:00p Rheumatology Humza Martinez, 719.49 [facility] [facility] Multiple Sites 795.79 Immunological Findings Nonspec Other & Unspec 246.8 Thyroid Disorders Other Spec Office Visit 06/20/2013 11:45a [facility] Adam Chandra 786.05 Shortness Of Of Jonna Guthrie M.D. 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 Office Visit 01/24/2012 [facility] [place] 786.05 Shortness Of Breath 11:50a Lizzeth Powers M.D. 244.0 Hypothyroidism Postsurgical 599.0 UTI Urinary Tract Infection Site Not Spec 305.1 Tobacco Use Disorder Office Visit 09/01/2011 9:30a [facility] [place] V70.3 Examination Other Lizzeth Powers M.D. Medical For Administrative Purpose 623.5 Leukorrhea Not Spec as Infective 275.41 Hypocalcemia 272.2 Hyperlipidemia Mixed v05.3 Viral Hepatitis Vaccination & Inoculation v74.1 Screening Examination Pulmonary Tuberculosis Office Visit 08/23/2011 2:00p [facility] [place] Powers, 466.0 Bronchitis Acute [facility] 009.3 Diarrhea Presumed Infectious Origin Office Visit 08/09/2011 12:30p [facility] [place] 847.2 Sprains & Strains Medicine [facility] Powers Lumbar Office Visit 07/29/2011 11:45a [facility] [place] 719.41 Pain Joint Shoulder Lizzeth Powers M.D. Region Office Visit 07/02/2011 2:15p [facility] [place] 275.41 Hypocalcemia Medicine Nydia, N.P. 272.2 Hyperlipidemia Mixed 782.3 Edema Office Visit 07/01/2011 11:30a [facility] [place] Nydia, N.PRonald 782.3 Edema V06.1 Ihioscbzky-Zaggjqe-Ttmarjgc Combined (DTaP) Office Visit 06/22/2011 11:45a [facility] [place] 272.2 Hyperlipidemia Mixed Lizzeth Powers M.D. 785.1 Palpitations 305.1 Tobacco Use Disorder 599.0 UTI Urinary Tract Infection Site Not Spec 275.41 Hypocalcemia 790.6 Abnormal Blood Chemistry Other 278.00 Obesity Unspec Office Visit 06/01/2011 12:30p [facility] [place] Powers, 477.8 Rhinitis [facility] Allergic Due To Other Allergen 305.1 Tobacco Use Disorder 244.0 Hypothyroidism Postsurgical 272.2 Hyperlipidemia Mixed 785.1 Palpitations 275.41 Hypocalcemia Office Visit 05/28/2011 11:40a [facility] Cherry Venegas, 461.1 Sinusitis Acute [facility] Frontal Office Visit 04/19/2011 1:00p [facility] [place] 244.0 Hypothyroidism Lizzeth Powers M.D. Postsurgical 305.1 Tobacco Use Disorder 311 Depressive Disorder Not Elsewhere Spec Plan of Treatment Future Appointment(s):07/20/2018 11:00 am - Nurse Visit A at [facility] Hkzbnabe82/04/2019 9:30 am - Nurse Visit A at [facility] Arkiqgzc99/08/2019 11:40 am - Nhung Sutton MD at [facility]07/13/2018 - Nhung Sutton, MDR19.7 Diarrhea, unspecifiedComments:Avoid dairyAvoid oily foodsEat small meals
--- OUTSIDE RECORDS SUMMARY | 2018-07-21 20:59 | XMS REPORT | Continuity of Care Document ---
:1980 External Reference #:[id number] Author Name GermanRaphaeladan Care Team Providers Name Role Phone Nhung Sutton MD Primary Care Physician Unavailable Payers Date Identification Numbers Payment Provider Subscriber Effective: 2017 Policy Number: [id number] [employer] Brenda Toledo Expires: 2018 PayID: [id number] [address] [address] [place] [address] Expires: 2017 Policy Number: [id number] [employer] Brenda Toledo PayID: [id number] [address] [address] [place] [address] Problems Active Problems Provider Date Postoperative hypothyroidism [...] (10 or fewer cigarettes/day) Smoking Status Reviewed: 07/11/18 Light tobacco smoker (10 or fewer cigarettes/day) Exercise Type/Frequency Exercises rarely walking Currently Active Patient is currently not sexually active Allergies, Adverse Reactions, Alerts Active Allergies Reaction Severity Comments Date Penicillin Mic terry. 04/19/2011 Amoxicillin Anaphylaxis, Tounge mara. 04/19/2011 Seasonal-Fall To Winter 12/20/2016 Medications Active Medications SIG Qnty Indications Ordering Provider Date Tramadol HCL 1-2 tablets by 30tajorge Bacon, 06/26/2018 50mg Tablets mouth every 6 MD hours as needed pain Cetirizine HCL Take One Tablet 30tabs Nhung Sutton MD 05/08/2018 10mg By Mouth Every Tablets Day Levothyroxine Sodium take 1 tablet by 90tabs Nhung Sutton MD 04/07/2018 mouth every day 200mcg Tablets in the morning Fluoxetine HCL take one tablet Unknown 60mg by mouth one Tablets time daily History Medications Fluticasone Propionate Grand Saline 1 Grand Saline In 16units Nhung Sutton MD 2018 - Each Nostril 06/13/2018 50mcg/Act Suspension Daily Clotrimazole apply to affected 15gm K13.0 Nhung Sutton MD 04/07/2018 - 1% Cream area twice a day 06/13/2018 for a week Tramadol HCL 1-2 tablets by 30tajorge Bacon, 12/01/2017 - 50mg Tablets mouth every 6 MD 06/13/2018 hours as needed pain Naproxen Take One Tablet 60tabs G56.21 Xander Goodman, 02/21/2017 - 500mg Tablets By Mouth Twice A MD 10/28/2017 Day With Food Cyclobenzaprine HCL 1 by mouth every 30tabs G56.21 Xander Goodman, 2016 - 10mg 8 hours as needed MD 10/28/2017 Tablets spasm Naprosyn 1 by mouth twice 60tabs G56.21 Xander Goodman, 12/20/2016 - 500mg Tablets a day clemente vazquez MD 02/21/2017 Prednisone 3 tab every day 35tabs Humza Martinez, 10/03/2013 - 10mg Tablets for 1 week, 2/d M.D. 12/19/2016 for 1 week, Oxaprozin 1 by mouth twice 60tabs 719.49 Humza Martinez, 07/26/2013 - 600mg Tablets a day M.D. 12/19/2016 Diclofenac Sodium take 1 tablet by 60tabs 719.49 Humza Martinez, 2013 - 75mg mouth twice a day M.D. 07/26/2013 Tablets Nitrofurantoin 1 tab bid X7 days 14caps [...] - 5mg Tablets tablet by mouth Sinai Suarez,FACP 06/19/2013 every day at bedtime Furosemide 1 po qam x 7 days 7tabs 782.3 Luis Cahndra 07/01/2011 - 20mg Tablets Sinai Suarez,FACP 07/29/2011 Fabian Anti-Embolism please fit 1units 782.3 Luis Chandra 07/01/2011 - Stockings Knee Length Sinai Suarez,FACP 06/19/2013 [facility] Fexofenadine HCL 1 po qd 90tabs 477.8 [...] 01/24/2012 Abilify 1 po daily 30tabs 311 Lesviabasilia Powers, 04/19/2011 - 20mg Tablets M.D. 12/19/2016 [...] 244.0 Brando Pulido, - mouth one time 10/28/2017 125mcg Tablets daily Lexapro 1 po [...] CPT Code Status Date Vaccine Lot # [id number] Given 10/28/2017 Influenza Virus Vaccine, Quadrivalent, Split, [id number] Preservative Free [id number] Given 01/20/2012 Fluvirin Im 3Yrs And Older 62358 Given 01/20/2012 Pneumonia Vaccine 38172 Given 09/01/2011 Hepatitis B Vaccine Adult Dosage [id number] 15142 Given 07/01/2011 Tdap - Tetanus/Diptheria/Acellular Pertussis [id number] Vital Signs Date Vital Result Comment 07/11/2018 1:43pm Height 61.50 inches 5'1.50" Heart [...] H/L Range Note CBC Auto Diff 05/16/2018 [facility] White Blood 5.7 10^3/uL N 3.5-10.[address] [place] [address] [phone] Red Blood Count 5.01 10^6/uL High 3.70-4.87 [...] Blood Cells % 0.1 Laboratory test 05/16/2018 [facility] TSH (Thyroid 1.29 N 0.34 -5.[address] Stim Horm) mcIU/[place] [address] [phone] Comp Metabolic 05/16/2018 [facility] Sodium 134 mmol/L Low 135 -[address] [place], [place] [id number] [phone] Potassium 4.3 mmol/L N 3.5-5.0 Chloride 103 [...] Egfr 120.5 >60 1 Laboratory test 04/06/2018 [facility] TSH (Thyroid 12.39 High 0.34-5.[address] Stim Horm) mcIU/mL [place], [place] [id number] [phone] T3 Free 3.60 pg/mL N 2.5-3.9 Free T4 (Free Thyroxine) 1.29 ng/dL High 0.61-1.12 Laboratory test 02/08/2018 [facility] Rapid SEE RESULT [address] Influenza [place] [address] Antigen [phone] Laboratory test 02/08/2018 [facility] Rapid Strep Negative Negative [address] [place] [address] [phone] Rapid Influenza 02/08/2018 [facility] Influenza A NEGATIVE Negative 4 A & B Molecular [address] [place] [address] [phone] Influenza B Molecular NEGATIVE Negative Laboratory 02/08/2018 [facility] Rapid Strep SEE RESULT 5 test finding [address] [place] [address] [phone] Laboratory 01/11/2018 [facility] Rapid Strep Negative Negative 6 test finding [address] [place] [place] [address] [phone] Laboratory 01/11/2018 [facility] Rapid Strep SEE RESULT 7 test finding [address] [place] [address] [phone] Thyroid 10/28/2017 [facility] Thyroid Stim 48.3 mIU/L Abnormal 0.3-4.2 8, Function [address] Hormone [address] [place] [address] [phone] Free T4 1.4 ng/dL 0.9 - 1.7 10 Thyroperoxidase Antibody 12.1 IU/mL Abnormal <9.0 11 CBC Auto Diff 10/28/2017 [facility] White Blood 7.8 10^3/uL N 3.5-10.[address] [place] [address] [phone] Red Blood Count 4.34 10^6/uL N 4.00-5.40 [...] Cells % 0.1 Comp Metabolic Panel 10/28/2017 [facility] Sodium 136 mmol/L N 135-145 [address] [place] [address] [phone] Potassium 4.4 mmol/L N 3.5-5.0 Chloride 103 [...] Egfr 103.2 >60 12 Laboratory test 10/28/2017 [facility] Vitamin B12 245 pg/mL N 180-914 13 finding [address] [place] [address] [phone] Laboratory test 09/03/2013 [facility] Free T4 1.18 ng/mL High 0.61-1.12 finding [address] [place] [address] [phone] TSH (Thyroid Stimulating Horm) 13.66 IU/mL High 0.34-5.60 CBC Auto Diff 07/20/2013 [facility] White Blood 8.8 10^3/uL N 4.8-10.[address] [place] [address] [phone] Red Blood Count 4.84 10^6/uL N 4.0-5.4 [...] RBC 0.01 10^3/uL N Laboratory test 07/20/2013 [facility] C Reactive 30.53 mg/L High < 5.00 14 finding 101 [facility] [place] [address] [phone] Comp Metabolic 07/20/2013 [facility] Sodium 139 mmol/L N 133- 145 Panel [address] [place] [address] [phone] Potassium 3.8 mmol/L N 3.7-5.6 Chloride 106 [...] 141.7 N >60 15 Laboratory test 07/20/2013 [facility] Erythrocyte Sed 58 mm/Hr High 0-[address] [place] [address] [phone] Hla B27 07/20/2013 [facility] Hla B27 Negative N [address] [place] [address] [phone] Hla B27 Interp See Comment N 17 Laboratory test 07/20/2013 [facility] Cyclic Citrullinated < 15.6 U N [address] [place] [address] [phone] Rheumatoid Factor <15 IU/mL N <15 19 Manual Differential 07/20/2013 [facility] Neutrophil % 76 % N 38-[address] [place] [address] [phone] Lymphocytes % 22 % Low 25-47 Monocytes % 2 % N 0-13 RBC Morphology Normal N Normal Urine Culture And 03/19/2012 [facility] Urine (SEE NOTE) [address] [place] [place] [address] [phone] CBC Auto Diff 01/25/2012 [facility] White Blood 11.2 High 4.8- [address] Count 10^3/uL 0.8 [place] [address] [phone] Red Blood Count 4.62 10^6/uL 4.0-5.4 Hemoglobin [...] Blood Cells % 0 Laboratory test 01/25/2012 [facility] Inr 0.94 0.82-1.17 21 finding 101 [place], [place] [address] [phone] Laboratory test 01/25/2012 [facility] Serum Negative Negative 22 finding [address] [place], [place] [address] [phone] Laboratory test 01/25/2012 [facility] B Type 10.0 pg/mL 0- 100 finding 101 [facility] [place] [address] Peptide [phone] Comp Metabolic 01/25/2012 [facility] Sodium 133 mmol/L 133- 145 Panel [address] [place] [address] [phone] Potassium 3.1 mmol/L Low 3.5-5.0 Chloride 102 [...] Egfr 108.3 >60 23 Laboratory test 01/25/2012 [facility] Creatine Kinase 93 U/L 0-200 finding [address] [place] [address] [phone] Troponin I 0.01 ng/mL 0-0.06 24 TSH (Thyroid Stimulating Horm) 63.67 MIU/ML High 0.34-5.60 Ua Routine 01/24/2012 [facility] Ua Specific Ambrose 1.010 Ua PH 6.0 Ua Color YELLOW Ua Appera CLEAR Ua WBC NEG Ua Protein TRACE Ua Glucose NEG Ua Ketones NEG Ua Bilirubin NEG Ua Urobilinogen NEG Ua Nitrite NEG Ua Occult Blood NEG Laboratory test 01/24/2012 [facility] B Type < 7.5 pg/mL 0- [address] [place] [address] Peptide [phone] TSH (Thyroid Stimulating Horm) 52.53 MIU/ML High 0.34-5.60 Free T4 0.83 ng/mL 0.61-1.24 Free T3 3.61 pg/mL 2.39-6.79 Vaginal Dna 09/01/2011 M <SEE 25 Probe NOTE> Comp Metabolic 07/01/2011 [facility] Sodium 134 mmol/L Low 135 -[address] [place] [address] [phone] Potassium 3.4 mmol/L Low 3.5-5.0 Chloride 104 [...] eGFR 127.2 > 60 28 Laboratory 07/01/2011 [facility] Hepatitis B Nonreactive Nonreactive test finding [address] [place] [address] [phone] Hepatitis C Antibody Nonreactive Nonreactive Calcium Ionized 4.09 mg/dL Low 4.65-5.28 Liver Function 07/01/2011 [facility] Total Protein 6.8 GM/DL 6.2-8.[address] [place] [address] [phone] Albumin 3.7 GM/DL 3.6-5.4 Globulin 3.1 GM/DL 2-4 Albumin/Globulin Ratio 1.2 1-3 Bilirubin Total 0.7 mg/dL 0.4-1.5 29 Bilirubin Direct 0.0 mg/dL Low 0.1-0.5 Indirect Bilirubin (SEE NOTE) mg/dL 0.3-1.0 30 Alkaline Phosphatase 92 U/L 30-110 Alt (SGPT) 39 U/L 14-54 Ast (Sgot) 24 U/L 12-42 Manual Differential 06/23/2011 [facility] Polysegmented 68 % 38-[address] [place] [address] [phone] Band Neutrophil 1 % 0-8 Lymphocyte 22 % Low 25-47 Monocyte 4 % 0-13 Eosinophil 5 % 0-6 Absolute Neutrophil Count 12.00 RBC Morphology NORMAL CBC Auto Diff 06/23/2011 [facility] White Blood 17.5 CUMM High 4.8-10.[address] [place] [address] [phone] Red Cell Count 4.67 CUMM 4.2-5.4 Hemoglobin 14.1 g/dL 12.0-16.0 Hematocrit 42 % 35-47 Mean Corpuscular Volume 89 um3 79-97 Mean Corpuscular Hemoglob 30 pg 27-31 Mean Corpuscular HGB Cone 34 g/dL 32-36 Redcell Distribution WDTH 14 % 10.5-15 Platelet Count 329 CUMM 150-450 Mean Platelet Volume 9.9 um3 7.4-10.4 31 Comp Metabolic Panel 06/23/2011 [facility] Sodium 136 mmol/L 135-[address] [place] [address] [phone] Potassium 3.9 mmol/L 3.5-5.0 Chloride 103 mmol/L [...] 109.1 > 60 34 Lipid Profile 06/21/2011 [facility] Triglyceride 148 mg/dL 40 -200 (Trig/Chol/HDL) [address] [place] [address] [phone] Cholesterol 245 mg/dL High Less Than 200 35 High Density Lipoprotein 33 mg/dL Low 40-60 36 Cholesterol/HDL Ratio 7.42 AVERAGE High 1-4.44 Low Density Lipoprotein 182 mg/dL High Less Than 100 37 Comp Metabolic Panel 06/21/2011 [facility] Sodium 135 mmol/L 135-145 [address] [place] [address] [phone] Potassium 4.2 mmol/L 3.5-5.0 Chloride 104 mmol/L [...] 127.2 > 60 40 Laboratory test 06/21/2011 [facility] Calcium 4.05 mg/dL Low 4.65-5.[address] [place] [address] [phone] TSH 4.46 MIU/ML 0.34-5.60 Thyroxine Free 0.94 ng/dL 0.61-1.24 T3 Free 3.97 pg/mL 2.39-6.79 Laboratory test 05/14/2011 [facility] TSH 0.75 MIU/ML 0.34- 5.60 finding [address] [place] [address] [phone] 1 Because ethnic data is not always [...] 5 Kidney failure <15 (or dialysis) 2 SEE RESULT BELOW Name: BRENDA TOLEDO : [address]: Eliceo Nichole MD Acct: [id number] Unit: [id number] AGE: 37 Location: ED Re/26/18 SEX: F Status: REG ER SPEC: [id number] DUANE: 02/08/18 [facility] DR: Eliceo Nichole MD REQ: [id number] RECD: 02/08/18 STATUS: RAN DOZIER DR: [facility] Luis Suarez MD _ SOURCE: NASAL SPDESC: ORDERED: Flu A B Request Procedure Result Reported Site Rapid Influenza A B Request Final 02/08/181136 ML Specimen received for Influenza A/B Molecular testing * ML - Main Lab . END OF REPORT DEPARTMENT OF PATHOLOGY, [address] [place] [address] Kenn He M.D. Director [facility] # [id number] Last Chalker: [id number] Last Chalker: [id number] 5 SEE RESULT BELOW Name: BRENDA TOLEDO : [address]: Eliceo Nichole MD Acct: [id number] Unit: [id number] AGE: 37 Location: ED Re02/08/18 SEX: F Status: REG ER SPEC: [id number] DUANE: 02/08/[address]: Melissa SHORT REQ: [id number] RECD: 02/08/18 STATUS: RAN DOZIER DR: [facility] Luis Suarez MD _ SOURCE: THROAT SPDESC: ORDERED: Strep A Request Procedure Result Reported Site Rapid Strep A Request Final 02/08/18- 1150 ML Specimen received for Rapid Strep A Molecular testing * ML - Main Lab . END OF REPORT DEPARTMENT OF PATHOLOGY, [address] [place] [address] Kenn He M.D. Director [facility] # [id number] Last Chalker: [id number] SEE RESULT BELOW Name: BRENDA TOLEDO : [address]: Yifan Limon MD Acct: [id number] Unit: [id number] AGE: 37 Location: ED Re01/11/18 SEX: F Status: REG ER SPEC: [id number] DUANE: 01/11/18 [facility] DR: Yifan Limon MD REQ: [id number] RECD: 01/11/18 STATUS: RAN DOZIER DR: [facility] Luis Suarez MD _ SOURCE: THROAT SPDESC: ORDERED: Strep A Request Procedure Result Reported Site Rapid Strep A Request Final 01/11/182340 ML Specimen received for Rapid Strep A Molecular testing * ML - Main Lab . END OF REPORT DEPARTMENT OF PATHOLOGY, [address] [place] [address] Kenn He M.D. Director [facility] # [id number] Encouraged taking thyroid medication daily, recheck 6 weeks. 9 Test Performed by: [facility] - [address] [address] 10 Test Performed by: [place] [id number] 11 Test Performed by: [place] [address] [place] [address] 12 Because ethnic data is not always [...] detected. Method: Flow Cytometry Performing Laboratory CLIA# [id number] Test Performed by: [facility] [address] [place] [address] Unix Administrator: Anurag Sigala III, M.D. 18 -- REFERENCE VALUE -- <20.0 (Negative) Test Performed by: [facility] [place] [address] [place] [address] [employer] Administrator: Anurag Sigala III, M.D. 19 Test Performed by: [facility] [place] [address] [place] [address] Unix Administrator: Anurag Sigala III, M.D. 20 RUN DATE: 03/22/12 [facility] LAB LIVE PAGE 1 RUN TIME: [address] [place] [address] Specimen Inquiry Name: BRENDA TOLEDO : [address]: Austin Root MD Acct: [id number] Unit: [id number] AGE: 31 Location: [facility] Re03/19/12 SEX: F Status: DEP ER SPEC: [id number] DUANE: 03/19/12-1658 [facility] DR: Austin Root MD REQ: [id number] RECD: 03/20/12 STATUS: RAN DOZIER DR: Lesvia Powers MD _ SOURCE: URINE [facility]: ORDERED: Urine Culture Procedure Result Verified Site Urine Culture Final 03/22/12- 1044 ML Organism 1 NORMAL SILVINO [place] Count 1-10,000 (Few) CFU/ML END OF REPORT * ML=Testing performed at Main Lab DEPARTMENT OF PATHOLOGY, [address] [place] [address] Kenn He M.D. Director [facility] Permit #[id number] 21 The INR(International Normalized Ratio) was adopted [...] 0.06 ng/mL Not supportive of diagnosis of [place] 0.06 - 0.50 ng/ml Indeterminate: suggest serial studies if clinically indicated. Greater than 0.5 ng/mL Consistent with diagnosis of [place] 25 RUN DATE: 09/02/11 [facility] NMI LIVE PAGE 1 RUN TIME: 1013 Specimen Inquiry RUN USER: INTERFACE Name: MIGUELBRENDA Alyssa Status: REG REF Re09/01/11 Age/Sex: 30/F Unit#: [id number] Location: [facility] : [birth year] SPEC #: [id number] DUANE: 09/01/11-1031 STATUS: RAN DUNLAP #: [id number] RECD: 09/01/11-1638 [facility] DR: Priya CABRERA,[facility] SOURCE: VAGINAL ENTR: 09/01/11-[address]: LIA: ORDERED: AFFIRM QUERIES: MEDENT REQUISITION # [id number] ACT WKST: AFFIRM 09/02/11 #1 Procedure Result [...] a test for therapeutic success or failure. [facility] Permit #[id number] [address] [place] [address] DEPARTMENT OF PATHOLOGY, [address] [place] [address] [facility] Permit #[id number] Kenn He M.D. Director Aquiles Brady M.D. Research Associate Professor 26 Anion gap measurement may be of limited value in the presence of any alkalosis, especially in a combined acid base disorder. . 27 A metabolite of Naproxen, O-desmethylnaproxen, has been shown to interfere with the Jenana-Stefani method for measuring total bilirubin. Samples from [...] has been shown to interfere with the Jendrassik-Everglades method for measuring total bilirubin. Samples from [...] has been shown to interfere with the Jendrassik-Everglades method for measuring total bilirubin. Samples from [...] dialysis) Procedures Date Code Description Status 06/26/2018 23176 Endoscopy Wrist Surg W/Release Of Transverse Carpal Completed Ligament 06/26/2018 00963 Endoscopy Wrist Surg W/Release Of Transverse Carpal Completed Ligament 12/01/2017 85584 Carpal Tunnel Release Completed 12/01/2017 12541 Carpal Tunnel Release Completed 06/27/2013 80882 ECHO Stress Test Incl Perf Contiuous ekg Monitoring W/Phys Completed Superv 06/27/2013 46302 Stress Test Completed 06/21/2013 50857 ECHO Transthoracic, Real-Time 2D With Doppler And Color Completed Flow 06/20/2013 87617 ECHO Transthoracic, Real-Time 2D With Doppler And Color Completed Flow 06/20/2013 15752 EKG Tracing & Interpretation Completed 12/06/2012 38855 Rad Exam; Knee Comp Completed 12/06/2012 40657 Rad Exam; Knee Comp Completed 08/23/2011 29172 Noninvasive Ear Or Pulse Oximetry For Oxygen Saturation Completed 08/04/2009 77776 Holter Monitor Review (24 hr)dr review & interp only Completed 07/15/2009 45184 Holter Monitor Review (24 hr)dr review & interp only Completed 03/12/2008 25222 Treadmill Interp/Report Only Completed 03/12/2008 95788 Stress Test Supervsn W/Out I/R Completed Encounters Type Date Location Provider Dx Diagnosis Office Visit 05/16/2018 Orthopedic Edgar Bacon, G56.02 Carpal tunnel 2:30p Services Of MD villa, left upper C.M.A. limb Office Visit 04/07/2018 [facility] Nhung Sutton MD E89.0 Postprocedural 11:20a Medicine hypothyroidism F32.9 Major depressive disorder, single episode, unspecified K13.0 Diseases of lips J32.9 Chronic sinusitis, unspecified Office Visit 11/08/2017 10:30a Orthopedic Edgar G56.01 Carpal tunnel Services Of MD Jordi syndrome, right C.M.A. upper limb Office Visit 10/28/2017 8:30a [facility] Cheryl Z00.00 Encntr for Medicine [...] Xander Goodman G56.21 Lesion of Services Of [facility] AT [facility]odan Ray right upper limb Office Visit 12/20/2016 2:30p Orthopedic Xander Goodman G56.21 Lesion of Services Of [facility] AT [facility] Ray right upper limb G56.11 [...] Disorders Other Spec Office Visit 06/20/2013 11:45a [facility] Adam Chandra 786.05 Shortness Of Of Jonna Guthrie M.D. 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 244.0 Hypothyroidism Postsurgical 599.0 UTI Urinary Tract Infection Site Not Spec 305.1 Tobacco Use Disorder Office Visit 09/01/2011 9:30a [facility] Lesvia V70.3 Examination Other Medicine [facility] Powers Medical For Administrative Purpose 623.5 Leukorrhea Not Spec as Infective 275.41 Hypocalcemia 272.2 Hyperlipidemia Mixed v05.3 Viral Hepatitis Vaccination & Inoculation v74.1 Screening Examination Pulmonary Tuberculosis Office Visit 08/23/2011 2:00p [facility] Lesvia Priya, 466.0 Bronchitis Acute Medicine [facility] 009.3 Diarrhea Presumed Infectious Origin Office Visit 08/09/2011 12:30p [facility] Lesvia 847.2 Sprains & Strains Medicine [facility] Powers Lumbar Office Visit 07/29/2011 11:45a [facility] Lesvia 719.41 Pain Joint Shoulder Lizzeth Powers M.D. Region Office Visit 07/02/2011 2:15p [facility] Helga 275.41 Hypocalcemia Medicine Nydia, N.PRonald 272.2 Hyperlipidemia Mixed 782.3 Edema Office Visit 07/01/2011 11:30a [facility] Medicine Helga Stafford, N.PRonald 782.3 Edema V06.1 Mlvwekmien-Rayivcs-Uwskyupm Combined (DTaP) Office Visit 06/22/2011 11:45a [facility] Lesvia 272.2 Hyperlipidemia Mixed Medicine [facility] Powers 785.1 Palpitations 305.1 Tobacco Use Disorder 599.0 UTI Urinary Tract Infection Site Not Spec 275.41 Hypocalcemia 790.6 Abnormal Blood Chemistry Other 278.00 Obesity Unspec Office Visit 06/01/2011 12:30p [facility] Lesvia Powers, 477.8 Rhinitis Medicine [facility] Allergic Due To Other Allergen 305.1 Tobacco Use Disorder 244.0 Hypothyroidism Postsurgical 272.2 Hyperlipidemia Mixed 785.1 Palpitations 275.41 Hypocalcemia Office Visit 05/28/2011 11:40a [facility] Cherry Venegas, 461.1 Sinusitis Acute Medicine [facility] Frontal Office Visit 04/19/2011 1:00p [facility] Lesvia 244.0 Hypothyroidism Medicine [facility] Powers Postsurgical 305.1 Tobacco Use Disorder 311 Depressive Disorder Not Elsewhere Spec Plan of Treatment Future Appointment(s):07/12/2018 1:00 pm - Nhung Sutton MD at [facility] Wzejuybs23/08/2019 11:40 am - Nhung Sutton MD at [facility] [id number] - Edgar Bacon MDG56.02 Carpal tunnel syndrome, left upper limbFollow up :Follow up: As needed
--- OUTSIDE RECORDS SUMMARY | 2018-07-21 20:59 | XMS REPORT | Continuity of Care Document ---
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 Primary Care Physician Unavailable Payers Date Identification Numbers Payment Provider Subscriber Policy Number: [id number] [facility] Brenda Toledo PayID: [id number] [address] [id number] Problems Active Problems Provider Date Otalgia Marcelino Hampton Onset: 11/23/2010 Temporomandibular joint disorder Marcelino Hampton Onset: 11/23/2010 Dysfunction of eustachian tube Marcelino Hampton Onset: 11/23/2010 Chronic rhinitis Denzel Aiken MD Onset: 11/23/2010 Chronic maxillary sinusitis Denzel Aiken MD Onset: 11/23/2010 Deviated nasal septum Denzel Aiken MD Onset: 11/23/2010 Dental caries extending into dentin Denzel Aiken MD Onset: 11/23/2010 Family History Date Family Member(s) Observation Comments [...] smoker, smokes every day Smoking Status Reviewed: 06/08/18 Patient is a current smoker, smokes every day Allergies, Adverse Reactions, Alerts Active Allergies Reaction Severity Comments Date Penicillin rash 12/12/2009 Amoxicillin rash 12/12/2009 Medications Active Medications SIG Qnty Indications Ordering Date Provider Imitrex Take 1 pill as 6tabs G43.109 Figueroa Joiner 07/11/2018 100mg Tablets needed for MD Merlin headache. May repeat ONCe if headache persists at 2 hours/ Montelukast Sodium 1 by mouth every 30tabs G43.109 Figueroa Joiner 07/11/2018 10mg day MD Merlin Tablets Levothyroxine Sodium Unknown Cetirizine HCL Nhung Sutton MD 10mg Tablets Fluoxetine HCL Unknown 20mg Capsules History Medications Methylprednisolone take as directed 1pack Figueroa Joiner 05/18/2018 - 4mg TBPK MD Merlin 06/07/2018 Nasonex 2 sprays 17GMS 473.0 Nelli [facility] 04/02/2010 - 50mcg/Act Suspension intranasal daily 05/17/2018 Fluticasone Nasal [place] 2 puffs both one Nelli [facility] 04/02/2010 - 50mcg sides once a day 05/17/2018 Vicodin Unknown - 05/17/2018 Vital Signs Date Vital Result Comment 06/08/2018 9:54am Weight 180.00 lb Weight 81.648 kg Height 62 inches 5'2" Height in cm's 157.5 cm BMI (Body Mass Index) 32.9 kg/m2 05/18/2018 2:16pm Weight 180.00 lb Weight 81.648 kg Height 62 inches 5'2" Height in cm's 157.5 cm BMI (Body Mass Index) 32.9 kg/m2 Procedures Date Code Description Status 05/18/2018 06086 Nasal Endoscopy, Diagnostic Completed 10/29/2010 87236 Tympanometry Completed 12/12/2009 44142 Tympanometry Completed 12/12/2009 54393 Comprehensive Audiogram Completed Encounters Type Date Location Provider Dx Diagnosis Office Visit 07/11/2018 [place]ie,After Holly Dubon, 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 10:15a 02/14/07 PA-C pain J32.9 Chronic sinusitis, unspecified J34.1 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 G43.109 Migraine with aura, not intractable, w/o status migrainosus Office Visit 06/08/2018 10:00a Allie,After 02/14/07 Holly Dubon, 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 PA-C pain J32.9 Chronic sinusitis, unspecified J34.1 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 Office Visit 05/18/2018 2:15p [place],After 02/14/07 Figueroa Boyer MD R51 Headache 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 pain J32.9 Chronic sinusitis, unspecified J34.1 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 Office 10/29/2010 [place],After Denzel Aiken 388.70 Otalgia/Unspecified Visit 10:45a 02/14/07 524.60 Temporomandibular Joint Disorders Unspec 381.81 Dysfunction Of Eustachian Tube Office Visit 04/02/2010 1:45p [place],After Denzel Aiken 472.0 Rhinitis , 02/14/07 MD Orellana 388.70 Otalgia/Unspecified 473.0 Sinusitis, Chronic Maxillary 470 Deviated Nasal Septum Office 03/20/2010 [place],After Denzel Aiken 388.70 Otalgia/Unspecified Visit 11:30a 02/14/07 521.02 Dental Caries Extending Into Dentine 472.0 Rhinitis, Chronic 473.0 Sinusitis, Chronic Maxillary Office 12/12/2009 [place],After Denzel Aiken 388.70 Otalgia/Unspecified Visit 11:00a 02/14/07 521.02 Dental Caries Extending Into Dentine 381.81 Dysfunction Of Eustachian Tube Plan of Treatment 07/11/2018 - DEJA Callahan-C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 painJ32.9 Chronic sinusitis , biwydvgqhfyH16.1 Cyst and mucocele of nose and nasal zoraoK60.109 Migraine with aura, not intractable, without status migrainosusNew Medication:Imitrex 100 mg - Take 1 pill as needed for headache. May repeat ONCe if headache persists at 2 hours/Montelukast Sodium 10 mg - 1 by mouth every day
[2018-07-21 21:05] VITALS: BP 96/70
[2018-07-21] MEDS ORDERED: Lidocaine 1%* 5 ML VIAL INJ ONE (21:35)
[2018-07-21] MEDS ORDERED: Sulfamethox/Trimethoprim DS 800/160* TAB PO ONE (22:04)
--- NOTE | 2018-07-21 22:08 | ED ---
Skin Complaint - HPI Summary HPI Summary: pt presents to the for evaluation of her abscess to her right buttock. she states she has gotten these in the past. she cannot sit. she denies any fever or chills. - History of Current Complaint Chief Complaint: UCSkin Stated Complaint: SKIN CONCERN Hx Obtained From: Patient Hx Last Menstrual Period: hyster Timing: Constant Onset Severity: Moderate Current Severity: Moderate Pain Intensity: 6 - Allergy/Home Medications Allergies/Adverse Reactions: Allergies Allergy/AdvReac Type Severity Reaction Status Date / Time Penicillins Allergy Severe Anaphylatic Verified 06/26/18 06:19 Shock amoxicillin Allergy Intermediate Rash Verified 06/26/18 06:19 Home Medications: Home Medications Montelukast Sodium TAB* [Singulair TAB*] 10 mg PO DAILY 07/21/18 [History Confirmed 07/21/18] Venlafaxine EXT RELEASE CAP* [Effexor Xr CAP*] 37.5 mg PO DAILY 07/21/18 [ History Confirmed 07/21/18] PMH/Surg Hx/FS Hx/Imm Hx Previously Healthy: Yes Endocrine/Hematology History: Reports: Hx Thyroid Disease - hypothyroidism- removed thyroid Denies: Hx Diabetes Cardiovascular History: Reports: Other Cardiovascular Problems/Disorders - STRONG FAMILY HX HEART DISEASE Denies: Hx Hypercholesterolemia, Hx Hypertension Respiratory History: Reports: Hx Asthma - as a child, outgrew, Hx Sleep Apnea - NO STUDY DONE Denies: Hx Chronic Obstructive Pulmonary Disease (COPD), Other Respiratory Problems/Disorders GI History: Reports: Other GI Disorders - on going diarrhea Denies: Hx Ulcer Musculoskeletal History: Reports: Hx Arthritis Denies: Other Musculoskeletal History Sensory History: Denies: Hx Contacts or Glasses, Hx Hearing Aid Opthamlomology History: Denies: Hx Contacts or Glasses Neurological History: Denies: Other Neuro Impairments/Disorders Psychiatric History: Reports: Hx Anxiety, Hx Depression, Hx Community Mental Health Tx, Hx Suicide Attempt, Hx Substance Abuse Denies: Hx Eating Disorder, Hx of Violent Episodes Against Others - Cancer History Cancer Type, Location and Year: thyroid-2008 Hx Chemotherapy: No - 1 treatment rdioactive iodine - Surgical History Surgery Procedure, Year, and Place: thyroidectomy 2008,tubal ligation-2006, hysterectomy 2008. Cholecystectomy 2012. RIGHT CARPAL TUNNEL RELEASE, left carpal tunnel Hx Anesthesia Reactions: No - Immunization History Date of Tetanus Vaccine: PT STATES UNSURE Date of Influenza Vaccine: NONE Infectious Disease History: No Infectious Disease History: Denies: Hx Clostridium Difficile, Hx Hepatitis, Hx Human Immunodeficiency Virus (HIV), Hx of Known/Suspected MRSA, Hx Shingles, Hx Tuberculosis, Hx Known/ Suspected VRE, Hx Known/Suspected VRSA, History Other Infectious Disease, Traveled Outside the [place] in Last 30 Days - Family History Known Family History: Positive: Cardiac Disease - grandparents, Hypertension, Diabetes - mother, Other - HLD - Social History Alcohol Use: None 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 Substance Use Type: Reports: None Substance Use Comment - Amount & Last Used: clean 3 years Smoking Status (MU): Light Every Day Tobacco Smoker Type: Cigarettes Amount Used/How Often: < 5 cigs smoked for almost 20 years Length of Time of Smoking/Using Tobacco: Since Age 16 Have You Smoked in the Last Year: Yes Review of Systems Constitutional: Negative Eyes: Negative ENT: Negative Cardiovascular: Negative Respiratory: Negative Gastrointestinal: Negative Genitourinary: Negative Musculoskeletal: Negative Positive: Rash Neurological: Negative Psychological: Normal All Other Systems Reviewed And Are Negative: No Physical Exam Triage Information Reviewed: Yes Vital Signs On Initial Exam: Initial Vitals Temp Pulse Resp BP Pulse Ox 98.9 F 98 18 96/70 100 07/21/18 20:58 07/21/18 20:58 07/21/18 20:58 07/21/18 20:58 07/21/18 20:58 Vital Signs Reviewed: Yes Appearance: Positive: Well-Appearing, No Pain Distress, Well-Nourished Skin: Positive: Warm, Dry, Other - there is an area of induration, erythema and tenderness to palpation to the right buttock. area is approx 5x5 cm Eyes: Positive: Normal, EOMI ENT: Positive: Hearing grossly normal, Pharynx normal Neck: Positive: Supple, Nontender Respiratory/Lung Sounds: Positive: Clear to Auscultation, Breath Sounds Present Cardiovascular: Positive: Normal, RRR Abdomen Description: Positive: Nontender, Soft Bowel Sounds: Positive: Present Musculoskeletal: Positive: Normal, Strength/ROM Intact Neurological: Positive: Normal, Sensory/Motor Intact, Alert, Oriented to Person Place, Time, CN Intact II-III Psychiatric: Positive: Normal AVPU Assessment: Alert Procedures - Incision and Drainage Right Buttocks Site: right medial buttock Anesthesia: Local, Lidocaine Instrument(s): Scalpel Packing: Gauze Diagnostics - Vital Signs Vital Signs Temp Pulse Resp BP Pulse Ox 07/21/18 20:58 98.9 F 98 18 96/70 100 - Laboratory Lab Statement: Any lab studies that have been ordered have been reviewed, and results considered in the medical decision making process. Course/Dx - Course Course Of Treatment: pt had an abscess that was I&d'ed. she tolerated procedure without any complications. pt given 1 po bactrim and a rx for bactrim sent to the pharmacy. pt discharged home with wound check instructions. pt encouraged to take tyelnol and motrin for pain. - Diagnoses Provider Diagnoses: Abscess of buttock, right, Cellulitis Discharge - Sign-Out/Discharge Documenting (check all that apply): Patient Departure All imaging exams completed and their final reports reviewed: No Studies - Discharge Plan Condition: Stable Disposition: HOME Prescriptions: Sulfamethox/Trimethoprim DS* [Bactrim DS 800/160 TAB*] 1 tab PO BID #20 tab Patient Education Materials: Cellulitis (ED), Abscess (ED) Referrals: Nhung Sutton MD [Primary Care Provider] - Additional Instructions: take the antibiotic as instructed. return if worse or any new symptoms. It is important to get a wound check on tuesday. if you are worse, please go to the emergency dept. Take tylenol and motrin for pain. - Billing Disposition and Condition Condition: STABLE Disposition: Home
== END 2018-07-21 22:14 | disposition home or self-care (01) ==
LOC: UCCORT 19:46
DX: L02.31 Cutaneous abscess of buttock (principal); L03.317 Cellulitis of buttock; E03.9 Hypothyroidism, unspecified; F17.210 Nicotine dependence, cigarettes, uncomplicated; Z79.899 Other long term (current) drug therapy
CPT/HCPCS: 10060; 87070; 87077; 87186; 87205; 87640; 87641; 99212; A9270-GY; G0463

== ENCOUNTER 2018-08-29 13:39 | Emergency (ER) | payer OTHER ==
--- NOTE | 2018-08-29 13:57 | UC ---
Throat Pain/Nasal Jalil HPI - HPI Summary HPI Summary: 37 y/o female presents to the urgent care c/o allergies for the past 2 weeks w/ nasal congestion and clear discharge taking Zyrtec PO. However symptoms worsen for the past 3 days w/ yellowish nasal discharge, moderate PND, sinus pressure , and pain. Pain is 6/10. PND is triggering a dry cough. Pt reports Hx of asthma which has been controlled for many years, However last night her chest feels tight when she is exposed to the air conditioning, this morning she heard mild wheezing. She also c/o upper back soreness s/p heavy lifting Tuesday. She has taken Ibuprofen w/o any improvement. She is concerned about pneumonia, since she has had it in the past. She denies fever, chills, night sweat, SOB, chest pain, abdominal pain, N/V/d or rash. - History of Current Complaint Stated Complaint: MUSCLE STRAIN,SINUS CONGESTION Time Seen by Provider: 08/29/18 13:53 Hx Obtained From: Patient Hx Last Menstrual Period: hyster ?: No Onset/Duration: Gradual Onset, Lasting Weeks - 2 weeks allergic rhinitis taken Zyrtec w/o any improvement, Still Present, Worse Since - 3 days w/ yellowish drainage and sinus pain Severity: Moderate Pain Intensity: 6 - sinus pain Pain Scale Used: 0-10 Numeric Cough: Other: - PND and her chest feels tigh whe she is exposed to Air conditioning Associated Signs & Symptoms: Positive: Wheezing - mild today, Sinus Discomfort, Nasal Discharge - yellowish. Negative: Dysphagia, Fever, Vomiting, Rash Related History: Seasonal Allergies, Other (Noted In Comments) - asthma - Epiglottits Risk Factors Epiglottis Risk Factors: Negative - Allergies/Home Medications Allergies/Adverse Reactions: Allergies Allergy/AdvReac Type Severity Reaction Status Date / Time Penicillins Allergy Severe Anaphylatic Verified 08/29/18 14:23 Shock amoxicillin Allergy Intermediate Rash Verified 08/29/18 14:23 PMH/Surg Hx/FS Hx/Imm Hx Previously Healthy: Yes Endocrine History: Hypothyroidism Respiratory History: Asthma Other Respiratory History: seasonal alleriges Psychological History: Anxiety, Depression - Surgical History Surgical History: Yes Surgery Procedure, Year, and Place: thyroidectomy 2008,tubal ligation-2006, hysterectomy 2008. Cholecystectomy 2012. RIGHT CARPAL TUNNEL RELEASE, left carpal tunnel - Family History Known Family History: Positive: Cardiac Disease - grandparents, Hypertension, Diabetes - mother, Other - HLD - Social History Occupation: Employed Full-time Lives: With Family Alcohol Use: None Substance Use Type: None Substance Use Comment - Amount & Last Used: clean 3 years Smoking Status (MU): Light Every Day Tobacco Smoker Type: Cigarettes Amount Used/How Often: < 5 cigs smoked for almost 20 years Length of Time of Smoking/Using Tobacco: Since Age 16 Have You Smoked in the Last Year: Yes Household Exposure Type: Cigarettes - Immunization History Most Recent Influenza Vaccination: 01/05/17 Most Recent Tetanus Shot: had it, but is unsure on what year - she thinks 3 yrs ago. Most Recent Pneumonia Vaccination: 2010 Review of Systems All Other Systems Reviewed And Are Negative: Yes Constitutional: Positive: Negative Skin: Positive: Negative Eyes: Positive: Negative ENT: Positive: Ear Ache - B/L ear pressure, Nasal Discharge - yellowish, Sinus Congestion, Sinus Pain/Tenderness, Other - moderate PND Respiratory: Positive: Cough - dry, Other - mild wheezing at times since yesterday Cardiovascular: Positive: Negative Gastrointestinal: Positive: Negative Genitourinary: Positive: Negative Motor: Positive: Negative Neurovascular: Positive: Negative Musculoskeletal: Positive: Myalgia - s/p heavy lifiting on Tuesday Neurological: Positive: Negative Psychological: Positive: Negative Is Patient Immunocompromised?: No Physical Exam - Summary Physical Exam Summary: Vitals: reviewed General: Well developed, well-nourished female patient with NAD. Head and face: Normocephalic and atraumatic, Positive tenderness over the frontal and maxillary sinuses.. Eyes: PERRLA, EOMI x 2. Normal conjunctiva. No eye discharge. ENT: Ears and TM with normal limits. Nose: edematous and erythematous nasal mucosa with with yellowish discharge and erythematous mucosa. Pharynx with erythema, no exudate. yellowish PND Neck: Supple, no JVD, no carotid bruits and no lymphadenopathy. Lungs: clear, no rales, no rhonchi, no wheezes. CVS: RRR, S1 and S2 present no murmurs or gallops appreciated. Abdomen: soft nontender with positive bowel sounds. Extremities: no edema noted. Neuro: WNL. Skin: warm and dry Triage Information Reviewed: Yes Throat Pain/Nasal Course/Dx - Course Course Of Treatment: 37 y/o female presents to the urgent care c/o allergies for the past 2 weeks w/ nasal congestion and clear discharge taking Zyrtec PO. However symptoms worsen for the past 3 days w/ yellowish nasal discharge, moderate PND, sinus pressure , and pain. Pain is 6/10. PND is triggering a dry cough. Pt reports Hx of asthma which has been controlled for many years, However last night her chest feels tight when she is exposed to the air conditioning, this morning she heard mild wheezing. She also c/o upper back soreness s/p heavy lifting Tuesday. She has taken Ibuprofen w/o any improvement. She is concerned about pneumonia, since she has had it in the past. She denies fever, chills, night sweat, SOB, chest pain, abdominal pain, N/V/d or rash. Hx obtained. Pt w/ acute bacterial sinusitis and mild wheezing on examination. O2Sat:100%. Pt given Duoneb treatment by nurse. Pt felt better and lungs cleared B/L after treatment. Pt with 2 weeks of symptoms getting worse now becoming bacterial. Pt PCN allergic. Pt Rx Doxycycline PO and flonase nasal spray. Also Rx Albuterol inhaler and Albuterol Neb treatment to alleviate wheezing. Discharge instructions explained to Pt. Advised to Return to the clinic or PCP if symptoms do not improve. D/C instructions explained. Pt understood and agreed with plan of care. - Differential Dx/Diagnosis Differential Diagnosis/HQI/PQRI: Influenza, Pharyngitis, Sinusitis, URI Provider Diagnosis: Acute bacterial sinusitis, Wheezing Discharge - Sign-Out/Discharge Documenting (check all that apply): Patient Departure - D/C home All imaging exams completed and their final reports reviewed: No Studies - Discharge Plan Condition: Stable Disposition: HOME Prescriptions: Albuterol 2.5MG/3ML (0.083%)* [Ventolin 2.5 MG/3 ML NEB.MICHOACANO*] 2.5 mg INH Q6H #1 bag Albuterol HFA INHALER* [Ventolin HFA Inhaler*] 1 - 2 puff INH Q6H PRN #1 mdi PRN Reason: Wheezing DOXYcycline CAP(*) [DOXYcycline 100MG CAP(*)] 100 mg PO BID #20 cap Fluticasone NASAL SPRAY 50MCG* [Flonase NASAL SPRAY 50MCG*] 2 spray BOTH NARES DAILY #1 btl Patient Education Materials: Sinusitis (ED), Wheezing (ED) Referrals: Nhung Sutton MD [Primary Care Provider] - 2 Days Additional Instructions: 1- Please increase fluid intake and rest. take full course of antibiotics to avoid resistance. Take yogurts w/ probiotics or Culturelle to protect your GI system 2-Use Flonase as directed to help drain fluid. Also buy saline drops to clear sinuses 3-Continue taking Zyster PO to alleviates sinus congestion. Take Ibuprofen PO q6-8hrs prn after meals to alleviate pain 4-Use the albuterol nebulizer treatment or albuterol inhaler to alleviate mild wheezing as directed . Increase fluid intake, rest and eat well. 5-Please f/u w/ your PCP in 3 days if symptoms do not improve for further management and treatment - Billing Disposition and Condition Condition: STABLE Disposition: Home
[2018-08-29 14:34] VITALS: BP 128/67
[2018-08-29] MEDS ORDERED: Albuterol/Ipratropium NEB.SOL* Albuterol 2.5 MG/Ipratropium 0.5 MG 3 ML INH ONE (14:46)
== END 2018-08-29 15:52 | disposition home or self-care (01) ==
LOC: UCCORT 13:39
DX: J01.90 Acute sinusitis, unspecified (principal); B96.89 Other specified bacterial agents as the cause of diseases classified elsewhere; R06.2 Wheezing; F17.210 Nicotine dependence, cigarettes, uncomplicated; Z88.0 Allergy status to penicillin
CPT/HCPCS: 99212; A9270-GY; G0463

== ENCOUNTER → 2018-12-06 07:56 | Day surgery (SDC) | payer OTHER ==
[~2018-12-06 07:56] MED LIST changes: +Bacitracin OINTMENT* 0.5% 0.5 oz TUBE ONE; -Dexamethasone IV* 4 MG/ML 1 ML (4 MG) IV SLOW PU ONE; +Dexamethasone IV* 4 MG/ML 1 ML (4 MG) ONE; +DiMENhydriNATE IV* 50 MG/ML VIAL IV PUSH PRN; -Famotidine IV* 10 MG/ML 2 ML (20 mg) IV ONE; +Lidocaine 1% w EPI 1:100,000* MDV 20 ML VIAL ONE; +Lidocaine 2% PF * 5 ML VIAL ONE; +Lidocaine 4% TOPICAL* 50 ML TOP.SOLN ONE; +Metoclopramide IV* 5 MG/ML 2 ML VIAL ONE; +Midazolam* 1 MG/ML 2 ML VIAL (2 MG) ONE; +Naloxone* 0.4 MG/ML 1 ML VIAL IV PRN; +Ondansetron INJ* 2 MG/ML VIAL ONE; +Oxymetazoline 0.05% NASAL SPR* 15 ML BTL ONE; +Propofol* 10 MG/ML 20 ML BTL ONE; +Succinylcholine* 20 MG/ML 10 ML VIAL ONE; +fentaNYL* 50 MCG/ML 2 ML VIAL (100 MCG VIAL) ONE; +oxyCODONE TAB* 5 MG TAB ONE; +oxyCODONE TAB* 5 MG TAB PO PRN
[2018-12-06] MEDS: fentaNYL* 50 MCG/ML 2 ML VIAL (100 MCG VIAL) IV PRN ×3 (11:45→12:08)
[2018-12-06 13:00] VITALS: BP 120/85
--- NOTE | 2018-12-06 16:15 | OP ---
DATE OF OPERATION: 12/06/18 - [facility] DATE OF : 82 SURGEON: Figueroa Boyer MD GOVERNMENT AFFAIRS RESEARCHER: None. ANESTHESIA: General. PRE-OP DIAGNOSES: Deviated nasal septum and inferior turbinate hypertrophy. POST-OP DIAGNOSES: Deviated nasal septum and inferior turbinate hypertrophy. OPERATIVE PROCEDURE: Septoplasty with bilateral outfracture cautery of the inferior turbinates. ESTIMATED BLOOD LOSS: Less than 10 cc. SPECIMENS: None. Septal cartilage and bone was discarded. DESCRIPTION OF PROCEDURE: The patient was brought to the operating room. General anesthesia was induced and an oral endotracheal tube was placed. Time- out was performed and the patient was draped and pledgets soaked with Afrin and 4% lidocaine has been placed in both nasal cavities. Once adequate time had been allowed it for vaso-constriction, the procedure was began. 1% lidocaine with 1:100,000 epinephrine was infiltrated into both sides of nasal septum and both inferior turbinates. A left hemitransfixion incision was made with a #15 blade. A mucoperichondrial flap was elevated off of the septal cartilage and bone on the left side. There was some scaring and ulceration of some of the mucosa here and so a small fenestration was made in the flap. The quadrangular cartilage was then incised vertically and a right mucoperichondrial flap was elevated. Once the cartilage and bone was exposed, a Sandy Swivel Knife as well as double action Thru-cutter were used to resect portions of the septal cartilage and bone that were involved in deviation. A 4 mm osteotome was used to take down the maxillary crest. A large piece of septal cartilage was selected , morselized, and placed back between the mucoperichondrial flaps and sutured in position with 4-0 gut. The inferior turbinates were then infractured, multiple passes were made through each inferior turbinate with the Elmed bipolar device. They were then outfractured. The hemitransfixion incision was closed with chromic, and septal splints were applied and fixed with 4-0 Prolene. The patient was then returned to care of the of the anesthesiologist. A drip pad was applied. They were extubated and delivered to the PACU in stable condition. [id number]/[facility] #: [id number] [facility] HOSPITALSushma
== END | disposition home or self-care (01) ==
LOC: OR 07:56
PROVIDERS: ATTEND Otolaryngology
DX: J34.2 Deviated nasal septum (principal); J34.3 Hypertrophy of nasal turbinates; F17.210 Nicotine dependence, cigarettes, uncomplicated; Z88.0 Allergy status to penicillin; Z88.1 Allergy status to other antibiotic agents; R09.81 Nasal congestion
CPT/HCPCS: A9270-GY; J0330; J1100; J2250; J2405; J2704; J2765; J3010

== ENCOUNTER 2018-12-19 14:07 | Emergency (ER) | payer OTHER ==
--- OUTSIDE RECORDS SUMMARY | 2018-12-19 14:37 | XMS REPORT | Continuity of Care Document ---
:1980 External Reference #:[id number] Author Name Ilya Phoenix NP (transmitted by agent of provider Mary Whaley) Address [address] [place] [address] Care Team Providers Name Role Phone Nhung Sutton MD - Internal Medicine Care Team Information Adult Services Librarian Problems Active Problems Provider Date Postoperative hypothyroidism Lesvia Powers M.D. Onset: 04/19/2011 Tobacco user Lesvia Powers M.D. Onset: 04/19/2011 Depressive disorder Lesvia Powers M.D. Onset: 04/19/2011 Multiple joint pain Humza Martinez M.D. Onset: 07/11/2013 Disorder of thyroid gland Humza Martinez M.D. Onset: 07/11/2013 Social History Type Date Description Comments Sex Unknown Tobacco Use Start: Unknown Current Cigarette Smoker 5-10 Cigarettes Daily ETOH Use Denies alcohol use Tobacco Use Start: Unknown Patient is a current smoker, smokes every day Recreational Drug Use Denies Drug Use Tobacco Use Start: Unknown Light tobacco smoker (10 or fewer cigarettes/day) Smoking Status Reviewed: 11/09/18 Light tobacco smoker (10 or fewer cigarettes/day) Exercise Type/Frequency Exercises rarely walking Allergies, Adverse Reactions, Alerts Active Allergies Reaction Severity Comments Date Penicillin Tounge swells. 04/19/2011 Amoxicillin Anaphylaxis, Tounge swells. 04/19/2011 Seasonal-Fall To Winter 12/20/2016 Doxycycline Urticaria, Crawling Skin 11/08/2018 Medications Active Medications SIG Qnty Indications Ordering Date Provider Cetirizine HCL 1 by mouth every 90tabs Nhung Sutton MD 10/19/2018 10mg day Tablets Fluoxetine HCL (PMDD) 4 tablets by 120tabs Nhung Sutton MD 10/19/2018 mouth every day 20mg Tablets Venlafaxine HCL ER 1 by mouth every 30caps Nhung Sutton MD 10/19/2018 37.5mg day Caps ER 24HR Levothyroxine Sodium take 1 tablet by 90georgie Sutton MD 04/07/2018 mouth every day 200mcg Tablets in the morning Montelukast Sodium 1 by mouth every Unknown 10mg day Tablets Flonase Allergy Relief 2 sprays nasal Unknown twice a day 50mcg/Act Suspension History Medications Sulfamethoxazole/Trimethoprim DS take one 14tabs Nhung Sutton 10/04/2018 - 800-160mg Tablets tablet every MD 11/08/2018 12 hours Tramadol HCL 1-2 tablets 30tabs Edgar 06/26/2018 - 50mg Tablets by mouth MD Jordi 08/25/2018 every 6 hours as needed pain Medications Administered in Office Medication SIG Qnty Indications Ordering Provider Date CHEN Sutton MD 08/15/2018 Injection CHEN Powers M.D. 09/01/2011 Injection Immunizations CPT Code Status Date Vaccine Lot # [id number] Given 08/25/2018 Measles Mumps And Rubella MMR [id number] Given 10/28/2017 Influenza Virus Vaccine, Quadrivalent, Split, [id number] Preservative Free [id number] Given 01/20/2012 Fluvirin Im 3Yrs And Older 66636 Given 01/20/2012 Pneumonia Vaccine [id number] Given 09/01/2011 Hepatitis B Vaccine Adult Dosage [id number] 62840 Given 07/01/2011 Tdap - Tetanus/Diptheria/Acellular Pertussis [id number] Vital Signs Date Vital Result Comment 11/09/2018 10:13am Height 61.50 inches 5'1.50" Weight 179.12 lb Heart Rate 110 /min BP Systolic 134 mmHg BP Diastolic 83 mmHg Body Temperature 99.0 F O2 % BldC Oximetry 95 % BMI (Body Mass Index) 33.3 kg/m2 07/25/2018 10:01am Height 61.50 inches 5'1.50" Weight 182.00 lb Heart Rate 84 /min BP Systolic Sitting 114 mmHg BP Diastolic Sitting 76 mmHg Body Temperature 97.7 F O2 % BldC Oximetry 98 % BMI (Body Mass Index) 33.8 kg/m2 Results Test Date Facility Test Result H/L Range Note MMRV Immune 08/15/2018 [facility] Rubella Screen Immune Immune Status Profile, [address] [place] [address] [phone] Rubeola Measles 08/15/2018 [facility] Rubeola Negative 1 Igg AB [address] (Measles) [place] [address] Antibody [phone] Rubeola IgG Antibody Index 0.5 2 Mumps Igg 08/15/2018 [facility] Mumps Virus IgG Antibody Positive [address] [place], [place] [id number] [phone] Mumps IgG Antibody Index 1.6 4 Varicella Zoster 08/15/2018 [facility] Varicella-Zoster IgG Positive 5 Igg AB [address] Antibody [place], [place] [id number] [phone] Varicella IgG Antibody Index 7.3 6 Wound 07/21/2018 [facility] Wound/Misc SEE RESULT 7, 8 Culture/Sensi [address] [place] [address] Stain [phone] Laboratory test 07/21/2018 [facility] MRSA/S Aureus SEE RESULT [address] [place] [address] [phone] Laboratory test 07/13/2018 [facility] Stool Culture <pending> finding [address] [place], [place] [address] [phone] TSH (Thyroid Stim Horm) <pending> CBC Auto 05/16/2018 [facility] White Blood 5.7 10^3/uL Normal 3.5-10.[address] Count [place], [place] [address] [phone] Red Blood Count 5.01 10^6/uL High 3.70-4.87 Hemoglobin 14.3 g/dL Normal 12.0-16.0 Hematocrit 43 % High 33-41 Mean Corpuscular Volume 85 fL Normal 80-97 Mean Corpuscular Hemoglobin 29 pg Normal 27-31 Mean Corpuscular HGB Conc 34 g/dL Normal 31-36 Red Cell Distribution Width 14 % Normal 10.5-15 Platelet Count 358 10^3/uL Normal 150-450 Mean Platelet Volume 9.3 fL Normal 7.4-10.4 Abs Neutrophils 3.4 10^3/uL Normal 1.5-7.7 Abs Lymphocytes 1.7 10^3/uL Normal 1.0-4.8 Abs Monocytes 0.4 10^3/uL Normal 0-0.8 Abs Eosinophils 0.2 10^3/uL Normal 0-0.6 Abs Basophils 0 10^3/uL Normal 0-0.2 Abs Nucleated RBC 0 10^3/uL Granulocyte % 59.2 % Lymphocyte % 29.7 % Monocyte % 7.5 % Eosinophil % 2.7 % Basophil % 0.9 % Nucleated Red Blood Cells % 0.1 Laboratory 05/16/2018 [facility] TSH (Thyroid 1.29 Normal 0.34 -5.60 test finding [address] Stim Horm) mcIU/[place] [address] [phone] Comp Metabolic 05/16/2018 [facility] Sodium 134 mmol/L Low 135 -[address] [place] [address] [phone] Potassium 4.3 mmol/L Normal 3.5-5.0 Chloride 103 mmol/L Normal 101-111 Co2 Carbon Dioxide 25 mmol/L Normal 22-32 Anion Gap 6 mmol/L Normal 2-11 Glucose 88 mg/dL Normal 70-100 Blood Urea Nitrogen 15 mg/dL Normal 6-24 Creatinine 0.67 mg/dL Normal 0.51-0.95 BUN/Creatinine Ratio 22.4 High 8-20 Calcium 9.0 mg/dL Normal 8.6-10.3 Total Protein 7.5 g/dL Normal 6.4-8.9 Albumin 4.2 g/dL Normal 3.2-5.2 Globulin 3.3 g/dL Normal 2-4 Albumin/Globulin Ratio 1.3 Normal 1-3 Total Bilirubin 0.40 mg/dL Normal 0.2-1.0 Alkaline Phosphatase 96 U/L Normal 34-104 Alt 13 U/L Normal 7-52 Ast 14 U/L Normal 13-39 Egfr Non- 99.6 >60 Egfr 120.5 >60 10 1 REFERENCE VALUE Vaccinated: Positive (>=1.1 AI) Unvaccinated: Negative (<=0.8 AI) 2 Test Performed by: [facility] [employer] [address] [place] [address] 3 Results suggest response to immunization or prior exposure to the virus. REFERENCE VALUE Vaccinated: Positive (>=1.1 AI) Unvaccinated: Negative (<=0.8 AI) 4 Test Performed by: [facility] [employer] [address] [place] [address] 5 Results suggest response to immunization or prior exposure to the virus. REFERENCE VALUE Vaccinated: Positive (>=1.1 AI) Unvaccinated: Negative (<=0.8 AI) 6 Test Performed by: [facility] [employer] [address] [place] [address] 7 [id number] SEE RESULT BELOW Name: BRENDA RIVERA : [address]: Jina Carroll MD Acct: [id number] Unit: [id number] AGE: 37 Location: [facility] Re07/21/18 SEX: F Status: DEP ER SPEC: [id number] DUANE: 07/21/18-2202 [facility] DR: Jina Carroll MD REQ: [id number] RECD: 07/22/18 STATUS: RES [facility] DR: Nhung Sutton MD _ SOURCE: [facility]: ORDERED: Culture Stain COMMENTS: [id number] Procedure Result Reported Site Wound/Misc Gram Stain Preliminary 07/22/18 161 ML 4+ Neutrophils 2+ Epithelial Cells 1+ Gram Positive Cocci Wound/Misc Culture PENDING * ML - Main Lab . END OF REPORT DEPARTMENT OF PATHOLOGY, [address] [place] [address] Kenn He M.D. Director ELE # [id number] 9 SEE RESULT BELOW Name: BRENDA RIVERA : [address]: Jina Carroll MD Acct: [id number] Unit: [id number] AGE: 37 Location: [facility] Re07/21/18 SEX: F Status: DEP ER SPEC: [id number] DUANE: 07/21/18 [facility] [address]: Jina Carroll MD REQ: [id number] RECD: 07/22/18 STATUS: RAN DOZIER DR: Nhung Sutton MD _ [facility] ORDERED: MRSA/SA SSTI, Culture Stain COMMENTS: [id number] Verbal to [id number] by [id number] at 1825 on 07/22/18. Results read back accurately. Procedure Result Reported Site MRSA/S. aureus SSTI PCR Final 07/22/18- 1818 ML Organism 1 MRSA NEGATIVE Organism 2 S.AUREUS POSITIVE Wound/Misc Gram Stain Final 07/23/18- 52 ML 4+ Neutrophils 2+ Epithelial Cells 1+ Gram Positive Cocci Wound/Misc Culture Final 07/24/18- 1014 ML Organism 1 STAPHYLOCOCCUS AUREUS Quantity 2+ 1. STAPHYLOCOCCUS AUREUS M.I.C. RX --------- ------ Penicillin >=0.5 R Clindamycin <=0.25 S Erythromycin 0.5 S Gentamicin <=0.5 S Linezolid 2 S Oxacillin 0.5 S * Quinupristin/Dalfopristin <=0.25 S Rifampin <=0.5 S Tetracycline <=1 S Doxycycline - Deduced S * Minocycline - Deduced S CONTINUED ON NEXT PAGE DEPARTMENT OF PATHOLOGY, [address] [place] [address] Kenn He M.D. Director [facility] # [id number] Patient: BRENDA RIVERA [id number] (Continued) Specimen: [id number] Collected: 07/21/18-2202 Received: 07/22/18 (Continued) Procedure Result Reported Site Wound/Misc Culture Final (continued) 07/24/18- 1014 1. STAPHYLOCOCCUS AUREUS (continued) M.I.C. RX --------- ------ Trimethoprim/Sulfamethoxazole <=10 S Vancomycin 1 S Imipenem-Deduced S * Ampicillin/Sulbactam-Deduced S Cefazolin-Deduced S * These antibiotics are not available in the [facility] Formulary Contact the Microbiology Department for any additional antibiotic reporting. * - [facility] . END OF REPORT DEPARTMENT OF PATHOLOGY, [address] [place] [address] Kenn He M.D. Director [facility] # [id number] 10 Because ethnic data is not always [...] dialysis) Procedures Date Code Description Status 06/26/2018 37448 Endoscopy Wrist Surg W/Release Of Transverse Carpal Completed Ligament 06/26/2018 58708 Endoscopy Wrist Surg W/Release Of Transverse Carpal Completed Ligament Medical Devices Description No Information Available Encounters Type Date Location Provider Dx Diagnosis Office Visit 07/25/2018 Jonna Sutton MD L02.31 Cutaneous abscess 10:00a Medicine - Ccmob of buttock Office Visit 07/13/2018 Jonna Sutton MD R19.7 Diarrhea, 11:20a Medicine - Ccmob unspecified Office Visit 05/16/2018 [facility] Edgar Bacon G56.02 Carpal tunnel 2:30p at [place] MD syndrome, left upper limb Assessments Date Code Description Provider 11/09/2018 M25.50 Pain in unspecified joint Ilya Lizett, LIANNA 11/09/2018 M79.18 Myalgia, other site Ilyalayton Phoenix, LIANNA 11/09/2018 R53.83 Other fatigue Ilyalayton Phoenix, LIANNA 08/25/2018 Z23 Encounter for immunization Nurse Visit A 08/18/2018 Z11.1 Encounter for screening for respiratory Nurse Visit A tuberculosis 08/15/2018 Z11.1 Encounter for screening for respiratory Nhung Sutton MD tuberculosis 07/25/2018 L02.31 Cutaneous abscess of buttock Nhung Sutton MD 07/13/2018 R19.7 Diarrhea, unspecified Nhung Sutton MD 07/11/2018 G56.02 Carpal tunnel syndrome, left upper limb Edgar Bacon MD 07/11/2018 Z47.89 Encounter for other orthopedic aftercare Edgar Bacon MD 06/26/2018 G56.02 Carpal tunnel syndrome, left upper limb DEJA Sheth 06/26/2018 G56.02 Carpal tunnel syndrome, left upper limb Edgar Bacon MD 06/14/2018 G56.02 Carpal tunnel syndrome, left upper limb Edgar Bacon MD 05/17/2018 G56.02 Carpal tunnel syndrome, left upper limb Edgar Bacon MD 05/16/2018 G56.02 Carpal tunnel syndrome, left upper limb Edgar Bacon MD Plan of Treatment Future Appointment(s):12/22/2018 3:00 pm - Nhung Sutton MD at [facility] - [facility]11/09/2018 - Ilya Phoenix NPM25.50 Pain in unspecified jointComments:You can continue taking the ibuprofen 400mg every 8 hours. Have the bloodwork done soon.Follow up:RUPERTO: [facility] visit early AortrpqoaA59.18 Myalgia, other siteR53.83 Other fatigue Functional Status Description No Information Available Mental Status Description No Information Available Referrals Refer to Reason for Referral Status Appt Date Figueroa Boyer MD Received Partial [address] [place], [place] [id number] [phone]
--- OUTSIDE RECORDS SUMMARY | 2018-12-19 14:37 | XMS REPORT | Continuity of Care Document ---
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 04/19/2011 Amoxicillin Anaphylaxis, Tounge swells. 04/19/2011 Seasonal-Fall To Winter 12/20/2016 Doxycycline Urticaria, Crawling Skin 11/08/2018 Medications Active Medications SIG Qnty Indications Ordering Date Provider Nicotine apply one patch 14units Nhung Sutton, 11/28/2018 21mg/24HR Patches 24HR topically to MD skin every morning Fluoxetine HCL (PMDD) 3 by mouth every 90caps Nhung Sutton, 11/24/2018 20mg day and as MD Capsules needed Prednisone Take 10mg once 30tabs M32.10 Ranjan 11/23/2018 10mg Tablets daily MD Gentry Hydroxychloroquine take one tab by 120tabs M32.10 Ranjan 11/23/2018 Sulfate mouth daily for MD Gentry 200mg Tablets one week, then increase to one tab twice daily thereafter Cetirizine HCL 1 by mouth every 90tabs Nhung Sutton, 10/19/2018 10mg Tablets day Venlafaxine HCL ER 1 by mouth every 30caps Nhung Sutton, 10/19/2018 37.5mg Caps day ER 24HR Levothyroxine Sodium take 1 tablet by 90tabs Nhung Sutton, 04/07/2018 200mcg mouth every day Tablets in the morning Montelukast Sodium 1 by mouth every Unknown 10mg Tablets day Flonase Allergy Relief 2 sprays nasal Unknown twice a day 50mcg/Act Suspension History Medications Prednisone After completing 14tabs M06.4 Ranjan Rinaldi, 11/20/2018 - 5mg 10mg daily tabletsMD 12/14/2018 Tablets take one 5mg tab by mouth daily for two weeks Prednisone take 3 tabs by 20tajorge Sutton MD 11/14/2018 - 10mg mouth daily for 2 12/14/2018 Tablets days then 2 tabs daily for 2 days then stay on one tablet daily Fluoxetine HCL 4 tablets by mouth 120tabs Nhung Sutton MD 10/19/2018 - (PMDD) every day 11/24/2018 20mg Tablets Sulfamethoxazole/Tr take one tablet 14tajorge Sutton MD 10/04/2018 - imethoprim DS every 12 hours 11/08/2018 800-160mg Tablets Tramadol HCL 1-2 tablets by 30tabs Edgar Bacon 06/26/2018 - 50mg mouth every 6 hours 08/25/2018 Tablets as needed pain Medications Administered in Office Medication SIG Qnty Indications Ordering Provider Date CHEN Sutton MD 08/15/2018 Injection CHEN Powers M.D. 09/01/2011 Injection Immunizations CPT Code Status Date Vaccine Lot # [id number] Given 08/25/2018 Measles Mumps And Rubella MMR [id number] Given 10/28/2017 Influenza Virus Vaccine, Quadrivalent, Split, [id number] Preservative Free [id number] Given 01/20/2012 Fluvirin Im 3Yrs And Older 64999 Given 01/20/2012 Pneumonia Vaccine 01132 Given 09/01/2011 Hepatitis B Vaccine Adult Dosage [id number] Given 07/01/2011 Tdap - Tetanus/Diptheria/Acellular Pertussis [id number] Vital Signs Date Vital Result Comment 12/14/2018 8:46am Height 61.50 inches 5'1.50" Weight 186.00 lb Heart Rate 106 /min BP Systolic Sitting 121 mmHg BP Diastolic Sitting 78 mmHg Body Temperature 97.6 F O2 % BldC Oximetry 96 % BMI (Body Mass Index) 34.6 kg/m2 11/20/2018 9:39am Height 61.50 inches 5'1.50" Weight 185.00 lb Heart Rate 87 /min BP Systolic 113 mmHg BP Diastolic 74 mmHg Body Temperature 97.7 F Pain Level 0 O2 % BldC Oximetry 100 % BMI (Body Mass Index) 34.4 kg/m2 Results Test Acquired Date Facility Test Result H/L Range Note [place] Igg AB 11/20/2018 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 Complement C3 129 mg/dL 75 - 175 7 finding [address] [place] [address] [phone] Complement C4 24 mg/dL 14 - 40 8 Urinalysis Profile 11/20/2018 [facility] Urine Color Straw [address] [place] [address] [phone] Urine Appearance Clear Urine Specific [place] 1.006 Low 1.010-1.030 Urine pH 6.0 Normal 5-9 Urine Urobilinogen Negative Negative Urine Ketones Negative Negative Urine Protein Negative Negative Urine Leukocytes Negative Negative Urine Blood Negative Negative Urine Nitrite Negative Negative Urine Bilirubin Negative Negative Urine Glucose Negative Negative Laboratory test 11/20/2018 [facility] Erythrocyte Sed 40 mm/Hr High 0-[address] [place] [address] [phone] C Reactive Protein 13.16 mg/L High <8.01 Protein 11/20/2018 [facility] Total 7.5 g/dL 6.3 - Electrophoresis 101 Protein(Pep) 7.9 [place] [address] [phone] Albumin 3.3 g/dL Abnormal 3.4-4.7 Alpha-1 Globulin 0.3 g/dL 0.1-0.3 Alpha-2 Globulin 1.2 g/dL Abnormal 0.6-1.0 Beta Globulin 1.2 g/dL 0.7-1.2 Gamma Globulin 1.6 g/dL 0.6-1.6 Albumin/Globulin Ratio 0.78 Impression See Comment 9 Laboratory test 11/20/2018 [facility] Direct Marita NEGATIVE finding [address] [place] [address] [phone] Quantiferon-TB 11/20/2018 [facility] QuantiferonTb Negative Negative 10 Gold Plus 101 [place] [address] [phone] TB1 Ag minus Nil Result -0.02 IU/mL TB2 Ag minus Nil Result -0.02 IU/mL Mitogen minus Nil Result 5.61 IU/mL Nil Result 0.05 IU/mL Laboratory 11/20/2018 [facility] Hepatitis B Nonreactive Nonreactive test finding [address] [place] [address] [phone] Hepatitis B Fabienne AB Titer Immune Immune Hepatitis C Antibody 11/20/2018 [facility] HCV Index 0.21 s/c [address] [place] [address] [phone] Hepatitis C Antibody Negative Negative Celiac Panel 11/20/2018 [facility] Tissue Transglutaminase <1.2 U/mL 11 [place] [address] [phone] Immunoglobulin A 478 mg/dL Abnormal 61 - 356 Celiac Interpretation See Comment 12 Laboratory test 11/20/2018 [facility] Vitamin D 30.2 ng/mL Normal 20-50 13 finding 101 Total 25(Oh) [place] [address] [phone] Alkaline Phosphatase 128 U/L High 34-104 GGTP 34 U/L Normal 9-64.0 Laboratory test 11/09/2018 [facility] Cyclic Citrullinated < 15.6 U 14 [place] [address] [phone] Rheumatoid Factor 10 IU/mL Normal <15 Lyme Screen W/ Reflex To WB Negative Negative Nuclear AB 11/09/2018 [facility] Nuclear Ab Positive Abnormal 15 (Nat) By Ifa (Nat) by Ifa, 1:12[address] [place] [address] IgG [phone] Nat Titer: 1:1280 Nat Pattern: Speckled 16 Laboratory 11/09/2018 [facility] TSH (Thyroid 1.74 Normal 0.34 -5.60 test finding Stim Horm) mcIU/[place] [address] [phone] Free T4 (Free Thyroxine) 1.42 ng/dL High 0.61-1.12 Creatine Kinase(CK) 49 U/L Normal 10-223 C Reactive Protein 31.31 mg/L High <8.01 Erythrocyte Sed Rate 65 mm/Hr High 0-19 Comp Metabolic 11/09/2018 [facility] Sodium 136 mmol/L Normal 135-145 [place] [address] [phone] Potassium 4.3 mmol/L Normal 3.5-5.0 Chloride 105 mmol/L Normal 101-111 Co2 Carbon Dioxide 22 mmol/L Normal 22-32 Anion Gap 9 mmol/L Normal 2-11 Glucose 81 mg/dL Normal 70-100 Blood Urea Nitrogen 9 mg/dL Normal 6-24 Creatinine 0.66 mg/dL Normal 0.51-0.95 BUN/Creatinine Ratio 13.6 Normal 8-20 Calcium 9.1 mg/dL Normal 8.6-10.3 Total Protein 7.8 g/dL Normal 6.4-8.9 Albumin 4.2 g/dL Normal 3.2-5.2 Globulin 3.6 g/dL Normal 2-4 Albumin/Globulin Ratio 1.2 Normal 1-3 Total Bilirubin 0.30 mg/dL Normal 0.2-1.0 Alkaline Phosphatase 139 U/L High 34-104 Alt 14 U/L Normal 7-52 Ast 15 U/L Normal 13-39 Egfr Non- 101.3 >60 Egfr 122.6 >60 17 CBC Auto 11/09/2018 [facility] White Blood 7.1 10^3/uL Normal 3.5-10.[address] [place] [address] [phone] Red Blood Count 5.08 10^6/uL High 3.70-4.87 Hemoglobin 14.3 g/dL Normal 12.0-16.0 Hematocrit 43 % Normal 35-47 Mean Corpuscular Volume 84 fL Normal 80-97 Mean Corpuscular Hemoglobin 28 pg Normal 27-31 Mean Corpuscular HGB Conc 34 g/dL Normal 31-36 Red Cell Distribution Width 14 % Normal 10-15 Platelet Count 396 10^3/uL Normal 150-450 Mean Platelet Volume 8.6 fL Normal 7.4-10.4 Abs Neutrophils 4.5 10^3/uL Normal 1.5-7.7 Abs Lymphocytes 1.8 10^3/uL Normal 1.0-4.8 Abs Monocytes 0.5 10^3/uL Normal 0-0.8 Abs Eosinophils 0.2 10^3/uL Normal 0-0.6 Abs Basophils 0.0 10^3/uL Normal 0-0.2 Abs Nucleated RBC 0.0 10^3/uL Granulocyte % 63.6 % Lymphocyte % 26.1 % Monocyte % 7.6 % Eosinophil % 2.4 % Basophil % 0.3 % Nucleated Red Blood Cells % 0.1 MMRV Immune 08/15/2018 [facility] Rubella Screen Immune Immune Status Profile, [address] [place] [address] [phone] Rubeola Measles 08/15/2018 [facility] Rubeola Negative 18 Igg AB [address] (Measles) [place] [address] Antibody [phone] Rubeola IgG Antibody Index 0.5 19 Mumps Igg 08/15/2018 [facility] Mumps Virus IgG Antibody Positive [address] [place] [address] [phone] Mumps IgG Antibody Index 1.6 21 Varicella 08/15/2018 [facility] Varicella-Zoster IgG Positive 22 Zoster Igg AB [address] [place] [address] [phone] Varicella IgG Antibody Index 7.3 23 Wound 07/21/2018 [facility] Wound/Misc SEE RESULT 24, 25 Culture/Sensi [address] [place] [address] Stain [phone] Laboratory test 07/21/2018 [facility] MRSA/S Aureus SEE RESULT [address] [address] [phone] Laboratory test 07/13/2018 [facility] Stool Culture <pending> finding [address] [place] [address] [phone] TSH (Thyroid Stim Horm) <pending> 1 REFERENCE VALUE <1.0 (Negative) 2 REFERENCE VALUE <1.0 (Negative) 3 Interpretation: Positive (>=1.0) REFERENCE VALUE <1.0 (Negative) 4 Interpretation: Positive (>=1.0) REFERENCE VALUE <1.0 (Negative) 5 REFERENCE VALUE <1.0 (Negative) 6 REFERENCE VALUE <1.0 (Negative) Test Performed by: [facility] [place] [facility] [address] [place] [address] Project Admin: Jairon Piper M.D. Ph.D.; CLIA# [id number] 7 Test Performed by: [place] [address] Project Admin: Jairon Piper M.D. Ph.D.; CLIA# [id number] 8 Test Performed by: [place] [address] Project Admin: Jairon Piper M.D. Ph.D.; CLIA# [id number] 9 RESULT: No apparent monoclonal protein on serum electrophoresis. Test Performed by: [place] [address] Project Admin: Jairon Piper M.D. Ph.D.; CLIA# [id number] 10 M. tuberculosis infection NOT likely 11 REFERENCE VALUE <4.0 (Negative) Test Performed by: [facility] [address] Project Admin: Jairon Piper M.D. Ph.D.; CLIA# [id number] 12 Negative serology. Celiac disease unlikely. However, approximately 10% of patients with celiac disease are seronegative. Also, patients who are already adhering to a gluten-free diet may be seronegative. If celiac disease is highly clinically suspected, consider HLA-DQ typing. Test Performed by: [facility] [address] Project Admin: Jairon Piper M.D. Ph.D.; CLIA# [id number] 13 Total 25-Hydroxyvitamin D2 and D3 (25-OH-VitD) <10 ng/mL (severe deficiency) 10-19 ng/mL (mild to moderate deficiency) 20-50 ng/mL (optimum levels) 51-80 ng/mL (increased risk of hypercalciuria) >80 ng/mL (toxicity possible) 14 REFERENCE VALUE <20.0 (Negative) Test Performed by: [facility] [place] [address] Project Admin: Jairon Piper M.D. Ph.D.; CLIA# [id number] 15 REFERENCE VALUE <1:80 (Negative) 16 Test Performed by: [facility] [address] Project Admin: Jairon Piper M.D. Ph.D.; CLIA# [id number] 17 Because ethnic data is not always [...] 5 Kidney failure <15 (or dialysis) 18 REFERENCE VALUE Vaccinated: Positive (>=1.1 AI) Unvaccinated: Negative (<=0.8 AI) 19 Test Performed by: [place] [address] 20 Results suggest response to immunization or prior exposure to the virus. REFERENCE VALUE Vaccinated: Positive (>=1.1 AI) Unvaccinated: Negative (<=0.8 AI) 21 Test Performed by: [facility] [place] [employer] [address] [place] [address] 22 Results suggest response to immunization or prior exposure to the virus. REFERENCE VALUE Vaccinated: Positive (>=1.1 AI) Unvaccinated: Negative (<=0.8 AI) 23 Test Performed by: [facility] [place] [employer] [address] [place] [address] 24 [id number] 25 SEE RESULT BELOW Name: BRENDA RIVERA : [address]: Jina Carroll MD Acct: [id number] Unit: [id number] AGE: 37 Location: [facility] Re07/21/18 SEX: F Status: DEP ER SPEC: [id number] DUANE: 07/21/18-[address] [facility] [address]: Jina Carroll MD REQ: [id number] RECD: 07/22/18 STATUS: RES KRISTY DR: Nhung Sutton MD _ SOURCE: [facility]: ORDERED: Culture Stain COMMENTS: [id number] Procedure Result Reported Site Wound/Misc Gram Stain Preliminary 07/22/18- 4417 ML 4+ Neutrophils 2+ Epithelial Cells 1+ Gram Positive Cocci Wound/Misc Culture PENDING * ML - Main Lab . END OF REPORT DEPARTMENT OF PATHOLOGY, [address] [place] [address] Kenn He M.D. Director [facility] # [id number] 26 SEE RESULT BELOW Name: BRENDA RIVERA : [address]: Jina Carroll MD Acct: [id number] Unit: [id number] AGE: 37 Location: [facility] Re07/21/18 SEX: F Status: DEP ER SPEC: [id number] DUANE: 07/21/[address] [facility] [address]: Jina Carroll MD REQ: [id number] RECD: 07/22/18 STATUS: RAN DOZIER DR: Nhung Sutton MD _ [facility]: MRSA/SA SSTI, Culture Stain COMMENTS: [id number] Verbal to [id number] by [id number] at 1825 on 07/22/18. Results read back accurately. Procedure Result Reported Site MRSA/S. aureus SSTI PCR Final 07/22/18- 1818 ML Organism 1 MRSA NEGATIVE Organism 2 S.AUREUS POSITIVE Wound/Misc Gram Stain Final 07/23/18- 0652 ML 4+ Neutrophils 2+ Epithelial Cells 1+ [...] CONTINUED ON NEXT PAGE DEPARTMENT OF PATHOLOGY, [address] [place] [address] Kenn He M.D. Director [facility] # [id number] Patient: BRENDA RIVERA [id number] (Continued) Specimen: [id number] Collected: 07/21/18 Received: 07/22/18-1408 (Continued) Procedure Result Reported Site Wound/Misc Culture Final (continued) 07/24/18- 1014 1. STAPHYLOCOCCUS AUREUS (continued) M.I.C. RX --------- ------ Trimethoprim/Sulfamethoxazole <=10 S Vancomycin 1 S Imipenem-Deduced S * Ampicillin/Sulbactam-Deduced S Cefazolin-Deduced S * These antibiotics are not available in the [facility] Formulary Contact the Microbiology Department for any additional antibiotic reporting. * ML - Main Lab . END OF REPORT DEPARTMENT OF PATHOLOGY, [address] [place] [address] Kenn He M.D. Director [facility] # [id number] Procedures Date Code Description Status 06/26/2018 97649 Endoscopy Wrist Surg W/Release Of Transverse Carpal Completed Ligament 06/26/2018 97768 Endoscopy Wrist Surg W/Release Of Transverse Carpal Completed Ligament Medical Devices Description No Information Available Encounters Type Date Location Provider Dx Diagnosis Office Visit 11/20/2018 Rheumatology Ranjan Rinaldi, R76.0 Raised antibody 10:00a [facility] - titer [facility] M06.4 Inflammatory polyarthropathy R70.0 Elevated erythrocyte sedimentation rate R79.82 Elevated C-reactive protein (CRP) Office Visit 11/09/2018 10:20a [facility] Ilya Phoenix, M25.50 Pain in Medicine - [facility] 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 DETASSELER unspecified joint M79.18 Myalgia, other site R53.83 Other fatigue Office Visit 07/25/2018 10:00a [facility] Nhung Sutton, L02.31 [facility] Visit 07/13/2018 11:20a [facility] Nhung Sutton, R19.7 Diarrhea, Medicine - [facility] MD unspecified Assessments Date Code Description Provider 11/20/2018 R76.0 Raised antinuclear antibody Ranjan Rinaldi MD 11/20/2018 M06.4 Inflammatory polyarthropathy Ranjan Rinaldi MD 11/20/2018 R70.0 Esr raised Ranjan Rinaldi MD 11/20/2018 R79.82 Elevated C-reactive protein Ranjan Rinaldi MD 11/09/2018 M25.50 Pain in unspecified joint Ilya Lizett, CORN DETASSELER 11/09/2018 M79.18 Myalgia, other site Ilya Lizett, CORN DETASSELER 11/09/2018 R53.83 Other fatigue Ilya Lizett, CORN DETASSELER 08/25/2018 Z23 Encounter for immunization Nurse Visit [...] Edgar Bacon MD Plan of Treatment Future Appointment(s):02/15/2019 11:20 am - Nhung Sutton MD at [facility] Status Description No Information Available Mental Status Description No Information Available Referrals Refer to Dr Reason for Referral Status Appt Date Gentry Woodruff MD Sent 11/20/2018 [address], [place] [address] [phone]
--- OUTSIDE RECORDS SUMMARY | 2018-12-19 14:37 | XMS REPORT | Continuity of Care Document ---
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 Problems Active Problems Provider Date Otalgia Marcelino Hampton Onset: 11/23/2010 Temporomandibular joint disorder Marcelino Hampton Onset: 11/23/2010 Dysfunction of eustachian tube Marcelino Hampton Onset: 11/23/2010 Chronic rhinitis Denzel Aiken MD Onset: 11/23/2010 Chronic maxillary sinusitis Denzel Aiken MD Onset: 11/23/2010 Deviated nasal septum Denzel Aiken MD Onset: 11/23/2010 Dental caries extending into dentin Denzel Aiken MD Onset: 11/23/2010 Social History Type Date Description Comments Sex Unknown Tobacco Use Start: Unknown Current Cigarette Smoker Smoking for 19 years Cigarettes Daily 5-10 Tobacco Use Start: Unknown Never Smoked Cigars Tobacco Use Start: Unknown Never Smoked A Pipe Smokeless Tobacco Never Used Smokeless Tobacco ETOH Use Denies alcohol use Tobacco Use Start: Unknown Patient is a current smoker, smokes every day Smoking Status Reviewed: 11/28/18 Patient is a current smoker, smokes every day Allergies, Adverse Reactions, Alerts Active Allergies Reaction Severity Comments Date Penicillin rash 12/12/2009 Amoxicillin rash 12/12/2009 Doxycycline Hyclate 12/05/2018 Medications Active Medications SIG Qnty Indications Ordering Date Provider Percocet 1-2 tabs by mouth 24tabs Figueroa Joiner 12/05/2018 5-325mg Tablets every 4-6 hours MD Merlin as needed for pain Doxycycline Hyclate take 1 tablet by 14caps Figueroa Joiner 12/05/2018 100mg mouth twice a day MD Merlin Capsules Keflex 1 by mouth 4 28caps Figueroa Joiner 12/05/2018 500mg Capsules times a day MD Merlin Imitrex take 1 pill as 6tabs G43.109 Figueroa Joiner 07/11/2018 100mg Tablets needed for MD Merlin headache. may repeat once if headache persists at 2 hours/ Montelukast Sodium 1 by mouth every 30tabs G43.109 Figueroa Joiner 07/11/2018 10mg Tablets day MD Merlin Levothyroxine Sodium Unknown Cetirizine HCL Nhung Sutton, 10mg Tablets Fluoxetine HCL Unknown 20mg Capsules Ventolin HFA Unknown 108(90Base) mcg/Act Aerosol Fluticasone Propionate Use 2 [place](S) In Unknown Each Nostril Once 50mcg/Act Suspension Daily Hydroxychloroquine Take One Tablet Unknown Sulfate By Mouth Daily 200mg Tablets For One Week, Then Increase To One Tablet Twice Daily Thereafter Prednisone Please See Unknown 10mg Tablets Attached For Detailed Directions Venlafaxine HCL ER Take 1 Capsule By Unknown 37.5mg Caps Mouth Every Day ER 24HR Immunizations Description No Information Available Vital Signs Date Vital Result Comment 11/28/2018 10:28am Weight 180.00 lb Weight 81.648 kg Height 62 inches 5'2" Height in cm's 157.5 cm BMI (Body Mass Index) 32.9 kg/m2 09/08/2018 11:24am Weight 180.00 lb Weight 81.648 kg Height 62 inches 5'2" Height in cm's 157.5 cm BMI (Body Mass Index) 32.9 kg/m2 Results Description No Information Available Procedures Date Code Description Status 12/06/2018 19247 Cautery Of Turbinates/Intramural Completed 12/06/2018 23836 Septoplasty Completed 09/08/2018 49864 Nasal Endoscopy, Diagnostic Completed Medical Devices Description No Information Available Encounters Type Date Location Provider Dx Diagnosis Office Visit 11/28/2018 Nnada Kelley J34.2 Deviated nasal 10:15a 02/14/07 MD Merlin septum J34.3 Hypertrophy of nasal turbinates R09.81 Nasal congestion Office Visit 09/08/2018 10:00a [facility],After 02/14/07 Holly Dubon 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 PA-C pain J32.9 Chronic sinusitis, unspecified J34.1 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 G43.109 Migraine with aura, not intractable, w/o status migrainosus Office Visit 07/11/2018 10:15a [place],After 02/14/07 Holly Dubon 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 PA-C pain J32.9 Chronic sinusitis, unspecified J34.1 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 G43.109 Migraine with aura, not intractable, w/o status migrainosus Assessments Date Code Description Provider 12/14/2018 J34.2 Deviated nasal septum Figueroa Boyer MD 12/14/2018 J34.3 Hypertrophy of nasal turbinates Figueroa Boyer MD 12/06/2018 J34.2 Deviated nasal septum Figueroa Boyer MD 12/06/2018 J34.3 Hypertrophy of nasal turbinates Figueroa Boyer MD 11/28/2018 J34.2 Deviated nasal septum Figueroa Boyer MD 11/28/2018 J34.3 Hypertrophy of nasal turbinates Figueroa Boyer MD 11/28/2018 R09.81 Nasal congestion Figueroa Boyer MD 09/08/2018 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 pain Holly Dubon PA-C 09/08/2018 J32.9 Chronic sinusitis, unspecified Holly Dubon PA-C 09/08/2018 J34.1 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 AKHIL Callahan 09/08/2018 G43.109 Migraine with aura, not intractable, without Holly Dubon PA-C status migraino 07/11/2018 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 pain Holly Dubon PA-C 07/11/2018 J32.9 Chronic sinusitis, unspecified Holly Dubon PA-C 07/11/2018 J34.1 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 AKHIL Callahan 07/11/2018 G43.109 Migraine with aura, not intractable, without Holly Dubon PA-C status migraino Plan of Treatment Future Appointment(s):01/04/2019 9:30 am - Figueroa Boyer MD at [place], After 02/14/809 - Figueroa Boyer MDJ34.2 Deviated nasal jvwdclL97.3 Hypertrophy of nasal turbinates Functional Status Description No Information Available Mental Status Description No Information Available Referrals Description No Information Available
--- OUTSIDE RECORDS SUMMARY | 2018-12-19 14:37 | XMS REPORT | Continuity of Care Document ---
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 04/19/2011 Amoxicillin Anaphylaxis, Tounge swells. 04/19/2011 Seasonal-Fall To Winter 12/20/2016 Doxycycline Urticaria, Crawling Skin 11/08/2018 Medications Active Medications SIG Qnty Indications Ordering Date Provider Prednisone After completing 14tabs M06.4 Ranjan Rinaldi, 11/20/2018 5mg Tablets 10mg daily tablets, take one 5mg tab by mouth daily for two weeks Prednisone take 3 tabs by 20tabs Nhung Herman, MD 11/14/2018 10mg Tablets mouth daily for 2 days then 2 tabs daily for 2 days then stay on one tablet daily Cetirizine HCL 1 by mouth every 90tabs Nhung Sutton MD 10/19/2018 10mg day Tablets Fluoxetine HCL (PMDD) 4 tablets by mouth 120tabs Nhung Sutton MD 2018 every day 20mg Tablets Venlafaxine HCL ER 1 by mouth every 30caps Nhung Sutton MD 10/19/2018 day 37.5mg Caps ER 24HR Levothyroxine Sodium take 1 tablet by 90georgie Sutton MD 04/07/2018 mouth every day in 200mcg Tablets the morning Montelukast Sodium 1 by mouth every Unknown 10mg day Tablets Flonase Allergy 2 sprays nasal Unknown Relief twice a day 50mcg/Act Suspension History Medications Sulfamethoxazole/Trimethoprim DS take one 14tabs Nhung Sutton 10/04/2018 - 800-160mg Tablets tablet every MD 11/08/2018 12 hours Tramadol HCL 1-2 tablets 30tabs Edgar 06/26/2018 - 50mg Tablets by mouth MD Jordi 08/25/2018 every 6 hours as needed pain Medications Administered in Office Medication SIG Qnty Indications Ordering Provider Date CHEN Sutton MD 08/15/2018 Injection PPD Lesvia Powers M.D. 09/01/2011 Injection Immunizations CPT Code Status Date Vaccine Lot # [id number] Given 08/25/2018 Measles Mumps And Rubella MMR [id number] Given 10/28/2017 Influenza Virus Vaccine, Quadrivalent, Split, [id number] Preservative Free [id number] Given 01/20/2012 Fluvirin Im 3Yrs And Older 87580 Given 01/20/2012 Pneumonia Vaccine 05750 Given 09/01/2011 Hepatitis B Vaccine Adult Dosage [id number] 45247 Given 07/01/2011 Tdap - Tetanus/Diptheria/Acellular Pertussis [id number] Vital Signs Date Vital Result Comment 11/20/2018 9:39am Height 61.50 inches 5'1.50" Weight 185.00 lb Heart Rate 87 /min BP Systolic 113 mmHg BP Diastolic 74 mmHg Body Temperature 97.7 F Pain Level 0 O2 % BldC Oximetry 100 % BMI (Body Mass Index) 34.4 kg/m2 11/09/2018 10:13am Height 61.50 inches 5'1.50" Weight 179.12 lb Heart Rate 110 /min BP Systolic 134 mmHg BP Diastolic 83 mmHg Body Temperature 99.0 F O2 % BldC Oximetry 95 % BMI (Body Mass Index) 33.3 kg/m2 Results Test Date Facility Test Result H/L Range Note CBC Auto 11/09/2018 [facility] White Blood 7.1 10^3/uL Normal 3.5-10.[address] [place] [address] [phone] Red Blood Count 5.08 10^6/uL High 3.70-4.87 [...] % Nucleated Red Blood Cells % 0.1 Comp Metabolic 11/09/2018 [facility] Sodium 136 mmol/L Normal 135-[address] [place] [address] [phone] Potassium 4.3 mmol/L Normal 3.5-5.0 Chloride 105 [...] Egfr Non- 101.3 >60 Egfr 122.6 >60 1 Laboratory 11/09/2018 [facility] TSH (Thyroid 1.74 Normal 0.34 -5.60 test finding Stim Horm) mcIU/mL [place], [place] [id number] [phone] Free T4 (Free Thyroxine) 1.42 ng/dL High 0.61-1.12 Creatine Kinase(CK) 49 U/L Normal 10-223 C Reactive Protein 31.31 mg/L High <8.01 Erythrocyte Sed Rate 65 mm/Hr High 0-19 Nuclear AB 11/09/2018 [facility] Nuclear Ab Positive Abnormal 2 (Nat) By Ifa (Nat) by Ifa, 1:[address] [place] [address] IgG [phone] Nat Titer: 1:1280 Ant Pattern: Speckled 3 Laboratory test 11/09/2018 [facility] Cyclic Citrullinated < 15.6 U [address] [place] [address] [phone] Rheumatoid Factor 10 IU/mL Normal <15 Lyme Screen W/ Reflex To WB Negative Negative MMRV Immune 08/15/2018 [facility] Rubella Screen Immune Immune Status Profile, [place] [address] [phone] Rubeola Measles 08/15/2018 [facility] Rubeola Negative 5 Igg AB (Measles) [place] [address] Antibody [phone] Rubeola IgG Antibody Index 0.5 6 Mumps Igg 08/15/2018 [facility] Mumps Virus IgG Antibody Positive [address] [place] [address] [phone] Mumps IgG Antibody Index 1.6 8 Varicella Zoster 08/15/2018 [facility] Varicella-Zoster IgG Positive 9 Igg [address] Antibody [place], [place] [address] [phone] Varicella IgG Antibody Index 7.3 10 Wound 07/21/2018 [facility] Wound/Misc SEE RESULT 11, 12 Culture/Sensi [address] [place] [address] Stain [phone] Laboratory test 07/21/2018 [facility] MRSA/S Aureus SEE RESULT [address] [place] [address] [phone] Laboratory test 07/13/2018 [facility] Stool Culture <pending> finding [address] [place] [address] [phone] TSH (Thyroid Stim Horm) <pending> 1 Because ethnic data is not always [...] 5 Kidney failure <15 (or dialysis) 2 REFERENCE VALUE <1:80 (Negative) 3 Test Performed by: [facility] [address] [place] [address] Electroencephalographic Technician: Jairon Piper M.D. Ph.D.; [place]# [id number] 4 REFERENCE VALUE <20.0 (Negative) Test Performed by: [facility] [place] [address] Electroencephalographic Technician: Jairon Piper M.D. Ph.D.; [facility]# [id number] 5 REFERENCE VALUE Vaccinated: Positive (>=1.1 AI) Unvaccinated: Negative (<=0.8 AI) 6 Test Performed by: [facility] [place] [address] 7 Results suggest response to immunization or prior exposure to the virus. REFERENCE VALUE Vaccinated: Positive (>=1.1 AI) Unvaccinated: Negative (<=0.8 AI) 8 Test Performed by: [facility] [place] [address] 9 Results suggest response to immunization or prior exposure to the virus. REFERENCE VALUE Vaccinated: Positive (>=1.1 AI) Unvaccinated: Negative (<=0.8 AI) 10 Test Performed by: [facility] [place] [address] 11 [id number] 12 SEE RESULT BELOW Name: BRENDA RIVERA : [address]: Jina Carroll MD Acct: [id number] Unit: [id number] AGE: 37 Location: [facility] Re07/21/18 SEX: F Status: DEP ER SPEC: [id number] DUANE: 07/21/18-[address]: Jina Carroll MD REQ: [id number] RECD: 07/22/18 STATUS: RES [facility] DR: Nhung Sutton MD _ SOURCE: [facility] SPDC: ORDERED: Culture Stain COMMENTS: [id number] Procedure Result Reported Site Wound/Misc Gram Stain Preliminary 07/22/18- 1617 ML 4+ Neutrophils 2+ Epithelial Cells 1+ Gram Positive Cocci Wound/Misc Culture PENDING * - Main Lab . END OF REPORT DEPARTMENT OF PATHOLOGY, [address] [place] [address] Kenn He M.D. Director [facility] # [id number] 13 SEE RESULT BELOW Name: BRENDA RIVERA : [address]: Jina Carroll MD Acct: [id number] Unit: [id number] AGE: 37 Location: [facility] Re07/21/18 SEX: F Status: DEP ER SPEC: [id number] DUANE: 07/21/18-220[address] [facility] [address]: Jina Carroll MD REQ: [id number] RECD: 07/22/180063 STATUS: RAN DOZIER DR: Nhung Sutton MD _ SOURCE: [facility] SPDESC: ORDERED: MRSA/SA SSTI, Culture Stain COMMENTS: [id number] Verbal to [id number] by [id number] at 1825 on 07/22/18. Results read back [...] CONTINUED ON NEXT PAGE DEPARTMENT OF PATHOLOGY, [address] [place] [address] Kenn He M.D. Director [facility] # [id number] Patient: BRENDA RIVERA [id number] (Continued) Specimen: [id number] Collected: 07/21/18 Received: 07/22/18 (Continued) Procedure Result Reported Site Wound/Misc Culture Final (continued) 07/24/18- 1014 1. STAPHYLOCOCCUS AUREUS (continued) M.I.C. RX --------- ------ Trimethoprim/Sulfamethoxazole <=10 S Vancomycin 1 S Imipenem-Deduced S * Ampicillin/Sulbactam-Deduced S Cefazolin-Deduced S * These antibiotics are not available in the [facility] Formulary Contact the Microbiology Department for any additional antibiotic reporting. * ML - Main Lab . END OF REPORT DEPARTMENT OF PATHOLOGY, [address] [place] [address] Kenn He M.D. Director [facility] # [id number] Procedures Date Code Description Status 06/26/2018 00791 Endoscopy Wrist Surg W/Release Of Transverse Carpal Completed Ligament 06/26/2018 35539 Endoscopy Wrist Surg W/Release Of Transverse Carpal Completed Ligament Medical Devices Description No Information Available Encounters Type Date Location Provider Dx Diagnosis Office Visit 11/09/2018 [facility] Internal Ilya Phoenix NP M25.50 Pain in unspecified 10:20a Medicine - Ccmob joint M79.18 Myalgia, other site R53.83 Other fatigue Office Visit 07/25/2018 10:00a [facility] Internal Nhung Sutton, L02.31 Cutaneous abscess Medicine - Levob of buttock Office Visit 07/13/2018 11:20a [facility] Internal Nhung Sutton, R19.7 Diarrhea, Medicine - Ccmob MD unspecified Assessments Date Code Description Provider 11/20/2018 R76.0 Raised antinuclear antibody Ranjan Rinaldi MD 11/20/2018 M06.4 Inflammatory polyarthropathy Ranjan Rinaldi MD 11/20/2018 R70.0 Esr raised Ranjan Rinaldi MD 11/20/2018 R79.82 Elevated C-reactive protein Ranjan Rinaldi MD 11/09/2018 M25.50 Pain in unspecified joint Ilya Phoenix NP 11/09/2018 M79.18 Myalgia, other site Ilya Phoenix NP 11/09/2018 R53.83 Other fatigue Ilya Phoenix NP 08/25/2018 Z23 Encounter for immunization Nurse Visit A 08/18/2018 Z11.1 Encounter for screening for respiratory Nurse Visit A tuberculosis 08/15/2018 Z11.1 Encounter for screening for respiratory Nhung Sutton MD tuberculosis 07/25/2018 L02.31 Cutaneous abscess of buttock Nhung Stuton MD 07/13/2018 R19.7 Diarrhea, unspecified Nhung Sutton [...] Edgar Bacon MD Plan of Treatment Future Appointment(s):12/04/2018 8:00 am - Ranjan Rinaldi MD at [facility]12/22/2018 3:00 pm - Nhung Sutton MD at [facility] Internal Medicine - [facility]11/20/2018 - Ranjan Rinaldi, MDR76.0 Raised antinuclear antibodyFollow up:f/u 2-3 lpnnjD05.4 Inflammatory polyarthropathyNew Medication: Prednisone 5 mg - After completing 10mg daily tablets, take one 5mg tab by mouth daily for two xuxfaP28.0 Esr hrtlmxU56.82 Elevated C-reactive protein Functional Status Description No Information Available Mental Status Description No Information Available Referrals Refer to Reason for Referral Status Appt Date Gentry Woodruff MD Sent 11/20/2018 [address], [address] [place] [address] [phone]
--- OUTSIDE RECORDS SUMMARY | 2018-12-19 14:37 | XMS REPORT | Continuity of Care Document ---
:1980 External Reference #:[id number] Author Name Ranjan Rinaldi MD (transmitted by agent of provider Mary Whaley) Address [address] [place] [address] Care Team Providers Name Role Phone Nhung Sutton MD - Internal Medicine Care Team Information Pourer Bull Ladle [phone] Problems Active Problems Provider Date Postoperative hypothyroidism [...] CPT Code Status Date Vaccine Lot # [id number] Given 08/25/2018 Measles Mumps And Rubella MMR [id number] Given 10/28/2017 Influenza Virus Vaccine, Quadrivalent, Split, [id number] Preservative Free [id number] Given 01/20/2012 Fluvirin Im 3Yrs And Older 33443 Given 01/20/2012 Pneumonia Vaccine 19300 Given 09/01/2011 Hepatitis B Vaccine Adult Dosage [id number] Given 07/01/2011 Tdap - Tetanus/Diptheria/Acellular Pertussis [id number] Vital Signs Date Vital Result Comment 12/14/2018 9:06am Height 61.50 inches 5'1.50" Weight 186.00 lb Heart Rate 98 /min BP Systolic 121 mmHg BP Diastolic 77 mmHg Body Temperature 97.3 F Pain Level 1 O2 % BldC Oximetry 97 % BMI (Body Mass Index) 34.6 kg/m2 12/14/2018 8:46am Height 61.50 inches 5'1.50" Weight 186.00 lb Heart Rate 106 /min BP Systolic Sitting 121 mmHg BP Diastolic Sitting 78 mmHg Body Temperature 97.6 F O2 % BldC Oximetry 96 % BMI (Body Mass Index) 34.6 kg/m2 Results Test Acquired Date Facility Test Result H/L Range Note [place] Igg AB 11/20/2018 [facility] SS-A/Ro Antibody <0.2 U 1 Reflex [address] [place] [address] [phone] SS-B/La Antibody <0.2 U 2 Sm (Ortiz) IgG Antibody 5.3 U Abnormal 3 MANAGER NC Antibody, IgG >8.0 U Abnormal 4 Scl-70 (Scleroderma) Antibody <0.2 U 5 Moni-1 Antibody <0.2 U 6 Laboratory test 11/20/2018 [facility] Complement C3 129 mg/dL 75 - 175 7 finding [address] [place] [address] [phone] Complement C4 24 mg/dL 14 - 40 8 Urinalysis Profile 11/20/2018 [facility] Urine Color Straw [address] [place] [address] [phone] Urine Appearance Clear Urine Specific [place] 1.006 Low 1.010-1.030 Urine pH 6.0 Normal 5-9 Urine Urobilinogen Negative Negative Urine Ketones Negative Negative Urine Protein Negative Negative Urine Leukocytes Negative Negative Urine Blood Negative Negative Urine Nitrite Negative Negative Urine Bilirubin Negative Negative Urine Glucose Negative Negative Laboratory test 11/20/2018 [facility] Erythrocyte Sed 40 mm/Hr High 0-[address] [place] [address] [phone] C Reactive Protein 13.16 mg/L High <8.01 Protein 11/20/2018 [facility] Total 7.5 g/dL 6.3 - Electrophoresis 101 Protein(Pep) 7.9 [place] [address] [phone] Albumin 3.3 g/dL Abnormal 3.4-4.7 Alpha-1 Globulin 0.3 g/dL 0.1-0.3 Alpha-2 Globulin 1.2 g/dL Abnormal 0.6-1.0 Beta Globulin 1.2 g/dL 0.7-1.2 Gamma Globulin 1.6 g/dL 0.6-1.6 Albumin/Globulin Ratio 0.78 Impression See Comment 9 Laboratory test 11/20/2018 [facility] Direct Marita NEGATIVE finding [address] [place] [address] [phone] Quantiferon-TB 11/20/2018 [facility] QuantiferonTb Negative Negative 10 Gold Plus [address] [place] [address] [phone] TB1 Ag minus Nil Result -0.02 IU/mL TB2 Ag minus Nil Result -0.02 IU/mL Mitogen minus Nil Result 5.61 IU/mL Nil Result 0.05 IU/mL Laboratory 11/20/2018 [facility] Hepatitis B Nonreactive Nonreactive test finding [address] [place] [address] [phone] Hepatitis B Fabienne AB Titer Immune Immune Hepatitis C Antibody 11/20/2018 [facility] HCV Index 0.21 s/c [address] [place] [address] [phone] Hepatitis C Antibody Negative Negative Celiac Panel 11/20/2018 [facility] Tissue Transglutaminase <1.2 U/mL 11 [place] [address] [phone] Immunoglobulin A 478 mg/dL Abnormal 61 - 356 Celiac Interpretation See Comment 12 Laboratory test 11/20/2018 [facility] Vitamin D 30.2 ng/mL Normal 20-50 13 finding 101 Total 25(Oh) [place] [address] [phone] Alkaline Phosphatase 128 U/L High 34-104 GGTP 34 U/L Normal 9-64.0 Laboratory test 11/09/2018 [facility] Cyclic Citrullinated < 15.6 U 14 [place] [address] [phone] Rheumatoid Factor 10 IU/mL Normal <15 Lyme Screen W/ Reflex To WB Negative Negative Nuclear AB 11/09/2018 [facility] Nuclear Ab Positive Abnormal 15 (Nat) By Ifa (Nat) by Ifa, 1:[address] [place] [address] IgG [phone] Nat Titer: 1:1280 Nat Pattern: Speckled 16 Laboratory 11/09/2018 [facility] TSH (Thyroid 1.74 Normal 0.34 -5.60 test finding Stim Horm) mcIU/[place] [address] [phone] Free T4 (Free Thyroxine) 1.42 ng/dL High 0.61-1.12 Creatine Kinase(CK) 49 U/L Normal 10-223 C Reactive Protein 31.31 mg/L High <8.01 Erythrocyte Sed Rate 65 mm/Hr High 0-19 Comp Metabolic 11/09/2018 [facility] Sodium 136 mmol/L Normal 135-145 [place] [address] [phone] Potassium 4.3 mmol/L Normal 3.5-5.0 Chloride 105 [...] Egfr 122.6 >60 17 CBC Auto 11/09/2018 [facility] White Blood 7.1 10^3/uL Normal 3.5-10.[address] [place] [address] [phone] Red Blood Count 5.08 10^6/uL High 3.70-4.87 [...] Blood Cells % 0.1 MMRV Immune 08/15/2018 [facility] Rubella Screen Immune Immune Status Profile, [address] [place] [address] [phone] Rubeola Measles 08/15/2018 [facility] Rubeola Negative 18 Igg AB [address] (Measles) [place] [address] Antibody [phone] Rubeola IgG Antibody Index 0.5 19 Mumps Igg 08/15/2018 [facility] Mumps Virus IgG Antibody Positive [address] [place] [address] [phone] Mumps IgG Antibody Index 1.6 21 Varicella 08/15/2018 [facility] Varicella-Zoster IgG Positive 22 Zoster Igg AB [address] [place] [address] [phone] Varicella IgG Antibody Index 7.3 23 Wound 07/21/2018 [facility] Wound/Misc SEE RESULT 24, 25 Culture/Sensi [address] [place] [address] Stain [phone] Laboratory test 07/21/2018 [facility] MRSA/S Aureus SEE RESULT [address] [place] [address] [phone] Laboratory test 07/13/2018 [facility] Stool Culture <pending> finding [address] [place] [address] [phone] TSH (Thyroid Stim Horm) <pending> 1 REFERENCE VALUE <1.0 (Negative) 2 REFERENCE VALUE <1.0 (Negative) 3 Interpretation: Positive (>=1.0) REFERENCE VALUE <1.0 (Negative) 4 Interpretation: Positive (>=1.0) REFERENCE VALUE <1.0 (Negative) 5 REFERENCE VALUE <1.0 (Negative) 6 REFERENCE VALUE <1.0 (Negative) Test Performed by: [facility] [employer] [address] [place] [address] Printing Film Stripper: Jairon Piper M.D. Ph.D.; CLIA# [id number] 7 Test Performed by: [facility] [address] Print[employer] Film Stripper: Jairon Piper M.D. Ph.D.; CLIA# [id number] 8 Test Performed by: [facility] [address] Printing Film Stripper: Jairon Piper M.D. Ph.D.; CLIA# [id number] 9 RESULT: No apparent monoclonal protein on serum electrophoresis. Test Performed by: [facility] [address] Printing Film Stripper: Jairon Piper M.D. Ph.D.; CLIA# [id number] 10 M. tuberculosis infection NOT likely 11 REFERENCE VALUE <4.0 (Negative) Test Performed by: [facility] [address] Printing Film [employer]pper: Jairon Piper M.D. Ph.D.; CLIA# [id number] 12 Negative serology. Celiac disease unlikely. However, approximately 10% of patients with celiac disease are seronegative. Also, patients who are already adhering to a gluten-free diet may be seronegative. If celiac disease is highly clinically suspected, consider HLA-DQ typing. Test Performed by: [facility] [address] Printing Film [employer]pper: Jairon Piper M.D. Ph.D.; CLIA# [id number] 13 Total 25-Hydroxyvitamin D2 and D3 (25-OH-VitD) <10 ng/mL (severe deficiency) 10-19 ng/mL (mild to moderate deficiency) 20-50 ng/mL (optimum levels) 51-80 ng/mL (increased risk of hypercalciuria) >80 ng/mL (toxicity possible) 14 REFERENCE VALUE <20.0 (Negative) Test Performed by: [facility] [employer] [place] [address] Print[employer] Film [employer]pper: Jairon Piper M.D. Ph.D.; CLIA# [id number] 15 REFERENCE VALUE <1:80 (Negative) 16 Test Performed by: [facility] [address] [employer]: Jairon Piper M.D. Ph.D.; CLIA# [id number] 17 Because ethnic data is not always [...] Negative (<=0.8 AI) 19 Test Performed by: [facility] [address] 20 Results suggest response to immunization or prior exposure to the virus. REFERENCE VALUE Vaccinated: Positive (>=1.1 AI) Unvaccinated: Negative (<=0.8 AI) 21 Test Performed by: [facility] [employer] [address] [place] [address] 22 Results suggest response to immunization or prior exposure to the virus. REFERENCE VALUE Vaccinated: Positive (>=1.1 AI) Unvaccinated: Negative (<=0.8 AI) 23 Test Performed by: [facility] [employer] [address] [place] [address] 24 [id number] 25 SEE RESULT BELOW Name: BRENDA TOLEDO : [address]: Jina Carroll MD Acct: [id number] Unit: [id number] AGE: 37 Location: [facility] Re07/21/18 SEX: F Status: DEP ER SPEC: [id number] DUANE: 07/21/18-2202 [facility] DR: Jina Carroll MD REQ: [id number] RECD: 07/22/18 STATUS: RES KRISTY DR: Nhung Sutton MD _ SOURCE: [facility]: ORDERED: Culture Stain COMMENTS: [id number] Procedure Result Reported Site Wound/Misc Gram Stain Preliminary 07/22/18- 7757 ML 4+ Neutrophils 2+ Epithelial Cells 1+ Gram Positive Cocci Wound/Misc Culture PENDING * ML - Main Lab . END OF REPORT DEPARTMENT OF PATHOLOGY, [address] [place] [address] Kenn He M.D. Director [facility] # [id number] 26 SEE RESULT BELOW Name: RBENDA TOLEDO : [address]: Jina Carroll MD Acct: [id number] Unit: [id number] AGE: 37 Location: [facility] Re07/21/18 SEX: F Status: DEP ER SPEC: [id number] DUANE: 07/21/18 [facility] DR: Jina Carroll MD REQ: [id number] RECD: 07/22/18 STATUS: RAN DOZIER DR: Nhung Sutton MD _ [facility] ORDERED: MRSA/SA SSTI, Culture Stain COMMENTS: [id number] Verbal to [id number] by [id number] at 1825 on 07/22/18. Results read back [...] CONTINUED ON NEXT PAGE DEPARTMENT OF PATHOLOGY, [address] [place] [address] Kenn He M.D. Director [facility] # [id number] Patient: BRENDA TOLEDO [id number] (Continued) Specimen: [id number] Collected: 07/21/18 Received: 07/22/18-1408 (Continued) Procedure Result Reported Site Wound/Misc Culture Final (continued) 07/24/18- 1014 1. STAPHYLOCOCCUS AUREUS (continued) M.I.C. RX --------- ------ Trimethoprim/Sulfamethoxazole <=10 S Vancomycin 1 S Imipenem-Deduced S * Ampicillin/Sulbactam-Deduced S Cefazolin-Deduced S * These antibiotics are not available in the [facility] Formulary Contact the Microbiology Department for any additional antibiotic reporting. * ML - Main Lab . END OF REPORT DEPARTMENT OF PATHOLOGY, [address] [place] [address] Kenn He M.D. Director [facility] # [id number] Procedures Date Code Description Status 06/26/2018 28023 Endoscopy Wrist Surg W/Release Of Transverse Carpal Completed Ligament 06/26/2018 48910 Endoscopy Wrist Surg W/Release Of Transverse Carpal [...] [place], M25.50 Pain in Medicine - [facility] [employer]AKER MOUNTER unspecified joint M79.18 Myalgia, other site R53.83 Other fatigue Office Visit 07/25/2018 10:00a [facility] Internal Nhung Sutton, L02.31 [facility]aneous [facility] buttock Office Visit 07/13/2018 11:20a [facility] Internal Nhung Sutton, R19.7 Diarrhea, [facility] Assessments Date Code Description Provider 12/14/2018 M32.9 Systemic lupus erythematosus Ranjan Rinaldi MD 12/14/2018 Z91.89 Taking high risk medication Ranjan Rinaldi MD 11/20/2018 R76.0 Raised antinuclear antibody Ranjan Rinaldi MD 11/20/2018 M06.4 Inflammatory polyarthropathy Ranjan Rinaldi MD 11/20/2018 R70.0 Esr raised Ranjan Rinaldi MD 11/20/2018 R79.82 Elevated C-reactive protein Ranjan Rinaldi MD 11/09/2018 M25.50 Pain in unspecified joint Ilya Lizett, SPEAKER MOUNTER 11/09/2018 M79.18 Myalgia, other site Ilya Lizett, SPEAKER MOUNTER 11/09/2018 R53.83 Other fatigue Ilya Lizett, SPEAKER MOUNTER 08/25/2018 Z23 Encounter for immunization Nurse Visit [...] Edgar Bacon MD Plan of Treatment Future Appointment(s):01/25/2019 10:00 am - Ranjan Rinaldi MD at [facility]02/15/2019 11:20 am - Nhung Sutton MD at [facility] Internal Medicine - [facility]12/14/2018 - Ranjan Rinaldi, MDM32.9 Systemic lupus erythematosusReferral:Brando Villela MD, OphthalmologyFollow up:f/u 6-8 wnpudG24.89 Taking high risk medication Functional Status Description No Information Available Mental Status Description No Information Available Referrals Refer to Dr Reason for Referral Status Appt Date Brando Villela MD Plaquenil started for new SLE diagnosis; Created please eval with baseline plaquenil eye screen. [address] [place] [address] [phone] Gentry Woodruff MD Sent 11/20/2018 [address], [address] [place], [place] [address] [phone]
--- OUTSIDE RECORDS SUMMARY | 2018-12-19 14:37 | XMS REPORT | Continuity of Care Document ---
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 may repeat once if headache persists at 2 hours/ Montelukast Sodium 1 by mouth every 30tabs G43.109 Figueroa Joiner 07/11/2018 10mg Tablets day MD Merlin Levothyroxine Sodium Unknown Cetirizine HCL Nhung Sutton, 10mg Tablets Fluoxetine HCL Unknown 20mg Capsules Doxycycline Hyclate Take 1 Capsule By Unknown 100mg Mouth Twice Daily Capsules For 10 Days Ventolin HFA Unknown 108(90Base) mcg/Act Aerosol Fluticasone Propionate Use 2 Gunpowder(S) In Unknown Each Nostril Once 50mcg/Act Suspension [...] Information Available Procedures Date Code Description Status 09/08/2018 68082 Nasal Endoscopy, Diagnostic Completed Medical Devices Description No Information Available Encounters Type Date Location Provider Dx Diagnosis Office Visit 11/28/2018 Allie,Nanda Joiner J34.2 Deviated nasal 10:15a 02/14/07 MD Merlin septum J34.3 Hypertrophy of nasal turbinates R09.81 Nasal congestion Office Visit 09/08/2018 10:00a Allie,After 02/14/07 Holly Dubon 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 PA-C pain J32.9 Chronic sinusitis, unspecified J34.1 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 G43.109 Migraine with aura, not intractable, w/o status migrainosus Office Visit 07/11/2018 10:15a Allie,After 02/14/07 Holly Dubon 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 PA-C pain J32.9 Chronic sinusitis, unspecified J34.1 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 G43.109 Migraine with aura, not intractable, w/o status migrainosus Office Visit 06/08/2018 10:00a [place],After 02/14/07 Holly Dubon 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 PA-C pain J32.9 Chronic sinusitis, unspecified J34.1 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 Assessments Date Code Description Provider 11/28/2018 J34.2 Deviated nasal septum Figueroa Boyer MD 11/28/2018 J34.3 Hypertrophy of nasal turbinates Figueroa Boyer MD 11/28/2018 R09.81 Nasal congestion Figueroa Boyer MD 09/08/2018 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 pain Holly Dubon PA-C 09/08/2018 J32.9 Chronic sinusitis, unspecified Holly Dubon PA-C 09/08/2018 J34.1 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 AKHIL Callahan C 09/08/2018 G43.109 Migraine with aura, not intractable, without Holly Dubon PA-C status migraino 07/11/2018 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 pain Holly Dubon PA-C 07/11/2018 J32.9 Chronic sinusitis, unspecified Holly Dubon PA-C 07/11/2018 J34.1 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 AKHIL Callahan 07/11/2018 G43.109 Migraine with aura, not intractable, without Holly Dubon PA-C status migraino 06/08/2018 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 pain Holly Dubon PA-C 06/08/2018 J32.9 Chronic sinusitis, unspecified Holly Dubon PA-C 06/08/2018 J34.1 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 AKHIL Callahan Plan of Treatment Future Appointment(s):12/14/2018 11:30 am - Figueroa Boyer MD at [place], After 02/14/809 8:15 am - Figueroa Boyer MD at [facility] O R1 - Figueroa Boyer MDJ34.2 Deviated nasal roivtgD27.3 Hypertrophy of nasal vnmgxuvzlwW09.81 Nasal congestion Functional Status Description No Information Available Mental Status Description No Information Available Referrals Description No Information Available
--- NOTE | 2018-12-19 14:39 | UC ---
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 States had shweta surgery 2 weeks ago. Pt is s/p - Septoplasty with bilateral outfracture cautery of the inferior turbinates (Dr. Libby Boyer 12/06/18) C/o on and off fever, cough (green sputum), sore throat, body aches all over, mild h/a since yesterday. Sx started abruptly. No rash. No GI issues, but + loss of appetite. No issues reported. Cough is significant. Has hx rad. No hemoptysis. - History of Current Complaint Stated Complaint: FLULIKE SYMPTOMS Time Seen by Provider: 12/19/18 14:38 Hx Obtained From: Patient Hx Last Menstrual Period: hyster - Allergy/Home Medications Allergies/Adverse Reactions: Allergies Allergy/AdvReac Type Severity Reaction Status Date / Time Penicillins Allergy Severe Anaphylatic Verified 12/19/18 14:40 Shock amoxicillin Allergy Intermediate Rash Verified 12/19/18 14:40 doxycycline Allergy Hives Verified 12/19/18 14:40 PMH/Surg Hx/FS Hx/Imm Hx Previously Healthy: Yes - Surgical History Surgical History: Yes Surgery Procedure, Year, and Place: thyroidectomy 2008,tubal ligation-2006, hysterectomy 2008. Cholecystectomy 2012. RIGHT CARPAL TUNNEL RELEASE, left carpal tunnel - Family History Known Family History: Positive: Cardiac Disease - grandparents, Hypertension, Diabetes - mother, Other - HLD - Social History Alcohol Use: None Substance Use Type: None Substance Use Comment - Amount & Last Used: clean 3 years Smoking Status (MU): Light Every Day Tobacco Smoker Type: Cigarettes Amount Used/How Often: SMOKING 3 CIGS A DAY USING PATCH SO HAVE CUT DOWN ON SMOKING Length of Time of Smoking/Using Tobacco: Since Age 16 Have You Smoked in the Last Year: Yes Household Exposure Type: Cigarettes - Immunization History Most Recent Influenza Vaccination: 01/05/17 Most Recent Tetanus Shot: had it, but is unsure on what year - she thinks 3 yrs ago. Most Recent Pneumonia Vaccination: 2010 Review of Systems All Other Systems Reviewed And Are Negative: Yes Constitutional: Positive: Fatigue Skin: Positive: Negative Eyes: Positive: Negative ENT: Positive: Sore Throat, Nasal Discharge Respiratory: Positive: Cough Cardiovascular: Positive: Negative Gastrointestinal: Positive: Negative Genitourinary: Positive: Negative Motor: Positive: Negative Neurovascular: Positive: Negative Musculoskeletal: Positive: Myalgia Neurological: Positive: Negative Psychological: Positive: Negative Is Patient Immunocompromised?: No Physical Exam Triage Information Reviewed: Yes Appearance: Well-Nourished - sitting up, conversing easily. looks tired, but nad Vital Signs Reviewed: Yes Eye Exam: Normal ENT: Positive: Pharyngeal erythema, Uvula midline, Other - TM clear au No oropharyngeal sores / exudates noted. Neck exam: Normal Neck: Positive: Supple, Nontender, No Lymphadenopathy Respiratory Exam: Normal Respiratory: Positive: Chest non-tender, Lungs clear, Normal breath sounds, No respiratory distress, No accessory muscle use Cardiovascular Exam: Normal Cardiovascular: Positive: RRR, No Murmur, Pulses Normal, Brisk Capillary Refill Abdominal Exam: Normal Abdomen Description: Positive: Nontender Bowel Sounds: Positive: Present Musculoskeletal Exam: Normal - moves x 4 ext's Neurological Exam: Normal - grossly nonfocal Psychological Exam: Normal - conversing easily and appropriately Skin Exam: Normal - no visible or reported rash nondiaphoretic. Course/Dx - Course Course Of Treatment: RST - Influenza - Reviewed coa / tx plan. Declines karen flores, they don't work. Needs refill albuterol inhaler, but not albuterol for nebulizer. Questions as posed answered to the best of my ability. - Diagnoses Provider Diagnosis: Bronchitis Discharge ED - Sign-Out/Discharge Documenting (check all that apply): Patient Departure All imaging exams completed and their final reports reviewed: No Studies - Discharge Plan Condition: Stable Disposition: HOME Prescriptions: Albuterol HFA INHALER* [Ventolin HFA Inhaler*] 1 - 2 puff INH Q6H PRN #1 mdi PRN Reason: Wheezing Azithromyxin SURAJ (NF) [Z-Suraj (Zithromax) 250 mg tabs #6] 2 tab PO .TODAY, THEN 1 DAILY #6 tab Patient Education Materials: Acute Bronchitis (ED), Bronchospasm (ED) Forms: *Work Release Referrals: Ilya Phoenix, [employer] NAVIGATION INSTALLER [Primary Care Provider] - Additional Instructions: Hydrate. Follow up with your primary care physician, per routine. Seek immediate medical attention for worse or new problems. - Billing Disposition and Condition Condition: STABLE Disposition: Home
[2018-12-19 14:40] VITALS: BP 120/66
[2018-12-19 15:11] LABS: Influenza A Molecular NEGATIVE (Negative); Influenza B Molecular NEGATIVE (Negative)
== END 2018-12-19 15:34 | disposition home or self-care (01) ==
LOC: UCCORT 14:07
DX: J40 Bronchitis, not specified as acute or chronic (principal); Z88.1 Allergy status to other antibiotic agents; Z88.0 Allergy status to penicillin; F17.210 Nicotine dependence, cigarettes, uncomplicated
CPT/HCPCS: 87651; 99212; G0463

== ENCOUNTER 2019-01-13 11:35 | Emergency (ER) | payer OTHER ==
[2019-01-13 13:32] VITALS: BP 123/56
--- NOTE | 2019-01-13 13:56 | UC ---
Dental HPI - HPI Summary HPI Summary: 38 y/o female presents to the urgent care c/o left upper jaw pain since yesterday. Pt has dentures and hand all her teeth extracted 10 years ago. She removed her denture last night due to pain. Pain is 7/10 specially w/ chewing. She feels a discrete bump in that area. Pt denies fever, trismus, SOB, MOHAN, dizziness, SOB, chest pain, abdominal pain, N/V/D. - History of Current Complaint Chief Complaint: UCDentalProblem Stated Complaint: ORAL COMPLAINT Time Seen by Provider: 01/13/19 13:54 Hx Obtained From: Patient Hx Last Menstrual Period: hyster Onset/Duration: Gradual Onset, Lasting Days - 1 day, Still Present, Worse Since - today Severity: Moderate Pain Intensity: 7 Pain Scale Used: 0-10 Numeric Aggravating Factor(s): Chewing Alleviating Factor(s): Nothing Related History: Swelling - mild - Allergies/Home Medications Allergies/Adverse Reactions: Allergies Allergy/AdvReac Type Severity Reaction Status Date / Time Penicillins Allergy Severe Anaphylatic Verified 01/13/19 13:22 Shock amoxicillin Allergy Intermediate Rash Verified 01/13/19 13:22 doxycycline Allergy Hives Verified 01/13/19 13:22 Home Medications: Home Medications predniSONE TAB* [Deltasone 10 MG TAB*] 10 mg PO DAILY 01/13/19 [History Confirmed 01/13/19] PMH/Surg Hx/FS Hx/Imm Hx Previously Healthy: Yes Endocrine History: Hypothyroidism Respiratory History: Asthma Psychological History: Depression - Surgical History Surgical History: Yes Surgery Procedure, Year, and Place: thyroidectomy 2008,tubal ligation-2006, hysterectomy 2008. Cholecystectomy 2012. RIGHT CARPAL TUNNEL RELEASE, left carpal tunnel. septoplasty 11/2018 - Family History Known Family History: Positive: Cardiac Disease - grandparents, Hypertension, Diabetes - mother, Other - HLD - Social History Occupation: Employed Full-time Lives: With Family Alcohol Use: None Substance Use Type: None Substance Use Comment - Amount & Last Used: clean 3 years Smoking Status (MU): Former Smoker Type: Cigarettes Amount Used/How Often: SMOKING 3 CIGS A DAY USING PATCH SO HAVE CUT DOWN ON SMOKING Length of Time of Smoking/Using Tobacco: Since Age 16 Have You Smoked in the Last Year: Yes When Did the Patient Quit Smoking/Using Tobacco: 11/28/18 Household Exposure Type: Cigarettes - Immunization History Most Recent Influenza Vaccination: 01/05/17 Most Recent Tetanus Shot: had it, but is unsure on what year - she thinks 3 yrs ago. Most Recent Pneumonia Vaccination: 2010 Review of Systems All Other Systems Reviewed And Are Negative: Yes Constitutional: Positive: Negative Skin: Positive: Negative Eyes: Positive: Negative ENT: Positive: Dental Pain - left upper jaw Respiratory: Positive: Negative Cardiovascular: Positive: Negative Gastrointestinal: Positive: Negative Genitourinary: Positive: Negative Motor: Positive: Negative Neurovascular: Positive: Negative Musculoskeletal: Positive: Negative Neurological: Positive: Negative Psychological: Positive: Negative Is Patient Immunocompromised?: No Physical Exam - Summary Physical Exam Summary: Vital Signs Reviewed: Yes General: Well-Appearing, Well-Nourished female sitting in the examining table w /o any respiratory or pain distress Eyes: Positive: Conjunctiva Clear - PERRLA, EOMI, ENT: Positive: Normal ENT inspection, Hearing grossly normal, Pharynx normal, TMs normal - B/L external ear canals clear,. Negative: Tonsillar swelling, Tonsillar exudate, Trismus Dental: Positive: NO teeth. At the positiion of molars #14 w/ gingival swelling and erythema, tender to percussion. w/ positive anterior Cervical Lymphadenopathy. Neck: Positive: Supple Respiratory: Positive: Chest non-tender, Lungs clear, Normal breath sounds, No respiratory distress Cardiovascular: Positive: RRR, No Murmur, Pulses Normal, Brisk Capillary Refill Abdomen Description: Positive: Nontender, No Organomegaly, Soft. Negative: CVA Tenderness (R), CVA Tenderness (L) Bowel Sounds: Positive: Present Musculoskeletal: Positive: Strength Intact, ROM Intact, No Edema Neurological Exam: Normal Psychological Exam: Normal Skin Exam: Normal Triage Information Reviewed: Yes Vital Signs: Initial Vital Signs Temp 97.2 F 01/13/19 13:24 Pulse 80 01/13/19 13:24 Resp 24 01/13/19 13:24 BP 123/56 01/13/19 13:24 Pulse Ox 100 01/13/19 13:24 Dental Complaint Course/Dx - Course Course Of Treatment: 38 y/o female presents to the urgent care c/o left upper jaw pain since yesterday. Pt has dentures and hand all her teeth extracted 10 years ago. She removed her denture last night due to pain. Pain is 7/10 specially w/ chewing. She feels a discrete bump in that area. Pt denies fever, trismus, SOB, MOHAN, dizziness, SOB, chest pain, abdominal pain, N/V/D. Pt with possible dental abscess at the position of molar #14, no teeth on examination. Pt states she can 't taken any NSAIDs since she is taken Prednisone PO and hydroxochloroquine PO. Pt Rx Clindamycin PO and Tylenol PO as directed below. Advised to apply cold compresses. Pt strongly advised to f/u with Dentist as soon as possible for further evaluation and treatment. D/C instructions explained. Pt understood and agreed with plan of care. - Differential Dx/Diagnosis Differential Diagnosis/Dx: Dental Abscess, Dental Caries, Odontogenic Pain, Peridontic Disease, Peritonsillar Abcess Provider Diagnosis: Dental abscess Discharge ED - Sign-Out/Discharge Documenting (check all that apply): Patient Departure - D/C home All imaging exams completed and their final reports reviewed: No Studies - Discharge Plan Condition: Stable Disposition: HOME Prescriptions: Acetaminophen TAB* [Tylenol TAB*] 650 mg PO Q6H PRN #30 tab PRN Reason: dental pain Clindamycin Cap(NF) [Clindamycin Cap 300 mg Cap(NF)] 300 mg PO TID #30 cap Patient Education Materials: Dental Abscess (ED) Referrals: Nhung Sutton MD [Primary Care Provider] - 3 Days Additional Instructions: 1-Please take full course of antibiotics to avoid resistance. 2- Take Tylenol PO q6hrs prn as instructed after meals to alleviate pain and swelling. 3- F/u with your Dentist or Dental List provided as soon as possible for further treatment. 4- If symptoms do not improve or worsen please return to the urgent care or f/u with your PCP for further evaluation and treatment - Billing Disposition and Condition Condition: STABLE Disposition: Home
== END 2019-01-13 14:16 | disposition home or self-care (01) ==
LOC: UCCORT 11:35
DX: K04.7 Periapical abscess without sinus (principal); Z88.0 Allergy status to penicillin; Z88.1 Allergy status to other antibiotic agents; J45.909 Unspecified asthma, uncomplicated; Z87.891 Personal history of nicotine dependence
CPT/HCPCS: 99212; G0463

== ENCOUNTER 2019-02-08 12:59 | Emergency (ER) | payer OTHER ==
--- OUTSIDE RECORDS SUMMARY | 2019-02-08 14:37 | XMS REPORT | Continuity of Care Document ---
:1980 External Reference #:[id number] Author Name Ranjan Rinaldi MD (transmitted by agent of provider Beti Lynn) Address [address] [place] [address] Care Team Providers Name Role Phone Nhung Sutton MD - Internal Medicine Care Team Information Delphi Programmer [phone] Problems Active Problems Provider Date Postoperative hypothyroidism Lesvia Powers M.D. Onset: 04/19/2011 Tobacco user Lesvia Powers M.D. Onset: 04/19/2011 Depressive disorder Lesvia Powres M.D. Onset: 04/19/2011 Multiple joint pain Humza Martinez M.D. Onset: 07/11/2013 Disorder of thyroid gland Humza Martinez M.D. Onset: 07/11/2013 Systemic lupus erythematosus Nhung Sutton MD Onset: 01/16/2019 Social History Type Date Description Comments Sex Unknown Tobacco Use Start: Unknown Current Cigarette Smoker 5-10 Cigarettes Daily ETOH Use Denies alcohol use Recreational Drug Use Denies Drug Use Tobacco Use Start: Unknown End: Patient is a former smoker Unknown Smoking Status Reviewed: 01/25/19 Patient is a former smoker Exercise Type/Frequency Exercises rarely walking Allergies, Adverse Reactions, Alerts Active Allergies Reaction Severity Comments Date Penicillin Tounge swells. 04/19/2011 Amoxicillin Anaphylaxis, Tounge swells. 04/19/2011 Seasonal-Fall To Winter 12/20/2016 Doxycycline Urticaria, Crawling Skin 11/08/2018 Medications Active Medications SIG Qnty Indications Ordering Date Provider Prednisone Take two tabs by 90tabs M32.9 Ranjan 01/25/2019 5mg Tablets mouth daily until MD Gentry 02/03, then take 5mg plus 4 1mg tabs (9mg daily) for two weeks, 8mg daily for 2 weeks Prednisone take in 240tabs M32.9 Ranjan 01/25/2019 1mg Tablets combination with MD Gentry 5mg tab to take total 9mg daily for 2 weeks, 8mg daily for 2 weeks Prednisone 10mg for 13 days Ranjan 01/16/2019 10mg Tablets then will go to MD Gentry 9mg for 14 days Fluoxetine HCL (PMDD) 3 by mouth every 90caps Nhung Sutton, 11/24/2018 20mg day and as needed Capsules Hydroxychloroquine take one tab by 120tabs M32.10 Ranjan 11/23/2018 Sulfate mouth daily for MD Gentry 200mg Tablets one week, then increase to one tab twice daily thereafter Cetirizine HCL 1 by mouth every 90tabs Nhung Sutton, 10/19/2018 10mg Tablets day Venlafaxine HCL ER 1 by mouth every 30caps Nhung Sutton, 10/19/2018 37.5mg day Caps ER 24HR Levothyroxine Sodium take 1 tablet by 90tabs Nhung Sutton, 04/07/2018 200mcg mouth every day Tablets in the morning Flonase Allergy Relief 2 sprays nasal Unknown twice a day 50mcg/Act Suspension Montelukast Sodium 1 by mouth every Unknown 10mg day Tablets History Medications Prednisone Take in 240tabs Ranjan 01/10/2019 - 1mg Tablets combination with MD Gentry 01/16/2019 5mg tab to take total 9mg daily for two weeks, 8mg daily for two weeks, 7mg daily for two weeks, 6mg for 2 wks Methocarbamol Take 1 Tablet 60tabs S76.011 Ilya Phoenix NP 12/28/2018 - 750mg Every Eight Hours A 01/16/2019 Tablets as Needed For Pain. May Take Second Tablet If First Not Effective. Diflucan take one tablet 2tabs Nhung Sutton, 12/18/2018 - 150mg Tablets today; repeat in 2 MD 12/27/2018 days Nicotine apply one patch 14units Nhung Sutton, 11/28/2018 - 21mg/24HR topically to skin 01/16/2019 Patches 24HR every morning Prednisone Take 10mg once 30tabs M32.10 Ranjan 11/23/2018 - 10mg Tablets daily MD Gentry 12/27/2018 Prednisone Take one and half 60tabs M06.4 Ranjan 11/20/2018 - 5mg Tablets tabs daily. MD Gentry 01/16/2019 Prednisone take 3 tabs by 20tabs Nhung Sutton, 11/14/2018 - 10mg Tablets mouth daily for 2 12/14/2018 days then 2 tabs daily for 2 days then stay on one tablet daily Fluoxetine HCL (PMDD) 4 tablets by mouth 120tabs Nhung Sutton, 10/19/2018 - every day 11/24/2018 20mg Tablets Sulfamethoxazole/Trim take one tablet 14tabs Nhung Sutton, 10/04/2018 - ethoprim DS every 12 hours 11/08/2018 800-160mg Tablets Medications Administered in Office Medication SIG Qnty Indications Ordering Provider Date CHEN Sutton MD 08/15/2018 Injection CHEN Powers M.D. 09/01/2011 Injection Immunizations CPT Code Status Date Vaccine Reaction Lot # [id number] Given 01/16/2019 Influenza Virus Vaccine, No immediate reaction [id number] Quadrivalent ([id number]), Derived From Cell 55508 Given 08/25/2018 Measles Mumps And Rubella [id number] MMR 99078 Given 10/28/2017 Influenza Virus Vaccine, [id number] Quadrivalent, Split, Preservative Free [id number] Given 01/20/2012 Fluvirin Im 3Yrs And Older 31576 Given 01/20/2012 Pneumonia Vaccine [id number] Given 09/01/2011 Hepatitis B Vaccine Adult [id number] Dosage 89573 Given 07/01/2011 Tdap - [id number] Tetanus/Diptheria/Acellular Pertussis Vital Signs Date Vital Result Comment 01/25/2019 9:51am Height 61.50 inches 5'1.50" Weight 196.00 lb Heart Rate 92 /min BP Systolic 123 mmHg BP Diastolic 79 mmHg Body Temperature 98.7 F Pain Level 6 O2 % BldC Oximetry 96 % BMI (Body Mass Index) 36.4 kg/m2 01/16/2019 11:12am Height 61.50 inches 5'1.50" Weight 193.00 lb Heart Rate 90 /min BP Systolic Sitting 117 mmHg BP Diastolic Sitting 69 mmHg Body Temperature 98.1 F O2 % BldC Oximetry 97 % BMI (Body Mass Index) 35.9 kg/m2 Results Test Acquired Date Facility Test Result H/L Range Note Laboratory test 12/19/2018 [facility] Rapid Strep Negative Negative [address] [place] [address] [phone] Rapid Influenza 12/19/2018 [facility] Influenza A NEGATIVE Negative 2 A & B Molecular [address] [place] [address] [phone] Influenza B Molecular NEGATIVE Negative Laboratory test 11/20/2018 [facility] Vitamin D 30.2 ng/mL Normal 20-[address] Total 25(Oh) [place] [address] [phone] Alkaline Phosphatase 128 U/L High 34-104 GGTP 34 U/L Normal 9-64.0 Celiac Panel 11/20/2018 [facility] Tissue Transglutaminase <1.2 U/mL [address] [place] [address] [phone] Immunoglobulin A 478 mg/dL Abnormal 61 - 356 Celiac Interpretation See Comment 5 Hepatitis C Antibody 11/20/2018 [facility] HCV Index 0.21 s/c [address] [place] [address] [phone] Hepatitis C Antibody Negative Negative Laboratory 11/20/2018 [facility] Hepatitis B Nonreactive Nonreactive test finding [address] [place] [address] [phone] Hepatitis B Fabienne AB Titer Immune Immune Quantiferon-TB 11/20/2018 [facility] QuantiferonTb Negative Negative [address] [place] [address] [phone] TB1 Ag minus Nil Result -0.02 IU/mL TB2 Ag minus Nil Result -0.02 IU/mL Mitogen minus Nil Result 5.61 IU/mL Nil Result 0.05 IU/mL Laboratory test 11/20/2018 [facility] Direct NEGATIVE finding [address] [place] [address] [phone] Protein 11/20/2018 [facility] Total 7.5 g/dL 6.3 - Electrophoresis [address] Protein(Pep) 7.9 [place] [address] [phone] Albumin 3.3 g/dL Abnormal 3.4-4.7 Alpha-1 Globulin 0.3 g/dL 0.1-0.3 Alpha-2 Globulin 1.2 g/dL Abnormal 0.6-1.0 Beta Globulin 1.2 g/dL 0.7-1.2 Gamma Globulin 1.6 g/dL 0.6-1.6 Albumin/Globulin Ratio 0.78 Impression See Comment 7 Laboratory test 11/20/2018 [facility] Erythrocyte Sed 40 mm/Hr High 0-[address] [place] [address] [phone] C Reactive Protein 13.16 mg/L High <8.01 Urinalysis Profile 11/20/2018 [facility] Urine Color Straw [address] [place] [address] [phone] Urine Appearance Clear Urine Specific Sullivan 1.006 Low 1.010-1.030 Urine pH 6.0 Normal 5-9 Urine Urobilinogen Negative Negative Urine Ketones Negative Negative Urine Protein Negative Negative Urine Leukocytes Negative Negative Urine Blood Negative Negative Urine Nitrite Negative Negative Urine Bilirubin Negative Negative Urine Glucose Negative Negative Laboratory test 11/20/2018 [facility] Complement C3 129 mg/dL 75 - 175 [address] [place] [address] [phone] Complement C4 24 mg/dL 14 - 40 9 Gardenia Igg AB Reflex 11/20/2018 [facility] SS-A/Ro Antibody <0.2 U [address] [place] [address] [phone] SS-B/La Antibody <0.2 U 11 Sm (Ortiz) IgG Antibody 5.3 U Abnormal 12 CLINICAL CYTOGENETICIST SCIENTIST Antibody, IgG >8.0 U Abnormal 13 Scl-70 (Scleroderma) Antibody <0.2 U 14 Moni-1 Antibody <0.2 U 15 CBC Auto 11/09/2018 [facility] White Blood 7.1 10^3/uL Normal 3.5-10.[address] [place] [address] [phone] Red Blood Count 5.08 10^6/uL High 3.70-4.87 [...] Blood Cells % 0.1 Comp Metabolic 11/09/2018 [facility] Sodium 136 mmol/L Normal 135-[address] [place] [address] [phone] Potassium 4.3 mmol/L Normal 3.5-5.0 Chloride 105 [...] Egfr Non- 101.3 >60 Egfr 122.6 >60 16 Laboratory 11/09/2018 [facility] TSH (Thyroid 1.74 Normal 0.34 -5.60 test finding [address] Stim Horm) mcIU/[place] [address] [phone] Free T4 (Free Thyroxine) 1.42 ng/dL High 0.61-1.12 Creatine Kinase(CK) 49 U/L Normal 10-223 C Reactive Protein 31.31 mg/L High <8.01 Erythrocyte Sed Rate 65 mm/Hr High 0-19 Nuclear AB 11/09/2018 [facility] Nuclear Ab Positive Abnormal 17 (Nat) By Ifa [address] (Nat) by Ifa, 1:[address] [place] [address] IgG [phone] Nat Titer: 1:1280 Nat Pattern: Speckled 18 Laboratory test 11/09/2018 [facility] Cyclic Citrullinated < 15.6 U [address] [place] [address] [phone] Rheumatoid Factor 10 IU/mL Normal <15 Lyme Screen W/ Reflex To WB Negative Negative MMRV Immune 08/15/2018 [facility] Rubella Screen Immune Immune Status Profile, [address] [place] [address] [phone] Rubeola Measles 08/15/2018 [facility] Rubeola Negative [address] (Measles) [place] [address] Antibody [phone] Rubeola IgG Antibody Index 0.5 21 Mumps Igg 08/15/2018 [facility] Mumps Virus IgG Antibody Positive [address] [place] [address] [phone] Mumps IgG Antibody Index 1.6 23 Varicella 08/15/2018 [facility] Varicella-Zoster IgG Positive 24 Zoster Igg AB [address] [place] [address] [phone] Varicella IgG Antibody Index 7.[address]arer: [id number] Suboptimal collection technique may reduce sensitivity of test. Refer to the [facility] Test Catalog for collection information: [email or web address] As with all diagnostic procedures, the laboratory results obtained should be used in conjunction with other clinical information available to the physician, including confirmation by another method, as applicable. [address]arer: [id number] 3 Total 25-Hydroxyvitamin D2 and D3 (25-OH-VitD) <10 ng/mL (severe deficiency) 10-19 ng/mL (mild to moderate deficiency) 20-50 ng/mL (optimum levels) 51-80 ng/mL (increased risk of hypercalciuria) >80 ng/mL (toxicity possible) 4 REFERENCE VALUE <4.0 (Negative) Test Performed by: [place] [address] Supervisor Maintenance And Custodians: Jairon Piper M.D. Ph.D.; CLIA# [id number] 5 Negative serology. Celiac disease unlikely. However, approximately 10% of patients with celiac disease are seronegative. Also, patients who are already adhering to a gluten-free diet may be seronegative. If celiac disease is highly clinically suspected, consider HLA-DQ typing. Test Performed by: [place] [address] Supervisor Maintenance And Custodians: Jairon Piper M.D. Ph.D.; CLIA# [id number] 6 M. tuberculosis infection NOT likely 7 RESULT: No apparent monoclonal protein on serum electrophoresis. Test Performed by: [place] [address] Supervisor Maintenance And Custodians: Jairon Piper M.D. Ph.D.; CLIA# [id number] 8 Test Performed by: [place] [address] Supervisor Maintenance And Custodians: Jairon Piper M.D. Ph.D.; CLIA# [id number] 9 Test Performed by: [place] [address] Supervisor Maintenance And Custodians: Jairon Piper M.D. Ph.D.; CLIA# [id number] 10 REFERENCE VALUE <1.0 (Negative) 11 REFERENCE VALUE <1.0 (Negative) 12 Interpretation: Positive (>=1.0) REFERENCE VALUE <1.0 (Negative) 13 Interpretation: Positive (>=1.0) REFERENCE VALUE <1.0 (Negative) 14 REFERENCE VALUE <1.0 (Negative) 15 REFERENCE VALUE <1.0 (Negative) Test Performed by: [address] [id number] [place] [address] Supervisor Maintenance And Custodians: Jairon Piper M.D. Ph.D.; [facility]# [id number] 16 Because ethnic data is not always [...] 5 Kidney failure <15 (or dialysis) 17 REFERENCE VALUE <1:80 (Negative) 18 Test Performed by: [facility] [place] [address] Supervisor Maintenance And Custodians: Jairon Piper M.D. Ph.D.; CLIA# [id number] 19 REFERENCE VALUE <20.0 (Negative) Test Performed by: [facility] [place] [address] Supervisor Maintenance And Custodians: Jairon Piper M.D. Ph.D.; CLIA# [id number] 20 REFERENCE VALUE Vaccinated: Positive (>=1.1 AI) Unvaccinated: Negative (<=0.8 AI) 21 Test Performed by: [facility] [place] [address] 22 Results suggest response to immunization or prior exposure to the virus. REFERENCE VALUE Vaccinated: Positive (>=1.1 AI) Unvaccinated: Negative (<=0.8 AI) 23 Test Performed by: [place] [address] 24 Results suggest response to immunization or prior exposure to the virus. REFERENCE VALUE Vaccinated: Positive (>=1.1 AI) Unvaccinated: Negative (<=0.8 AI) 25 Test Performed by: [place] [address] Procedures Description No Information Available Medical Devices Description No Information Available Encounters Type Date Location Provider Dx Diagnosis Office Visit 12/28/2018 [facility] Ilya Lizett, POLICE PATROL OFFICER R09.81 Nasal [facility] S[facility]A Strain of muscle, fascia and tendon of right hip, init Office Visit 12/14/2018 Rheumatology Ranjan M32.9 Systemic lupus 9:00a [facility] Rinaldi MD erythematosus, Ccmob unspecified Z79.52 manager terminal (current) use of systemic steroids Z79.899 Other correction (current) drug therapy Office Visit 12/14/2018 8:40a [facility] Internal Nhung Sutton, F32.9 Major depressive Medicine - [facility] MD disorder, single episode, unspecified F17.210 Nicotine dependence, cigarettes, uncomplicated E03.9 Hypothyroidism, unspecified M06.4 Inflammatory polyarthropathy Office Visit 11/20/2018 10:00a Rheumatology Ranjan R76.0 Raised antibody [facility] M[facility].4 Inflammatory polyarthropathy R70.0 Elevated erythrocyte sedimentation rate R79.82 Elevated C-reactive protein (CRP) Office Visit 11/09/2018 10:20a [facility] Ilya Phoenix, M25.50 [facility] [employer] OFFICER unspecified joint M79.18 Myalgia, other site R53.83 Other fatigue Assessments Date Code Description Provider 01/25/2019 M32.9 Systemic lupus erythematosus, unspecified Ranjan Rinaldi MD 01/25/2019 M70.62 Trochanteric bursitis, left hip Ranjan Rinaldi MD 01/16/2019 Z00.00 Encounter for general adult medical Nhung Sutton MD examination without abnormal findings 01/16/2019 Z12.4 Encounter for screening for malignant neoplasm Nhung Sutton MD of cervix 01/16/2019 Z23 Encounter for immunization Nhung Sutton MD 12/28/2018 R09.81 Nasal congestion Ilya Phoenix NP 12/28/2018 S76.011A Strain of muscle, fascia and tendon of right Ilya Phoenix POLICE PATROL OFFICER hip, initial encounter 12/14/2018 F32.9 Major depressive disorder, single episode, Nhung Sutton MD unspecified 12/14/2018 M32.9 Systemic lupus erythematosus Ranjan Rinaldi MD 12/14/2018 Z79.52 manager terminal (current) use of systemic steroids Ranjan Rinaldi MD 12/14/2018 F17.210 Nicotine dependence, cigarettes, uncomplicated Nhung Sutton MD 12/14/2018 Z79.899 Other correction (current) drug therapy Ranjan Rinaldi MD 12/14/2018 E03.9 Hypothyroidism, unspecified Nhung Sutton MD 12/14/2018 M06.4 Inflammatory polyarthropathy Nhung Sutton MD 11/20/2018 R76.0 Raised antinuclear antibody Ranjan Rinaldi MD 11/20/2018 M06.4 Inflammatory polyarthropathy Ranjan Rinaldi MD 11/20/2018 R70.0 Esr raised Ranjan Rinaldi MD 11/20/2018 R79.82 Elevated C-reactive protein Ranjan Rinaldi MD 11/09/2018 M25.50 Pain in unspecified joint Ilya Lizett, POLICE [employer]OL OFFICER 11/09/2018 M79.18 Myalgia, other site Ilya Lizett, POLICE [employer]ROL OFFICER 11/09/2018 R53.83 Other fatigue Ilya Lizett, POLICE PATROL OFFICER 08/25/2018 Z23 Encounter for immunization Nurse Visit A 08/18/2018 Z11.1 Encounter for screening for respiratory Nurse Visit A tuberculosis 08/15/2018 Z11.1 Encounter for screening for respiratory Nhung Sutton MD tuberculosis Plan of Treatment Future Appointment(s):03/08/2019 8:00 am - Ranjan Rinaldi MD at [facility]/25/2019 - Ranjan Rinaldi, MDM32.9 Systemic lupus erythematosus, unspecifiedNew Medication:Prednisone 5 mg - Take two tabs by mouth daily until 02/03, then take 5mg plus 4 1mg tabs (9mg daily) for two weeks , 8mg daily for 2 weeksPrednisone 1 mg - take in combination with 5mg tab to take total 9mg daily for 2 weeks, 8mg daily for 2 weeksFollow up:6 gldvuX08.62 Trochanteric bursitis, left hip Functional Status Description No Information Available Mental Status Description No Information Available Referrals Refer to Dr Reason for Referral Status Appt Date Brando Villela MD Plaquenil started for new SLE diagnosis; Sent please eval with baseline plaquenil eye screen. [address] [place] [address] [phone] Gentry Woodruff MD Sent 11/20/2018 [address], [place] [address] [phone]
[2019-02-08 14:44] VITALS: BP 103/69
--- NOTE | 2019-02-08 14:56 | UC ---
Throat Pain/Nasal Jalil HPI - HPI Summary HPI Summary: Pt presents with c/o nasla congestion, sinus pressure and pain, MOHAN, fatigue, X 5 days. - History of Current Complaint Chief Complaint: UCGeneralIllness Stated Complaint: COUGH, CONGESTION, VOMITING Time Seen by Provider: 02/08/19 14:52 Hx Obtained From: Patient Hx Last Menstrual Period: hyster ?: No Onset/Duration: Gradual Onset, Lasting Days, Still Present, Worse Since - onset Severity: Moderate Pain Intensity: 6 Cough: Nonproductive Associated Signs & Symptoms: Positive: Sinus Discomfort Related History: Smoking - Epiglottits Risk Factors Epiglottis Risk Factors: Negative - Allergies/Home Medications Allergies/Adverse Reactions: Allergies Allergy/AdvReac Type Severity Reaction Status Date / Time Penicillins Allergy Severe Anaphylatic Verified 02/08/19 14:37 Shock amoxicillin Allergy Intermediate Rash Verified 02/08/19 14:37 doxycycline Allergy Hives Verified 02/08/19 14:37 PMH/Surg Hx/FS Hx/Imm Hx Previously Healthy: Yes Respiratory History: Asthma - Surgical History Surgical History: Yes Surgery Procedure, Year, and Place: thyroidectomy 2008,. tubal ligation-2006,. hysterectomy 2008. Cholecystectomy 2012. bilateral carpal tunnel release. septoplasty 11/2018 - Family History Known Family History: Positive: Cardiac Disease - grandparents, Hypertension, Diabetes - mother, Other - HLD - Social History Occupation: Employed Full-time Lives: With Family Alcohol Use: None Substance Use Type: None Substance Use Comment - Amount & Last Used: clean 3 years Smoking Status (MU): Former Smoker Type: Cigarettes Amount Used/How Often: SMOKING 3 CIGS A DAY USING PATCH SO HAVE CUT DOWN ON SMOKING Length of Time of Smoking/Using Tobacco: Since Age 16 Have You Smoked in the Last Year: Yes When Did the Patient Quit Smoking/Using Tobacco: 11/28/18 Household Exposure Type: Cigarettes - Immunization History Most Recent Influenza Vaccination: 01/05/17 Most Recent Tetanus Shot: had it, but is unsure on what year - she thinks 3 yrs ago. Most Recent Pneumonia Vaccination: 2010 Review of Systems All Other Systems Reviewed And Are Negative: Yes Constitutional: Positive: Chills, Fatigue Skin: Positive: Negative Eyes: Positive: Negative ENT: Positive: Nasal Discharge, Sinus Congestion, Sinus Pain/Tenderness Respiratory: Positive: Cough Cardiovascular: Positive: Negative Gastrointestinal: Positive: Negative Genitourinary: Positive: Negative Motor: Positive: Negative Neurovascular: Positive: Negative Musculoskeletal: Positive: Negative Neurological: Positive: Headache Psychological: Positive: Negative Is Patient Immunocompromised?: No Physical Exam Triage Information Reviewed: Yes Appearance: Ill-Appearing Vital Signs: Initial Vital Signs Temp 96.8 F 02/08/19 14:39 Pulse 89 02/08/19 14:39 Resp 18 02/08/19 14:39 BP 103/69 02/08/19 14:39 Pulse Ox 100 02/08/19 14:39 Vital Signs Reviewed: Yes Eye Exam: Normal ENT: Positive: Nasal congestion, TM bulging, Sinus tenderness Dental Exam: Normal Neck exam: Normal Respiratory Exam: Normal Cardiovascular Exam: Normal Musculoskeletal Exam: Normal Neurological Exam: Normal Psychological Exam: Normal Skin Exam: Normal Throat Pain/Nasal Course/Dx - Differential Dx/Diagnosis Differential Diagnosis/HQI/PQRI: Influenza, Sinusitis, URI Provider Diagnosis: Sinusitis Discharge ED - Sign-Out/Discharge Documenting (check all that apply): Patient Departure All imaging exams completed and their final reports reviewed: No Studies - Discharge Plan Condition: Stable Disposition: HOME Prescriptions: Clindamycin Cap(NF) [Clindamycin Cap 300 mg Cap(NF)] 300 mg PO Q8H #21 cap Guaifenesin/Pseudoephedrne HCl [Mucinex D ER 600-60 mg Tablet] 1 each PO Q12H # 14 tab.er.12h Patient Education Materials: Sinusitis (ED) Referrals: Nhung Sutton MD [Primary Care Provider] - If Needed - Billing Disposition and Condition Condition: STABLE Disposition: Home
== END 2019-02-08 15:06 | disposition home or self-care (01) ==
LOC: UCCORT 12:59
DX: J32.9 Chronic sinusitis, unspecified (principal); R53.83 Other fatigue; Z88.0 Allergy status to penicillin; Z88.1 Allergy status to other antibiotic agents; Z87.891 Personal history of nicotine dependence
CPT/HCPCS: 99212; G0463

== ENCOUNTER 2019-02-14 14:08 | Emergency (ER) | payer OTHER ==
[2019-02-14 14:50] VITALS: BP 112/60
--- NOTE | 2019-02-14 15:11 | UC ---
Throat Pain/Nasal Jalil HPI - HPI Summary HPI Summary: 38-year-old female with history of lupus and asthma presents with complaints of persistent nasal congestion with sinus pain and pressure. Associated with thick green nasal discharge. She was seen at this facility on 02/08/2018 for same complaints and treated with a 7 day course of clindamycin for an acute sinus infection. States she has completed the entire course of clindamycin with no improvement in symptoms. States she has also been taking Mucinex without improvement. States over the last 2-3 days she is developed a nonproductive cough and has had some increased shortness of breath especially when climbing stairs. She is using her albuterol inhaler 2-3 times a day. She is presently on prednisone 9 mg daily for her Lupus. Denies fever, chest pain, abdominal pain, nausea, vomiting, or diarrhea. - History of Current Complaint Chief Complaint: UCRespiratory Stated Complaint: COUGH Time Seen by Provider: 02/14/19 14:48 Hx Obtained From: Patient Hx Last Menstrual Period: hyster Pain Intensity: 3 - Allergies/Home Medications Allergies/Adverse Reactions: Allergies Allergy/AdvReac Type Severity Reaction Status Date / Time Penicillins Allergy Severe Anaphylatic Verified 02/14/19 14:37 Shock amoxicillin Allergy Intermediate Rash Verified 02/14/19 14:37 doxycycline Allergy Hives Verified 02/14/19 14:37 Home Medications: Home Medications Acetaminophen [Pain Relief Extra Strength] 500 mg PO PRN 02/14/19 [History] PMH/Surg Hx/FS Hx/Imm Hx - Additional Past Medical History Additional PMH: Lupus Endocrine History: Thyroid Disease Respiratory History: Asthma Psychological History: Anxiety, Bipolar Disorder, Post Traumatic Stress Disorder - Surgical History Surgical History: Yes Surgery Procedure, Year, and Place: thyroidectomy 2008,. tubal ligation-2006,. hysterectomy 2008. Cholecystectomy 2012. bilateral carpal tunnel release. septoplasty 11/2018 - Family History Known Family History: Positive: Cardiac Disease - grandparents, Hypertension, Diabetes - mother, Other - HLD - Social History Occupation: Employed Full-time Lives: With Family Alcohol Use: None Substance Use Type: None Substance Use Comment - Amount & Last Used: clean 3 years Smoking Status (MU): Former Smoker Type: Cigarettes Amount Used/How Often: SMOKING 3 CIGS A DAY USING PATCH SO HAVE CUT DOWN ON SMOKING Length of Time of Smoking/Using Tobacco: Since Age 16 Have You Smoked in the Last Year: Yes When Did the Patient Quit Smoking/Using Tobacco: 11/28/18 Household Exposure Type: Cigarettes - Immunization History Most Recent Influenza Vaccination: 01/05/17 Most Recent Tetanus Shot: had it, but is unsure on what year - she thinks 3 yrs ago. Most Recent Pneumonia Vaccination: 2010 Review of Systems All Other Systems Reviewed And Are Negative: Yes Constitutional: Positive: Fatigue. Negative: Fever, Chills Skin: Negative: Rash Eyes: Negative: Drainage, Eye Redness ENT: Positive: Nasal Discharge, Sinus Congestion, Sinus Pain/Tenderness. Negative: Sore Throat, Ear Ache Respiratory: Positive: Shortness Of Breath, Cough Cardiovascular: Negative: Palpitations, Chest Pain Gastrointestinal: Negative: Abdominal Pain, Vomiting, Diarrhea, Nausea Genitourinary: Positive: Negative Musculoskeletal: Positive: Negative Neurological: Positive: Negative Is Patient Immunocompromised?: No Physical Exam - Summary Physical Exam Summary: GENERAL APPEARANCE: Alert and cooperative obese female who appears to be in no acute distress. EYES: Conjunctiva clear. No drainage. EARS: External auditory canals and tympanic membranes clear, hearing grossly intact. NOSE: Moderate nasal congestion. No nasal discharge. Maxillary sinus tenderness. THROAT: Pharyngeal cobblestoning. No tonsilar inflammation, swelling, exudate, or lesions. Uvula midline. NECK: Neck supple, non-tender without lymphadenopathy. CARDIAC: Normal S1 and S2. No S3, S4 or murmurs. Rhythm is regular. There is no peripheral edema, cyanosis or pallor. Extremities are warm and well perfused. Capillary refill is less than 2 seconds. Peripheral pulses intact. LUNGS: Clear to auscultation without rales, rhonchi, wheezing or diminished breath sounds. Cough not observed. ABDOMEN: Positive bowel sounds. Soft, nondistended, nontender. No guarding or rebound. No masses or hepatosplenomegally. MUSKULOSKELETAL: ROM intact to all extremities. No joint erythema or tenderness. Normal muscular development. Normal gait. SKIN: Skin normal color, texture and turgor with no lesions or eruptions. Triage Information Reviewed: Yes Vital Signs: Initial Vital Signs Temp 97.9 F 02/14/19 14:42 Pulse 90 02/14/19 14:42 Resp 20 02/14/19 14:42 BP 112/60 02/14/19 14:42 Pulse Ox 98 02/14/19 14:42 Vital Signs Reviewed: Yes Throat Pain/Nasal Course/Dx - Course Course Of Treatment: 38-year-old female with history of lupus and asthma presents with complaints of persistent nasal congestion with sinus pain and pressure. Associated with thick green nasal discharge. She was seen at this facility on 02/08/2018 for same complaints and treated with a 7 day course of clindamycin for an acute sinus infection. States she has completed the entire course of clindamycin with no improvement in symptoms. States she has also been taking Mucinex without improvement. States over the last 2-3 days she is developed a nonproductive cough and has had some increased shortness of breath especially when climbing stairs. She is using her albuterol inhaler 2-3 times a day. She is presently on prednisone 9 mg daily for her Lupus. Denies fever, chest pain, abdominal pain, nausea, vomiting, or diarrhea. Afebrile. Vital signs stable. Patient hand minor nasal congestion, maxillary sinus tenderness, normal TMs, pharyngeal cobblestoning without tonsillar swelling or exudate, no cervical lymphadenopathy , clear bilateral breath sounds, and otherwise unremarkable exam. Discussed with patient with her persistent symptoms we will treat her with a second course of clindamycin 3 mg 3 times a day 7 days for a persistent sinusitis. Have recommended saline rinses and a fluticasone nasal spray in addition to the antibiotics. She is to follow-up with her primary care provider in 3 days for recheck of symptoms. Anticipatory guidance and warning symptoms were reviewed with the patient. Verbalizes understanding and agrees with plan of care. - Differential Dx/Diagnosis Differential Diagnosis/HQI/PQRI: Sinusitis, URI, Other - Pneumonia Provider Diagnosis: Sinusitis Discharge ED - Sign-Out/Discharge Documenting (check all that apply): Patient Departure All imaging exams completed and their final reports reviewed: No Studies - Discharge Plan Condition: Stable Disposition: HOME Prescriptions: Clindamycin Cap(NF) [Clindamycin Cap 300 mg Cap(NF)] 300 mg PO Q8H #21 cap Fluticasone NASAL SPRAY 50MCG* [Flonase NASAL SPRAY 50MCG*] 2 spray BOTH NARES DAILY #1 btl Patient Education Materials: Sinusitis (ED) Referrals: Nhung Sutton MD [Primary Care Provider] - 3 Days (Follow up in 3 days for recheck of symptoms.) Additional Instructions: Your history and exam are consistent with a sinus infection. Since your symptoms are persisting we will treat you with another course of antibiotics. Take clindamycin 300 mg three times a day for 7 days. Use a saline rinse kit such as Neti Pot or NeilMed at least twice a day to help thin secretions and promote drainage of the sinuses. Use fluticasone (Flonase) nasal spray 2 sprays each nostril once daily. Run a cold mist humidifier in your room at night. Continue to use your albuterol inhaler as directed for shortness of breath or wheezing. Take over the counter acetaminophen (Tylenol) according to directions as needed for pain or fever. Follow up with your primary care provider in 3 days for a recheck of your symptoms. Seek immediate medical attention in the emergency room if you have fever greater than 100.5 F despite taking acetaminophen, have chest pain, difficulty breathing, are unable to swallow, or have any worsening of symptoms. - Billing Disposition and Condition Condition: STABLE Disposition: Home - Attestation Statements Provider Attestation: Per institutional requirements, I have reviewed the chart, however, I was not consulted specifically or made aware of this patient by the midlevel provider. I did not personally evaluate, interact with , or disposition this patient.
== END 2019-02-14 15:33 | disposition home or self-care (01) ==
LOC: UCCORT 14:08
DX: J32.0 Chronic maxillary sinusitis (principal); J45.909 Unspecified asthma, uncomplicated; M32.9 Systemic lupus erythematosus, unspecified; Z88.0 Allergy status to penicillin; Z88.1 Allergy status to other antibiotic agents; Z87.891 Personal history of nicotine dependence
CPT/HCPCS: 99212; G0463

== ENCOUNTER 2022-07-22 11:04 | Observation (INO) ==
[2022-07-22] MEDS ORDERED: Lactated Ringers 1000 ml BAG 1,000 ML IV ONE ×3 (11:09→16:08)
[2022-07-22 11:33] LABS: ABS Eosinophils 0.4 10^3/uL (0.0-0.5); ABS Lymphocytes 1.1 10^3/uL (1.0-4.8); ABS Monocytes 0.4 10^3/uL (0.0-0.9); ABS Neutrophils 14.3 10^3/uL (1.5-7.6); ABS Nucleated RBC 0.01 10^3/ul; Eosinophil % 2.7 %; Hematocrit 41.1 % (35-45); Hemoglobin 13.9 g/dL (11.5-14.3); Lymphocyte % 6.8 %; Mean Corpuscular Hemoglobin 29.3 pg (27-33); Mean Corpuscular Hgb Conc 33.8 g/dL (31-36); Mean Corpuscular Volume 86.7 fL (80-97); Mean Platelet Volume 9.3 fL (7.5-11.2); Nucleated Red Blood Cells % 0.1 /100 WBC (0.0-0.4); Platelet Count 350 10^3/uL (150-450); Red Blood Count 4.74 10^6/uL (3.63-4.92); Red Cell Distribution Width 14.2 % (12-17); White Blood Count 16.2 10^3/uL (3.8-11.8)
[2022-07-22 11:52] LABS: ALT 172 U/L (7-52); AST 197 U/L (13-39); Albumin 3.6 g/dL (3.2-5.2); Albumin/Globulin Ratio 1.1 (1-3); Alkaline Phosphatase 169 U/L (35-149); Anion Gap 9 mmol/L (2-16); Blood Urea Nitrogen 8 mg/dL (6-24); C Reactive Protein 66.24 mg/L (<8.01); CO2 Carbon Dioxide 23 mmol/L (22-32); Calcium 7.9 mg/dL (8.6-10.3); Chloride 104 mmol/L (101-111); Creatinine, Serum 0.85 mg/dL (0.51-0.95); Globulin 3.4 g/dL (2-4); Glucose 125 mg/dL (70-100); Lipase < 10 U/L (11.0-82.0); Magnesium 1.2 mg/dL (1.9-2.7); Potassium 3.2 mmol/L (3.5-5.0); Sodium 136 mmol/L (135-145); eGFR CKD-EPI 88.8 (>60)
[2022-07-22] MEDS ORDERED: Magnesium Sulfate 2 gm BAG 2 GM/50 ML BAG IVPB ONE ×2 (12:04→15:54)
[2022-07-22] MEDS ORDERED: Iodixanol (CONTRAST) 320 MG/ML 100 ML SDV IV ONE (14:00)
[2022-07-22] MEDS ORDERED: Adenosine 3 MG/ML 2 ml VIAL (6 mg) IV PUSH ONE ×2 (14:55→15:26)
[2022-07-22] MEDS ORDERED: Adenosine 3 MG/ML 2 ml VIAL (6 mg) ONE (15:17)
[2022-07-22] MEDS ORDERED: Potassium EFFERVES 25 meq TAB PO ONE (16:08)
[2022-07-22] MEDS ORDERED: Enoxaparin 40 MG/0.4 ML SYR SUBCUT SCH (17:00)
[2022-07-22] MEDS ORDERED: Albuterol HFA INHALER 8 gm MDI INH PRN (17:08)
[2022-07-22] MEDS ORDERED: Lactated Ringers 1000 ml BAG 1,000 ML IV SCH (18:00)
[2022-07-22 20:31] LABS: Alcohol, S < 13 mg/dL (<13)
[2022-07-22 20:46] LABS: TSH Ultra Thyroid Stim Horm 0.46 mcIU/mL (0.34-5.60)
[2022-07-22 20:59] LABS: Hepatitis B Surface Antigen Nonreactive (Nonreactive)
[2022-07-22 21:05] LABS: Hepatitis A Ab IgM Negative (Negative); Hepatitis B Core IgM Nonreactive (Nonreactive)
[2022-07-22 21:17] LABS: Hepatitis C Antibody Negative (Negative)
[2022-07-22] MEDS: CMC:FLUTICAS/UMECLI/VILANT 200-62.5-25 MDI (NF) INH SCH (22:48)
[2022-07-23 02:21] LABS: Urine Benzodiazepine Screen None Detected (None Detect); Urine Cannabinoids Screen None Detected (None Detect); Urine Opiates Screen None Detected (None Detect)
[2022-07-23 02:25] LABS: Urine Appearance Cloudy; Urine Bilirubin Negative (Negative); Urine Blood Negative (Negative); Urine Color Yellow; Urine Glucose Negative (Negative); Urine Ketones Negative (Negative); Urine Nitrite Negative (Negative); Urine Protein Negative (Negative); Urine Urobilinogen Negative (Negative)
[2022-07-23 06:02] LABS: ABS Eosinophils 0.9 10^3/uL (0.0-0.5); ABS Lymphocytes 3.5 10^3/uL (1.0-4.8); ABS Neutrophils 16.1 10^3/uL (1.5-7.6); ABS Nucleated RBC 0.05 10^3/ul; Lymphocyte % 16.2 %; Mean Corpuscular Hgb Conc 33.4 g/dL (31-36); Mean Corpuscular Volume 86.8 fL (80-97); Mean Platelet Volume 9.1 fL (7.5-11.2); Nucleated Red Blood Cells % 0.2 /100 WBC (0.0-0.4); Platelet Count 335 10^3/uL (150-450); Red Blood Count 4.15 10^6/uL (3.63-4.92); White Blood Count 21.5 10^3/uL (3.8-11.8)
[2022-07-23 06:20] LABS: Albumin 3.6 g/dL (3.2-5.2); Albumin/Globulin Ratio 1.1 (1-3); Calcium 8.5 mg/dL (8.6-10.3); Creatinine, Serum 0.77 mg/dL (0.51-0.95); Globulin 3.3 g/dL (2-4); Magnesium 2.2 mg/dL (1.9-2.7); Potassium 2.9 mmol/L (3.5-5.0); Total Bilirubin 0.6 mg/dL (0.2-1.0); Total Protein 6.9 g/dL (6.4-8.9); eGFR CKD-EPI 99.9 (>60)
[2022-07-23] MEDS: Potassium Chloride LIQUID 20 MEQ/15 ML LIQUID PO ONE ×2 (07:48→07:54)
[2022-07-23 07:51] LABS: C Reactive Protein 141.16 mg/L (<8.01)
[2022-07-23] MEDS: CMC:FLUTICAS/UMECLI/VILANT 200-62.5-25 MDI (NF) INH SCH (08:07)
[2022-07-23] MEDS ORDERED: Potassium Chlor 20 meq TAB.ER PO ONE ×2 (08:30→12:30)
[2022-07-23] MEDS ORDERED: Potassium EFFERVES 25 meq TAB PO ONE ×3 (08:54→13:00)
[2022-07-23] MEDS ORDERED: Fluticasone NASAL SPRAY 50MCG 16 gm SPRAY BTL INTRANASAL SCH (09:00)
[2022-07-23 10:46] VITALS: BP 106/46
[2022-07-24 14:12] LABS: Adenovirus F40/41 Negative (Negative); Astrovirus Negative (Negative); Cryptosporidium species Negative (Negative); Cyclospora cayetanensis Negative (Negative); Entamoeba histolytica Negative (Negative); Enteroaggregative E.coli(EAEC) Negative (Negative); Enteropathogenic Ecoli(EPEC) Negative (Negative); Enterotoxigenic Ecoli(ETEC) Negative (Negative); Norovirus GI/GII Positive (Negative); Plesiomonas shigelloides Negative (Negative); Salmonella species Negative (Negative); Sapovirus Negative (Negative); Shiga toxin producing E. coli Negative (Negative); Shigella/Enteroinvasive E.coli Negative (Negative); Specimen Source STOOL; Vibrio cholerae Negative (Negative); Yersinia species Negative (Negative)
== END 2022-07-23 12:45 | disposition left against medical advice (07) ==
LOC: ED 11:04 → EDHOLD 11:04 → MEDTELE 17:44
PROVIDERS: ADMIT Internal Medicine; ATTEND Internal Medicine

== ENCOUNTER 2023-12-06 19:21 | Observation (INO) ==
[2023-12-06] MEDS: Lactated Ringers SEPSIS* BAG 1,430 ML IV ONE (20:28)
[2023-12-06 20:41] LABS: ABS Basophils 0.2 10^3/uL (0.0-0.1); ABS Eosinophils 0.5 10^3/uL (0.0-0.5); ABS Lymphocytes 2.4 10^3/uL (1.0-4.8); ABS Monocytes 1.2 10^3/uL (0.0-0.9); ABS Neutrophils 17.8 10^3/uL (1.5-7.6); Eosinophil % 2.1 %; Hematocrit 41.6 % (35-45); Hemoglobin 13.4 g/dL (11.5-14.3); Lymphocyte % 10.9 %; Mean Corpuscular Hemoglobin 25.8 pg (27-33); Mean Corpuscular Hgb Conc 32.3 g/dL (31-36); Mean Platelet Volume 9.2 fL (7.5-11.2); Platelet Count 418 10^3/uL (150-450); Red Cell Distribution Width 16.1 % (12-17); White Blood Count 22.1 10^3/uL (3.8-11.8)
[2023-12-06] MEDS: Iodixanol 320 (CONTRAST) 100 ML SDV IV ONE (20:41)
[2023-12-06 21:15] LABS: Albumin/Globulin Ratio 1.5 (1-3); Calcium 8.3 mg/dL (8.6-10.3); Creatinine, Serum 0.88 mg/dL (0.51-0.95); Globulin 2.7 g/dL (2-4); Potassium 3.4 mmol/L (3.5-5.0); Total Bilirubin 0.7 mg/dL (0.2-1.0); Total Protein 6.7 g/dL (6.4-8.9); eGFR CKD-EPI 84.6 (>60)
[2023-12-06] MEDS: Ciprofloxacin 400mg IVPREMIX 400 MG/200 ML BAG IVPB ONE (23:28)
[2023-12-07] MEDS ORDERED: Albuterol/Ipratropium NEB.SOL (2.5/0.5 MG) 3 ML NEB.SOLN INH PRN (00:32)
[2023-12-07] MEDS ORDERED: Albuterol HFA INHALER 8 gm MDI INH PRN (00:32)
[2023-12-07] MEDS ORDERED: FEXOFENADINE 180 MG PO PRN (00:32)
[2023-12-07] MEDS: metroNIDAZOLE IV 500 MG/100ML 500 MG/100 ML BAG IVPB ONE (01:16)
[2023-12-07 01:18] LABS: C Reactive Protein 174.82 mg/L (<8.01)
[2023-12-07] MEDS ORDERED: Morphine 2 MG/ML SYRINGE IV PRN (01:23)
[2023-12-07] MEDS ORDERED: Dextrose 50% Syringe 50 ml 25 GM/50 ML SYRINGE IV PUSH PRN (01:26)
[2023-12-07] MEDS: cefTRIAXone 2 gm/50 mL D5W 2 GM/50 ML BAG IV SCH (02:23)
[2023-12-07] MEDS: KCL 10 MEQ/50 ML IVPREMIX 10 MEQ/50 ML BAG IV SCH (03:12)
[2023-12-07] MEDS: Enoxaparin 40 MG/0.4 ML SYR SUBCUT SCH (03:25)
[2023-12-07 06:10] LABS: ABS Basophils 0.1 10^3/uL (0.0-0.1); ABS Eosinophils 0.5 10^3/uL (0.0-0.5); ABS Lymphocytes 1.8 10^3/uL (1.0-4.8); ABS Monocytes 0.8 10^3/uL (0.0-0.9); ABS Nucleated RBC 0.01 10^3/ul; Eosinophil % 3.4 %; Hematocrit 39.3 % (35-45); Hemoglobin 12.9 g/dL (11.5-14.3); Lymphocyte % 12.6 %; Mean Corpuscular Hemoglobin 26.2 pg (27-33); Mean Corpuscular Hgb Conc 32.9 g/dL (31-36); Mean Corpuscular Volume 79.7 fL (80-97); Mean Platelet Volume 9.2 fL (7.5-11.2); Nucleated Red Blood Cells % 0.1 %/100WBC (0.0-0.8); Platelet Count 356 10^3/uL (150-450); Red Blood Count 4.93 10^6/uL (3.63-4.92); Red Cell Distribution Width 16.4 % (12-17); White Blood Count 14.1 10^3/uL (3.8-11.8)
[2023-12-07 06:22] LABS: Calcium 7.8 mg/dL (8.6-10.3); Creatinine, Serum 0.79 mg/dL (0.51-0.95); Magnesium 1.8 mg/dL (1.9-2.7); Potassium 3.6 mmol/L (3.5-5.0); eGFR CKD-EPI 96.3 (>60)
[2023-12-07] MEDS: Lactated Ringers 1000 ml BAG 1,000 ML IV SCH (07:35)
[2023-12-07] MEDS: metroNIDAZOLE IV 500 MG/100ML 500 MG/100 ML BAG IVPB SCH (07:35)
[2023-12-07] MEDS: CMCS: Vortioxetine 10 mg TAB (NF) PO SCH (07:48)
[2023-12-07] MEDS: CMCS: FLUTICAS/UMECLI/VILANT 200-62.5-25 MDI (NF) INH SCH (08:30)
[2023-12-07] MEDS: Fluticasone NASAL SPRAY 50MCG 16 gm SPRAY BTL INTRANASAL SCH (08:30)
[2023-12-07 17:28] VITALS: BP 109/60
[2023-12-08] MEDS ORDERED: cefTRIAXone 2 gm/50 mL D5W 2 GM/50 ML BAG IV SCH (06:00)
== END 2023-12-07 19:35 | disposition home or self-care (01) ==
LOC: EDHOLD 19:21 → ED 19:21 → SUATTDRO 23:49 → EDHOLD 12-07 05:50 → MED 12-07 11:06
PROVIDERS: ADMIT Student in an Organized Health Care Education/Training Program; ATTEND Internal Medicine